=== PATIENT | female | born 1940 | race Hispanic/Latino ===

== ENCOUNTER 2022-01-02 17:34 | Emergency (ER) | payer OTHER ==
--- OUTSIDE RECORDS SUMMARY | 2022-01-02 17:45 | XMS REPORT | Continuity of Care Document ---
:1940 Author Organization [facility] t Address [address] [place] [address] Care Team Providers Name Role Phone Elizabeth WEBER, Jess Primary Care Physician Pob, Adc Lab Main Attending Clinician Unavailable Tez Drake MD Attending Clinician TEZ DRAKE Attending Clinician Unavailable Doctor Unassigned, Stafford Attending Clinician Unavailable RADIOLOGY Attending Clinician Unavailable Radiology Attending Clinician Unavailable Unknown, Attending Attending Clinician Unavailable UNKNOWN, ATTENDING Attending Clinician Unavailable Ajibade_O_AH Attending Clinician Unavailable Jessica Zhong DO Attending Clinician JESSICA ZHONG Attending Clinician Unavailable Matt Kessler RN Attending Clinician Unavailable NICKIE MARTIN Attending Clinician Unavailable Ige-Odunseveriano_J_AH Attending Clinician Unavailable ROSELIA AYALA Admitting Clinician Unavailable Ajibade_O_AH Admitting Clinician Unavailable NICKIE MARTIN Admitting Clinician Unavailable Ige-Odunseveriano_J_AH Admitting Clinician Unavailable Payers Payer Name Policy Type Policy Number Effective Date Expiration Date S [facility] [id number] 2019 [employer] 00:00:00 (MEDICARE REPLACEMENT/ADVANT AGE - HMO) Problems Condition Condition Condition Status Onset Resolution Last Treating Co mments Source Name Details Category Date Date Treatment Clinician Date ROMA (acute ROMA (acute Disease Active U reji kidney kidney 5-30 ity of injury) injury) 00:00: [place] 00 [facility] Heart Heart Disease Active [facility] failure failure 5-30 ity of 00:00: [place] 00 [facility] Pneumonia Pneumonia Disease Active 2018-02 Uni vers 2-27 ity of 00:00: [place] [facility] Dyslipidem Dyslipidem Disease Active 2018-02 U reji ia ia 0-11 ity of 00:00: [place] 00 Medical Branch HFrEF HFrEF Disease Active 2018-02 Univers (heart (heart 0-11 ity of failure failure 00:00: [place] with with 00 Medical reduced reduced Branch ejection ejection fraction) fraction) HFrEF HFrEF Disease Active 2018-02 Univers (heart (heart 0-11 ity of failure failure 00:00: [place] with with 00 Medical reduced reduced Branch ejection ejection fraction) fraction) CHF CHF Disease Active 2018-02 Univers exacerbati exacerbati 0-09 it y of on on 00:00: [place] [address] Medical Branch 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 Active 2018-02 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 00 Medica l and and Branch 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 Essential Essential Disease Active 2018-02 Uni vers hypertensi hypertensi 0-09 it y of on on 00:00: [place] 00 Medical Branch Obesity Obesity Disease Active 2018-02 Univers (BMI (BMI 0-09 ity of 30-39.9) 30-39.9) 00:00: [place] 00 Medical Branch Allergies, Adverse Reactions, Alerts Allergy Allergy Status Severity Reaction(s) Onset Inactive Treating Comm ents Source Name Type Date Date Clinician SPIRONOL DRUG Active Unknown-Cmnt 2018-02 Un neela ACTONE INGREDI 2-28 ity of 00:00: [place] 00 Medical Branch Spironol Propensi Active Unknown - 2018-02 [employer] [facility] actone ty to See comments 2-28 alexa ity of adverse 00:00: [place] reaction 00 Medical s Branch Family History Family Member Diagnosis Comments Start Date Stop Date Source Natural [facility] Social [facility] Social Habit Start Date Stop Date Quantity Comments Source Exposure to 2021-08-15 2021-08-25 Not sure [facility]-CoV-2 00:00:00 11:51:00 [facility] (event) Branch Tobacco use and 2019-02-08 2019-02-08 Smokeless tobacco Un iversity of exposure 00:00:00 00:00:00 non-user [facility] Alcohol intake 2017-02-28 2017-02-28 Current [facility] 00:00:00 00:00:00 non-drinker of alcohol (finding) Sex [birth year] [facility] 00:00:00 00:00:00 Smoking Status Start Date Stop Date Source Never smoked tobacco [facility] [place] Medications Ordered Filled Start Stop Current Ordering Indication Dosage Frequency Signature Comments Components Source Medication Medication Date Date Medication? Clinician (SIG) Name Name CARVEDILOL 2-0 No 3.125MG TAB 9-19 00:00: 00 CARVEDILOL 2-0 No 3.125MG TAB 9-19 00:00: 00 TAKE 1 2-0 No TABLET BY 8-15 MOUTH DAILY 00:00: 00 TAKE 1 2-0 No TABLET BY 8-15 MOUTH DAILY 00:00: 00 TAKE 1 2022-0 No 10 TABLET BY 7-19 MOUTH DAILY 00:00: 00 TAKE 1 2022-0 No 10 TABLET BY 7-19 MOUTH DAILY 00:00: 00 atorvastati 2022-0 No 1mg n 10 mg 7-13 tablet 00:00: 00 atorvastati 2022-0 No 1mg n 10 mg 7-13 tablet 00:00: 00 raloxifene 2022-0 No 1mg 60 mg 7-13 tablet 00:00: 00 montelukast 2022-0 No 1mg 10 mg 7-13 tablet 00:00: 00 levothyroxi 2022-0 No 1mcg ne 75 mcg 7-13 tablet 00:00: 00 TAKE 1 2022-0 No 10 TABLET BY 7-13 MOUTH DAILY 00:00: 00 atorvastati 2022-0 No 1mg n 10 mg 7-13 tablet 00:00: 00 atorvastati 2022-0 No 1mg n 10 mg 7-13 tablet 00:00: 00 raloxifene 2022-0 No 1mg 60 mg 7-13 tablet 00:00: 00 montelukast 2022-0 No 1mg 10 mg 7-13 tablet 00:00: 00 levothyroxi 2022-0 No 1mcg ne 75 mcg 7-13 tablet 00:00: 00 TAKE 1 2022-0 No 10 TABLET BY 7-13 MOUTH DAILY 00:00: 00 &lt 2022-0 No 25 7 00:00: 00 &lt 2022-0 No 100 7 00:00: 00 Dose 2022-0 No Unknown 7 00:00: 00 TAKE 2 2022-0 No 40 TABLETS BY 7-11 MOUTH TWICE 00:00: DAILY 00 &lt 2022-0 No 7 00:00: 00 TAKE 1 2-0 No 10 TABLET BY 7-11 MOUTH DAILY 00:00: 00 TAKE 1 2-0 No 60 TABLET BY 7-11 MOUTH DAILY 00:00: 00 &lt 2022-0 No 25 7 00:00: 00 &lt 2022-0 No 100 7 00:00: 00 Dose 2022-0 No Unknown 08-23 00:00: 00 TAKE 2 2-0 No 40 TABLETS BY 7-11 MOUTH TWICE 00:00: DAILY 00 &lt 2022-0 No 08-23 00:00: 00 TAKE 1 2-0 No 10 TABLET BY 7-11 MOUTH DAILY 00:00: 00 TAKE 1 2-0 No 60 TABLET BY 7-11 MOUTH DAILY 00:00: 00 &lt 2022-0 No 25 7 00:00: 00 &lt 2022-0 No 100 08-23 00:00: 00 Dose 2022-0 No Unknown 08-23 00:00: 00 TAKE 2 2022-0 No 40 TABLETS BY 7-11 MOUTH TWICE 00:00: DAILY 00 &lt 2022-0 No 7- 00:00: 00 TAKE 1 2-0 No 10 TABLET BY 7-11 MOUTH DAILY 00:00: 00 TAKE 1 2022-0 No 60 TABLET BY 7-11 MOUTH DAILY 00:00: 00 atorvastati 2022-0 No 1mg n 10 mg 6-08 tablet 00:00: 00 levothyroxi 2022-0 No 1mcg ne 75 mcg 6-08 tablet 00:00: 00 atorvastati 2022-0 No 1mg n 10 mg 6-08 tablet 00:00: 00 levothyroxi 2022-0 No 1mcg ne 75 mcg 6-08 tablet 00:00: 00 atorvastati 2022-0 No 1mg n 10 mg 6-08 tablet 00:00: 00 levothyroxi 2022-0 No 1mcg ne 75 mcg 6-08 tablet 00:00: 00 allopurinol 2022-0 No 1mg 100 mg 3-17 tablet 00:00: 00 atorvastati 2022-0 No 1mg n 10 mg 3-17 tablet 00:00: 00 allopurinol 2022-0 No 1mg 100 mg 3-17 tablet 00:00: 00 atorvastati 2022-0 No 1mg n 10 mg 3-17 tablet 00:00: 00 allopurinol 2022-0 No 1mg 100 mg 3-17 tablet 00:00: 00 atorvastati 2022-0 No 1mg n 10 mg 3-17 tablet 00:00: 00 Dose 2022-0 No Unknown 3-08 00:00: 00 Dose 2022-0 No Unknown 3-08 00:00: 00 Dose 2022-0 No Unknown 3-08 00:00: 00 Dose 2022-0 No Unknown 3-08 00:00: 00 Dose 2022-0 No Unknown 3-08 00:00: 00 Dose 2022-0 No Unknown 3-08 00:00: 00 Dose 2022-0 No Unknown 3-08 00:00: 00 Dose 2022-0 No Unknown 3-08 00:00: 00 Dose 2022-0 No Unknown 3-08 00:00: 00 Dose 2022-0 No Unknown 3-08 00:00: 00 Dose 2022-0 No Unknown 3-08 00:00: 00 Dose 2022-0 No Unknown 3-08 00:00: 00 Dose 2022-0 No Unknown 3-08 00:00: 00 Dose 2022-0 No Unknown 3-08 00:00: 00 Dose 2022-0 No Unknown 3-08 00:00: 00 Dose 2022-0 No Unknown 3-08 00:00: 00 Dose 2022-0 No Unknown 3-08 00:00: 00 Dose 2022-0 No Unknown 3-08 00:00: 00 Dose 2022-0 No Unknown 3-08 00:00: 00 Dose 2022-0 No Unknown 3-08 00:00: 00 Dose 2022-0 No Unknown 3-08 00:00: 00 Dose 2022-0 No Unknown 3-08 00:00: 00 Dose 2022-0 No Unknown 3-08 00:00: 00 Dose 2022-0 No Unknown 3-08 00:00: 00 Dose 2022-0 No Unknown 3-08 00:00: 00 Dose 2022-0 No Unknown 3-08 00:00: 00 Dose 2022-0 No Unknown 3-08 00:00: 00 Dose 2022-0 No Unknown 3-08 00:00: 00 Dose 2022-0 No Unknown 3-08 00:00: 00 Dose 2022-0 No Unknown 3-08 00:00: 00 Dose 2022-0 No Unknown 3-08 00:00: 00 Dose 2022-0 No Unknown 3-08 00:00: 00 Dose 2022-0 No Unknown 3-08 00:00: 00 Dose 2022-0 No Unknown 3-08 00:00: 00 Dose 2022-0 No Unknown 3-08 00:00: 00 Dose 2022-0 No Unknown 3-08 00:00: 00 Dose 2022-0 No Unknown 3-01 00:00: 00 raloxifene 2022-0 No 1mg 60 mg 3-01 tablet 00:00: 00 Dose 2022-0 No Unknown 3-01 00:00: 00 raloxifene 2022-0 No 1mg 60 mg 3-01 tablet 00:00: 00 Dose 2022-0 No Unknown 3-01 00:00: 00 raloxifene 2022-0 No 1mg 60 mg 3-01 tablet 00:00: 00 furosemide 2022-0 No 1mg 40 mg 2-17 tablet 00:00: 00 furosemide 2022-0 No 1mg 40 mg 2-17 tablet 00:00: 00 furosemide 2022-0 No 1mg 40 mg 2-17 tablet 00:00: 00 montelukast 2022-0 No 1mg 10 mg 1-06 tablet 00:00: 00 montelukast 2022-0 No 1mg 10 mg 1-06 tablet 00:00: 00 montelukast 2022-0 No 1mg 10 mg 1-06 tablet 00:00: 00 metoprolol 2022-0 No 1mg succinate 1-03 ER 25 mg 00:00: tablet,exte 00 nded release 24 hr metoprolol 0 No 1mg succinate 1-03 ER 25 mg 00:00: tablet,exte 00 nded release 24 hr metoprolol 0 No 1mg succinate 1-03 ER 25 mg 00:00: tablet,exte 00 nded release 24 hr furosemide 2020-02 No 2mg 40 mg 2-30 tablet 00:00: 00 furosemide 2020-02 No 1mg 40 mg 2-30 tablet 00:00: 00 furosemide 2020-02 No 2mg 40 mg 2-30 tablet 00:00: 00 furosemide 2020-02 No 1mg 40 mg 2-30 tablet 00:00: 00 furosemide 2020-02 No 2mg 40 mg 2-30 tablet 00:00: 00 furosemide 2020-02 No 1mg 40 mg 2-30 tablet 00:00: 00 levothyroxi 2020-02 No 1mcg ne 75 mcg 2-27 tablet 00:00: 00 levothyroxi 2020-02 No 1mcg ne 75 mcg 2-27 tablet 00:00: 00 levothyroxi 2020-02 No 1mcg ne 75 mcg 2-27 tablet 00:00: 00 magnesium 2020-02 No 1mg oxide 400 1-24 magnesi mg (241.3 00:00: um) mg 00 magnesium) tablet magnesium 2020-02 No 1mg oxide 400 1-24 magnesi mg (241.3 00:00: um) mg 00 magnesium) tablet magnesium 2020-02 No 1mg oxide 400 1-24 magnesi mg (241.3 00:00: um) mg 00 magnesium) tablet montelukast 2020-02 No 1mg 10 mg 1-16 tablet 00:00: 00 Dose 2020-02 No Unknown 1-16 00:00: 00 Dose 2020-02 No Unknown 1-16 00:00: 00 Dose 2020-02 No Unknown 1-16 00:00: 00 furosemide 2020-02 No 2mg 40 mg 1-16 tablet 00:00: 00 Entresto 49 2020-02 No 5mg mg-51 mg 1-16 tablet 00:00: 00 levothyroxi 2020-02 No 1mcg ne 75 mcg 1-16 tablet 00:00: 00 Flonase 2020-02 No 1mcg/ac Allergy 1-16 tuation Relief 50 00:00: mcg/actuati 00 on nasal spray,suspe nsion montelukast 2020-02 No 1mg 10 mg 1-16 tablet 00:00: 00 Dose 2020-02 No Unknown 1-16 00:00: 00 Dose 2020-02 No Unknown 1-16 00:00: 00 Dose 2020-02 No Unknown 1-16 00:00: 00 furosemide 2020-02 No 2mg 40 mg 1-16 tablet 00:00: 00 Entresto 49 2020-02 No 5mg mg-51 mg 1-16 tablet 00:00: 00 levothyroxi 2020-02 No 1mcg ne 75 mcg 1-16 tablet 00:00: 00 Flonase 2020-02 No 1mcg/ac Allergy 1-16 tuation Relief 50 00:00: mcg/actuati 00 on nasal spray,suspe nsion montelukast 2020-02 No 1mg 10 mg 1-16 tablet 00:00: 00 Dose 2020-02 No Unknown 1-16 00:00: 00 Dose 2020-02 No Unknown 1-16 00:00: 00 Dose 2020-02 No Unknown 1-16 00:00: 00 furosemide 2020-02 No 2mg 40 mg 1-16 tablet 00:00: 00 Entresto 49 2020-02 No 5mg mg-51 mg 1-16 tablet 00:00: 00 levothyroxi 2020-02 No 1mcg ne 75 mcg 1-16 tablet 00:00: 00 Flonase 2020-02 No 1mcg/ac Allergy -16 tuation Relief 50 00:00: mcg/actuati 00 on nasal spray,suspe nsion montelukast 2020-02 No 1mg 10 mg 0-13 tablet 00:00: 00 montelukast 2020-02 No 1mg 10 mg 0-13 tablet 00:00: 00 montelukast 2020-02 No 1mg 10 mg 0-13 tablet 00:00: 00 Dose 2020-0 No Unknown 9- 00:00: 00 Dose 2020-0 No Unknown 9- 00:00: 00 Dose 2020-0 No Unknown 9- 00:00: 00 allopurinol 2020-0 No 1mg 100 mg 9-10 tablet 00:00: 00 allopurinol 2021-0 No 1mg 100 mg 9-10 tablet 00:00: 00 allopurinol 2021-0 No 1mg 100 mg 9-10 tablet 00:00: 00 raloxifene 2021-0 No 1mg 60 mg 8-24 tablet 00:00: 00 atorvastati 2021-0 No 1mg n 10 mg 8-24 tablet 00:00: 00 raloxifene 2021-0 No 1mg 60 mg 8-24 tablet 00:00: 00 atorvastati 2021-0 No 1mg n 10 mg 8-24 tablet 00:00: 00 raloxifene 2021-0 No 1mg 60 mg 8-24 tablet 00:00: 00 atorvastati 2021-0 No 1mg n 10 mg 8-24 tablet 00:00: 00 furosemide 2021-0 No 2mg 40 mg 8-03 tablet 00:00: 00 furosemide 2021-0 No 2mg 40 mg 8-03 tablet 00:00: 00 furosemide 2021-0 No 2mg 40 mg 8-03 tablet 00:00: 00 furosemide 2021-0 No 1mg 40 mg 7-26 tablet 00:00: 00 furosemide 2021-0 No 2mg 40 mg 7-26 tablet 00:00: 00 furosemide 2021-0 No 1mg 40 mg 7-26 tablet 00:00: 00 furosemide 2021-0 No 2mg 40 mg 7-26 tablet 00:00: 00 furosemide 2021-0 No 1mg 40 mg 7-26 tablet 00:00: 00 furosemide 2021-0 No 2mg 40 mg 7-26 tablet 00:00: 00 raloxifene 2021-0 No 1mg 60 mg 6-24 tablet 00:00: 00 raloxifene 2021-0 No 1mg 60 mg 6-24 tablet 00:00: 00 raloxifene 2021-0 No 1mg 60 mg 6-24 tablet 00:00: 00 montelukast 2021-0 No 1mg 10 mg 6-14 tablet 00:00: 00 levothyroxi 2021-0 No 1mcg ne 75 mcg 6-14 tablet 00:00: 00 montelukast 2021-0 No 1mg 10 mg 6-14 tablet 00:00: 00 levothyroxi 2021-0 No 1mcg ne 75 mcg 6-14 tablet 00:00: 00 montelukast 2021-0 No 1mg 10 mg 6-14 tablet 00:00: 00 levothyroxi 2021-0 No 1mcg ne 75 mcg 6-14 tablet 00:00: 00 furosemide 2021-0 No 1mg 40 mg 5-24 tablet 00:00: 00 atorvastati 2021-0 No 1mg n 10 mg 5-24 tablet 00:00: 00 Entresto 49 2021-0 No 5mg mg-51 mg 5-24 tablet 00:00: 00 furosemide 2021-0 No 1mg 40 mg 5-24 tablet 00:00: 00 atorvastati 2021-0 No 1mg n 10 mg 5-24 tablet 00:00: 00 Entresto 49 2021-0 No 5mg mg-51 mg 5-24 tablet 00:00: 00 furosemide 2021-0 No 1mg 40 mg 5-24 tablet 00:00: 00 atorvastati 2021-0 No 1mg n 10 mg 5-24 tablet 00:00: 00 Entresto 49 2021-0 No 5mg mg-51 mg 5-24 tablet 00:00: 00 allopurinol 2021-0 No 1mg 100 mg 5-11 tablet 00:00: 00 allopurinol 2021-0 No 1mg 100 mg 5-11 tablet 00:00: 00 allopurinol 2021-0 No 1mg 100 mg 5-11 tablet 00:00: 00 raloxifene 2021-0 No 1mg 60 mg 4-21 tablet 00:00: 00 raloxifene 2021-0 No 1mg 60 mg 4-21 tablet 00:00: 00 raloxifene 2021-0 No 1mg 60 mg 4-21 tablet 00:00: 00 furosemide 2021-0 No 1mg 40 mg 3-26 tablet 00:00: 00 Flonase 2021-0 No 1mcg/ac Allergy 3-26 tuation Relief 50 00:00: mcg/actuati 00 on nasal spray,suspe nsion furosemide 2021-0 No 1mg 40 mg 3-26 tablet 00:00: 00 Flonase 2021-0 No 1mcg/ac Allergy 3-26 tuation Relief 50 00:00: mcg/actuati 00 on nasal spray,suspe nsion furosemide 1-0 No 1mg 40 mg 3-26 tablet 00:00: 00 Flonase 1-0 No 1mcg/ac Allergy 3-26 tuation Relief 50 00:00: mcg/actuati 00 on nasal spray,suspe nsion atorvastati 2020-0 No 1mg n 10 mg 2-19 tablet 00:00: 00 atorvastati 1-0 No 1mg n 10 mg 2-19 tablet 00:00: 00 atorvastati 1-0 No 1mg n 10 mg 2-19 tablet 00:00: 00 ProAir HFA 1-0 No 1mcg/ac 90 2-04 tuation mcg/actuati 00:00: on aerosol 00 inhaler allopurinol 1-0 No 1mg 100 mg 2-04 tablet 00:00: 00 ProAir HFA 1-0 No 1mcg/ac 90 2-04 tuation mcg/actuati 00:00: on aerosol 00 inhaler allopurinol 1-0 No 1mg 100 mg 2-04 tablet 00:00: 00 ProAir HFA 1-0 No 1mcg/ac 90 2-04 tuation mcg/actuati 00:00: on aerosol 00 inhaler allopurinol 1-0 No 1mg 100 mg 2-04 tablet 00:00: 00 Entresto 49 1-0 No 5mg mg-51 mg 1-15 tablet 00:00: 00 Entresto 49 1-0 No 5mg mg-51 mg 1-15 tablet 00:00: 00 Flonase 1-0 No 1mcg/ac Allergy 1-15 tuation Relief 50 00:00: mcg/actuati 00 on nasal spray,suspe nsion Flonase 1-0 No 1mcg/ac Allergy 1-15 tuation Relief 50 00:00: mcg/actuati 00 on nasal spray,suspe nsion Entresto 49 1-0 No 5mg mg-51 mg 1-15 tablet 00:00: 00 Entresto 49 2021-0 No 5mg mg-51 mg 1-15 tablet 00:00: 00 Flonase 1-0 No 1mcg/ac Allergy 1-15 tuation Relief 50 00:00: mcg/actuati 00 on nasal spray,suspe nsion Flonase 1-0 No 1mcg/ac Allergy 1-15 tuation Relief 50 00:00: mcg/actuati 00 on nasal spray,suspe nsion Entresto 49 1-0 No 5mg mg-51 mg 1-15 tablet 00:00: 00 Entresto 49 1-0 No 5mg mg-51 mg 1-15 tablet 00:00: 00 Flonase 2021-0 No 1mcg/ac Allergy 1-15 tuation Relief 50 00:00: mcg/actuati 00 on nasal spray,suspe nsion Flonase 2021-0 No 1mcg/ac Allergy 1-15 tuation Relief 50 00:00: mcg/actuati 00 on nasal spray,suspe nsion montelukast 2020-1 No 1mg 10 mg 2-07 tablet 00:00: 00 montelukast 2020-1 No 1mg 10 mg 2-07 tablet 00:00: 00 montelukast 2020-1 No 1mg 10 mg 2-07 tablet 00:00: 00 raloxifene 2020-1 No 1mg 60 mg 1-10 tablet 00:00: 00 raloxifene 2020-1 No 1mg 60 mg 1-10 tablet 00:00: 00 raloxifene 2020-1 No 1mg 60 mg 1-10 tablet 00:00: 00 allopurinol 2020-1 No 1mg 100 mg 1-06 tablet 00:00: 00 allopurinol 2020-1 No 1mg 100 mg 1-06 tablet 00:00: 00 allopurinol 2020-1 No 1mg 100 mg 1-06 tablet 00:00: 00 levothyroxi 2020-0 No 1mcg ne 75 mcg 9-15 tablet 00:00: 00 levothyroxi 2020-0 No 1mcg ne 75 mcg 9-15 tablet 00:00: 00 levothyroxi 2020-0 No 1mcg ne 75 mcg 9-15 tablet 00:00: 00 omeprazole 2020-0 No 1mg 20 mg 9-08 capsule,del 00:00: ayed 00 release omeprazole 2020-0 No 1mg 20 mg 9-08 capsule,del 00:00: ayed 00 release omeprazole 2020-0 No 1mg 20 mg 9-08 capsule,del 00:00: ayed 00 release omeprazole 2020-0 No 1mg 20 mg 9-08 capsule,del 00:00: ayed 00 release omeprazole 2020-0 No 1mg 20 mg 9-08 capsule,del 00:00: ayed 00 release omeprazole 2020-0 No 1mg 20 mg 9-08 capsule,del 00:00: ayed 00 release omeprazole 2020-0 No 1mg 20 mg 9-08 capsule,del 00:00: ayed 00 release omeprazole 2020-0 No 1mg 20 mg 9-08 capsule,del 00:00: ayed 00 release omeprazole 2020-0 No 1mg 20 mg 9-08 capsule,del 00:00: ayed 00 release Entresto 49 2020-0 No 5mg mg-51 mg 8-27 tablet 00:00: 00 Entresto 49 2020-0 No 5mg mg-51 mg 8-27 tablet 00:00: 00 Entresto 49 2020-0 No 5mg mg-51 mg 8-27 tablet 00:00: 00 atorvastati 2020-0 No 1mg n 10 mg 8-17 tablet 00:00: 00 atorvastati 2020-0 No 1mg n 10 mg 8-17 tablet 00:00: 00 atorvastati 2020-0 No 1mg n 10 mg 8-17 tablet 00:00: 00 furosemide 2020-0 No 1mg 40 mg 8-12 tablet 00:00: 00 furosemide 2020-0 No 1mg 40 mg 8-12 tablet 00:00: 00 magnesium 2020-0 No 1x 1/3" oxide 400 8-12 mg (241.3 00:00: mg 00 magnesium) tablet furosemide 2020-0 No 1mg 40 mg 8-12 tablet 00:00: 00 furosemide 2020-0 No 1mg 40 mg 8-12 tablet 00:00: 00 magnesium 2020-0 No 1x 1/3" oxide 400 8-12 mg (241.3 00:00: mg 00 magnesium) tablet furosemide 2020-0 No 1mg 40 mg 8-12 tablet 00:00: 00 furosemide 2020-0 No 1mg 40 mg 8-12 tablet 00:00: 00 magnesium 2020-0 No 1x 1/3" oxide 400 8-12 mg (241.3 00:00: mg 00 magnesium) tablet triamcinolo 2020-0 No 1% ne 8- acetonide 00:00: 0.1 % 00 topical cream aspirin 81 2020-0 No 1mg mg 8-09 tablet,tania 00:00: yed release 00 triamcinolo 2020-0 No 1% ne 8-09 acetonide 00:00: 0.1 % 00 topical cream aspirin 81 2020-0 No 1mg mg 8-09 tablet,tania 00:00: yed release 00 triamcinolo 2020-0 No 1% ne 8-09 acetonide 00:00: 0.1 % 00 topical cream aspirin 81 2020-0 No 1mg mg 8-09 tablet,tania 00:00: yed release 00 spironolact 2020-0 No 1mg one 25 mg 7-14 tablet 00:00: 00 omeprazole 2020-0 No 1mg 20 mg 7-14 capsule,del 00:00: ayed 00 release spironolact 2020-0 No 1mg one 25 mg 7-14 tablet 00:00: 00 omeprazole 2020-0 No 1mg 20 mg 7-14 capsule,del 00:00: ayed 00 release spironolact 2020-0 No 1mg one 25 mg 7-14 tablet 00:00: 00 omeprazole 2020-0 No 1mg 20 mg 7-14 capsule,del 00:00: ayed 00 release ProAir HFA 2020-0 No 1mcg/ac 90 7-06 tuation mcg/actuati 00:00: on aerosol 00 inhaler ProAir HFA 2020-0 No 1mcg/ac 90 7-06 tuation mcg/actuati 00:00: on aerosol 00 inhaler ProAir HFA 2020-0 No 1mcg/ac 90 7-06 tuation mcg/actuati 00:00: on aerosol 00 inhaler magnesium 2020-0 No 1x 1/3" oxide 400 6-16 mg (241.3 00:00: mg 00 magnesium) tablet magnesium 2020-0 No 1x 1/3" oxide 400 6-16 mg (241.3 00:00: mg 00 magnesium) tablet magnesium 2020-0 No 1x 1/3" oxide 400 6-16 mg (241.3 00:00: mg 00 magnesium) tablet Entresto 49 2020-0 No 5mg mg-51 mg 6-10 tablet 00:00: 00 magnesium 2020-0 No 1x 1/3" oxide 400 6-10 mg (241.3 00:00: mg 00 magnesium) tablet magnesium 2020-0 No 1x 1/3" oxide 400 6-10 mg (241.3 00:00: mg 00 magnesium) tablet magnesium 2020-0 No 1x 1/3" oxide 400 6-10 mg (241.3 00:00: mg 00 magnesium) tablet Entresto 49 2020-0 No 5mg mg-51 mg 6-10 tablet 00:00: 00 magnesium 2020-0 No 1x 1/3" oxide 400 6-10 mg (241.3 00:00: mg 00 magnesium) tablet magnesium 2020-0 No 1x 1/3" oxide 400 6-10 mg (241.3 00:00: mg 00 magnesium) tablet magnesium 2020-0 No 1x 1/3" oxide 400 6-10 mg (241.3 00:00: mg 00 magnesium) tablet Entresto 49 2020-0 No 5mg mg-51 mg 6-10 tablet 00:00: 00 magnesium 2020-0 No 1x 1/3" oxide 400 6-10 mg (241.3 00:00: mg 00 magnesium) tablet magnesium 2020-0 No 1x 1/3" oxide 400 6-10 mg (241.3 00:00: mg 00 magnesium) tablet magnesium 2020-0 No 1x 1/3" oxide 400 6-10 mg (241.3 00:00: mg 00 magnesium) tablet glucosamine 2020-0 Yes 2{tbl} Take 2 Un neela /msm/chondr 6-02 tablets by it y of oitin A 22:45: mouth [place] (GLUCOSAMIN 56 daily. Medica l E-CHONDR-MS Branch M ORAL) LUTEIN ORAL 2020-0 Yes 30mg Take 30 mg Univers 6-02 by mouth ity of 22:45: daily. [address] Branch montelukast 2020-0 Yes 10mg Take 10 mg Univers 10 mg 6-02 by mouth ity of tablet 22:45: daily. [address] Branch MULTIVITAMI 2020-0 Yes 1{tbl} Take 1 Un neela N ORAL 6-02 tablet by ity of 22:45: mouth. [address] Branch sacubitril- 2020-0 Yes 1{tbl} Take 1 Un neela valsartan 6-02 tablet by ity o f 24-26 mg 22:45: mouth 2 [place] tablet 56 (two) Medical times Branch daily. CARVEDILOL 2020-0 Yes 3.125mg Take 3.125 Univers ORAL 6-02 mg by ity of 22:45: mouth 2 [place] 56 (two) Medical times Branch daily. atorvastati 2020-0 Yes 10mg Take 10 mg Univers n calcium 6-02 by mouth ity of (ATORVASTAT 22:[place]: [place]. [place] [facility] levothyroxi 2020-0 Yes 75ug Take 75 Uni vers ne 100 mcg 6-02 mcg by ity of tablet 22:45: mouth [place] [address] every Medical morning. Branch raloxifene 2020-0 Yes 60mg Take 60 mg U nivers (EVISTA) 60 6-02 by mouth ity of mg tablet 22:45: daily. [place] [address] Medical Branch glucosamine 2020-0 Yes 2{tbl} Take 2 Un neela /msm/chondr 6-02 tablets by it y of oitin A 22:45: mouth [place] (GLUCOSAMIN 56 daily. Medica l E-CHONDR-MS Branch M ORAL) LUTEIN ORAL 2020-0 Yes 30mg Take 30 mg Univers 6-02 by mouth ity of 22:45: daily. [address] Branch montelukast 2020-0 Yes 10mg Take 10 mg Univers 10 mg 6-02 by mouth ity of tablet 22:45: daily. [address] Branch MULTIVITAMI 2020-0 Yes 1{tbl} Take 1 Un neela N ORAL 6-02 tablet by ity of 22:45: mouth. [place] [address] Medical Branch sacubitril- 2020-0 Yes 1{tbl} Take 1 Un neela valsartan 6-02 tablet by ity o f 24-26 mg 22:45: mouth 2 [place] [address] (two) Medical times Branch daily. CARVEDILOL 2020-0 Yes 3.125mg Take 3.125 Univers ORAL 6-02 mg by ity of 22:45: mouth 2 [place] [address] (two) Medical times Branch daily. atorvastati 2020-0 Yes 10mg Take 10 mg [facility] n calcium 6-02 by mouth ity of (ATORVASTAT 22:45: [place]. [place] [facility] levothyroxi 2020-0 Yes 75ug Take 75 Uni vers ne 100 mcg 6-02 mcg by ity of tablet 22:45: mouth [place] [address] every Medical morning. Branch raloxifene 2020-0 Yes 60mg Take 60 mg U nivers (EVISTA) 60 6-02 by mouth ity of mg tablet 22:45: daily. [address] glucosamine 2020-0 Yes 2{tbl} Take 2 Un neela /msm/chondr 6-02 tablets by it y of oitin A 22:45: mouth [place] (GLUCOSAMIN 56 daily. Medica l E-CHONDR-MS Branch M ORAL) LUTEIN ORAL 2020-0 Yes 30mg Take 30 mg [facility] 6-02 by mouth ity of 22:45: daily. [address] Branch montelukast 2020-0 Yes 10mg Take 10 mg [facility] 10 mg 6-02 by mouth ity of tablet 22:45: daily. [address] MULTIVITAMI 2020-0 Yes 1{tbl} Take 1 Un neela N ORAL 6-02 tablet by ity of 22:45: mouth. [address] Branch sacubitril- 2019-0 Yes 1{tbl} Take 1 Un neela valsartan 6-02 tablet by ity o f 24-26 mg 22:45: mouth 2 [place] [address] (two) Medical times Branch daily. CARVEDILOL 2020-0 Yes 3.125mg Take 3.125 [facility] ORAL 6-02 mg by ity of 22:45: mouth 2 [place] [address] (two) Medical times Branch daily. atorvastati 2020-0 Yes 10mg Take 10 mg [facility] n calcium 6-02 by mouth ity of (ATORVASTAT [place]:45: [facility]. [place] [facility]othy[facility]xi [facility]-0 Yes 75ug Take 75 Uni vers ne 100 mcg 6-02 mcg by ity of tablet 22:45: mouth [place] [address] every Medical morning. Branch raloxifene 2019-0 Yes 60mg Take 60 mg U nivers (EVISTA) 60 6-02 by mouth ity of mg tablet 22:45: daily. [address] glucosamine 2020-0 Yes 2{tbl} Take 2 Un neela /msm/chondr 6-02 tablets by it y of oitin A 22:45: mouth [place] (GLUCOSAMIN 56 daily. Medica l E-CHONDR-MS Branch M ORAL) LUTEIN ORAL 2020-0 Yes 30mg Take 30 mg [facility] 6-02 by mouth ity of 22:45: daily. [address] montelukast 2020-0 Yes 10mg Take 10 mg [facility] 10 mg 6-02 by mouth ity of tablet 22:45: daily. [place] 56 [facility] MULTIVITAMI 2020-0 Yes 1{tbl} Take 1 Un neela N ORAL 6-02 tablet by ity of 22:45: mouth. [address] Branch sacubitril- 2020-0 Yes 1{tbl} Take 1 Un neela valsartan 6-02 tablet by ity o f 24-26 mg 22:45: mouth 2 [place] tablet 56 (two) Medical times Branch daily. CARVEDILOL 2020-0 Yes 3.125mg Take 3.125 [facility] ORAL 6-02 mg by ity of 22:45: mouth 2 [place] 56 (two) Medical times Branch daily. atorvastati 2020-0 Yes 10mg Take 10 mg [facility] n calcium 6-02 by mouth ity of (ATORVASTAT [place] [facility] levothyroxi 2019-0 Yes 75ug Take 75 Uni vers ne 100 mcg 6-02 mcg by ity of tablet 22:45: mouth [place] [address] every Medical morning. Branch raloxifene 2019-0 Yes 60mg Take 60 mg U nivers (EVISTA) 60 6-02 by mouth ity of mg tablet 22:45: daily. [address] Branch glucosamine 2020-0 Yes 2{tbl} Take 2 Un neela /msm/chondr 6-02 tablets by it y of oitin A 22:45: mouth [place] (GLUCOSAMIN 56 daily. Medica l E-CHONDR-MS Branch M ORAL) LUTEIN ORAL 2019-0 Yes 30mg Take 30 mg [facility] 6-02 by mouth ity of 22:45: daily. [address] Branch montelukast 2020-0 Yes 10mg Take 10 mg [facility] 10 mg 6-02 by mouth ity of tablet 22:45: daily. [address] MULTIVITAMI 2020-0 Yes 1{tbl} Take 1 Un neela N ORAL 6-02 tablet by ity of 22:45: mouth. [address] Branch sacubitril- 2020-0 Yes 1{tbl} Take 1 Un neela valsartan 6-02 tablet by ity o f 24-26 mg 22:45: mouth 2 [place] tablet 56 (two) Medical times Branch daily. CARVEDILOL 2020-0 Yes 3.125mg Take 3.125 [facility] ORAL 6-02 mg by ity of 22:45: mouth 2 [place] 56 (two) Medical times Branch daily. atorvastati 2020-0 Yes 10mg Take 10 mg [facility] n calcium 6-02 by mouth ity of (ATORVASTAT [place]:45: [place]. [place] [facility] levothyroxi 2020-0 Yes 75ug Take 75 Uni vers ne 100 mcg 6-02 mcg by ity of tablet 22:45: mouth [place] [address] every Medical morning. Branch raloxifene 2019-0 Yes 60mg Take 60 mg U nivers (EVISTA) 60 6-02 by mouth ity of mg tablet 22:45: daily. [place] [address] Medical Branch glucosamine 2019-0 Yes 2{tbl} Take 2 Un neela /msm/chondr 6-02 tablets by it y of oitin A 22:45: mouth [place] (GLUCOSAMIN 56 daily. Medica l E-CHONDR-MS Branch M ORAL) LUTEIN ORAL 2019-0 Yes 30mg Take 30 mg [facility] 6-02 by mouth ity of 22:45: daily. [address] Branch montelukast 2020-0 Yes 10mg Take 10 mg [facility] 10 mg 6-02 by mouth ity of tablet 22:45: daily. [place] [address] Medical Branch MULTIVITAMI 2020-0 Yes 1{tbl} Take 1 Un neela N ORAL 6-02 tablet by ity of 22:45: mouth. [place] [address] Medical Branch sacubitril- 2019-0 Yes 1{tbl} Take 1 Un neela valsartan 6-02 tablet by ity o f 24-26 mg 22:45: mouth 2 [place] [address] (two) Medical times Branch daily. CARVEDILOL 2020-0 Yes 3.125mg Take 3.125 [facility] ORAL 6-02 mg by ity of 22:45: mouth 2 [place] [address] (two) Medical times Branch daily. atorvastati 2020-0 Yes 10mg Take 10 mg [facility] n calcium 6-02 by mouth ity of (ATORVASTAT 22:[place]: [place] [facility] levothyroxi 2019-0 Yes 75ug Take 75 Uni vers ne 100 mcg 6-02 mcg by ity of tablet 22:45: mouth [place] [address] every Medical morning. Branch raloxifene 2019-0 Yes 60mg Take 60 mg U nivers (EVISTA) 60 6-02 by mouth ity of mg tablet 22:45: daily. [place] [address] Medical Branch CARVEDILOL 2020-0 Yes 3.125mg Take 3.125 [facility] ORAL 6-02 mg by ity of 17:45: mouth 2 [place] 56 (two) Medical times Branch daily. atorvastati 2020-0 Yes 10mg Take 10 mg [facility] n calcium 6-02 by mouth ity of (ATORVASTAT 17:45: [place]. [place] [facility] levothyroxi 2019-0 Yes 75ug Take 75 Uni vers ne 100 mcg 6-02 mcg by ity of tablet 17:45: mouth [place] [address] every Medical morning. Branch raloxifene 2019-0 Yes 60mg Take 60 mg U nivers (EVISTA) 60 6-02 by mouth ity of mg tablet 17:45: daily. [place] [address] Medical Branch glucosamine 2019-0 Yes 2{tbl} Take 2 Un neela /msm/chondr 6-02 tablets by it y of oitin A 17:45: mouth [place] (GLUCOSAMIN 56 daily. Medica l E-CHONDR-MS Branch M ORAL) LUTEIN ORAL 2019-0 Yes 30mg Take 30 mg [facility] 6-02 by mouth ity of 17:45: daily. [place] [address] Medical Branch montelukast 2019-0 Yes 10mg Take 10 mg [facility] 10 mg 6-02 by mouth ity of tablet 17:45: daily. [address] Branch MULTIVITAMI 2019-0 Yes 1{tbl} Take 1 Un neela N ORAL 6-02 tablet by ity of 17:45: mouth. [address] Branch sacubitril- 2019-0 Yes 1{tbl} Take 1 Un neela valsartan 6-02 tablet by ity o f 24-26 mg 17:45: mouth 2 [place] [address] (two) Medical times Branch daily. CARVEDILOL 2020-0 Yes 3.125mg Take 3.125 [facility] ORAL 6-02 mg by ity of 17:45: mouth 2 [place] [address] (two) Medical times Branch daily. atorvastati 2020-0 Yes 10mg Take 10 mg [facility] n calcium 6-02 by mouth ity of (ATORVASTAT 17:45: [place]. [place] [facility] levothyroxi 2019-0 Yes 75ug Take 75 Uni vers ne 100 mcg 6-02 mcg by ity of tablet 17:45: mouth [place] [address] every Medical morning. Branch raloxifene 2020-0 Yes 60mg Take 60 mg U nivers (EVISTA) 60 6-02 by mouth ity of mg tablet 17:45: daily. [place] [address] Medical Branch glucosamine 2020-0 Yes 2{tbl} Take 2 Un neela /msm/chondr 6-02 tablets by it y of oitin A 17:45: mouth [place] (GLUCOSAMIN 56 daily. Medica l E-CHONDR-MS Branch M ORAL) LUTEIN ORAL 2020-0 Yes 30mg Take 30 mg [facility] 6-02 by mouth ity of 17:45: daily. [address] Branch montelukast 2020-0 Yes 10mg Take 10 mg [facility] 10 mg 6-02 by mouth ity of tablet 17:45: daily. [place] [address] Medical Branch MULTIVITAMI 2020-0 Yes 1{tbl} Take 1 Un neela N ORAL 6-02 tablet by ity of 17:45: mouth. [place] [address] Medical Branch sacubitril- 2020-0 Yes 1{tbl} Take 1 Un neela valsartan 6-02 tablet by ity o f 24-26 mg 17:45: mouth 2 [place] tablet (two) Medical times Branch daily. CARVEDILOL 2020-0 Yes 3.125mg Take 3.125 [facility] ORAL 6-02 mg by ity of 17:45: mouth 2 [place] 56 (two) Medical times Branch daily. atorvastati 2020-0 Yes 10mg Take 10 mg [facility] n calcium 6-02 by mouth ity [facility]ATORVASTAT [place]:45[facility] [place] [facility]-0 Yes 75ug Take 75 [facility] vers ne 100 mcg 6-02 mcg by ity of tablet 17:45: mouth [place] [address] every Medical morning. Branch raloxifene 2020-0 Yes 60mg Take 60 mg U nivers (EVISTA) 60 6-02 by mouth ity of mg tablet 17:45: daily. [place] [address] Medical Branch glucosamine 2020-0 Yes 2{tbl} Take 2 Un neela /msm/chondr 6-02 tablets by it y of oitin A 17:45: mouth [place] (GLUCOSAMIN 56 daily. Medica l E-CHONDR-MS Branch M ORAL) LUTEIN ORAL 2020-0 Yes 30mg Take 30 mg [facility] 6-02 by mouth ity of 17:45: daily. [place] [address] Medical Branch montelukast 2020-0 Yes 10mg Take 10 mg [facility] 10 mg 6-02 by mouth ity of tablet 17:45: daily. [address] Branch MULTIVITAMI 2019-0 Yes 1{tbl} Take 1 Un neela N ORAL 6-02 tablet by ity of 17:45: mouth. [address] Branch sacubitril- 2019-0 Yes 1{tbl} Take 1 Un neela valsartan 6-02 tablet by ity o f 24-26 mg 17:45: mouth 2 [place] tablet 56 (two) Medical times Branch daily. CARVEDILOL 2019-0 Yes 3.125mg Take 3.125 [facility] ORAL 6-02 mg by ity of 17:45: mouth 2 [place] [address] (two) Medical times Branch daily. atorvastati 2019-0 Yes 10mg Take 10 mg [facility] n calcium 6-02 by mouth ity of (ATORVASTAT 17:45: [place]. [place] [facility] levothyroxi 2019-0 Yes 75ug Take 75 Uni vers ne 100 mcg 6-02 mcg by ity of tablet 17:45: mouth [place] [address] every Medical morning. Branch raloxifene 2019-0 Yes 60mg Take 60 mg U nivers (EVISTA) 60 6-02 by mouth ity of mg tablet 17:45: daily. [address] glucosamine 2019-0 Yes 2{tbl} Take 2 Un neela /msm/chondr 6-02 tablets by it y of oitin A 17:45: mouth [place] (GLUCOSAMIN 56 daily. Medica l E-CHONDR-MS Branch M ORAL) LUTEIN ORAL 2019-0 Yes 30mg Take 30 mg [facility] 6-02 by mouth ity of 17:45: daily. [address] montelukast 2019-0 Yes 10mg Take 10 mg [facility] 10 mg 6-02 by mouth ity of tablet 17:45: daily. [address] MULTIVITAMI 2019-0 Yes 1{tbl} Take 1 Un neela N ORAL 6-02 tablet by ity of 17:45: mouth. [address] Branch sacubitril- 2019-0 Yes 1{tbl} Take 1 Un neela valsartan 6-02 tablet by ity o f 24-26 mg 17:45: mouth 2 [place] tablet 56 (two) Medical times Branch daily. levothyroxi 2020-0 No 1mcg ne 75 mcg 6-02 tablet 00:00: 00 levothyroxi 2020-0 No 1mcg ne 75 mcg 6-02 tablet 00:00: 00 levothyroxi 2020-0 No 1mcg ne 75 mcg 6-02 tablet 00:00: 00 furosemide 2020-0 Yes [id number] 80mg Take 2 [facility] 40 mg 6-02 tablets by ity of tablet 00:00: mouth [place] 00 daily. Medical Branch KCL 20 mEq 2020-0 Yes [id number] 20meq Take 1 [facility] tablet 6-02 tablet by ity of 00:00: mouth [place] 00 daily. Medical Branch furosemide 2020-0 Yes [id number] 80mg Take 2 [facility] 40 mg 6-02 tablets by ity of tablet 00:00: mouth [place] 00 daily. Medical Branch KCL 20 mEq 2020-0 Yes [id number] 20meq Take 1 [facility] tablet 6-02 tablet by ity of 00:00: mouth [place] 00 daily. Medical Branch furosemide 2020-0 Yes [id number] 80mg Take 2 [facility] 40 mg 6-02 tablets by ity of tablet 00:00: mouth [place] 00 daily. Medical Branch KCL 20 mEq 2020-0 Yes [id number] 20meq Take 1 [facility] tablet 6-02 tablet by ity of 00:00: mouth [place] 00 daily. Medical Branch furosemide 2020-0 Yes [id number] 80mg Take 2 [facility] 40 mg 6-02 tablets by ity of tablet 00:00: mouth [place] 00 daily. Medical Branch KCL 20 mEq 2020-0 Yes [id number] 20meq Take 1 [facility] tablet 6-02 tablet by ity of 00:00: mouth [place] 00 daily. Medical Branch furosemide 2020-0 Yes [id number] 80mg Take 2 [facility] 40 mg 6-02 tablets by ity of tablet 00:00: mouth [place] 00 daily. Medical Branch KCL 20 mEq 2020-0 Yes [id number] 20meq Take 1 [facility] tablet 6-02 tablet by ity of 00:00: mouth [place] 00 daily. Medical Branch furosemide 2020-0 Yes [id number] 80mg Take 2 [facility] 40 mg 6-02 tablets by ity of tablet 00:00: mouth [place] 00 daily. Medical Branch KCL 20 mEq 2020-0 Yes [id number] 20meq Take 1 [facility] tablet 6-02 tablet by ity of 00:00: mouth [place] 00 daily. Medical Branch furosemide 2020-0 Yes [id number] 80mg Take 2 [facility] 40 mg 6-02 tablets by ity of tablet 00:00: mouth [place] 00 daily. Medical Branch KCL 20 mEq 2020-0 Yes [id number] 20meq Take 1 [facility] tablet 6-02 tablet by ity of 00:00: mouth [place] 00 daily. Medical Branch furosemide 2020-0 Yes [id number] 80mg Take 2 [facility] 40 mg 6-02 tablets by ity of tablet 00:00: mouth [place] 00 daily. Medical Branch KCL 20 mEq 2020-0 Yes [id number] 20meq Take 1 [facility] tablet 6-02 tablet by ity of 00:00: mouth [place] 00 daily. Medical Branch furosemide 2020-0 Yes [id number] 80mg Take 2 [facility] 40 mg 6-02 tablets by ity of tablet 00:00: mouth [place] 00 daily. Medical Branch KCL 20 mEq 2020-0 Yes [id number] 20meq Take 1 [facility] tablet 6-02 tablet by ity of 00:00: mouth [place] 00 daily. Medical Branch furosemide 2020-0 Yes [id number] 80mg Take 2 [facility] 40 mg 6-02 tablets by ity of tablet 00:00: mouth [place] 00 daily. Medical Branch KCL 20 mEq 2020-0 Yes [id number] 20meq Take 1 [facility] tablet 6-02 tablet by ity of 00:00: mouth [place] 00 daily. Medical Branch montelukast 2020-0 No 1mg 10 mg 5-11 tablet 00:00: 00 magnesium 2020-0 No 1x 1/3" oxide 400 5-11 mg (241.3 00:00: mg 00 magnesium) tablet montelukast 2020-0 No 1mg 10 mg 5-11 tablet 00:00: 00 magnesium 2020-0 No 1x 1/3" oxide 400 5-11 mg (241.3 00:00: mg 00 magnesium) tablet montelukast 2020-0 No 1mg 10 mg 5-11 tablet 00:00: 00 magnesium 2020-0 No 1x 1/3" oxide 400 5-11 mg (241.3 00:00: mg 00 magnesium) tablet ProAir HFA 2020-0 No 1mcg/ac 90 5-07 tuation mcg/actuati 00:00: on aerosol 00 inhaler potassium 2020-0 No 1mEq chloride ER 5-07 10 mEq 00:00: tablet,exte 00 nded release ProAir HFA 2020-0 No 1mcg/ac 90 5-07 tuation mcg/actuati 00:00: on aerosol 00 inhaler potassium 2020-0 No 1mEq chloride ER 5-07 10 mEq 00:00: tablet,exte 00 nded release ProAir HFA 2020-0 No 1mcg/ac 90 5-07 tuation mcg/actuati 00:00: on aerosol 00 inhaler potassium 2020-0 No 1mEq chloride ER 5-07 10 mEq 00:00: tablet,exte 00 nded release raloxifene 2020-0 No 1mg 60 mg 5-05 tablet 00:00: 00 raloxifene 2020-0 No 1mg 60 mg 5-05 tablet 00:00: 00 raloxifene 2020-0 No 1mg 60 mg 5-05 tablet 00:00: 00 raloxifene 2020-0 No 1mg 60 mg 4-14 tablet 00:00: 00 raloxifene 2020-0 No 1mg 60 mg 4-14 tablet 00:00: 00 raloxifene 2020-0 No 1mg 60 mg 4-14 tablet 00:00: 00 Entresto 49 2020-0 No 5mg mg-51 mg 3-24 tablet 00:00: 00 Entresto 49 2020-0 No 5mg mg-51 mg 3-24 tablet 00:00: 00 Entresto 49 2020-0 No 5mg mg-51 mg 3-24 tablet 00:00: 00 potassium 2020-0 No 1mEq chloride ER 3-10 10 mEq 00:00: tablet,exte 00 nded release magnesium 2020-0 No 1x 1/3" oxide 400 3-10 mg (241.3 00:00: mg 00 magnesium) tablet potassium 2020-0 No 1mEq chloride ER 3-10 10 mEq 00:00: tablet,exte 00 nded release magnesium 2020-0 No 1x 1/3" oxide 400 3-10 mg (241.3 00:00: mg 00 magnesium) tablet potassium 2020-0 No 1mEq chloride ER 3-10 10 mEq 00:00: tablet,exte 00 nded release magnesium 2020-0 No 1x 1/3" oxide 400 3-10 mg (241.3 00:00: mg 00 magnesium) tablet raloxifene 2020-0 No 1mg 60 mg 2-18 tablet 00:00: 00 montelukast 2020-0 No 1mg 10 mg 2-18 tablet 00:00: 00 atorvastati 2020-0 No 1mg n 10 mg 2-18 tablet 00:00: 00 furosemide 2020-0 No 1mg 40 mg 2-18 tablet 00:00: 00 raloxifene 2020-0 No 1mg 60 mg 2-18 tablet 00:00: 00 montelukast 2020-0 No 1mg 10 mg 2-18 tablet 00:00: 00 atorvastati 2020-0 No 1mg n 10 mg 2-18 tablet 00:00: 00 furosemide 2020-0 No 1mg 40 mg 2-18 tablet 00:00: 00 raloxifene 2020-0 No 1mg 60 mg 2-18 tablet 00:00: 00 montelukast 2020-0 No 1mg 10 mg 2-18 tablet 00:00: 00 atorvastati 2020-0 No 1mg n 10 mg 2-18 tablet 00:00: 00 furosemide 2020-0 No 1mg 40 mg 2-18 tablet 00:00: 00 magnesium 2020-0 No 1x 1/3" oxide 400 1-30 mg (241.3 00:00: mg 00 magnesium) tablet magnesium 2020-0 No 1x 1/3" oxide 400 1-30 mg (241.3 00:00: mg 00 magnesium) tablet magnesium 2020-0 No 1x 1/3" oxide 400 1-30 mg (241.3 00:00: mg 00 magnesium) tablet montelukast 2020-0 No 1mg 10 mg 1-06 tablet 00:00: 00 raloxifene 2020-0 No 1mg 60 mg 1-06 tablet 00:00: 00 furosemide 2020-0 No 1mg 40 mg 1-06 tablet 00:00: 00 carvedilol 2020-0 No 1mg 3.125 mg 1-06 tablet 00:00: 00 potassium 2020-0 No 1mEq chloride ER 1-06 10 mEq 00:00: tablet,exte 00 nded release magnesium 2020-0 No 1x 1/3" oxide 400 1-06 mg (241.3 00:00: mg 00 magnesium) tablet levothyroxi 2020-0 No 1mcg ne 75 mcg 1-06 tablet 00:00: 00 montelukast 2020-0 No 1mg 10 mg 1-06 tablet 00:00: 00 raloxifene 2020-0 No 1mg 60 mg 1-06 tablet 00:00: 00 furosemide 2020-0 No 1mg 40 mg 1-06 tablet 00:00: 00 montelukast 2020-0 No 1mg 10 mg 1-06 tablet 00:00: 00 raloxifene 2020-0 No 1mg 60 mg 1-06 tablet 00:00: 00 furosemide 2020-0 No 1mg 40 mg 1-06 tablet 00:00: 00 carvedilol 2020-0 No 1mg 3.125 mg 1-06 tablet 00:00: 00 potassium 2020-0 No 1mEq chloride ER 1-06 10 mEq 00:00: tablet,exte 00 nded release magnesium 2020-0 No 1x 1/3" oxide 400 1-06 mg (241.3 00:00: mg 00 magnesium) tablet levothyroxi 2019-0 No 1mcg ne 75 mcg 1-06 tablet 00:00: 00 carvedilol 2020-0 No 1mg 3.125 mg 1-06 tablet 00:00: 00 potassium 2020-0 No 1mEq chloride ER 1-06 10 mEq 00:00: tablet,exte 00 nded release magnesium 2020-0 No 1x 1/3" oxide 400 1-06 mg (241.3 00:00: mg 00 magnesium) tablet levothyroxi 2019-0 No 1mcg ne 75 mcg 1-06 tablet 00:00: 00 CARVEDILOL 2018-02 Yes 3.125mg Take 3.125 [facility] ORAL 2-29 mg by ity of 22:46: mouth 2 [place] [address] (two) Medical times Branch daily. atorvastati 2018-02 Yes 10mg Take 10 mg [facility] n calcium 2-29 by mouth ity of (ATORVASTAT 22:46: [place] [facility] levothyroxi 2018-02 Yes 100ug Take 100 U nivers ne 100 mcg 2-29 mcg by ity of tablet 22:46: mouth [place] [address] every Medical morning. Branch raloxifene 2018-02 Yes 60mg Take 60 mg U nivers (EVISTA) 60 2-29 by mouth ity of mg tablet 22:46: daily. [place] [address] Medical Branch docosahexan 2018- Yes 1{capsu Take 1 U nivers oic 2-29 le} capsule by ity of acid/epa 22:46: mouth [place] (FISH OIL 16 daily. Medical ORAL) Branch glucosamine 2018- Yes 2{tbl} Take 2 Un neela /msm/chondr 2-29 tablets by it y of oitin A 22:46: mouth [place] (GLUCOSAMIN 16 daily. Medica l E-CHONDR-MS Branch M ORAL) LUTEIN ORAL 2018-02 Yes 30mg Take 30 mg [facility] 2-29 by mouth ity of 22:46: daily. [address] Branch montelukast 2018-02 Yes 10mg Take 10 mg [facility] 10 mg 2-29 by mouth ity of tablet 22:46: daily. [address] MULTIVITAMI 2018-02 Yes 1{tbl} Take 1 Un neela N ORAL 2-29 tablet by ity of 22:46: mouth. [address] Cholecalcif 2018-02 Yes 1{capsu Take 1 U nivers cary, 2-29 le} capsule by ity of Vitamin D3, 22:46: mouth. [facility] s (VITAMIN 16 Medical D3) 2,000 Branch unit capsule sacubitril- 2018-02 Yes 1{tbl} Take 1 Un neela valsartan 2-29 tablet by ity o f 24-26 mg 22:46: mouth 2 [place] tablet 16 (two) Medical times Branch daily. furosemide 2018-02 Yes [id number] 40mg Take 1 [facility] 40 mg 2-29 tablet by ity of tablet 00:00: mouth [place] 00 every Medical morning Branch and evening. KCL 20 mEq 2018-02 Yes [id number] 20meq Take 1 [facility] tablet 2-29 tablet by ity of 00:00: mouth [place] 00 daily. Medical Branch magnesium 2018-02 Yes [id number] 400mg Take 400 [facility] oxide 420 0-13 mg by ity of mg Tab 00:00: mouth 2 [place] 00 (two) Medical times Branch daily. magnesium 2018-02 Yes [id number] 400mg Take 400 [facility] oxide 420 0-13 mg by ity of mg Tab 00:00: mouth 2 [place] 00 (two) Medical times Branch daily. magnesium 2018-02 Yes [id number] 400mg Take 400 [facility] oxide 420 0-13 mg by ity of mg Tab 00:00: mouth 2 [place] 00 (two) Medical times Branch daily. magnesium 2018-02 Yes [id number] 400mg Take 400 [facility] oxide 420 0-13 mg by ity of mg Tab 00:00: mouth 2 (two) Medical times Branch daily. magnesium 2018-02 Yes [id number] 400mg Take 400 [facility] oxide 420 0-13 mg by ity of mg Tab 00:00: mouth 2 (two) Medical times Branch daily. magnesium 2018-02 Yes [id number] 400mg Take 400 [facility] oxide 420 0-13 mg by ity of mg Tab 00:00: mouth 2 (two) Medical times Branch daily. magnesium 2018-02 Yes [id number] 400mg Take 400 [facility] oxide 420 0-13 mg by ity of mg Tab 00:00: mouth (two) Medical times Branch daily. magnesium 2018-02 Yes [id number] 400mg Take 400 [facility] oxide 420 0-13 mg by ity of mg Tab 00:00: mouth [place] (two) Medical times Branch daily. magnesium 2018-02 Yes [id number] 400mg Take 400 [facility] oxide 420 0-13 mg by ity of mg Tab 00:00: mouth (two) Medical times Branch daily. magnesium 2018-02 Yes [id number] 400mg Take 400 [facility] oxide 420 0-13 mg by ity of mg Tab 00:00: mouth [place] (two) Medical times Branch daily. magnesium 2018-02 Yes [id number] 400mg Take 400 [facility] oxide 420 0-13 mg by ity of mg Tab 00:00: mouth 2 [place] (two) Medical times Branch daily. aspirin Yes 81mg QD Take 81 mg Meth ramesh (ECOTRIN) 1-[address] 81 MG 21:18: daily. [facility] l coated tablet levothyroxi Yes 75ug QD Take 75 [facility] ne sodium 1-[address] (TIROSINT) 21:18: mouth [facility] 75 mcg 38 daily. l capsule raloxifene Yes 60mg QD Take 60 mg M ethodi (EVISTA) 60 1-[address] mg tablet 21:18: daily. Hospit a 38 l UBIDECARENO 2017- Yes 1{capsu QD Take 1 M ethodi NE 1-15 le} capsule by st (COENZYME 21:18: mouth [facility] Q10) 100 mg 38 daily. l tablet metFORMIN Yes 500mg QD Take 500 [facility] (GLUCOPHAGE 1-[address] ) 500 mg 21:18: mouth [facility] tablet 38 every l evening. valsartan 2018-0 Yes 320mg QD Take 320 [facility]odi (DIOVAN) 1-[address] 320 MG 21:18: mouth [facility] tablet 38 nightly. l atorvastati 2018-0 Yes 10mg QD Take 10 mg Methodi n (LIPITOR) 1-[address] 10 MG 21:18: nightly. [facility]ospita tablet 38 l aspirin 2018-0 Yes 81mg QD Take 81 mg Meth ramesh (ECOTRIN) 1-[address] 81 MG 21:18: daily. [facility] 38 l coated tablet levothyroxi 2018-0 Yes 75ug QD Take 75 [facility] hodi ne sodium 1-[address] (TIROSINT) 21:18: mouth Hospit [facility] 75 mcg 38 daily. l capsule raloxifene 0 Yes 60mg QD Take 60 mg M ethodi (EVISTA) 60 1-[address] mg tablet 21:18: daily. Hospit a 38 l UBIDECARENO 2018-0 Yes 1{capsu QD Take 1 M ethodi NE 1-15 le} capsule by st (COENZYME 21:18: mouth [facility] Q10) 100 mg 38 daily. l tablet metFORMIN 2018-0 Yes 500mg QD Take 500 [facility] (GLUCOPHAGE 1-[address] ) 500 mg 21:18: mouth [facility] tablet 38 every l evening. valsartan 2018-0 Yes 320mg QD Take 320 Met hodi (DIOVAN) 1-[address] 320 MG 21:18: mouth [facility] tablet 38 nightly. l atorvastati 2018-0 Yes 10mg QD Take 10 mg Methodi n (LIPITOR) 1-[address] 10 MG 21:18: nightly. Hospita tablet 38 l aspirin 2018-0 Yes 81mg QD Take 81 mg Meth ramesh (ECOTRIN) 1-[address] 81 MG 21:18: daily. [facility] 38 l coated tablet levothyroxi 2018-0 Yes 75ug QD Take 75 Met hodi ne sodium 1-[address] (TIROSINT) 21:18: mouth Hospit [facility] 75 mcg 38 daily. l capsule raloxifene 2018-0 Yes 60mg QD Take 60 mg M ethodi (EVISTA) 60 1-[address] mg tablet 21:18: daily. Hospit a 38 l UBIDECARENO Yes 1{capsu QD Take 1 M ethodi NE 1-15 le} capsule by st (COENZYME 21:18: mouth [facility] Q10) 100 mg 38 daily. l tablet metFORMIN Yes 500mg QD Take 500 [facility]odi (GLUCOPHAGE 1-[address] ) 500 mg 21:18: mouth [facility] tablet 38 every l evening. valsartan Yes 320mg QD Take 320 [facility]odi (DIOVAN) 1-[address] 320 MG 21:18: mouth [facility] tablet 38 nightly. l atorvastati Yes 10mg QD Take 10 mg Methodi n (LIPITOR) 1-[address] 10 MG 21:18: nightly. [facility]ospita tablet 38 l raloxifene 2016-02 Yes TK 1 T PO [facility] (EVISTA) [facility] 1-[address] mg tablet 00:00: Hospita 00 l raloxifene 2016-02 Yes TK 1 T PO [facility] (EVISTA) 60 1-[address] mg tablet 00:00: Hospita 00 l raloxifene 2016-02 Yes TK 1 T PO [facility] (EVISTA) 60 1-[address] mg tablet 00:00: Hospita 00 l Immunizations Ordered Immunization Filled Immunization Date Status Commen ts Source Name Name Timothy MCBRIDE-19 2021-07-21 Completed Vaccine 00:00:00 Timothy COVID-19 2021-07-21 Completed Vaccine 00:00:00 [place] COVID-19 2021-07-21 Completed Vaccine 00:00:00 influenza, high-dose, 2020-12-16 Completed quadrivalent 00:00:00 influenza, high-dose, 2020-12-16 Completed quadrivalent 00:00:00 influenza, high-dose, 2020-12-16 Completed quadrivalent 00:00:00 Timothy COVID-19 2020-10-13 Completed Vaccine 00:00:00 Timothy COVID-19 2020-10-13 Completed Vaccine 00:00:00 Timothy COVID-19 2020-10-13 Completed Vaccine 00:00:00 Timothy COVID-19 2020-04-11 Completed Vaccine 00:00:00 [place] COVID-19 2020-04-11 Completed Vaccine 00:00:00 Moderna COVID-19 2020-04-11 Completed Vaccine 00:00:00 Moderna COVID-19 2020-03-14 Completed Vaccine 00:00:00 Moderna COVID-19 2020-03-14 Completed Vaccine 00:00:00 Moderna COVID-19 2020-03-14 Completed Vaccine 00:00:00 influenza, high-dose, 2019-10-09 Completed quadrivalent 00:00:00 influenza, high-dose, 2019-10-09 Completed quadrivalent 00:00:00 influenza, high-dose, 2019-10-09 Completed quadrivalent 00:00:00 Influenza, seasonal, 2019-01-22 Completed inj 00:00:00 Influenza, seasonal, 2019-01-22 Completed inj 00:00:00 Influenza, seasonal, 2019-01-22 Completed inj 00:00:00 Pneumococcal conjugate 2017-12-02 Completed P 00:00:00 Influenza, seasonal, 2017-12-02 Completed inj 00:00:00 Pneumococcal conjugate 2017-12-02 Completed P 00:00:00 Influenza, seasonal, 2017-12-02 Completed inj 00:00:00 Pneumococcal conjugate 2017-12-02 Completed P 00:00:00 Influenza, seasonal, 2017-12-02 Completed inj 00:00:00 Influenza, seasonal, 2016-12-05 Completed inj 00:00:00 Influenza, seasonal, 2016-12-05 Completed inj 00:00:00 Influenza, seasonal, 2016-12-05 Completed inj 00:00:00 Influenza, seasonal, 2015-11-03 Completed inj 00:00:00 Influenza, seasonal, 2015-11-03 Completed inj 00:00:00 Influenza, seasonal, 2015-11-03 Completed inj 00:00:00 Vital Signs Vital Name Observation Time Observation Value Comments Source BP Systolic 2021-11-23 17:15:00 127 mm[Hg] BP Diastolic 2021-11-23 17:15:00 76 mm[Hg] Weight Measured 2021-11-23 17:15:00 172.40 pounds Height Measured 2021-11-23 17:15:00 59.60 inches Body Temperature 2021-11-23 17:15:00 98.40 degrees Heart Rate 2021-11-23 17:15:00 78.00 /min Respiratory Rate 2021-11-23 17:15:00 BP Systolic 2021-11-10 13:59:00 106 mm[Hg] BP Diastolic 2021-11-10 13:59:00 69 mm[Hg] Weight Measured 2021-11-10 13:59:00 173.00 pounds Height Measured 2021-11-10 13:59:00 59.60 inches Body Temperature 2021-11-10 13:59:00 98.40 degrees Heart Rate 2021-11-10 13:59:00 80.00 /min Respiratory Rate 2021-11-10 13:59:00 BP Systolic 2021-08-23 13:34:00 118 mm[Hg] BP Diastolic 2021-08-23 13:34:00 76 mm[Hg] Weight Measured 2021-08-23 13:34:00 173.00 pounds Height Measured 2021-08-23 13:34:00 59.60 inches Body Temperature 2021-08-23 13:34:00 98.20 degrees Heart Rate 2021-08-23 13:34:00 80.00 /min Respiratory Rate 2021-08-23 13:34:00 BP Systolic 2021-05-17 14:38:00 123 mm[Hg] BP Diastolic 2021-05-17 14:38:00 70 mm[Hg] Weight Measured 2021-05-17 14:38:00 169.40 pounds Height Measured 2021-05-17 14:38:00 59.60 inches Body Temperature 2021-05-17 14:38:00 98.10 degrees Heart Rate 2021-05-17 14:38:00 70.00 /min Respiratory Rate 2021-05-17 14:38:00 BP Systolic 2021-02-15 13:23:00 119 mm[Hg] BP Diastolic 2021-02-15 13:23:00 74 mm[Hg] Weight Measured 2021-02-15 13:23:00 160.00 pounds Height Measured 2021-02-15 13:23:00 59.60 inches Body Temperature 2021-02-15 13:23:00 97.40 degrees Heart Rate 2021-02-15 13:23:00 73.00 /min Respiratory Rate 2021-02-15 13:23:00 BP Systolic 2021-01-13 14:56:00 108 mm[Hg] BP Diastolic 2021-01-13 14:56:00 62 mm[Hg] Weight Measured 2021-01-13 14:56:00 157.20 pounds Height Measured 2021-01-13 14:56:00 59.60 inches Body Temperature 2021-01-13 14:56:00 97.20 degrees Heart Rate 2021-01-13 14:56:00 71.00 /min Respiratory Rate 2021-01-13 14:56:00 BP Systolic 2020-12-16 14:16:00 86 mm[Hg] BP Diastolic 2020-12-16 14:16:00 56 mm[Hg] Weight Measured 2020-12-16 14:16:00 155.40 pounds Height Measured 2020-12-16 14:16:00 59.60 inches Body Temperature 2020-12-16 14:16:00 97.40 degrees Heart Rate 2020-12-16 14:16:00 75.00 /min Respiratory Rate 2020-12-16 14:16:00 BP Systolic 2020-10-23 15:06:00 122 mm[Hg] BP Diastolic 2020-10-23 15:06:00 74 mm[Hg] Weight Measured 2020-10-23 15:06:00 149.20 pounds Height Measured 2020-10-23 15:06:00 59.60 inches Body Temperature 2020-10-23 15:06:00 97.90 degrees Heart Rate 2020-10-23 15:06:00 89.00 /min Respiratory Rate 2020-10-23 15:06:00 BP Systolic 2020-08-25 17:47:00 127 mm[Hg] BP Diastolic 2020-08-25 17:47:00 74 mm[Hg] Weight Measured 2020-08-25 17:47:00 151.60 pounds Height Measured 2020-08-25 17:47:00 59.60 inches Body Temperature 2020-08-25 17:47:00 97.40 degrees Heart Rate 2020-08-25 17:47:00 83.00 /min Respiratory Rate 2020-08-25 17:47:00 BP Systolic 2020-07-06 14:07:00 117 mm[Hg] BP Diastolic 2020-07-06 14:07:00 68 mm[Hg] Weight Measured 2020-07-06 14:07:00 150.60 pounds Height Measured 2020-07-06 14:07:00 59.65 inches Body Temperature 2020-07-06 14:07:00 97.60 degrees Heart Rate 2020-07-06 14:07:00 79.00 /min Respiratory Rate 2020-07-06 14:07:00 BP Systolic 2020-07-06 13:55:00 BP Diastolic 2020-07-06 13:55:00 Weight Measured 2020-07-06 13:55:00 Height Measured 2020-07-06 13:55:00 61.80 inches Body Temperature 2020-07-06 13:55:00 Heart Rate 2020-07-06 13:55:00 Respiratory Rate 2020-07-06 13:55:00 BP Systolic 2020-04-07 11:27:00 123 mm[Hg] BP Diastolic 2020-04-07 11:27:00 75 mm[Hg] Weight Measured 2020-04-07 11:27:00 138.20 pounds Height Measured 2020-04-07 11:27:00 61.81 inches Body Temperature 2020-04-07 11:27:00 98.30 degrees Heart Rate 2020-04-07 11:27:00 78.00 /min Respiratory Rate 2020-04-07 11:27:00 Procedures Procedure Date / Time Performing Clinician Source Performed URINALYSIS 2021-08-25 17:34:00 Jessica Zhong [facility] CREATININE, URINE RANDOM 2021-08-25 17:34:00 [facility] 2021-08-25 17:31:00 Jessica Zhong [facility] URIC ACID 2021-08-25 17:31:00 Jessica Zhong [facility] MAGNESIUM 2021-08-25 17:31:00 Jessica Zhong [facility] COMP. METABOLIC PANEL 2021-08-25 17:31:00 Jessica Zhong [facility] ([id number]) [facility] ASSIGNMENT OF BENEFITS 2021-08-25 16:54:40 [facility]EF[facility] 2021-01-20 19:47:53 [facility] DEXA AXIAL (HIP AND SPINE) 2020-10-12 13:58:43 Requisition, Rj sierra [facility] [place] NOTICE OF BILLING 2020-10-12 13:37:49 Doctor Vonda, [facility] PRACTICES FOR MEDICARE [facility] PATIENTS [facility] PATIENT FINANCIAL 2020-10-12 13:37:02 Doctor Unassdg, [place] [employer] POLICY [facility] NO SHOW OR MISSED 2020-10-12 13:36:13 Doctor Vonda, [facility] APPOINTMENT POLICY [facility] ACKNOWLEDGEMENT CONSENT/REFUSAL FOR 2020-10-12 13:35:36 Doctor Vonda, [facility] DIAGNOSIS AND TREATMENT [facility] ASSIGNMENT OF BENEFITS 2020-10-12 13:34:54 Doctor [facility] ASSIGN[facility] OF BENEFITS 2019-09-23 20:24:08 Doctor Unassigned, [facility] CONSENT/REFUSAL FOR 2019-07-12 19:25:10 Doctor Liliassdg, [facility] DIAGNOSIS AND TREATMENT [facility] Plan of Care Planned Activity Planned Date Details Comments Source Goal Plan of Care Note [code = 17740-4] Goal Plan of Care Note [code = 87783-9] Goal Plan of Care Note [code = 70217-8] Goal Plan of Care Note [code = 08711-9] Goal Plan of Care Note [code = 07948-2] Goal Plan of Care Note [code = 03578-3] Goal Plan of Care Note [code = 09966-3] Goal Plan of Care Note [code = 72944-0] Goal Plan of Care Note [code = 85861-7] Goal Plan of Care Note [code = 70493-7] Goal Plan of Care Note [code = 97771-0] Goal Plan of Care Note [code = 52895-6] Goal Plan of Care Note [code = 77555-0] Goal Plan of Care Note [code = 83485-1] Goal Plan of Care Note [code = 59162-3] Goal Plan of Care Note [code = 40389-7] Goal Plan of Care Note [code = 67078-1] Goal Plan of Care Note [code = 49227-8] Goal Plan of Care Note [code = 36245-5] Goal Plan of Care Note [code = 28951-1] Goal Plan of Care Note [code = 11220-2] Goal Plan of Care Note [code = 19625-5] Goal Plan of Care Note [code = 31971-1] Goal Plan of Care Note [code = 92038-3] Goal Plan of Care Note [code = 06172-2] Goal Plan of Care Note [code = 64269-2] Goal Plan of Care Note [code = 77384-8] Goal Plan of Care Note [code = 50204-6] Goal Plan of Care Note [code = 01401-8] Goal Plan of Care Note [code = 76505-6] Goal Plan of Care Note [code = 98530-7] Goal Plan of Care Note [code = 83021-5] Goal Plan of Care Note [code = 84303-0] Goal Plan of Care Note [code = 53939-8] Goal Plan of Care Note [code = 78905-2] Goal Plan of Care Note [code = 63830-9] Goal Plan of Care Note [code = 40183-7] Goal Plan of Care Note [code = 91569-6] Goal Plan of Care Note [code = 84409-1] Goal Plan of Care Note [code = 06076-8] Goal Plan of Care Note [code = 79499-1] Goal Plan of Care Note [code = 40829-0] Goal Plan of Care Note [code = 99017-7] Goal Plan of Care Note [code = 52096-3] Goal Plan of Care Note [code = 90388-8] Goal Plan of Care Note [code = 75922-7] Goal Plan of Care Note [code = 02179-6] Goal Plan of Care Note [code = 67867-5] Goal Plan of Care Note [code = 25009-8] Goal Plan of Care Note [code = 42209-2] Goal Plan of Care Note [code = 82659-3] Goal Plan of Care Note [code = 16779-8] Goal Plan of Care Note [code = 90242-6] Goal Plan of Care Note [code = 31225-6] Goal Plan of Care Note [code = 82686-4] Goal Plan of Care Note [code = 46270-0] Goal Plan of Care Note [code = 08045-4] Goal Plan of Care Note [code = 64509-1] Goal Plan of Care Note [code = 75216-9] Goal Plan of Care Note [code = 66166-6] Goal Plan of Care Note [code = 44023-0] Goal Plan of Care Note [code = 52654-6] Goal Plan of Care Note [code = 99493-1] Goal Plan of Care Note [code = 61126-2] Goal Plan of Care Note [code = 20910-6] Goal Plan of Care Note [code = 83102-6] Goal Plan of Care Note [code = 55402-3] Goal Plan of Care Note [code = 20180-7] Goal Plan of Care Note [code = 19154-4] Goal Plan of Care Note [code = 64172-1] Goal Plan of Care Note [code = 52599-2] Goal Plan of Care Note [code = 98898-4] Goal Plan of Care Note [code = 62015-3] Goal Plan of Care Note [code = 45399-3] Goal Plan of Care Note [code = 88305-5] Goal Plan of Care Note [code = 86035-5] Goal Plan of Care Note [code = 76695-7] Goal Plan of Care Note [code = 63249-9] Encounters Start End Encounter Admission Attending Care Care Encounter Source Date/Time Date/Time Type Type Clinicians Facility Department ID 2021-11-23 2021-11-23 Outpatient [id number] 00:00:00 00:00:00 Visit p5eh-9749 0fb-4227-b -e5m0-u1a 5c9-j5uh6r m8d3hx61k 0ec68a 2021-11-11 2021-11-11 Outpatient [facility] [id number] Luis Duncan 14:37:51 14:37:51 0929 Kell Cuevas 2021-11-10 2021-11-10 Outpatient [id number] 00:00:00 00:00:00 Visit en1r-658u t2w-027s-r -qi0n-qq9 h5k-if3508 [id number] 2021-08-25 2021-08-25 Accounting Coordinator Jacinto, Adc Lab Main [facility] 1.2.8 40.114 [id number] Univers 12:45:00 13:00:00 Visit Tez Drake 350.1.13.10 ity of [place] 4[facility]2.7.[address] [facility] [phone] [address] 2021-08-25 2021-08-25 [facility] [id number] Univers 12:45:00 12:45:00 TEZ heredia [facility] 2021-08-25 2021-08-25 Orders Doctor SANTINO 1.2.840.114 [id number] Univers 00:00:00 00:00:00 Only Unassigned, SAKSHI 350.1.13.10 ity of [place] [facility] 4.2.7.2.686 Can as [phone] [facility] [address] [place] 2021-08-23 2021-08-23 Outpatient [id number] 00:00:00 00:00:00 Visit 46ed-49c5 6ed-49c5-a -r473-c06 490-a622fd [id number] 4013-12-08 2021-01-20 Outpatient R RADIOLOGY [facility] [id number] Univers 13:49:38 23:59:00 ity [facility] 2021-01-20 2021-01-20 Hospital Radiology [facility] 1.2.840.114 [id number] Univers 13:49:38 23:59:00 Encounter [place] 350.1.13.10 [place] [phone] [facility] [address] [place] 2021-01-20 2021-01-20 Orders Doctor SANTINO 1.2.840.114 [id number] Univers 00:00:00 00:00:00 Only Unassigned, SAKSHI 350.1.13.10 ity of [place] [facility] 4.2.7.2.686 Can as [id number] [facility] 009 Branch 2020-10-12 2020-10-12 Hospital Unknown, [facility] 1.2.855.751 [id number] Univers 08:34:53 23:59:00 Encounter Attending [place] 350.1.13.10 [place] [phone] [facility] [address] [place] 2020-10-12 2020-10-12 Outpatient R [facility] [id number] Univers 00:00:00 00:00:00 ity of [facility] 2020-09-07 2020-09-07 Outpatient R RADIOLOGY [facility] [id number] Univers 00:00:00 00:00:00 ity of [facility] 2020-07-27 2020-07-27 Outpatient R UNKNOWN, [facility] [id number] Univers 00:00:00 00:00:00 ATTENDING ity of [facility] 2020-01-16 2020-01-16 Hospital Radiology [facility] 1.2.840.114 [id number] Univers 13:11:51 23:59:00 Encounter [place] 350.1.13.10 it[place] [phone] [address] 2020-01-16 2020-01-16 Outpatient R [facility] [id number] Univers 00:00:00 00:00:00 ity [facility] 2019-10-10 2019-10-10 Outpatient Ajibade_O_A VFP VFP [id number] Village 05:07:00 05:07:00 H 66291 Family Practic e 2019-10-10 2019-10-10 Outpatient Ajibade_O_A VFP VFP [id number] [place] 05:07:00 05:07:00 H 22464 Family Practic e 2019-09-23 2019-09-23 Accounting Coordinator Gordon Casey Lab Main [facility] 1.2.8 40.114 [id number] Univers 15:25:58 15:40:58 Visit Jessica Zhong 350.1.13.10 [place] [phone] Fl dical [facility] [address] [facility] 2019-09-23 2019-09-23 Outpatient R GILDAPilar [facility] [id number] Univers 15:30:00 15:30:00 JESSICA heredia [facility] 2019-09-23 2019-09-23 Orders Doctor SANTINO 1.2.840.114 [id number] Univers 00:00:00 00:00:00 Only Unassigned, SAKSHI 350.1.13.10 ity of [facility] 4.2.7.2.686 Can as [phone] [address] 2019-07-17 2019-07-17 Transition [facility] 1.2.840.114 [id number] Univers 00:00:00 00:00:00 of Care Matt Morrison 350.1.13.10 [place] [phone] [address] 2019-07-12 2019-07-16 Inpatient X [facility] JANES [id number] Univers 14:50:15 17:45:00 NICKIE [facility] 2019-07-12 2019-07-12 Orders Doctor SANTINO 1.2.840.114 [id number] Univers 00:00:00 00:00:00 Only Unassigned, SAKSHI 350.1.13.10 ity of [facility] 4.2.7.2.686 [place] as [phone] [address] 2019-04-03 2019-04-03 Outpatient [facility] [id number] [facility] 07:22:00 07:22:00 _J_AH 53908 Family Practic e 2019-02-08 2019-02-10 [facility] [id number] Univers 15:54:40 16:45:00 [facility] Results Test Description Test Time Test Comments Results Result Comments Source CULTURE, URINE 2021-11-13 SPECIMEN NUMBER: 09:24:09 [id number] CULTURE, URINE SPECIMEN NUMBER: [id number] SOURCE: URINE REPORT STATUS: FINAL FINAL REPORT: 11/13/2021 NO GROWTH AFTER 36 HOURS INCUBATION CULTURE, URINE [ADDED] 2021-11-13 00:00:00 Test Item Value Reference Range Interpretation Comme nts CULTURE, URINE (test code = 42413) SPECIMEN NUMBER: [id number] CULTURE, URINE [ADDED]2021-11-13 00:00:00 Test Item Value Reference Range Interpretation Comments CULTURE, URINE (test SPECIMEN NUMBER: code = 09833) [id number] CULTURE, URINE [ADDED]2021-11-13 00:00:00 Test Item Value Reference Range Interpretation Comments CULTURE, URINE (test SPECIMEN NUMBER: code = 49202) [id number] CULTURE, URINE [ADDED]2021-11-13 00:00:00 Test Item Value Reference Range Interpretation Comments CULTURE, URINE (test SPECIMEN NUMBER: code = 71233) [id number] COMPREHENSIVE METABOLIC [id number] 03:55:42 Test Item Value Reference Range Interpretation Comments GLUCOSE (test code = 90 MG/DL 70-99 2216) BUN (test code = 35 MG/DL 8-23 H 2207) CREATININE (test 1.12 MG/DL 0.60-1.30 code = 2214) eGFR (2020 CKD-EPI) 49 >60 L The NKF -ASN (test code = 03878) ML/MIN/1.73 Taskforc e recommends use of Cystatin C to confirm eGFR in adults at risk for CKD . [facility] offers eGFR wit h Cystatin C-Creatinineusi ng the 2020 CKD-EPI eGFR_creat-cyst at equation (order code 3057) toincreas e the accuracy of est imated GFR. For more information, contactyour [facility] ount executive or se e announcement [email or web address] CALC BUN/CREAT (test 31 RATIO 6-28 H code = 2235) SODIUM (test code = 143 MEQ/L 518-748 5035) POTASSIUM (test code 4.3 MEQ/L 3.5-5.4 = 2227) CHLORIDE (test code 104 MEQ/L 95-107 = 2214) CARBON DIOXIDE (test 25 MEQ/L 19-31 code = 2206) CALCIUM (test code = 10.1 MG/DL 8.5-10.5 2208) PROTEIN, TOTAL (test 7.2 G/DL 6.1-8.3 code = 2229) ALBUMIN (test code = 4.2 G/DL 3.5-5.2 2200) CALC GLOBULIN (test 3.0 G/DL 1.9-3.7 code = 2240) CALC A/G RATIO (test 1.4 RATIO 1.0-2.6 code = 2234) BILIRUBIN, TOTAL 0.2 MG/DL See_Comment [Automated message] (test code = 2207) The syste m which generated this result transmitted ref erence range: <=1.2. T he reference range was not used to int erpret this result as normal/abnormal . ALKALINE PHOSPHATASE 32 U/L 40-142 L (test code = 220) AST (test code = 20 U/L 9-40 8) ALT (test code = 16 U/L 5-40 UNLESS OTH ERWISE 2218) INDICATED, ALL TESTING PERFORM ED ATCLINICAL PATH OLOGY LABORATORIES, [facility]. [address] [place] [id number] [place] [address] DIRECTOR: GER LIMA M.D. [place] NUMBER [id number] CAP ACCREDITATION N O. [id number] CBC W/AUTO DIFF WITH [id number] 03:20:59 Test Item Value Reference Range Interpretation Comments WBC (test code = 7.3 K/UL 3.5-11.0 1001) RBC (test code = 4.27 M/UL 3.80-5.40 1002) HEMOGLOBIN (test code 12.4 G/DL 11.5-15.5 = 1003) HEMATOCRIT (test code 38.2 % 34.0-45.0 = 1004) MCV (test code = 89.5 fL 80.0-99.0 1005) MCH (test code = 29.0 PG 25.0-33.0 1006) MCHC (test code = 32.5 G/DL 31.0-36.0 1007) RDW (test code = 14.9 % 11.5-15.0 1038) NEUTROPHILS (test 53.3 % code = 1008) LYMPHOCYTES (test 32.7 % code = 1010) MONOCYTES (test code 10.5 % = 1011) EOSINOPHILS (test 2.6 % code = 1012) BASOPHILS (test code 0.8 % = 1013) IMMATURE GRANULOCYTES 0.1 % (test code = 1036) NUCLEATED RBCS (test 0.0 /100 WBC'S See_Comment [Aut omated code = 1065) message] The sy stem which generated this result transmitted reference range : 0.0. The refere nce range was not u sed to interpret th is result as normal/abnormal . PLATELET COUNT (test 202 K/UL 130-400 code = 1015) ABSOLUTE NEUTROPHILS 3.89 K/UL 1.50-7.50 (test code = 1066) ABSOLUTE LYMPHOCYTES 2.39 K/UL 1.00-4.00 (test code = 1067) ABSOLUTE MONOCYTES 0.77 K/UL 0.20-1.00 (test code = 1068) ABSOLUTE EOSINOPHILS 0.19 K/UL 0.00-0.50 (test code = 1040) ABSOLUTE BASOPHILS 0.06 K/UL 0.00-0.20 (test code = 1069) ABS IMMATURE 0.01 K/UL 0.00-0.10 GRANULOCYTES (test code = 1020) ABS NUCLEATED RBCS 0.00 K/UL 0.00-0.11 (test code = 05038) CBC W/AUTO DIFF WITH PLATELETS [ADDED]2021-11-12 00:00:00 Test Item Value Reference Range Interpretation Comments WBC (test code = 1001) 7.3 K/UL RBC (test code = 1002) 4.27 M/UL HEMOGLOBIN (test code = 1003) 12.4 G/DL HEMATOCRIT (test code = 1004) 38.2 % MCV (test code = 1005) 89.5 fL MCH (test code = 1006) 29.0 PG MCHC (test code = 1007) 32.5 G/DL RDW (test code = 1038) 14.9 % NEUTROPHILS (test code = 1008) 53.3 % LYMPHOCYTES (test code = 1010) 32.7 % MONOCYTES (test code = 1011) 10.5 % EOSINOPHILS (test code = 1012) 2.6 % BASOPHILS (test code = 1013) 0.8 % IMMATURE GRANULOCYTES (test 0.1 % code = 1036) NUCLEATED RBCS (test code = 0.0 /100WBC'S 1065) PLATELET COUNT (test code = 202 K/UL 1015) ABSOLUTE NEUTROPHILS (test code 3.89 K/UL = 1066) ABSOLUTE LYMPHOCYTES (test code 2.39 K/UL = 1067) ABSOLUTE MONOCYTES (test code = 0.77 K/UL 1068) ABSOLUTE EOSINOPHILS (test code 0.19 K/UL = 1040) ABSOLUTE BASOPHILS (test code = 0.06 K/UL 1069) ABS IMMATURE GRANULOCYTES (test 0.01 K/UL code = 1020) ABS NUCLEATED RBCS (test code = 0.00 K/UL 73382) CBC W/AUTO DIFF WITH PLATELETS [ADDED]2021-11-12 00:00:00 Test Item Value Reference Range Interpretation Comments WBC (test code = 1001) 7.3 K/UL RBC (test code = 1002) 4.27 M/UL HEMOGLOBIN (test code = 1003) 12.4 G/DL HEMATOCRIT (test code = 1004) 38.2 % MCV (test code = 1005) 89.5 fL MCH (test code = 1006) 29.0 PG MCHC (test code = 1007) 32.5 G/DL RDW (test code = 1038) 14.9 % NEUTROPHILS (test code = 1008) 53.3 % LYMPHOCYTES (test code = 1010) 32.7 % MONOCYTES (test code = 1011) 10.5 % EOSINOPHILS (test code = 1012) 2.6 % BASOPHILS (test code = 1013) 0.8 % IMMATURE GRANULOCYTES (test 0.1 % code = 1036) NUCLEATED RBCS (test code = 0.0 /100WBC'S 1065) PLATELET COUNT (test code = 202 K/UL 1015) ABSOLUTE NEUTROPHILS (test code 3.89 K/UL = 1066) ABSOLUTE LYMPHOCYTES (test code 2.39 K/UL = 1067) ABSOLUTE MONOCYTES (test code = 0.77 K/UL 1068) ABSOLUTE EOSINOPHILS (test code 0.19 K/UL = 1040) ABSOLUTE BASOPHILS (test code = 0.06 K/UL 1069) ABS IMMATURE GRANULOCYTES (test 0.01 K/UL code = 1020) ABS NUCLEATED RBCS (test code = 0.00 K/UL 09083) CBC W/AUTO DIFF WITH PLATELETS [ADDED]2021-11-12 00:00:00 Test Item Value Reference Range Interpretation Comments WBC (test code = 1001) 7.3 K/UL RBC (test code = 1002) 4.27 M/UL HEMOGLOBIN (test code = 1003) 12.4 G/DL HEMATOCRIT (test code = 1004) 38.2 % MCV (test code = 1005) 89.5 fL MCH (test code = 1006) 29.0 PG MCHC (test code = 1007) 32.5 G/DL RDW (test code = 1038) 14.9 % NEUTROPHILS (test code = 1008) 53.3 % LYMPHOCYTES (test code = 1010) 32.7 % MONOCYTES (test code = 1011) 10.5 % EOSINOPHILS (test code = 1012) 2.6 % BASOPHILS (test code = 1013) 0.8 % IMMATURE GRANULOCYTES (test 0.1 % code = 1036) NUCLEATED RBCS (test code = 0.0 /100WBC'S 1065) PLATELET COUNT (test code = 202 K/UL 1015) ABSOLUTE NEUTROPHILS (test code 3.89 K/UL = 1066) ABSOLUTE LYMPHOCYTES (test code 2.39 K/UL = 1067) ABSOLUTE MONOCYTES (test code = 0.77 K/UL 1068) ABSOLUTE EOSINOPHILS (test code 0.19 K/UL = 1040) ABSOLUTE BASOPHILS (test code = 0.06 K/UL 1069) ABS IMMATURE GRANULOCYTES (test 0.01 K/UL code = 1020) ABS NUCLEATED RBCS (test code = 0.00 K/UL 06529) COMPREHENSIVE METABOLIC PANEL [ADDED]2021-11-12 00:00:00 Test Item Value Reference Range Interpretation Comments GLUCOSE (test code = 2217) 90 MG/DL BUN (test code = 2208) 35 MG/DL CREATININE (test code = 2214) 1.12 MG/DL eGFR (2020 CKD-EPI) (test code 49 ML/MIN/1.73 = 56072) CALC BUN/CREAT (test code = 31 RATIO 2235) SODIUM (test code = 2231) 143 MEQ/L POTASSIUM (test code = 2228) 4.3 MEQ/L CHLORIDE (test code = 2215) 104 MEQ/L CARBON DIOXIDE (test code = 25 MEQ/L 2205) CALCIUM (test code = 2209) 10.1 MG/DL PROTEIN, TOTAL (test code = 7.2 G/DL 2228) ALBUMIN (test code = 2201) 4.2 G/DL CALC GLOBULIN (test code = 3.0 G/DL 2239) CALC A/G RATIO (test code = 1.4 RATIO 2234) BILIRUBIN, TOTAL (test code = 0.2 MG/DL 2206) ALKALINE PHOSPHATASE (test 32 U/L code = 2204) AST (test code = 2218) 20 U/L ALT (test code = 2219) 16 U/L COMPREHENSIVE METABOLIC PANEL [ADDED]2021-11-12 00:00:00 Test Item Value Reference Range Interpretation Comments GLUCOSE (test code = 2217) 90 MG/DL BUN (test code = 2208) 35 MG/DL CREATININE (test code = 2214) 1.12 MG/DL eGFR (2020 CKD-EPI) (test code 49 ML/MIN/1.73 = 45900) CALC BUN/CREAT (test code = 31 RATIO 2235) SODIUM (test code = 2231) 143 MEQ/L POTASSIUM (test code = 2228) 4.3 MEQ/L CHLORIDE (test code = 2215) 104 MEQ/L CARBON DIOXIDE (test code = 25 MEQ/L 2205) CALCIUM (test code = 2209) 10.1 MG/DL PROTEIN, TOTAL (test code = 7.2 G/DL 2228) ALBUMIN (test code = 2201) 4.2 G/DL CALC GLOBULIN (test code = 3.0 G/DL 2239) CALC A/G RATIO (test code = 1.4 RATIO 2233) BILIRUBIN, TOTAL (test code = 0.2 MG/DL 2206) ALKALINE PHOSPHATASE (test 32 U/L code = 2204) AST (test code = 2218) 20 U/L ALT (test code = 2219) 16 U/L CBC W/AUTO DIFF WITH PLATELETS [ADDED]2021-11-12 00:00:00 Test Item Value Reference Range Interpretation Comments WBC (test code = 1001) 7.3 K/UL RBC (test code = 1002) 4.27 M/UL HEMOGLOBIN (test code = 1003) 12.4 G/DL HEMATOCRIT (test code = 1004) 38.2 % MCV (test code = 1005) 89.5 fL MCH (test code = 1006) 29.0 PG MCHC (test code = 1007) 32.5 G/DL RDW (test code = 1038) 14.9 % NEUTROPHILS (test code = 1008) 53.3 % LYMPHOCYTES (test code = 1010) 32.7 % MONOCYTES (test code = 1011) 10.5 % EOSINOPHILS (test code = 1012) 2.6 % BASOPHILS (test code = 1013) 0.8 % IMMATURE GRANULOCYTES (test 0.1 % code = 1036) NUCLEATED RBCS (test code = 0.0 /100WBC'S 1065) PLATELET COUNT (test code = 202 K/UL 1015) ABSOLUTE NEUTROPHILS (test code 3.89 K/UL = 1066) ABSOLUTE LYMPHOCYTES (test code 2.39 K/UL = 1067) ABSOLUTE MONOCYTES (test code = 0.77 K/UL 1068) ABSOLUTE EOSINOPHILS (test code 0.19 K/UL = 1040) ABSOLUTE BASOPHILS (test code = 0.06 K/UL 1069) ABS IMMATURE GRANULOCYTES (test 0.01 K/UL code = 1020) ABS NUCLEATED RBCS (test code = 0.00 K/UL 06262) CBC W/AUTO DIFF WITH PLATELETS [ADDED]2021-11-12 00:00:00 Test Item Value Reference Range Interpretation Comments WBC (test code = 1001) 7.3 K/UL RBC (test code = 1002) 4.27 M/UL HEMOGLOBIN (test code = 1003) 12.4 G/DL HEMATOCRIT (test code = 1004) 38.2 % MCV (test code = 1005) 89.5 fL MCH (test code = 1006) 29.0 PG MCHC (test code = 1007) 32.5 G/DL RDW (test code = 1038) 14.9 % NEUTROPHILS (test code = 1008) 53.3 % LYMPHOCYTES (test code = 1010) 32.7 % MONOCYTES (test code = 1011) 10.5 % EOSINOPHILS (test code = 1012) 2.6 % BASOPHILS (test code = 1013) 0.8 % IMMATURE GRANULOCYTES (test 0.1 % code = 1036) NUCLEATED RBCS (test code = 0.0 /100WBC'S 1065) PLATELET COUNT (test code = 202 K/UL 1015) ABSOLUTE NEUTROPHILS (test code 3.89 K/UL = 1066) ABSOLUTE LYMPHOCYTES (test code 2.39 K/UL = 1067) ABSOLUTE MONOCYTES (test code = 0.77 K/UL 1068) ABSOLUTE EOSINOPHILS (test code 0.19 K/UL = 1040) ABSOLUTE BASOPHILS (test code = 0.06 K/UL 1069) ABS IMMATURE GRANULOCYTES (test 0.01 K/UL code = 1020) ABS NUCLEATED RBCS (test code = 0.00 K/UL 52580) CBC W/AUTO DIFF WITH PLATELETS [ADDED]2021-11-12 00:00:00 Test Item Value Reference Range Interpretation Comments WBC (test code = 1001) 7.3 K/UL RBC (test code = 1002) 4.27 M/UL HEMOGLOBIN (test code = 1003) 12.4 G/DL HEMATOCRIT (test code = 1004) 38.2 % MCV (test code = 1005) 89.5 fL MCH (test code = 1006) 29.0 PG MCHC (test code = 1007) 32.5 G/DL RDW (test code = 1038) 14.9 % NEUTROPHILS (test code = 1008) 53.3 % LYMPHOCYTES (test code = 1010) 32.7 % MONOCYTES (test code = 1011) 10.5 % EOSINOPHILS (test code = 1012) 2.6 % BASOPHILS (test code = 1013) 0.8 % IMMATURE GRANULOCYTES (test 0.1 % code = 1036) NUCLEATED RBCS (test code = 0.0 /100WBC'S 1065) PLATELET COUNT (test code = 202 K/UL 1015) ABSOLUTE NEUTROPHILS (test code 3.89 K/UL = 1066) ABSOLUTE LYMPHOCYTES (test code 2.39 K/UL = 1067) ABSOLUTE MONOCYTES (test code = 0.77 K/UL 1068) ABSOLUTE EOSINOPHILS (test code 0.19 K/UL = 1040) ABSOLUTE BASOPHILS (test code = 0.06 K/UL 1069) ABS IMMATURE GRANULOCYTES (test 0.01 K/UL code = 1020) ABS NUCLEATED RBCS (test code = 0.00 K/UL 81880) COMPREHENSIVE METABOLIC PANEL [ADDED]2021-11-12 00:00:00 Test Item Value Reference Range Interpretation Comments GLUCOSE (test code = 2217) 90 MG/DL BUN (test code = 2208) 35 MG/DL CREATININE (test code = 2214) 1.12 MG/DL eGFR (2020 CKD-EPI) (test code 49 ML/MIN/1.73 = 56926) CALC BUN/CREAT (test code = 31 RATIO 2235) SODIUM (test code = 2231) 143 MEQ/L POTASSIUM (test code = 2228) 4.3 MEQ/L CHLORIDE (test code = 2215) 104 MEQ/L CARBON DIOXIDE (test code = 25 MEQ/L 2205) CALCIUM (test code = 2209) 10.1 MG/DL PROTEIN, TOTAL (test code = 7.2 G/DL 2229) ALBUMIN (test code = 2201) 4.2 G/DL CALC GLOBULIN (test code = 3.0 G/DL 2240) CALC A/G RATIO (test code = 1.4 RATIO 2234) BILIRUBIN, TOTAL (test code = 0.2 MG/DL 2207) ALKALINE PHOSPHATASE (test 32 U/L code = 2204) AST (test code = 2218) 20 U/L ALT (test code = 2219) 16 U/L COMPREHENSIVE METABOLIC PANEL [ADDED]2021-11-12 00:00:00 Test Item Value Reference Range Interpretation Comments GLUCOSE (test code = 2217) 90 MG/DL BUN (test code = 2208) 35 MG/DL CREATININE (test code = 2214) 1.12 MG/DL eGFR (2020 CKD-EPI) (test code 49 ML/MIN/1.73 = 39611) CALC BUN/CREAT (test code = 31 RATIO 2235) SODIUM (test code = 2231) 143 MEQ/L POTASSIUM (test code = 2228) 4.3 MEQ/L CHLORIDE (test code = 2215) 104 MEQ/L CARBON DIOXIDE (test code = 25 MEQ/L 2206) CALCIUM (test code = 2209) 10.1 MG/DL PROTEIN, TOTAL (test code = 7.2 G/DL 2229) ALBUMIN (test code = 2201) 4.2 G/DL CALC GLOBULIN (test code = 3.0 G/DL 2240) CALC A/G RATIO (test code = 1.4 RATIO 2234) BILIRUBIN, TOTAL (test code = 0.2 MG/DL 7) ALKALINE PHOSPHATASE (test 32 U/L code = 2204) AST (test code = 2218) 20 U/L ALT (test code = 2219) 16 U/L CULTURE, [id number] 10:27:35SPECIMEN NUMBER: [id number] CULTURE, URINE SPECIMEN NUMBER: [id number] SPECIMEN COMMENT: URINE SOURCE: URINE REPORT STATUS: FINAL FINAL REPORT: 04/21/2021 NO GROWTH AFTER 36 HOURS INCUBATIONCULTURE, URINE 2021-04-21 00:00:00 Test Item Value Reference Range Interpretation Comments CULTURE, URINE (test SPECIMEN NUMBER: code = 78225) [id number] CULTURE, [id number] 00:00:00 Test Item Value Reference Range Interpretation Comments CULTURE, URINE (test SPECIMEN NUMBER: code = 62237) [id number] CULTURE, [id number] 00:00:00 Test Item Value Reference Range Interpretation Comments CULTURE, URINE (test SPECIMEN NUMBER: code = 98400) [id number] CULTURE, [id number] 00:00:00 Test Item Value Reference Range Interpretation Comments CULTURE, URINE (test SPECIMEN NUMBER: code = 68934) [id number] CULTURE, [id number] 00:00:00 Test Item Value Reference Range Interpretation Comments CULTURE, URINE (test SPECIMEN NUMBER: code = 81765) [id number] INTACT [id number] 09:29:32 Test Item Value Reference Range Interpretation Comments INTACT PTH (test code = 5005) 27 PG/ML 15-65 [id number] 05:51:06 Test Item Value Reference Range Interpretation Comments MAGNESIUM (test code = 2226) 2.5 MG/DL 1.6-2.6 [id number] 05:51:06 Test Item Value Reference Range Interpretation Comments PHOSPHORUS (test code = 2227) 4.3 MG/DL 2.5-4.5 CBC W/AUTO DIFF WITH [id number] 04:55:06 Test Item Value Reference Range Interpretation Comments WBC (test code = 5.9 K/UL 3.5-11.0 1001) RBC (test code = 4.06 M/UL 3.80-5.40 1002) HEMOGLOBIN (test code 12.6 G/DL 11.5-15.5 = 1003) HEMATOCRIT (test code 37.2 % 34.0-45.0 = 1004) MCV (test code = 91.6 fL 80.0-99.0 1005) MCH (test code = 31.0 PG 25.0-33.0 1006) MCHC (test code = 33.9 G/DL 31.0-36.0 1007) RDW (test code = 14.0 % 11.5-15.0 1038) NEUTROPHILS (test 51.5 % code = 1008) LYMPHOCYTES (test 33.7 % code = 1010) MONOCYTES (test code 11.6 % = 1011) EOSINOPHILS (test 2.0 % code = 1012) BASOPHILS (test code 1.0 % = 1013) IMMATURE GRANULOCYTES 0.2 % (test code = 1036) NUCLEATED RBCS (test 0.0 /100 WBC'S See_Comment [Aut omated code = 1065) message] The sy stem which generated this result transmitted reference range : 0.0. The refere nce range was not u sed to interpret th is result as normal/abnormal . PLATELET COUNT (test 230 K/UL 130-400 code = 1015) ABSOLUTE NEUTROPHILS 3.02 K/UL 1.50-7.50 (test code = 1066) ABSOLUTE LYMPHOCYTES 1.98 K/UL 1.00-4.00 (test code = 1067) ABSOLUTE MONOCYTES 0.68 K/UL 0.20-1.00 (test code = 1068) ABSOLUTE EOSINOPHILS 0.12 K/UL 0.00-0.50 (test code = 1040) ABSOLUTE BASOPHILS 0.06 K/UL 0.00-0.20 (test code = 1069) ABS IMMATURE 0.01 K/UL 0.00-0.10 GRANULOCYTES (test code = 1020) ABS NUCLEATED RBCS 0.00 K/UL 0.00-0.11 (test code = 61992) COMPREHENSIVE METABOLIC [id number] 04:53:48 Test Item Value Reference Range Interpretation Comments GLUCOSE (test code = 86 MG/DL 70-99 2216) BUN (test code = 43 MG/DL 8-23 H 2207) CREATININE (test 1.15 MG/DL 0.60-1.30 code = 2214) eGFR (2020 CKD-EPI) 48 ML/MIN/1.73 >60 L (test code = 69299) CALC BUN/CREAT (test 37 RATIO 6-28 H code = 2235) SODIUM (test code = 141 MEQ/L 447-649 0486) POTASSIUM (test code 4.6 MEQ/L 3.5-5.4 = 2227) CHLORIDE (test code 103 MEQ/L 95-107 = 2214) CARBON DIOXIDE (test 22 MEQ/L 19-31 code = 220) CALCIUM (test code = 9.6 MG/DL 8.5-10.5 2208) PROTEIN, TOTAL (test 7.0 G/DL 6.1-8.3 code = 222) ALBUMIN (test code = 4.2 G/DL 3.5-5.2 2200) CALC GLOBULIN (test 2.8 G/DL 1.9-3.7 code = 224) CALC A/G RATIO (test 1.5 RATIO 1.0-2.6 code = 2233) BILIRUBIN, TOTAL 0.3 MG/DL See_Comment [Automated message] (test code = 220) The syste m which generated this result transmit fabian reference range : <=1.2. The refe rence range was not u sed to interpret th is result as normal/abnormal . ALKALINE PHOSPHATASE 32 U/L 40-142 L (test code = 2203) AST (test code = 17 U/L 9-40 2217) ALT (test code = 12 U/L 5-40 2218) URIC [id number] 04:53:48 Test Item Value Reference Range Interpretation Comments URIC ACID (test code = 223) 6.4 MG/DL 2.7-6.1 H ALBUMIN/CREATININE RATIO, URINE, [id number] 04:43:14 Test Item Value Reference Range Interpretation Comments CREATININE, URINE, 27.8 MG/DL NOT ESTAB RANDOM (test code = 2072) ALBUMIN, URINE, 0.2 MG/DL NOT ESTAB RANDOM (test code = 73785) CALC 7 MG/G <30 Note: Albumin/ Creatinine ALBUMIN/CREAT, RND ratio ref erence interval (test code = reflects [place] [address]1235) guidelines. UNL ESS OTHERWISE INDIC ATED, ALL TESTING PERFORM ED [facility], [facility]. [address] [place] [id number] LABORATORY DIRE CTOR: Joseph MURRAY. CLIA NUMBER [id number] CAP ACCREDITATION N O. [id number] CBC W/AUTO [id number] 00:00:00 Test Item Value Reference Range Interpretation Comments WBC (test code = 1001) 5.9 K/UL RBC (test code = 1002) 4.06 M/UL HEMOGLOBIN (test code = 1003) 12.6 G/DL HEMATOCRIT (test code = 1004) 37.2 % MCV (test code = 1005) 91.6 fL MCH (test code = 1006) 31.0 PG MCHC (test code = 1007) 33.9 G/DL RDW (test code = 1038) 14.0 % NEUTROPHILS (test code = 1008) 51.5 % LYMPHOCYTES (test code = 1010) 33.7 % MONOCYTES (test code = 1011) 11.6 % EOSINOPHILS (test code = 1012) 2.0 % BASOPHILS (test code = 1013) 1.0 % IMMATURE GRANULOCYTES (test 0.2 % code = 1036) NUCLEATED RBCS (test code = 0.0 /100WBC'S 1065) PLATELET COUNT (test code = 230 K/UL 1015) ABSOLUTE NEUTROPHILS (test code 3.02 K/UL = 1066) ABSOLUTE LYMPHOCYTES (test code 1.98 K/UL = 1067) ABSOLUTE MONOCYTES (test code = 0.68 K/UL 1068) ABSOLUTE EOSINOPHILS (test code 0.12 K/UL = 1040) ABSOLUTE BASOPHILS (test code = 0.06 K/UL 1069) ABS IMMATURE GRANULOCYTES (test 0.01 K/UL code = 1020) ABS NUCLEATED RBCS (test code = 0.00 K/UL 49654) CBC W/AUTO [id number] 00:00:00 Test Item Value Reference Range Interpretation Comments WBC (test code = 1001) 5.9 K/UL RBC (test code = 1002) 4.06 M/UL HEMOGLOBIN (test code = 1003) 12.6 G/DL HEMATOCRIT (test code = 1004) 37.2 % MCV (test code = 1005) 91.6 fL MCH (test code = 1006) 31.0 PG MCHC (test code = 1007) 33.9 G/DL RDW (test code = 1038) 14.0 % NEUTROPHILS (test code = 1008) 51.5 % LYMPHOCYTES (test code = 1010) 33.7 % MONOCYTES (test code = 1011) 11.6 % EOSINOPHILS (test code = 1012) 2.0 % BASOPHILS (test code = 1013) 1.0 % IMMATURE GRANULOCYTES (test 0.2 % code = 1036) NUCLEATED RBCS (test code = 0.0 /100WBC'S 1065) PLATELET COUNT (test code = 230 K/UL 1015) ABSOLUTE NEUTROPHILS (test code 3.02 K/UL = 1066) ABSOLUTE LYMPHOCYTES (test code 1.98 K/UL = 1067) ABSOLUTE MONOCYTES (test code = 0.68 K/UL 1068) ABSOLUTE EOSINOPHILS (test code 0.12 K/UL = 1040) ABSOLUTE BASOPHILS (test code = 0.06 K/UL 1069) ABS IMMATURE GRANULOCYTES (test 0.01 K/UL code = 1020) ABS NUCLEATED RBCS (test code = 0.00 K/UL 26826) COMPREHENSIVE METABOLIC [id number] 00:00:00 Test Item Value Reference Range Interpretation Comments GLUCOSE (test code = 2217) 86 MG/DL BUN (test code = 2208) 43 MG/DL CREATININE (test code = 2214) 1.15 MG/DL eGFR (2020 CKD-EPI) (test code 48 ML/MIN/1.73 = 44550) CALC BUN/CREAT (test code = 37 RATIO 2235) SODIUM (test code = 2231) 141 MEQ/L POTASSIUM (test code = 2228) 4.6 MEQ/L CHLORIDE (test code = 2215) 103 MEQ/L CARBON DIOXIDE (test code = 22 MEQ/L 2205) CALCIUM (test code = 2209) 9.6 MG/DL PROTEIN, TOTAL (test code = 7.0 G/DL 2228) ALBUMIN (test code = 2201) 4.2 G/DL CALC GLOBULIN (test code = 2.8 G/DL 224) CALC A/G RATIO (test code = 1.5 RATIO 4) BILIRUBIN, TOTAL (test code = 0.3 MG/DL 2206) ALKALINE PHOSPHATASE (test 32 U/L code = 2204) AST (test code = 2218) 17 U/L ALT (test code = 2219) 12 U/L [id number] 00:00:00 Test Item Value Reference Range Interpretation Comments MAGNESIUM (test code = 2226) 2.5 MG/DL [id number] 00:00:00 Test Item Value Reference Range Interpretation Comments MAGNESIUM (test code = 2226) 2.5 MG/DL INTACT [id number] 00:00:00 Test Item Value Reference Range Interpretation Comments INTACT PTH (test code = 5005) 27 PG/ML INTACT [id number] 00:00:00 Test Item Value Reference Range Interpretation Comments INTACT PTH (test code = 5005) 27 PG/ML [id number] 00:00:00 Test Item Value Reference Range Interpretation Comments PHOSPHORUS (test code = 2227) 4.3 MG/DL URIC [id number] 00:00:00 Test Item Value Reference Range Interpretation Comments URIC ACID (test code = 2233) 6.4 MG/DL MICROALBUMIN/CREATININE, RANDOM AND [id number] 00:00:00 Test Item Value Reference Range Interpretation Comments CREATININE, URINE, RANDOM (test 27.8 MG/DL code = 2072) ALBUMIN, URINE, RANDOM (test code 0.2 MG/DL = 72256) CALC ALBUMIN/CREAT, RND (test code 7 MG/G = 88244) CBC W/AUTO [id number] 00:00:00 Test Item Value Reference Range Interpretation Comments WBC (test code = 1001) 5.9 K/UL RBC (test code = 1002) 4.06 M/UL HEMOGLOBIN (test code = 1003) 12.6 G/DL HEMATOCRIT (test code = 1004) 37.2 % MCV (test code = 1005) 91.6 fL MCH (test code = 1006) 31.0 PG MCHC (test code = 1007) 33.9 G/DL RDW (test code = 1038) 14.0 % NEUTROPHILS (test code = 1008) 51.5 % LYMPHOCYTES (test code = 1010) 33.7 % MONOCYTES (test code = 1011) 11.6 % EOSINOPHILS (test code = 1012) 2.0 % BASOPHILS (test code = 1013) 1.0 % IMMATURE GRANULOCYTES (test 0.2 % code = 1036) NUCLEATED RBCS (test code = 0.0 /100WBC'S 1065) PLATELET COUNT (test code = 230 K/UL 1015) ABSOLUTE NEUTROPHILS (test code 3.02 K/UL = 1066) ABSOLUTE LYMPHOCYTES (test code 1.98 K/UL = 1067) ABSOLUTE MONOCYTES (test code = 0.68 K/UL 1068) ABSOLUTE EOSINOPHILS (test code 0.12 K/UL = 1040) ABSOLUTE BASOPHILS (test code = 0.06 K/UL 1069) ABS IMMATURE GRANULOCYTES (test 0.01 K/UL code = 1020) ABS NUCLEATED RBCS (test code = 0.00 K/UL 34166) CBC W/AUTO [id number] 00:00:00 Test Item Value Reference Range Interpretation Comments WBC (test code = 1001) 5.9 K/UL RBC (test code = 1002) 4.06 M/UL HEMOGLOBIN (test code = 1003) 12.6 G/DL HEMATOCRIT (test code = 1004) 37.2 % MCV (test code = 1005) 91.6 fL MCH (test code = 1006) 31.0 PG MCHC (test code = 1007) 33.9 G/DL RDW (test code = 1038) 14.0 % NEUTROPHILS (test code = 1008) 51.5 % LYMPHOCYTES (test code = 1010) 33.7 % MONOCYTES (test code = 1011) 11.6 % EOSINOPHILS (test code = 1012) 2.0 % BASOPHILS (test code = 1013) 1.0 % IMMATURE GRANULOCYTES (test 0.2 % code = 1036) NUCLEATED RBCS (test code = 0.0 /100WBC'S 1065) PLATELET COUNT (test code = 230 K/UL 1015) ABSOLUTE NEUTROPHILS (test code 3.02 K/UL = 1066) ABSOLUTE LYMPHOCYTES (test code 1.98 K/UL = 1067) ABSOLUTE MONOCYTES (test code = 0.68 K/UL 1068) ABSOLUTE EOSINOPHILS (test code 0.12 K/UL = 1040) ABSOLUTE BASOPHILS (test code = 0.06 K/UL 1069) ABS IMMATURE GRANULOCYTES (test 0.01 K/UL code = 1020) ABS NUCLEATED RBCS (test code = 0.00 K/UL 41306) CBC W/AUTO [id number] 00:00:00 Test Item Value Reference Range Interpretation Comments WBC (test code = 1001) 5.9 K/UL RBC (test code = 1002) 4.06 M/UL HEMOGLOBIN (test code = 1003) 12.6 G/DL HEMATOCRIT (test code = 1004) 37.2 % MCV (test code = 1005) 91.6 fL MCH (test code = 1006) 31.0 PG MCHC (test code = 1007) 33.9 G/DL RDW (test code = 1038) 14.0 % NEUTROPHILS (test code = 1008) 51.5 % LYMPHOCYTES (test code = 1010) 33.7 % MONOCYTES (test code = 1011) 11.6 % EOSINOPHILS (test code = 1012) 2.0 % BASOPHILS (test code = 1013) 1.0 % IMMATURE GRANULOCYTES (test 0.2 % code = 1036) NUCLEATED RBCS (test code = 0.0 /100WBC'S 1065) PLATELET COUNT (test code = 230 K/UL 1015) ABSOLUTE NEUTROPHILS (test code 3.02 K/UL = 1066) ABSOLUTE LYMPHOCYTES (test code 1.98 K/UL = 1067) ABSOLUTE MONOCYTES (test code = 0.68 K/UL 1068) ABSOLUTE EOSINOPHILS (test code 0.12 K/UL = 1040) ABSOLUTE BASOPHILS (test code = 0.06 K/UL 1069) ABS IMMATURE GRANULOCYTES (test 0.01 K/UL code = 1020) ABS NUCLEATED RBCS (test code = 0.00 K/UL 42927) COMPREHENSIVE METABOLIC [id number] 00:00:00 Test Item Value Reference Range Interpretation Comments GLUCOSE (test code = 2217) 86 MG/DL BUN (test code = 2208) 43 MG/DL CREATININE (test code = 2214) 1.15 MG/DL eGFR (2020 CKD-EPI) (test code 48 ML/MIN/1.73 = 03328) CALC BUN/CREAT (test code = 37 RATIO 2235) SODIUM (test code = 2231) 141 MEQ/L POTASSIUM (test code = 2228) 4.6 MEQ/L CHLORIDE (test code = 2215) 103 MEQ/L CARBON DIOXIDE (test code = 22 MEQ/L 2205) CALCIUM (test code = 2209) 9.6 MG/DL PROTEIN, TOTAL (test code = 7.0 G/DL 2228) ALBUMIN (test code = 2201) 4.2 G/DL CALC GLOBULIN (test code = 2.8 G/DL 2240) CALC A/G RATIO (test code = 1.5 RATIO 2234) BILIRUBIN, TOTAL (test code = 0.3 MG/DL 2206) ALKALINE PHOSPHATASE (test 32 U/L code = 2204) AST (test code = 2218) 17 U/L ALT (test code = 2219) 12 U/L COMPREHENSIVE METABOLIC [id number] 00:00:00 Test Item Value Reference Range Interpretation Comments GLUCOSE (test code = 2217) 86 MG/DL BUN (test code = 2208) 43 MG/DL CREATININE (test code = 2214) 1.15 MG/DL eGFR (2020 CKD-EPI) (test code 48 ML/MIN/1.73 = 68581) CALC BUN/CREAT (test code = 37 RATIO 2235) SODIUM (test code = 2231) 141 MEQ/L POTASSIUM (test code = 2228) 4.6 MEQ/L CHLORIDE (test code = 2215) 103 MEQ/L CARBON DIOXIDE (test code = 22 MEQ/L 2205) CALCIUM (test code = 2209) 9.6 MG/DL PROTEIN, TOTAL (test code = 7.0 G/DL 2228) ALBUMIN (test code = 2201) 4.2 G/DL CALC GLOBULIN (test code = 2.8 G/DL 224) CALC A/G RATIO (test code = 1.5 RATIO 2233) BILIRUBIN, TOTAL (test code = 0.3 MG/DL 2206) ALKALINE PHOSPHATASE (test 32 U/L code = 2204) AST (test code = 2218) 17 U/L ALT (test code = 2219) 12 U/L [id number] 00:00:00 Test Item Value Reference Range Interpretation Comments MAGNESIUM (test code = 2226) 2.5 MG/DL [id number] 00:00:00 Test Item Value Reference Range Interpretation Comments MAGNESIUM (test code = 2226) 2.5 MG/DL [id number] 00:00:00 Test Item Value Reference Range Interpretation Comments MAGNESIUM (test code = 2226) 2.5 MG/DL INTACT [id number] 00:00:00 Test Item Value Reference Range Interpretation Comments INTACT PTH (test code = 5005) 27 PG/ML INTACT [id number] 00:00:00 Test Item Value Reference Range Interpretation Comments INTACT PTH (test code = 5005) 27 PG/ML INTACT [id number] 00:00:00 Test Item Value Reference Range Interpretation Comments INTACT PTH (test code = 5005) 27 PG/ML [id number] 00:00:00 Test Item Value Reference Range Interpretation Comments PHOSPHORUS (test code = 2227) 4.3 MG/DL [id number] 00:00:00 Test Item Value Reference Range Interpretation Comments PHOSPHORUS (test code = 2227) 4.3 MG/DL URIC [id number] 00:00:00 Test Item Value Reference Range Interpretation Comments URIC ACID (test code = 2233) 6.4 MG/DL URIC [id number] 00:00:00 Test Item Value Reference Range Interpretation Comments URIC ACID (test code = 2233) 6.4 MG/DL MICROALBUMIN/CREATININE, RANDOM AND [id number] 00:00:00 Test Item Value Reference Range Interpretation Comments CREATININE, URINE, RANDOM (test 27.8 MG/DL code = 2072) ALBUMIN, URINE, RANDOM (test code 0.2 MG/DL = 29313) CALC ALBUMIN/CREAT, RND (test code 7 MG/G = 56565) MICROALBUMIN/CREATININE, RANDOM AND [id number] 00:00:00 Test Item Value Reference Range Interpretation Comments CREATININE, URINE, RANDOM (test 27.8 MG/DL code = 2072) ALBUMIN, URINE, RANDOM (test code 0.2 MG/DL = 14108) CALC ALBUMIN/CREAT, RND (test code 7 MG/G = 41815) CBC W/AUTO [id number] 00:00:00 Test Item Value Reference Range Interpretation Comments WBC (test code = 1001) 5.9 K/UL RBC (test code = 1002) 4.06 M/UL HEMOGLOBIN (test code = 1003) 12.6 G/DL HEMATOCRIT (test code = 1004) 37.2 % MCV (test code = 1005) 91.6 fL MCH (test code = 1006) 31.0 PG MCHC (test code = 1007) 33.9 G/DL RDW (test code = 1038) 14.0 % NEUTROPHILS (test code = 1008) 51.5 % LYMPHOCYTES (test code = 1010) 33.7 % MONOCYTES (test code = 1011) 11.6 % EOSINOPHILS (test code = 1012) 2.0 % BASOPHILS (test code = 1013) 1.0 % IMMATURE GRANULOCYTES (test 0.2 % code = 1036) NUCLEATED RBCS (test code = 0.0 /100WBC'S 1065) PLATELET COUNT (test code = 230 K/UL 1015) ABSOLUTE NEUTROPHILS (test code 3.02 K/UL = 1066) ABSOLUTE LYMPHOCYTES (test code 1.98 K/UL = 1067) ABSOLUTE MONOCYTES (test code = 0.68 K/UL 1068) ABSOLUTE EOSINOPHILS (test code 0.12 K/UL = 1040) ABSOLUTE BASOPHILS (test code = 0.06 K/UL 1069) ABS IMMATURE GRANULOCYTES (test 0.01 K/UL code = 1020) ABS NUCLEATED RBCS (test code = 0.00 K/UL 68886) CBC W/AUTO [id number] 00:00:00 Test Item Value Reference Range Interpretation Comments WBC (test code = 1001) 5.9 K/UL RBC (test code = 1002) 4.06 M/UL HEMOGLOBIN (test code = 1003) 12.6 G/DL HEMATOCRIT (test code = 1004) 37.2 % MCV (test code = 1005) 91.6 fL MCH (test code = 1006) 31.0 PG MCHC (test code = 1007) 33.9 G/DL RDW (test code = 1038) 14.0 % NEUTROPHILS (test code = 1008) 51.5 % LYMPHOCYTES (test code = 1010) 33.7 % MONOCYTES (test code = 1011) 11.6 % EOSINOPHILS (test code = 1012) 2.0 % BASOPHILS (test code = 1013) 1.0 % IMMATURE GRANULOCYTES (test 0.2 % code = 1036) NUCLEATED RBCS (test code = 0.0 /100WBC'S 1065) PLATELET COUNT (test code = 230 K/UL 1015) ABSOLUTE NEUTROPHILS (test code 3.02 K/UL = 1066) ABSOLUTE LYMPHOCYTES (test code 1.98 K/UL = 1067) ABSOLUTE MONOCYTES (test code = 0.68 K/UL 1068) ABSOLUTE EOSINOPHILS (test code 0.12 K/UL = 1040) ABSOLUTE BASOPHILS (test code = 0.06 K/UL 1069) ABS IMMATURE GRANULOCYTES (test 0.01 K/UL code = 1020) ABS NUCLEATED RBCS (test code = 0.00 K/UL 34687) CBC W/AUTO [id number] 00:00:00 Test Item Value Reference Range Interpretation Comments WBC (test code = 1001) 5.9 K/UL RBC (test code = 1002) 4.06 M/UL HEMOGLOBIN (test code = 1003) 12.6 G/DL HEMATOCRIT (test code = 1004) 37.2 % MCV (test code = 1005) 91.6 fL MCH (test code = 1006) 31.0 PG MCHC (test code = 1007) 33.9 G/DL RDW (test code = 1038) 14.0 % NEUTROPHILS (test code = 1008) 51.5 % LYMPHOCYTES (test code = 1010) 33.7 % MONOCYTES (test code = 1011) 11.6 % EOSINOPHILS (test code = 1012) 2.0 % BASOPHILS (test code = 1013) 1.0 % IMMATURE GRANULOCYTES (test 0.2 % code = 1036) NUCLEATED RBCS (test code = 0.0 /100WBC'S 1065) PLATELET COUNT (test code = 230 K/UL 1015) ABSOLUTE NEUTROPHILS (test code 3.02 K/UL = 1066) ABSOLUTE LYMPHOCYTES (test code 1.98 K/UL = 1067) ABSOLUTE MONOCYTES (test code = 0.68 K/UL 1068) ABSOLUTE EOSINOPHILS (test code 0.12 K/UL = 1040) ABSOLUTE BASOPHILS (test code = 0.06 K/UL 1069) ABS IMMATURE GRANULOCYTES (test 0.01 K/UL code = 1020) ABS NUCLEATED RBCS (test code = 0.00 K/UL 84862) COMPREHENSIVE METABOLIC [id number] 00:00:00 Test Item Value Reference Range Interpretation Comments GLUCOSE (test code = 2217) 86 MG/DL BUN (test code = 2208) 43 MG/DL CREATININE (test code = 2214) 1.15 MG/DL eGFR (2020 CKD-EPI) (test code 48 ML/MIN/1.73 = 82437) CALC BUN/CREAT (test code = 37 RATIO 2235) SODIUM (test code = 2231) 141 MEQ/L POTASSIUM (test code = 2228) 4.6 MEQ/L CHLORIDE (test code = 2215) 103 MEQ/L CARBON DIOXIDE (test code = 22 MEQ/L 2205) CALCIUM (test code = 2209) 9.6 MG/DL PROTEIN, TOTAL (test code = 7.0 G/DL 2228) ALBUMIN (test code = 2201) 4.2 G/DL CALC GLOBULIN (test code = 2.8 G/DL 2240) CALC A/G RATIO (test code = 1.5 RATIO 2234) BILIRUBIN, TOTAL (test code = 0.3 MG/DL 2206) ALKALINE PHOSPHATASE (test 32 U/L code = 2204) AST (test code = 2218) 17 U/L ALT (test code = 2219) 12 U/L COMPREHENSIVE METABOLIC [id number] 00:00:00 Test Item Value Reference Range Interpretation Comments GLUCOSE (test code = 2217) 86 MG/DL BUN (test code = 2208) 43 MG/DL CREATININE (test code = 2214) 1.15 MG/DL eGFR (2020 CKD-EPI) (test code 48 ML/MIN/1.73 = 33650) CALC BUN/CREAT (test code = 37 RATIO 2234) SODIUM (test code = 2231) 141 MEQ/L POTASSIUM (test code = 2228) 4.6 MEQ/L CHLORIDE (test code = 2215) 103 MEQ/L CARBON DIOXIDE (test code = 22 MEQ/L 2205) CALCIUM (test code = 2209) 9.6 MG/DL PROTEIN, TOTAL (test code = 7.0 G/DL 2228) ALBUMIN (test code = 220) 4.2 G/DL CALC GLOBULIN (test code = 2.8 G/DL 2239) CALC A/G RATIO (test code = 1.5 RATIO 2233) BILIRUBIN, TOTAL (test code = 0.3 MG/DL 2206) ALKALINE PHOSPHATASE (test 32 U/L code = 2204) AST (test code = 2218) 17 U/L ALT (test code = 2219) 12 U/L [id number] 00:00:00 Test Item Value Reference Range Interpretation Comments MAGNESIUM (test code = 2226) 2.5 MG/DL [id number] 00:00:00 Test Item Value Reference Range Interpretation Comments MAGNESIUM (test code = 2226) 2.5 MG/DL [id number] 00:00:00 Test Item Value Reference Range Interpretation Comments MAGNESIUM (test code = 2226) 2.5 MG/DL INTACT [id number] 00:00:00 Test Item Value Reference Range Interpretation Comments INTACT PTH (test code = 5005) 27 PG/ML INTACT [id number] 00:00:00 Test Item Value Reference Range Interpretation Comments INTACT PTH (test code = 5005) 27 PG/ML INTACT [id number] 00:00:00 Test Item Value Reference Range Interpretation Comments INTACT PTH (test code = 5005) 27 PG/ML [id number] 00:00:00 Test Item Value Reference Range Interpretation Comments PHOSPHORUS (test code = 2227) 4.3 MG/DL [id number] 00:00:00 Test Item Value Reference Range Interpretation Comments PHOSPHORUS (test code = 2227) 4.3 MG/DL URIC [id number] 00:00:00 Test Item Value Reference Range Interpretation Comments URIC ACID (test code = 2233) 6.4 MG/DL URIC [id number] 00:00:00 Test Item Value Reference Range Interpretation Comments URIC ACID (test code = 2233) 6.4 MG/DL MICROALBUMIN/CREATININE, RANDOM AND [id number] 00:00:00 Test Item Value Reference Range Interpretation Comments CREATININE, URINE, RANDOM (test 27.8 MG/DL code = 2072) ALBUMIN, URINE, RANDOM (test code 0.2 MG/DL = 59846) CALC ALBUMIN/CREAT, RND (test code 7 MG/G = 09373) MICROALBUMIN/CREATININE, RANDOM AND [id number] 00:00:00 Test Item Value Reference Range Interpretation Comments CREATININE, URINE, RANDOM (test 27.8 MG/DL code = 2072) ALBUMIN, URINE, RANDOM (test code 0.2 MG/DL = 78263) CALC ALBUMIN/CREAT, RND (test code 7 MG/G = 20905) [id number] 00:00:00 Test Item Value Reference Range Interpretation Comments PHOSPHORUS (test code = 2227) 4.8 MG/DL [id number] 00:00:00 Test Item Value Reference Range Interpretation Comments TSH, THIRD GENERATION (test code 2.190 UIU/ML = 2821) [id number] 00:00:00 Test Item Value Reference Range Interpretation Comments TSH, THIRD GENERATION (test code 2.190 UIU/ML = 2821) COMPREHENSIVE METABOLIC [id number] 00:00:00 Test Item Value Reference Range Interpretation Comments GLUCOSE (test code = 2217) 86 MG/DL BUN (test code = 2208) 44 MG/DL CREATININE (test code = 2214) 1.42 MG/DL eGFR AMER. (test code 40 ML/MIN/1.73 = 26684) eGFR NON- AMER. (test 34 ML/MIN/1.73 code = 02255) CALC BUN/CREAT (test code = 31 RATIO 2235) SODIUM (test code = 2231) 143 MEQ/L POTASSIUM (test code = 2228) 4.6 MEQ/L CHLORIDE (test code = 2215) 102 MEQ/L CARBON DIOXIDE (test code = 26 MEQ/L 2206) CALCIUM (test code = 2209) 9.4 MG/DL PROTEIN, TOTAL (test code = 7.3 G/DL 2228) ALBUMIN (test code = 2201) 4.2 G/DL CALC GLOBULIN (test code = 3.1 G/DL 0) CALC A/G RATIO (test code = 1.4 RATIO 2234) BILIRUBIN, TOTAL (test code = 0.2 MG/DL 2206) ALKALINE PHOSPHATASE (test 33 U/L code = 2204) AST (test code = 2218) 16 U/L ALT (test code = 2219) 11 U/L URIC [id number] 00:00:00 Test Item Value Reference Range Interpretation Comments URIC ACID (test code = 2233) 7.9 MG/DL HEMOGLOBIN [id number] 00:00:00 Test Item Value Reference Range Interpretation Comments HEMOGLOBIN A1c (test code = 57508) 6.4 % HEMOGLOBIN [id number] 00:00:00 Test Item Value Reference Range Interpretation Comments HEMOGLOBIN A1c (test code = 01031) 6.4 % [id number] 00:00:00 Test Item Value Reference Range Interpretation Comments PHOSPHORUS (test code = 2227) 4.8 MG/DL [id number] 00:00:00 Test Item Value Reference Range Interpretation Comments PHOSPHORUS (test code = 2227) 4.8 MG/DL [id number] 00:00:00 Test Item Value Reference Range Interpretation Comments TSH, THIRD GENERATION (test code 2.190 UIU/ML = 2821) [id number] 00:00:00 Test Item Value Reference Range Interpretation Comments TSH, THIRD GENERATION (test code 2.190 UIU/ML = 2821) [id number] 00:00:00 Test Item Value Reference Range Interpretation Comments TSH, THIRD GENERATION (test code 2.190 UIU/ML = 2821) COMPREHENSIVE METABOLIC [id number] 00:00:00 Test Item Value Reference Range Interpretation Comments GLUCOSE (test code = 2217) 86 MG/DL BUN (test code = 2208) 44 MG/DL CREATININE (test code = 2214) 1.42 MG/DL eGFR AMER. (test code 40 ML/MIN/1.73 = 81432) eGFR NON- AMER. (test 34 ML/MIN/1.73 code = 38938) CALC BUN/CREAT (test code = 31 RATIO 2235) SODIUM (test code = 2231) 143 MEQ/L POTASSIUM (test code = 2228) 4.6 MEQ/L CHLORIDE (test code = 2215) 102 MEQ/L CARBON DIOXIDE (test code = 26 MEQ/L 2206) CALCIUM (test code = 2209) 9.4 MG/DL PROTEIN, TOTAL (test code = 7.3 G/DL 2228) ALBUMIN (test code = 2201) 4.2 G/DL CALC GLOBULIN (test code = 3.1 G/DL 2240) CALC A/G RATIO (test code = 1.4 RATIO 2234) BILIRUBIN, TOTAL (test code = 0.2 MG/DL 2206) ALKALINE PHOSPHATASE (test 33 U/L code = 2204) AST (test code = 2218) 16 U/L ALT (test code = 2219) 11 U/L COMPREHENSIVE METABOLIC [id number] 00:00:00 Test Item Value Reference Range Interpretation Comments GLUCOSE (test code = 2217) 86 MG/DL BUN (test code = 2208) 44 MG/DL CREATININE (test code = 2214) 1.42 MG/DL eGFR AMER. (test code 40 ML/MIN/1.73 = 90377) eGFR NON- AMER. (test 34 ML/MIN/1.73 code = 39856) CALC BUN/CREAT (test code = 31 RATIO 2235) SODIUM (test code = 2231) 143 MEQ/L POTASSIUM (test code = 2228) 4.6 MEQ/L CHLORIDE (test code = 2215) 102 MEQ/L CARBON DIOXIDE (test code = 26 MEQ/L 2205) CALCIUM (test code = 2209) 9.4 MG/DL PROTEIN, TOTAL (test code = 7.3 G/DL 2228) ALBUMIN (test code = 2201) 4.2 G/DL CALC GLOBULIN (test code = 3.1 G/DL 2240) CALC A/G RATIO (test code = 1.4 RATIO 2234) BILIRUBIN, TOTAL (test code = 0.2 MG/DL 2206) ALKALINE PHOSPHATASE (test 33 U/L code = 2204) AST (test code = 2218) 16 U/L ALT (test code = 2219) 11 U/L URIC [id number] 00:00:00 Test Item Value Reference Range Interpretation Comments URIC ACID (test code = 2233) 7.9 MG/DL URIC [id number] 00:00:00 Test Item Value Reference Range Interpretation Comments URIC ACID (test code = 2233) 7.9 MG/DL HEMOGLOBIN [id number] 00:00:00 Test Item Value Reference Range Interpretation Comments HEMOGLOBIN A1c (test code = 90588) 6.4 % HEMOGLOBIN [id number] 00:00:00 Test Item Value Reference Range Interpretation Comments HEMOGLOBIN A1c (test code = 93823) 6.4 % HEMOGLOBIN [id number] 00:00:00 Test Item Value Reference Range Interpretation Comments HEMOGLOBIN A1c (test code = 22912) 6.4 % [id number] 00:00:00 Test Item Value Reference Range Interpretation Comments PHOSPHORUS (test code = 2227) 4.8 MG/DL [id number] 00:00:00 Test Item Value Reference Range Interpretation Comments PHOSPHORUS (test code = 2227) 4.8 MG/DL [id number] 00:00:00 Test Item Value Reference Range Interpretation Comments TSH, THIRD GENERATION (test code 2.190 UIU/ML = 2821) [id number] 00:00:00 Test Item Value Reference Range Interpretation Comments TSH, THIRD GENERATION (test code 2.190 UIU/ML = 2821) [id number] 00:00:00 Test Item Value Reference Range Interpretation Comments TSH, THIRD GENERATION (test code 2.190 UIU/ML = 2821) COMPREHENSIVE METABOLIC [id number] 00:00:00 Test Item Value Reference Range Interpretation Comments GLUCOSE (test code = 2217) 86 MG/DL BUN (test code = 2208) 44 MG/DL CREATININE (test code = 2214) 1.42 MG/DL eGFR AMER. (test code 40 ML/MIN/1.73 = 95708) eGFR NON- AMER. (test 34 ML/MIN/1.73 code = 83321) CALC BUN/CREAT (test code = 31 RATIO 2235) SODIUM (test code = 2231) 143 MEQ/L POTASSIUM (test code = 2228) 4.6 MEQ/L CHLORIDE (test code = 2215) 102 MEQ/L CARBON DIOXIDE (test code = 26 MEQ/L 2205) CALCIUM (test code = 2209) 9.4 MG/DL PROTEIN, TOTAL (test code = 7.3 G/DL 2228) ALBUMIN (test code = 2201) 4.2 G/DL CALC GLOBULIN (test code = 3.1 G/DL 2240) CALC A/G RATIO (test code = 1.4 RATIO 2234) BILIRUBIN, TOTAL (test code = 0.2 MG/DL 2206) ALKALINE PHOSPHATASE (test 33 U/L code = 2204) AST (test code = 2218) 16 U/L ALT (test code = 2219) 11 U/L COMPREHENSIVE METABOLIC [id number] 00:00:00 Test Item Value Reference Range Interpretation Comments GLUCOSE (test code = 2217) 86 MG/DL BUN (test code = 2208) 44 MG/DL CREATININE (test code = 2214) 1.42 MG/DL eGFR AMER. (test code 40 ML/MIN/1.73 = 75797) eGFR NON- AMER. (test 34 ML/MIN/1.73 code = 94814) CALC BUN/CREAT (test code = 31 RATIO 2235) SODIUM (test code = 2231) 143 MEQ/L POTASSIUM (test code = 2228) 4.6 MEQ/L CHLORIDE (test code = 2215) 102 MEQ/L CARBON DIOXIDE (test code = 26 MEQ/L 2205) CALCIUM (test code = 2209) 9.4 MG/DL PROTEIN, TOTAL (test code = 7.3 G/DL 2228) ALBUMIN (test code = 2201) 4.2 G/DL CALC GLOBULIN (test code = 3.1 G/DL 2240) CALC A/G RATIO (test code = 1.4 RATIO 2234) BILIRUBIN, TOTAL (test code = 0.2 MG/DL 2206) ALKALINE PHOSPHATASE (test 33 U/L code = 2204) AST (test code = 2218) 16 U/L ALT (test code = 2219) 11 U/L URIC [id number] 00:00:00 Test Item Value Reference Range Interpretation Comments URIC ACID (test code = 2233) 7.9 MG/DL URIC [id number] 00:00:00 Test Item Value Reference Range Interpretation Comments URIC ACID (test code = 2233) 7.9 MG/DL HEMOGLOBIN [id number] 00:00:00 Test Item Value Reference Range Interpretation Comments HEMOGLOBIN A1c (test code = 61156) 6.4 % HEMOGLOBIN [id number] 00:00:00 Test Item Value Reference Range Interpretation Comments HEMOGLOBIN A1c (test code = 09159) 6.4 % HEMOGLOBIN [id number] 00:00:00 Test Item Value Reference Range Interpretation Comments HEMOGLOBIN A1c (test code = 27053) 6.4 % DEXA AXIAL (HIP AND SPINE)2020-10-12 18:42:22 Osteopenia. The lumbar bone density is stable, however the hip bone density hassignificant diminished since 2019. Preliminary Report Dictated by Resident: Fredrick Andrade ?MD Luzma., have reviewed this study and agree withthe above report.EXAM: DEXA ? ? DEXA AXIAL (HIP AND SPINE) HISTORY: Female 80 years Other specified disorders of bone density andstructure, multiple sites External orders COMPARISON: ?03/04/2018 TECHNIQUE: Bone densitometry of the lumbar spine, right hip and femoral neck wasperformed on a [employer] system. ? WHO Criteria:Normal: T Score ? -1.0 Osteopenia: T Score -1.1 to < 2.5 Osteoporosis: T Score ? -2.5 Fracture risk doubles for each 1.5 SD below the mean. FINDINGS: Lumbar spine L1-L4: T value 1.7. ?Bone mineral density of1.411 g/cm^2. Compared to 2019 the lumbar density changed by +1.4%. Right Hip: T value 0.4. ?Bone mineral density of 1.062 g/cm^2. Compared to 2019 the hip total bone density diminished by -8.5%. Right Neck: T value - 1.3. ?Bone mineral density of 0.854 g/cm^2. Rust, Radiant Results Inft User - 10/12/2020 1:43 PM CDT EXAM: DEXA DEXA AXIAL (HIP AND SPINE)HISTORY: Female 80 years Other specified disorders of bone density andstructure, multiple sites External orders COMPARISON: 03/04/2018TECHNIQUE: Bone densitometry of the lumbar spine, right hip and femoral neck wasperformed on a [employer] system. WHO Criteria:Normal: T Score ? -1.0 Osteopenia: T Score -1.1 to < 2.5 Osteoporosis: T Score ? -2.5 Fracture risk doubles for each 1.5 SD below the mean. FINDINGS:Lumbar spine L1-L4: T value 1.7. Bone mineral density of 1.411 g/cm^2. Compared to 2019 the lumbar density changed by +1.4%.Right Hip: T value 0.4. Bone mineral density of 1.062 g/cm^2. Compared to 2019 the hip total bone density diminished by -8.5%.Right Neck: T value - 1.3. Bone mineral density of0.854 g/cm^2. IMPRESSIONOsteopenia.The lumbar bone density is stable, however the hip bone density hassignificant diminished since 2019.Preliminary Report Dictated by Resident: Fredrick Mejía MD., have reviewed this study and agree withthe above report.[facility]2020-10-12 18:42:22 Osteopenia. The lumbar bone density is stable, however the hip bone density hassignificant diminished since 2019. Preliminary Report Dictated by Resident: Fredrick Andrade ?MD Luzma., have reviewed this study and agree withthe above report.EXAM: DEXA ? ? DEXA AXIAL (HIP AND SPINE) HISTORY: Female 80 years Other specified disorders of bone density andstructure, multiple sites External orders COMPARISON: ?03/04/2018 TECHNIQUE: Bone densitometry of the lumbar spine, right hip and femoral neck wasperformed on a [employer] system. ? WHO Criteria:Normal: T Score ? -1.0 Osteopenia: T Score -1.1 to < 2.5 Osteoporosis: T Score ? -2.5 Fracture risk doubles for each 1.5 SD below the mean. FINDINGS: Lumbar spine L1-L4: T value 1.7. ?Bone mineral density of1.411 g/cm^2. Compared to 2019 the lumbar density changed by +1.4%. Right Hip: T value 0.4. ?Bone mineral density of 1.062 g/cm^2. Compared to 2019 the hip total bone density diminished by -8.5%. Right Neck: T value - 1.3. ?Bone mineral density of 0.854 g/cm^2. Rust, Radiant Results [employer] User - 10/12/2020 1:43 PM CDT EXAM: DEXA DEXA AXIAL (HIP AND SPINE)HISTORY: Female 80 years Other specified disorders of bone density andstructure, multiple sites External orders COMPARISON: 03/04/2018TECHNIQUE: Bone densitometry of the lumbar spine, right hip and femoral neck wasperformed on a [employer] system. WHO Criteria:Normal: T Score ? -1.0 Osteopenia: T Score -1.1 to < 2.5 Osteoporosis: T Score ? -2.5 Fracture risk doubles for each 1.5 SD below the mean. FINDINGS:Lumbar spine L1-L4: T value 1.7. Bone mineral density of 1.411 g/cm^2. Compared to 2019 the lumbar density changed by +1.4%.Right Hip: T value 0.4. Bone mineral density of 1.062 g/cm^2. Compared to 2019 the hip total bone density diminished by -8.5%.Right Neck: T value - 1.3. Bone mineral density of0.854 g/cm^2. IMPRESSIONOsteopenia.The lumbar bone density is stable, however the hip bone density hassignificant diminished since 2019.Preliminary Report Dictated by Resident: Fredrick Mejía MD., have reviewed this study and agree withthe above report.[facility]PRE[facility] [id number] 00:00:00 Test Item Value Reference Range Interpretation Comments GLUCOSE (test code = 2217) 88 MG/DL BUN (test code = 2208) 58 MG/DL CREATININE (test code = 2214) 1.41 MG/DL eGFR AMER. (test code 40 ML/MIN/1.73 = 95371) eGFR NON- AMER. (test 35 ML/MIN/1.73 code = 33579) CALC BUN/CREAT (test code = 41 RATIO 2235) SODIUM (test code = 2231) 140 MEQ/L POTASSIUM (test code = 2228) 4.3 MEQ/L CHLORIDE (test code = 2215) 101 MEQ/L CARBON DIOXIDE (test code = 27 MEQ/L 2205) CALCIUM (test code = 2209) 9.8 MG/DL PROTEIN, TOTAL (test code = 6.9 G/DL 2228) ALBUMIN (test code = 2201) 4.4 G/DL CALC GLOBULIN (test code = 2.5 G/DL 2239) CALC A/G RATIO (test code = 1.8 RATIO 2234) BILIRUBIN, TOTAL (test code = 0.3 MG/DL 2206) ALKALINE PHOSPHATASE (test 30 U/L code = 2204) AST (test code = 2218) 23 U/L ALT (test code = 2219) 15 U/L [id number] 00:00:00 Test Item Value Reference Range Interpretation Comments MAGNESIUM (test code = 2226) 2.5 MG/DL [id number] 00:00:00 Test Item Value Reference Range Interpretation Comments MAGNESIUM (test code = 2226) 2.5 MG/DL URIC [id number] 00:00:00 Test Item Value Reference Range Interpretation Comments URIC ACID (test code = 2233) 6.5 MG/DL [id number] 00:00:00 Test Item Value Reference Range Interpretation Comments PHOSPHORUS (test code = 2227) 5.8 MG/DL HEMOGLOBIN [id number] 00:00:00 Test Item Value Reference Range Interpretation Comments HEMOGLOBIN A1c (test code = 06914) 6.1 % HEMOGLOBIN [id number] 00:00:00 Test Item Value Reference Range Interpretation Comments HEMOGLOBIN A1c (test code = 12947) 6.1 % LIPID [id number] 00:00:00 Test Item Value Reference Range Interpretation Comments CHOLESTEROL (test code = 2210) 169 MG/DL TRIGLYCERIDES (test code = 2232) 78 MG/DL HDL CHOLESTEROL (test code = 2220) 65 MG/DL CALC LDL CHOL (test code = 2237) 87 MG/DL RISK RATIO LDL/HDL (test code = 1.34 RATIO 2238) URINALYSIS WITH [id number] 00:00:00 Test Item Value Reference Range Interpretation Comments COLOR (test code = 1501) YELLOW APPEARANCE (test code = 1502) CLEAR SPECIFIC GRAVITY (test code = 1503) 1.013 LEUKOCYTE ESTERASE (test code = 1+ 1504) NITRITE (test code = 1505) NEGATIVE pH (test code = 1506) 5.0 PROTEIN (test code = 1507) NEGATIVE GLUCOSE (test code = 1508) NEGATIVE KETONES (test code = 1509) NEGATIVE UROBILINOGEN (test code = 1510) 0.2 MG/DL BILIRUBIN (test code = 1511) NEGATIVE OCCULT BLOOD (test code = 1512) NEGATIVE WHITE BLOOD CELLS (test code = 0-5 /HPF 1513) RED BLOOD CELLS (test code = 1514) 0-2 /HPF EPITHELIAL CELLS (test code = 0-5 /HPF 67199) BACTERIA (test code = 1515) NONE SEEN CASTS, HYALINE (test code = 1517) TRACE CREATININE, RANDOM [id number] 00:00:00 Test Item Value Reference Range Interpretation Comments CREATININE, URINE, CONC. (test 84.1 MG/DL code = 2072) MICROALBUMIN, [id number] 00:00:00 Test Item Value Reference Range Interpretation Comments ALBUMIN, URINE, RANDOM (test code = 0.3 MG/DL 70911) NT-proBNP [ADDED]2020-08-07 00:00:00 Test Item Value Reference Range Interpretation Comments NT-proBNP (test code = 49806) 1372 PG/ML NT-proBNP [ADDED]2020-08-07 00:00:00 Test Item Value Reference Range Interpretation Comments NT-proBNP (test code = 44161) 1372 PG/ML COMPREHENSIVE METABOLIC [id number] 00:00:00 Test Item Value Reference Range Interpretation Comments GLUCOSE (test code = 2217) 88 MG/DL BUN (test code = 2208) 58 MG/DL CREATININE (test code = 2214) 1.41 MG/DL eGFR AMER. (test code 40 ML/MIN/1.73 = 39870) eGFR NON- AMER. (test 35 ML/MIN/1.73 code = 86378) CALC BUN/CREAT (test code = 41 RATIO 2235) SODIUM (test code = 2231) 140 MEQ/L POTASSIUM (test code = 2228) 4.3 MEQ/L CHLORIDE (test code = 2215) 101 MEQ/L CARBON DIOXIDE (test code = 27 MEQ/L 2205) CALCIUM (test code = 2209) 9.8 MG/DL PROTEIN, TOTAL (test code = 6.9 G/DL 2228) ALBUMIN (test code = 2201) 4.4 G/DL CALC GLOBULIN (test code = 2.5 G/DL 2240) CALC A/G RATIO (test code = 1.8 RATIO 2234) BILIRUBIN, TOTAL (test code = 0.3 MG/DL 2206) ALKALINE PHOSPHATASE (test 30 U/L code = 2204) AST (test code = 2218) 23 U/L ALT (test code = 2219) 15 U/L COMPREHENSIVE METABOLIC [id number] 00:00:00 Test Item Value Reference Range Interpretation Comments GLUCOSE (test code = 2217) 88 MG/DL BUN (test code = 2208) 58 MG/DL CREATININE (test code = 2214) 1.41 MG/DL eGFR AMER. (test code 40 ML/MIN/1.73 = 21217) eGFR NON- AMER. (test 35 ML/MIN/1.73 code = 88658) CALC BUN/CREAT (test code = 41 RATIO 2235) SODIUM (test code = 2231) 140 MEQ/L POTASSIUM (test code = 2228) 4.3 MEQ/L CHLORIDE (test code = 2215) 101 MEQ/L CARBON DIOXIDE (test code = 27 MEQ/L 2205) CALCIUM (test code = 2209) 9.8 MG/DL PROTEIN, TOTAL (test code = 6.9 G/DL 2228) ALBUMIN (test code = 2201) 4.4 G/DL CALC GLOBULIN (test code = 2.5 G/DL 2240) CALC A/G RATIO (test code = 1.8 RATIO 2234) BILIRUBIN, TOTAL (test code = 0.3 MG/DL 2206) ALKALINE PHOSPHATASE (test 30 U/L code = 2204) AST (test code = 2218) 23 U/L ALT (test code = 2219) 15 U/L [id number] 00:00:00 Test Item Value Reference Range Interpretation Comments MAGNESIUM (test code = 2226) 2.5 MG/DL [id number] 00:00:00 Test Item Value Reference Range Interpretation Comments MAGNESIUM (test code = 2226) 2.5 MG/DL [id number] 00:00:00 Test Item Value Reference Range Interpretation Comments MAGNESIUM (test code = 2226) 2.5 MG/DL URIC [id number] 00:00:00 Test Item Value Reference Range Interpretation Comments URIC ACID (test code = 2233) 6.5 MG/DL URIC [id number] 00:00:00 Test Item Value Reference Range Interpretation Comments URIC ACID (test code = 2233) 6.5 MG/DL [id number] 00:00:00 Test Item Value Reference Range Interpretation Comments PHOSPHORUS (test code = 2227) 5.8 MG/DL [id number] 00:00:00 Test Item Value Reference Range Interpretation Comments PHOSPHORUS (test code = 2227) 5.8 MG/DL HEMOGLOBIN [id number] 00:00:00 Test Item Value Reference Range Interpretation Comments HEMOGLOBIN A1c (test code = 96568) 6.1 % HEMOGLOBIN [id number] 00:00:00 Test Item Value Reference Range Interpretation Comments HEMOGLOBIN A1c (test code = 43967) 6.1 % HEMOGLOBIN [id number] 00:00:00 Test Item Value Reference Range Interpretation Comments HEMOGLOBIN A1c (test code = 96507) 6.1 % LIPID [id number] 00:00:00 Test Item Value Reference Range Interpretation Comments CHOLESTEROL (test code = 2210) 169 MG/DL TRIGLYCERIDES (test code = 2232) 78 MG/DL HDL CHOLESTEROL (test code = 2220) 65 MG/DL CALC LDL CHOL (test code = 2237) 87 MG/DL RISK RATIO LDL/HDL (test code = 1.34 RATIO 2238) LIPID [id number] 00:00:00 Test Item Value Reference Range Interpretation Comments CHOLESTEROL (test code = 2210) 169 MG/DL TRIGLYCERIDES (test code = 2232) 78 MG/DL HDL CHOLESTEROL (test code = 2220) 65 MG/DL CALC LDL CHOL (test code = 2237) 87 MG/DL RISK RATIO LDL/HDL (test code = 1.34 RATIO 2238) URINALYSIS WITH [id number] 00:00:00 Test Item Value Reference Range Interpretation Comments COLOR (test code = 1501) YELLOW APPEARANCE (test code = 1502) CLEAR SPECIFIC GRAVITY (test code = 1503) 1.013 LEUKOCYTE ESTERASE (test code = 1+ 1504) NITRITE (test code = 1505) NEGATIVE pH (test code = 1506) 5.0 PROTEIN (test code = 1507) NEGATIVE GLUCOSE (test code = 1508) NEGATIVE KETONES (test code = 1509) NEGATIVE UROBILINOGEN (test code = 1510) 0.2 MG/DL BILIRUBIN (test code = 1511) NEGATIVE OCCULT BLOOD (test code = 1512) NEGATIVE WHITE BLOOD CELLS (test code = 0-5 /HPF 1513) RED BLOOD CELLS (test code = 1514) 0-2 /HPF EPITHELIAL CELLS (test code = 0-5 /HPF 21925) BACTERIA (test code = 1515) NONE SEEN CASTS, HYALINE (test code = 1517) TRACE URINALYSIS WITH [id number] 00:00:00 Test Item Value Reference Range Interpretation Comments COLOR (test code = 1501) YELLOW APPEARANCE (test code = 1502) CLEAR SPECIFIC GRAVITY (test code = 1503) 1.013 LEUKOCYTE ESTERASE (test code = 1+ 1504) NITRITE (test code = 1505) NEGATIVE pH (test code = 1506) 5.0 PROTEIN (test code = 1507) NEGATIVE GLUCOSE (test code = 1508) NEGATIVE KETONES (test code = 1509) NEGATIVE UROBILINOGEN (test code = 1510) 0.2 MG/DL BILIRUBIN (test code = 1511) NEGATIVE OCCULT BLOOD (test code = 1512) NEGATIVE WHITE BLOOD CELLS (test code = 0-5 /HPF 1513) RED BLOOD CELLS (test code = 1514) 0-2 /HPF EPITHELIAL CELLS (test code = 0-5 /HPF 49833) BACTERIA (test code = 1515) NONE SEEN CASTS, HYALINE (test code = 1517) TRACE CREATININE, RANDOM [id number] 00:00:00 Test Item Value Reference Range Interpretation Comments CREATININE, URINE, CONC. (test 84.1 MG/DL code = 2072) CREATININE, RANDOM [id number] 00:00:00 Test Item Value Reference Range Interpretation Comments CREATININE, URINE, CONC. (test 84.1 MG/DL code = 2072) MICROALBUMIN, [id number] 00:00:00 Test Item Value Reference Range Interpretation Comments ALBUMIN, URINE, RANDOM (test code = 0.3 MG/DL 07181) MICROALBUMIN, [id number] 00:00:00 Test Item Value Reference Range Interpretation Comments ALBUMIN, URINE, RANDOM (test code = 0.3 MG/DL 44574) NT-proBNP [ADDED]2020-08-07 00:00:00 Test Item Value Reference Range Interpretation Comments NT-proBNP (test code = 18691) 1372 PG/ML NT-proBNP [ADDED]2020-08-07 00:00:00 Test Item Value Reference Range Interpretation Comments NT-proBNP (test code = 92244) 1372 PG/ML NT-proBNP [ADDED]2020-08-07 00:00:00 Test Item Value Reference Range Interpretation Comments NT-proBNP (test code = 16018) 1372 PG/ML COMPREHENSIVE METABOLIC [id number] 00:00:00 Test Item Value Reference Range Interpretation Comments GLUCOSE (test code = 2217) 88 MG/DL BUN (test code = 2208) 58 MG/DL CREATININE (test code = 2214) 1.41 MG/DL eGFR AMER. (test code 40 ML/MIN/1.73 = 30830) eGFR NON- AMER. (test 35 ML/MIN/1.73 code = 91738) CALC BUN/CREAT (test code = 41 RATIO 2235) SODIUM (test code = 2231) 140 MEQ/L POTASSIUM (test code = 2228) 4.3 MEQ/L CHLORIDE (test code = 2215) 101 MEQ/L CARBON DIOXIDE (test code = 27 MEQ/L 2205) CALCIUM (test code = 2209) 9.8 MG/DL PROTEIN, TOTAL (test code = 6.9 G/DL 2228) ALBUMIN (test code = 2201) 4.4 G/DL CALC GLOBULIN (test code = 2.5 G/DL 0) CALC A/G RATIO (test code = 1.8 RATIO 2233) BILIRUBIN, TOTAL (test code = 0.3 MG/DL 2206) ALKALINE PHOSPHATASE (test 30 U/L code = 2204) AST (test code = 2218) 23 U/L ALT (test code = 2219) 15 U/L COMPREHENSIVE METABOLIC [id number] 00:00:00 Test Item Value Reference Range Interpretation Comments GLUCOSE (test code = 2217) 88 MG/DL BUN (test code = 2208) 58 MG/DL CREATININE (test code = 2214) 1.41 MG/DL eGFR AMER. (test code 40 ML/MIN/1.73 = 04514) eGFR NON- AMER. (test 35 ML/MIN/1.73 code = 66066) CALC BUN/CREAT (test code = 41 RATIO 2234) SODIUM (test code = 2231) 140 MEQ/L POTASSIUM (test code = 2228) 4.3 MEQ/L CHLORIDE (test code = 2215) 101 MEQ/L CARBON DIOXIDE (test code = 27 MEQ/L 2205) CALCIUM (test code = 2209) 9.8 MG/DL PROTEIN, TOTAL (test code = 6.9 G/DL 2228) ALBUMIN (test code = 2201) 4.4 G/DL CALC GLOBULIN (test code = 2.5 G/DL 2239) CALC A/G RATIO (test code = 1.8 RATIO 2233) BILIRUBIN, TOTAL (test code = 0.3 MG/DL 2206) ALKALINE PHOSPHATASE (test 30 U/L code = 220) AST (test code = 2218) 23 U/L ALT (test code = 2219) 15 U/L [id number] 00:00:00 Test Item Value Reference Range Interpretation Comments MAGNESIUM (test code = 2226) 2.5 MG/DL [id number] 00:00:00 Test Item Value Reference Range Interpretation Comments MAGNESIUM (test code = 2226) 2.5 MG/DL [id number] 00:00:00 Test Item Value Reference Range Interpretation Comments MAGNESIUM (test code = 2226) 2.5 MG/DL URIC [id number] 00:00:00 Test Item Value Reference Range Interpretation Comments URIC ACID (test code = 2233) 6.5 MG/DL URIC [id number] 00:00:00 Test Item Value Reference Range Interpretation Comments URIC ACID (test code = 2233) 6.5 MG/DL [id number] 00:00:00 Test Item Value Reference Range Interpretation Comments PHOSPHORUS (test code = 2227) 5.8 MG/DL [id number] 00:00:00 Test Item Value Reference Range Interpretation Comments PHOSPHORUS (test code = 2227) 5.8 MG/DL HEMOGLOBIN [id number] 00:00:00 Test Item Value Reference Range Interpretation Comments HEMOGLOBIN A1c (test code = 56474) 6.1 % HEMOGLOBIN [id number] 00:00:00 Test Item Value Reference Range Interpretation Comments HEMOGLOBIN A1c (test code = 26684) 6.1 % HEMOGLOBIN [id number] 00:00:00 Test Item Value Reference Range Interpretation Comments HEMOGLOBIN A1c (test code = 73653) 6.1 % LIPID [id number] 00:00:00 Test Item Value Reference Range Interpretation Comments CHOLESTEROL (test code = 2210) 169 MG/DL TRIGLYCERIDES (test code = 2232) 78 MG/DL HDL CHOLESTEROL (test code = 2220) 65 MG/DL CALC LDL CHOL (test code = 2237) 87 MG/DL RISK RATIO LDL/HDL (test code = 1.34 RATIO 2238) LIPID [id number] 00:00:00 Test Item Value Reference Range Interpretation Comments CHOLESTEROL (test code = 2210) 169 MG/DL TRIGLYCERIDES (test code = 2232) 78 MG/DL HDL CHOLESTEROL (test code = 2220) 65 MG/DL CALC LDL CHOL (test code = 2237) 87 MG/DL RISK RATIO LDL/HDL (test code = 1.34 RATIO 2238) URINALYSIS WITH [id number] 00:00:00 Test Item Value Reference Range Interpretation Comments COLOR (test code = 1501) YELLOW APPEARANCE (test code = 1502) CLEAR SPECIFIC GRAVITY (test code = 1503) 1.013 LEUKOCYTE ESTERASE (test code = 1+ 1504) NITRITE (test code = 1505) NEGATIVE pH (test code = 1506) 5.0 PROTEIN (test code = 1507) NEGATIVE GLUCOSE (test code = 1508) NEGATIVE KETONES (test code = 1509) NEGATIVE UROBILINOGEN (test code = 1510) 0.2 MG/DL BILIRUBIN (test code = 1511) NEGATIVE OCCULT BLOOD (test code = 1512) NEGATIVE WHITE BLOOD CELLS (test code = 0-5 /HPF 1513) RED BLOOD CELLS (test code = 1514) 0-2 /HPF EPITHELIAL CELLS (test code = 0-5 /HPF 88242) BACTERIA (test code = 1515) NONE SEEN CASTS, HYALINE (test code = 1517) TRACE URINALYSIS WITH [id number] 00:00:00 Test Item Value Reference Range Interpretation Comments COLOR (test code = 1501) YELLOW APPEARANCE (test code = 1502) CLEAR SPECIFIC GRAVITY (test code = 1503) 1.013 LEUKOCYTE ESTERASE (test code = 1+ 1504) NITRITE (test code = 1505) NEGATIVE pH (test code = 1506) 5.0 PROTEIN (test code = 1507) NEGATIVE GLUCOSE (test code = 1508) NEGATIVE KETONES (test code = 1509) NEGATIVE UROBILINOGEN (test code = 1510) 0.2 MG/DL BILIRUBIN (test code = 1511) NEGATIVE OCCULT BLOOD (test code = 1512) NEGATIVE WHITE BLOOD CELLS (test code = 0-5 /HPF 1513) RED BLOOD CELLS (test code = 1514) 0-2 /HPF EPITHELIAL CELLS (test code = 0-5 /HPF 41134) BACTERIA (test code = 1515) NONE SEEN CASTS, HYALINE (test code = 1517) TRACE CREATININE, RANDOM [id number] 00:00:00 Test Item Value Reference Range Interpretation Comments CREATININE, URINE, CONC. (test 84.1 MG/DL code = 2071) CREATININE, RANDOM [id number] 00:00:00 Test Item Value Reference Range Interpretation Comments CREATININE, URINE, CONC. (test 84.1 MG/DL code = 2071) MICROALBUMIN, [id number] 00:00:00 Test Item Value Reference Range Interpretation Comments ALBUMIN, URINE, RANDOM (test code = 0.3 MG/DL 19406) MICROALBUMIN, [id number] 00:00:00 Test Item Value Reference Range Interpretation Comments ALBUMIN, URINE, RANDOM (test code = 0.3 MG/DL 21818) NT-proBNP [ADDED]2020-08-07 00:00:00 Test Item Value Reference Range Interpretation Comments NT-proBNP (test code = 71532) 1372 PG/ML NT-proBNP [ADDED]2020-08-07 00:00:00 Test Item Value Reference Range Interpretation Comments NT-proBNP (test code = 32765) 1372 PG/ML NT-proBNP [ADDED]2020-08-07 00:00:00 Test Item Value Reference Range Interpretation Comments NT-proBNP (test code = 37098) 1372 PG/ML MICROALBUMIN, [id number] 00:00:00 Test Item Value Reference Range Interpretation Comments ALBUMIN, URINE, RANDOM (test code = 0.3 MG/DL 88573) MICROALBUMIN, [id number] 00:00:00 Test Item Value Reference Range Interpretation Comments ALBUMIN, URINE, RANDOM (test code = 0.3 MG/DL 17438) MICROALBUMIN, [id number] 00:00:00 Test Item Value Reference Range Interpretation Comments ALBUMIN, URINE, RANDOM (test code = 0.3 MG/DL 85883) MICROALBUMIN, [id number] 00:00:00 Test Item Value Reference Range Interpretation Comments ALBUMIN, URINE, RANDOM (test code = 0.3 MG/DL 88106) MICROALBUMIN, [id number] 00:00:00 Test Item Value Reference Range Interpretation Comments ALBUMIN, URINE, RANDOM (test code = 0.3 MG/DL 14553) CBC W/AUTO [id number] 00:00:00 Test Item Value Reference Range Interpretation Comments WBC (test code = 1001) 5.2 K/UL RBC (test code = 1002) 4.11 M/UL HEMOGLOBIN (test code = 1003) 12.8 G/DL HEMATOCRIT (test code = 1004) 38.7 % MCV (test code = 1005) 94.2 fL MCH (test code = 1006) 31.1 PG MCHC (test code = 1007) 33.1 G/DL RDW (test code = 1038) 13.4 % NEUTROPHILS (test code = 1008) 64.2 % LYMPHOCYTES (test code = 1010) 23.7 % MONOCYTES (test code = 1011) 9.6 % EOSINOPHILS (test code = 1012) 1.7 % BASOPHILS (test code = 1013) 0.8 % PLATELET COUNT (test code = 1015) 178 K/UL CBC W/AUTO [id number] 00:00:00 Test Item Value Reference Range Interpretation Comments WBC (test code = 1001) 5.2 K/UL RBC (test code = 1002) 4.11 M/UL HEMOGLOBIN (test code = 1003) 12.8 G/DL HEMATOCRIT (test code = 1004) 38.7 % MCV (test code = 1005) 94.2 fL MCH (test code = 1006) 31.1 PG MCHC (test code = 1007) 33.1 G/DL RDW (test code = 1038) 13.4 % NEUTROPHILS (test code = 1008) 64.2 % LYMPHOCYTES (test code = 1010) 23.7 % MONOCYTES (test code = 1011) 9.6 % EOSINOPHILS (test code = 1012) 1.7 % BASOPHILS (test code = 1013) 0.8 % PLATELET COUNT (test code = 1015) 178 K/UL COMPREHENSIVE METABOLIC [id number] 00:00:00 Test Item Value Reference Range Interpretation Comments GLUCOSE (test code = 2217) 85 MG/DL BUN (test code = 2208) 48 MG/DL CREATININE (test code = 2214) 1.12 MG/DL eGFR AMER. (test code 53 ML/MIN/1.73 = 62725) eGFR NON- AMER. (test 46 ML/MIN/1.73 code = 53049) CALC BUN/CREAT (test code = 43 RATIO 5) SODIUM (test code = 2231) 140 MEQ/L POTASSIUM (test code = 2228) 4.8 MEQ/L CHLORIDE (test code = 2215) 102 MEQ/L CARBON DIOXIDE (test code = 27 MEQ/L 2205) CALCIUM (test code = 2209) 10.1 MG/DL PROTEIN, TOTAL (test code = 7.1 G/DL 2228) ALBUMIN (test code = 2201) 4.4 G/DL CALC GLOBULIN (test code = 2.7 G/DL 2239) CALC A/G RATIO (test code = 1.6 RATIO 2233) BILIRUBIN, TOTAL (test code = 0.3 MG/DL 2206) ALKALINE PHOSPHATASE (test 32 U/L code = 2204) AST (test code = 2218) 26 U/L ALT (test code = 2219) 19 U/L [id number] 00:00:00 Test Item Value Reference Range Interpretation Comments MAGNESIUM (test code = 2226) 2.4 MG/DL [id number] 00:00:00 Test Item Value Reference Range Interpretation Comments MAGNESIUM (test code = 2226) 2.4 MG/DL [id number] 00:00:00 Test Item Value Reference Range Interpretation Comments PHOSPHORUS (test code = 2227) 4.9 MG/DL URIC [id number] 00:00:00 Test Item Value Reference Range Interpretation Comments URIC ACID (test code = 2233) 6.4 MG/DL HEMOGLOBIN [id number] 00:00:00 Test Item Value Reference Range Interpretation Comments HEMOGLOBIN A1c (test code = 56804) 5.8 % HEMOGLOBIN [id number] 00:00:00 Test Item Value Reference Range Interpretation Comments HEMOGLOBIN A1c (test code = 68723) 5.8 % CBC W/AUTO [id number] 00:00:00 Test Item Value Reference Range Interpretation Comments WBC (test code = 1001) 5.2 K/UL RBC (test code = 1002) 4.11 M/UL HEMOGLOBIN (test code = 1003) 12.8 G/DL HEMATOCRIT (test code = 1004) 38.7 % MCV (test code = 1005) 94.2 fL MCH (test code = 1006) 31.1 PG MCHC (test code = 1007) 33.1 G/DL RDW (test code = 1038) 13.4 % NEUTROPHILS (test code = 1008) 64.2 % LYMPHOCYTES (test code = 1010) 23.7 % MONOCYTES (test code = 1011) 9.6 % EOSINOPHILS (test code = 1012) 1.7 % BASOPHILS (test code = 1013) 0.8 % PLATELET COUNT (test code = 1015) 178 K/UL CBC W/AUTO [id number] 00:00:00 Test Item Value Reference Range Interpretation Comments WBC (test code = 1001) 5.2 K/UL RBC (test code = 1002) 4.11 M/UL HEMOGLOBIN (test code = 1003) 12.8 G/DL HEMATOCRIT (test code = 1004) 38.7 % MCV (test code = 1005) 94.2 fL MCH (test code = 1006) 31.1 PG MCHC (test code = 1007) 33.1 G/DL RDW (test code = 1038) 13.4 % NEUTROPHILS (test code = 1008) 64.2 % LYMPHOCYTES (test code = 1010) 23.7 % MONOCYTES (test code = 1011) 9.6 % EOSINOPHILS (test code = 1012) 1.7 % BASOPHILS (test code = 1013) 0.8 % PLATELET COUNT (test code = 1015) 178 K/UL CBC W/AUTO [id number] 00:00:00 Test Item Value Reference Range Interpretation Comments WBC (test code = 1001) 5.2 K/UL RBC (test code = 1002) 4.11 M/UL HEMOGLOBIN (test code = 1003) 12.8 G/DL HEMATOCRIT (test code = 1004) 38.7 % MCV (test code = 1005) 94.2 fL MCH (test code = 1006) 31.1 PG MCHC (test code = 1007) 33.1 G/DL RDW (test code = 1038) 13.4 % NEUTROPHILS (test code = 1008) 64.2 % LYMPHOCYTES (test code = 1010) 23.7 % MONOCYTES (test code = 1011) 9.6 % EOSINOPHILS (test code = 1012) 1.7 % BASOPHILS (test code = 1013) 0.8 % PLATELET COUNT (test code = 1015) 178 K/UL COMPREHENSIVE METABOLIC [id number] 00:00:00 Test Item Value Reference Range Interpretation Comments GLUCOSE (test code = 2217) 85 MG/DL BUN (test code = 2208) 48 MG/DL CREATININE (test code = 2214) 1.12 MG/DL eGFR AMER. (test code 53 ML/MIN/1.73 = 23171) eGFR NON- AMER. (test 46 ML/MIN/1.73 code = 51480) CALC BUN/CREAT (test code = 43 RATIO 2235) SODIUM (test code = 2231) 140 MEQ/L POTASSIUM (test code = 2228) 4.8 MEQ/L CHLORIDE (test code = 2215) 102 MEQ/L CARBON DIOXIDE (test code = 27 MEQ/L 2205) CALCIUM (test code = 2209) 10.1 MG/DL PROTEIN, TOTAL (test code = 7.1 G/DL 2228) ALBUMIN (test code = 2201) 4.4 G/DL CALC GLOBULIN (test code = 2.7 G/DL 2240) CALC A/G RATIO (test code = 1.6 RATIO 2234) BILIRUBIN, TOTAL (test code = 0.3 MG/DL 2206) ALKALINE PHOSPHATASE (test 32 U/L code = 2204) AST (test code = 2218) 26 U/L ALT (test code = 2219) 19 U/L COMPREHENSIVE METABOLIC [id number] 00:00:00 Test Item Value Reference Range Interpretation Comments GLUCOSE (test code = 2217) 85 MG/DL BUN (test code = 2208) 48 MG/DL CREATININE (test code = 2214) 1.12 MG/DL eGFR AMER. (test code 53 ML/MIN/1.73 = 62966) eGFR NON- AMER. (test 46 ML/MIN/1.73 code = 14901) CALC BUN/CREAT (test code = 43 RATIO 2235) SODIUM (test code = 2231) 140 MEQ/L POTASSIUM (test code = 2228) 4.8 MEQ/L CHLORIDE (test code = 2215) 102 MEQ/L CARBON DIOXIDE (test code = 27 MEQ/L 2205) CALCIUM (test code = 2209) 10.1 MG/DL PROTEIN, TOTAL (test code = 7.1 G/DL 2228) ALBUMIN (test code = 2201) 4.4 G/DL CALC GLOBULIN (test code = 2.7 G/DL 2239) CALC A/G RATIO (test code = 1.6 RATIO 2233) BILIRUBIN, TOTAL (test code = 0.3 MG/DL 2206) ALKALINE PHOSPHATASE (test 32 U/L code = 220) AST (test code = 2218) 26 U/L ALT (test code = 2219) 19 U/L [id number] 00:00:00 Test Item Value Reference Range Interpretation Comments MAGNESIUM (test code = 2226) 2.4 MG/DL [id number] 00:00:00 Test Item Value Reference Range Interpretation Comments MAGNESIUM (test code = 2226) 2.4 MG/DL [id number] 00:00:00 Test Item Value Reference Range Interpretation Comments MAGNESIUM (test code = 2226) 2.4 MG/DL [id number] 00:00:00 Test Item Value Reference Range Interpretation Comments PHOSPHORUS (test code = 2227) 4.9 MG/DL [id number] 00:00:00 Test Item Value Reference Range Interpretation Comments PHOSPHORUS (test code = 2227) 4.9 MG/DL URIC [id number] 00:00:00 Test Item Value Reference Range Interpretation Comments URIC ACID (test code = 2233) 6.4 MG/DL URIC [id number] 00:00:00 Test Item Value Reference Range Interpretation Comments URIC ACID (test code = 2233) 6.4 MG/DL HEMOGLOBIN [id number] 00:00:00 Test Item Value Reference Range Interpretation Comments HEMOGLOBIN A1c (test code = 78050) 5.8 % HEMOGLOBIN [id number] 00:00:00 Test Item Value Reference Range Interpretation Comments HEMOGLOBIN A1c (test code = 23217) 5.8 % HEMOGLOBIN [id number] 00:00:00 Test Item Value Reference Range Interpretation Comments HEMOGLOBIN A1c (test code = 43685) 5.8 % CBC W/AUTO [id number] 00:00:00 Test Item Value Reference Range Interpretation Comments WBC (test code = 1001) 5.2 K/UL RBC (test code = 1002) 4.11 M/UL HEMOGLOBIN (test code = 1003) 12.8 G/DL HEMATOCRIT (test code = 1004) 38.7 % MCV (test code = 1005) 94.2 fL MCH (test code = 1006) 31.1 PG MCHC (test code = 1007) 33.1 G/DL RDW (test code = 1038) 13.4 % NEUTROPHILS (test code = 1008) 64.2 % LYMPHOCYTES (test code = 1010) 23.7 % MONOCYTES (test code = 1011) 9.6 % EOSINOPHILS (test code = 1012) 1.7 % BASOPHILS (test code = 1013) 0.8 % PLATELET COUNT (test code = 1015) 178 K/UL CBC W/AUTO [id number] 00:00:00 Test Item Value Reference Range Interpretation Comments WBC (test code = 1001) 5.2 K/UL RBC (test code = 1002) 4.11 M/UL HEMOGLOBIN (test code = 1003) 12.8 G/DL HEMATOCRIT (test code = 1004) 38.7 % MCV (test code = 1005) 94.2 fL MCH (test code = 1006) 31.1 PG MCHC (test code = 1007) 33.1 G/DL RDW (test code = 1038) 13.4 % NEUTROPHILS (test code = 1008) 64.2 % LYMPHOCYTES (test code = 1010) 23.7 % MONOCYTES (test code = 1011) 9.6 % EOSINOPHILS (test code = 1012) 1.7 % BASOPHILS (test code = 1013) 0.8 % PLATELET COUNT (test code = 1015) 178 K/UL CBC W/AUTO [id number] 00:00:00 Test Item Value Reference Range Interpretation Comments WBC (test code = 1001) 5.2 K/UL RBC (test code = 1002) 4.11 M/UL HEMOGLOBIN (test code = 1003) 12.8 G/DL HEMATOCRIT (test code = 1004) 38.7 % MCV (test code = 1005) 94.2 fL MCH (test code = 1006) 31.1 PG MCHC (test code = 1007) 33.1 G/DL RDW (test code = 1038) 13.4 % NEUTROPHILS (test code = 1008) 64.2 % LYMPHOCYTES (test code = 1010) 23.7 % MONOCYTES (test code = 1011) 9.6 % EOSINOPHILS (test code = 1012) 1.7 % BASOPHILS (test code = 1013) 0.8 % PLATELET COUNT (test code = 1015) 178 K/UL COMPREHENSIVE METABOLIC [id number] 00:00:00 Test Item Value Reference Range Interpretation Comments GLUCOSE (test code = 2217) 85 MG/DL BUN (test code = 2208) 48 MG/DL CREATININE (test code = 2214) 1.12 MG/DL eGFR AMER. (test code 53 ML/MIN/1.73 = 30264) eGFR NON- AMER. (test 46 ML/MIN/1.73 code = 65813) CALC BUN/CREAT (test code = 43 RATIO 2235) SODIUM (test code = 2231) 140 MEQ/L POTASSIUM (test code = 2228) 4.8 MEQ/L CHLORIDE (test code = 2215) 102 MEQ/L CARBON DIOXIDE (test code = 27 MEQ/L 2205) CALCIUM (test code = 2209) 10.1 MG/DL PROTEIN, TOTAL (test code = 7.1 G/DL 2228) ALBUMIN (test code = 2201) 4.4 G/DL CALC GLOBULIN (test code = 2.7 G/DL 2240) CALC A/G RATIO (test code = 1.6 RATIO 2234) BILIRUBIN, TOTAL (test code = 0.3 MG/DL 2206) ALKALINE PHOSPHATASE (test 32 U/L code = 2204) AST (test code = 2218) 26 U/L ALT (test code = 2219) 19 U/L COMPREHENSIVE METABOLIC [id number] 00:00:00 Test Item Value Reference Range Interpretation Comments GLUCOSE (test code = 2217) 85 MG/DL BUN (test code = 2208) 48 MG/DL CREATININE (test code = 2214) 1.12 MG/DL eGFR AMER. (test code 53 ML/MIN/1.73 = 24542) eGFR NON- AMER. (test 46 ML/MIN/1.73 code = 59892) CALC BUN/CREAT (test code = 43 RATIO 2234) SODIUM (test code = 2231) 140 MEQ/L POTASSIUM (test code = 2228) 4.8 MEQ/L CHLORIDE (test code = 2215) 102 MEQ/L CARBON DIOXIDE (test code = 27 MEQ/L 2205) CALCIUM (test code = 2209) 10.1 MG/DL PROTEIN, TOTAL (test code = 7.1 G/DL 2228) ALBUMIN (test code = 220) 4.4 G/DL CALC GLOBULIN (test code = 2.7 G/DL 2239) CALC A/G RATIO (test code = 1.6 RATIO 2233) BILIRUBIN, TOTAL (test code = 0.3 MG/DL 2206) ALKALINE PHOSPHATASE (test 32 U/L code = 2204) AST (test code = 2218) 26 U/L ALT (test code = 2219) 19 U/L [id number] 00:00:00 Test Item Value Reference Range Interpretation Comments MAGNESIUM (test code = 2226) 2.4 MG/DL [id number] 00:00:00 Test Item Value Reference Range Interpretation Comments MAGNESIUM (test code = 2226) 2.4 MG/DL [id number] 00:00:00 Test Item Value Reference Range Interpretation Comments MAGNESIUM (test code = 2226) 2.4 MG/DL [id number] 00:00:00 Test Item Value Reference Range Interpretation Comments PHOSPHORUS (test code = 2227) 4.9 MG/DL [id number] 00:00:00 Test Item Value Reference Range Interpretation Comments PHOSPHORUS (test code = 2227) 4.9 MG/DL URIC [id number] 00:00:00 Test Item Value Reference Range Interpretation Comments URIC ACID (test code = 2233) 6.4 MG/DL URIC [id number] 00:00:00 Test Item Value Reference Range Interpretation Comments URIC ACID (test code = 2233) 6.4 MG/DL HEMOGLOBIN [id number] 00:00:00 Test Item Value Reference Range Interpretation Comments HEMOGLOBIN A1c (test code = 10976) 5.8 % HEMOGLOBIN [id number] 00:00:00 Test Item Value Reference Range Interpretation Comments HEMOGLOBIN A1c (test code = 88640) 5.8 % HEMOGLOBIN [id number] 00:00:00 Test Item Value Reference Range Interpretation Comments HEMOGLOBIN A1c (test code = 25212) 5.8 % URINE CULTURE, NO [id number] 00:00:00 Test Item Value Reference Range Interpretation Comments URINE CULTURE, NO SPECIMEN NUMBER: SENS (test code = [id number]) URINE CULTURE, NO [id number] 00:00:00 Test Item Value Reference Range Interpretation Comments URINE CULTURE, NO SPECIMEN NUMBER: SENS (test code = [id number]) URINE CULTURE, NO [id number] 00:00:00 Test Item Value Reference Range Interpretation Comments URINE CULTURE, NO SPECIMEN NUMBER: SENS (test code = [id number]) URINE CULTURE, NO [id number] 00:00:00 Test Item Value Reference Range Interpretation Comments URINE CULTURE, NO SPECIMEN NUMBER: SENS (test code = [id number]) URINE CULTURE, NO [id number] 00:00:00 Test Item Value Reference Range Interpretation Comments URINE CULTURE, NO SPECIMEN NUMBER: SENS (test code = [id number]) MICROALBUMIN/CREATININE, RANDOM AND [id number] 00:00:00 Test Item Value Reference Range Interpretation Comments CREATININE, URINE, CONC. (test 52.6 MG/DL code = 2072) ALBUMIN, URINE, RANDOM (test code 0.5 MG/DL = 42495) CALC ALBUMIN/CREAT, RND (test code 10 MG/G = 60050) MICROALBUMIN/CREATININE, RANDOM AND [id number] 00:00:00 Test Item Value Reference Range Interpretation Comments CREATININE, URINE, CONC. (test 52.6 MG/DL code = 2072) ALBUMIN, URINE, RANDOM (test code 0.5 MG/DL = 33571) CALC ALBUMIN/CREAT, RND (test code 10 MG/G = 34261) MICROALBUMIN/CREATININE, RANDOM AND [id number] 00:00:00 Test Item Value Reference Range Interpretation Comments CREATININE, URINE, CONC. (test 52.6 MG/DL code = 2072) ALBUMIN, URINE, RANDOM (test code 0.5 MG/DL = 83276) CALC ALBUMIN/CREAT, RND (test code 10 MG/G = 49607) MICROALBUMIN/CREATININE, RANDOM AND [id number] 00:00:00 Test Item Value Reference Range Interpretation Comments CREATININE, URINE, CONC. (test 52.6 MG/DL code = 2072) ALBUMIN, URINE, RANDOM (test code 0.5 MG/DL = 18733) CALC ALBUMIN/CREAT, RND (test code 10 MG/G = 62689) MICROALBUMIN/CREATININE, RANDOM AND [id number] 00:00:00 Test Item Value Reference Range Interpretation Comments CREATININE, URINE, CONC. (test 52.6 MG/DL code = 2072) ALBUMIN, URINE, RANDOM (test code 0.5 MG/DL = 25515) CALC ALBUMIN/CREAT, RND (test code 10 MG/G = 58383) CBC W/AUTO [id number] 00:00:00 Test Item Value Reference Range Interpretation Comments WBC (test code = 1001) 5.1 K/UL RBC (test code = 1002) 4.27 M/UL HEMOGLOBIN (test code = 1003) 12.6 G/DL HEMATOCRIT (test code = 1004) 38.7 % MCV (test code = 1005) 90.6 fL MCH (test code = 1006) 29.5 PG MCHC (test code = 1007) 32.6 G/DL RDW (test code = 1038) 16.4 % NEUTROPHILS (test code = 1008) 56.4 % LYMPHOCYTES (test code = 1010) 30.9 % MONOCYTES (test code = 1011) 11.5 % EOSINOPHILS (test code = 1012) 0.6 % BASOPHILS (test code = 1013) 0.6 % PLATELET COUNT (test code = 1015) 208 K/UL CBC W/AUTO [id number] 00:00:00 Test Item Value Reference Range Interpretation Comments WBC (test code = 1001) 5.1 K/UL RBC (test code = 1002) 4.27 M/UL HEMOGLOBIN (test code = 1003) 12.6 G/DL HEMATOCRIT (test code = 1004) 38.7 % MCV (test code = 1005) 90.6 fL MCH (test code = 1006) 29.5 PG MCHC (test code = 1007) 32.6 G/DL RDW (test code = 1038) 16.4 % NEUTROPHILS (test code = 1008) 56.4 % LYMPHOCYTES (test code = 1010) 30.9 % MONOCYTES (test code = 1011) 11.5 % EOSINOPHILS (test code = 1012) 0.6 % BASOPHILS (test code = 1013) 0.6 % PLATELET COUNT (test code = 1015) 208 K/UL HEMOGLOBIN [id number] 00:00:00 Test Item Value Reference Range Interpretation Comments HEMOGLOBIN A1c (test code = 44919) 6.3 % HEMOGLOBIN [id number] 00:00:00 Test Item Value Reference Range Interpretation Comments HEMOGLOBIN A1c (test code = 62396) 6.3 % COMPREHENSIVE METABOLIC [id number] 00:00:00 Test Item Value Reference Range Interpretation Comments GLUCOSE (test code = 2217) 77 MG/DL BUN (test code = 2208) 58 MG/DL CREATININE (test code = 2214) 1.93 MG/DL eGFR AMER. (test code 28 ML/MIN/1.73 = 99022) eGFR NON- AMER. (test 24 ML/MIN/1.73 code = 10722) CALC BUN/CREAT (test code = 30 RATIO 2235) SODIUM (test code = 2231) 133 MEQ/L POTASSIUM (test code = 2228) 4.8 MEQ/L CHLORIDE (test code = 2215) 92 MEQ/L CARBON DIOXIDE (test code = 23 MEQ/L 2205) CALCIUM (test code = 2209) 9.4 MG/DL PROTEIN, TOTAL (test code = 7.3 G/DL 2228) ALBUMIN (test code = 2201) 4.5 G/DL CALC GLOBULIN (test code = 2.8 G/DL 2240) CALC A/G RATIO (test code = 1.6 RATIO 2234) BILIRUBIN, TOTAL (test code = 0.5 MG/DL 2206) ALKALINE PHOSPHATASE (test 35 U/L code = 2204) AST (test code = 2218) 24 U/L ALT (test code = 2219) 13 U/L URIC [id number] 00:00:00 Test Item Value Reference Range Interpretation Comments URIC ACID (test code = 2233) 8.9 MG/DL [id number] 00:00:00 Test Item Value Reference Range Interpretation Comments MAGNESIUM (test code = 2226) 2.7 MG/DL [id number] 00:00:00 Test Item Value Reference Range Interpretation Comments MAGNESIUM (test code = 2226) 2.7 MG/DL [id number] 00:00:00 Test Item Value Reference Range Interpretation Comments PHOSPHORUS (test code = 2227) 5.9 MG/DL [id number] 00:00:00 Test Item Value Reference Range Interpretation Comments NT-proBNP (test code = 73068) 3071 PG/ML [id number] 00:00:00 Test Item Value Reference Range Interpretation Comments NT-proBNP (test code = 09652) 3071 PG/ML CBC W/AUTO [id number] 00:00:00 Test Item Value Reference Range Interpretation Comments WBC (test code = 1001) 5.1 K/UL RBC (test code = 1002) 4.27 M/UL HEMOGLOBIN (test code = 1003) 12.6 G/DL HEMATOCRIT (test code = 1004) 38.7 % MCV (test code = 1005) 90.6 fL MCH (test code = 1006) 29.5 PG MCHC (test code = 1007) 32.6 G/DL RDW (test code = 1038) 16.4 % NEUTROPHILS (test code = 1008) 56.4 % LYMPHOCYTES (test code = 1010) 30.9 % MONOCYTES (test code = 1011) 11.5 % EOSINOPHILS (test code = 1012) 0.6 % BASOPHILS (test code = 1013) 0.6 % PLATELET COUNT (test code = 1015) 208 K/UL CBC W/AUTO [id number] 00:00:00 Test Item Value Reference Range Interpretation Comments WBC (test code = 1001) 5.1 K/UL RBC (test code = 1002) 4.27 M/UL HEMOGLOBIN (test code = 1003) 12.6 G/DL HEMATOCRIT (test code = 1004) 38.7 % MCV (test code = 1005) 90.6 fL MCH (test code = 1006) 29.5 PG MCHC (test code = 1007) 32.6 G/DL RDW (test code = 1038) 16.4 % NEUTROPHILS (test code = 1008) 56.4 % LYMPHOCYTES (test code = 1010) 30.9 % MONOCYTES (test code = 1011) 11.5 % EOSINOPHILS (test code = 1012) 0.6 % BASOPHILS (test code = 1013) 0.6 % PLATELET COUNT (test code = 1015) 208 K/UL CBC W/AUTO [id number] 00:00:00 Test Item Value Reference Range Interpretation Comments WBC (test code = 1001) 5.1 K/UL RBC (test code = 1002) 4.27 M/UL HEMOGLOBIN (test code = 1003) 12.6 G/DL HEMATOCRIT (test code = 1004) 38.7 % MCV (test code = 1005) 90.6 fL MCH (test code = 1006) 29.5 PG MCHC (test code = 1007) 32.6 G/DL RDW (test code = 1038) 16.4 % NEUTROPHILS (test code = 1008) 56.4 % LYMPHOCYTES (test code = 1010) 30.9 % MONOCYTES (test code = 1011) 11.5 % EOSINOPHILS (test code = 1012) 0.6 % BASOPHILS (test code = 1013) 0.6 % PLATELET COUNT (test code = 1015) 208 K/UL HEMOGLOBIN [id number] 00:00:00 Test Item Value Reference Range Interpretation Comments HEMOGLOBIN A1c (test code = 38191) 6.3 % HEMOGLOBIN [id number] 00:00:00 Test Item Value Reference Range Interpretation Comments HEMOGLOBIN A1c (test code = 40174) 6.3 % HEMOGLOBIN [id number] 00:00:00 Test Item Value Reference Range Interpretation Comments HEMOGLOBIN A1c (test code = 74107) 6.3 % COMPREHENSIVE METABOLIC [id number] 00:00:00 Test Item Value Reference Range Interpretation Comments GLUCOSE (test code = 2217) 77 MG/DL BUN (test code = 2208) 58 MG/DL CREATININE (test code = 2214) 1.93 MG/DL eGFR AMER. (test code 28 ML/MIN/1.73 = 62747) eGFR NON- AMER. (test 24 ML/MIN/1.73 code = 83189) CALC BUN/CREAT (test code = 30 RATIO 2235) SODIUM (test code = 2231) 133 MEQ/L POTASSIUM (test code = 2228) 4.8 MEQ/L CHLORIDE (test code = 2215) 92 MEQ/L CARBON DIOXIDE (test code = 23 MEQ/L 2206) CALCIUM (test code = 2209) 9.4 MG/DL PROTEIN, TOTAL (test code = 7.3 G/DL 222) ALBUMIN (test code = 2201) 4.5 G/DL CALC GLOBULIN (test code = 2.8 G/DL 2240) CALC A/G RATIO (test code = 1.6 RATIO 2234) BILIRUBIN, TOTAL (test code = 0.5 MG/DL 2207) ALKALINE PHOSPHATASE (test 35 U/L code = 2204) AST (test code = 2218) 24 U/L ALT (test code = 2219) 13 U/L COMPREHENSIVE METABOLIC [id number] 00:00:00 Test Item Value Reference Range Interpretation Comments GLUCOSE (test code = 2217) 77 MG/DL BUN (test code = 2208) 58 MG/DL CREATININE (test code = 2214) 1.93 MG/DL eGFR AMER. (test code 28 ML/MIN/1.73 = 51262) eGFR NON- AMER. (test 24 ML/MIN/1.73 code = 76468) CALC BUN/CREAT (test code = 30 RATIO 2235) SODIUM (test code = 2231) 133 MEQ/L POTASSIUM (test code = 2228) 4.8 MEQ/L CHLORIDE (test code = 2215) 92 MEQ/L CARBON DIOXIDE (test code = 23 MEQ/L 2205) CALCIUM (test code = 2209) 9.4 MG/DL PROTEIN, TOTAL (test code = 7.3 G/DL 222) ALBUMIN (test code = 2201) 4.5 G/DL CALC GLOBULIN (test code = 2.8 G/DL 2240) CALC A/G RATIO (test code = 1.6 RATIO 2234) BILIRUBIN, TOTAL (test code = 0.5 MG/DL 2207) ALKALINE PHOSPHATASE (test 35 U/L code = 2204) AST (test code = 2218) 24 U/L ALT (test code = 2219) 13 U/L URIC [id number] 00:00:00 Test Item Value Reference Range Interpretation Comments URIC ACID (test code = 2233) 8.9 MG/DL URIC [id number] 00:00:00 Test Item Value Reference Range Interpretation Comments URIC ACID (test code = 2233) 8.9 MG/DL [id number] 00:00:00 Test Item Value Reference Range Interpretation Comments MAGNESIUM (test code = 2226) 2.7 MG/DL [id number] 00:00:00 Test Item Value Reference Range Interpretation Comments MAGNESIUM (test code = 2226) 2.7 MG/DL [id number] 00:00:00 Test Item Value Reference Range Interpretation Comments MAGNESIUM (test code = 2226) 2.7 MG/DL [id number] 00:00:00 Test Item Value Reference Range Interpretation Comments PHOSPHORUS (test code = 2227) 5.9 MG/DL [id number] 00:00:00 Test Item Value Reference Range Interpretation Comments PHOSPHORUS (test code = 2227) 5.9 MG/DL [id number] 00:00:00 Test Item Value Reference Range Interpretation Comments NT-proBNP (test code = 88523) 3071 PG/ML [id number] 00:00:00 Test Item Value Reference Range Interpretation Comments NT-proBNP (test code = 26148) 3071 PG/ML [id number] 00:00:00 Test Item Value Reference Range Interpretation Comments NT-proBNP (test code = 01593) 3071 PG/ML CBC W/AUTO [id number] 00:00:00 Test Item Value Reference Range Interpretation Comments WBC (test code = 1001) 5.1 K/UL RBC (test code = 1002) 4.27 M/UL HEMOGLOBIN (test code = 1003) 12.6 G/DL HEMATOCRIT (test code = 1004) 38.7 % MCV (test code = 1005) 90.6 fL MCH (test code = 1006) 29.5 PG MCHC (test code = 1007) 32.6 G/DL RDW (test code = 1038) 16.4 % NEUTROPHILS (test code = 1008) 56.4 % LYMPHOCYTES (test code = 1010) 30.9 % MONOCYTES (test code = 1011) 11.5 % EOSINOPHILS (test code = 1012) 0.6 % BASOPHILS (test code = 1013) 0.6 % PLATELET COUNT (test code = 1015) 208 K/UL CBC W/AUTO [id number] 00:00:00 Test Item Value Reference Range Interpretation Comments WBC (test code = 1001) 5.1 K/UL RBC (test code = 1002) 4.27 M/UL HEMOGLOBIN (test code = 1003) 12.6 G/DL HEMATOCRIT (test code = 1004) 38.7 % MCV (test code = 1005) 90.6 fL MCH (test code = 1006) 29.5 PG MCHC (test code = 1007) 32.6 G/DL RDW (test code = 1038) 16.4 % NEUTROPHILS (test code = 1008) 56.4 % LYMPHOCYTES (test code = 1010) 30.9 % MONOCYTES (test code = 1011) 11.5 % EOSINOPHILS (test code = 1012) 0.6 % BASOPHILS (test code = 1013) 0.6 % PLATELET COUNT (test code = 1015) 208 K/UL CBC W/AUTO [id number] 00:00:00 Test Item Value Reference Range Interpretation Comments WBC (test code = 1001) 5.1 K/UL RBC (test code = 1002) 4.27 M/UL HEMOGLOBIN (test code = 1003) 12.6 G/DL HEMATOCRIT (test code = 1004) 38.7 % MCV (test code = 1005) 90.6 fL MCH (test code = 1006) 29.5 PG MCHC (test code = 1007) 32.6 G/DL RDW (test code = 1038) 16.4 % NEUTROPHILS (test code = 1008) 56.4 % LYMPHOCYTES (test code = 1010) 30.9 % MONOCYTES (test code = 1011) 11.5 % EOSINOPHILS (test code = 1012) 0.6 % BASOPHILS (test code = 1013) 0.6 % PLATELET COUNT (test code = 1015) 208 K/UL HEMOGLOBIN [id number] 00:00:00 Test Item Value Reference Range Interpretation Comments HEMOGLOBIN A1c (test code = 61950) 6.3 % HEMOGLOBIN [id number] 00:00:00 Test Item Value Reference Range Interpretation Comments HEMOGLOBIN A1c (test code = 46765) 6.3 % HEMOGLOBIN [id number] 00:00:00 Test Item Value Reference Range Interpretation Comments HEMOGLOBIN A1c (test code = 48509) 6.3 % COMPREHENSIVE METABOLIC [id number] 00:00:00 Test Item Value Reference Range Interpretation Comments GLUCOSE (test code = 2217) 77 MG/DL BUN (test code = 2208) 58 MG/DL CREATININE (test code = 2214) 1.93 MG/DL eGFR AMER. (test code 28 ML/MIN/1.73 = 34872) eGFR NON- AMER. (test 24 ML/MIN/1.73 code = 70981) CALC BUN/CREAT (test code = 30 RATIO 2235) SODIUM (test code = 2231) 133 MEQ/L POTASSIUM (test code = 2228) 4.8 MEQ/L CHLORIDE (test code = 2215) 92 MEQ/L CARBON DIOXIDE (test code = 23 MEQ/L 2206) CALCIUM (test code = 2209) 9.4 MG/DL PROTEIN, TOTAL (test code = 7.3 G/DL 2228) ALBUMIN (test code = 2201) 4.5 G/DL CALC GLOBULIN (test code = 2.8 G/DL 2240) CALC A/G RATIO (test code = 1.6 RATIO 2234) BILIRUBIN, TOTAL (test code = 0.5 MG/DL 2206) ALKALINE PHOSPHATASE (test 35 U/L code = 2204) AST (test code = 2218) 24 U/L ALT (test code = 2219) 13 U/L COMPREHENSIVE METABOLIC [id number] 00:00:00 Test Item Value Reference Range Interpretation Comments GLUCOSE (test code = 2217) 77 MG/DL BUN (test code = 2208) 58 MG/DL CREATININE (test code = 2214) 1.93 MG/DL eGFR AMER. (test code 28 ML/MIN/1.73 = 04448) eGFR NON- AMER. (test 24 ML/MIN/1.73 code = 70739) CALC BUN/CREAT (test code = 30 RATIO 2235) SODIUM (test code = 2231) 133 MEQ/L POTASSIUM (test code = 2228) 4.8 MEQ/L CHLORIDE (test code = 2215) 92 MEQ/L CARBON DIOXIDE (test code = 23 MEQ/L 2206) CALCIUM (test code = 2209) 9.4 MG/DL PROTEIN, TOTAL (test code = 7.3 G/DL 2228) ALBUMIN (test code = 2201) 4.5 G/DL CALC GLOBULIN (test code = 2.8 G/DL 2240) CALC A/G RATIO (test code = 1.6 RATIO 2234) BILIRUBIN, TOTAL (test code = 0.5 MG/DL 2207) ALKALINE PHOSPHATASE (test 35 U/L code = 2204) AST (test code = 2218) 24 U/L ALT (test code = 2219) 13 U/L URIC [id number] 00:00:00 Test Item Value Reference Range Interpretation Comments URIC ACID (test code = 2233) 8.9 MG/DL URIC [id number] 00:00:00 Test Item Value Reference Range Interpretation Comments URIC ACID (test code = 2233) 8.9 MG/DL [id number] 00:00:00 Test Item Value Reference Range Interpretation Comments MAGNESIUM (test code = 2226) 2.7 MG/DL [id number] 00:00:00 Test Item Value Reference Range Interpretation Comments MAGNESIUM (test code = 2226) 2.7 MG/DL [id number] 00:00:00 Test Item Value Reference Range Interpretation Comments MAGNESIUM (test code = 2226) 2.7 MG/DL [id number] 00:00:00 Test Item Value Reference Range Interpretation Comments PHOSPHORUS (test code = 2227) 5.9 MG/DL [id number] 00:00:00 Test Item Value Reference Range Interpretation Comments PHOSPHORUS (test code = 2227) 5.9 MG/DL [id number] 00:00:00 Test Item Value Reference Range Interpretation Comments NT-proBNP (test code = 54993) 3071 PG/ML [id number] 00:00:00 Test Item Value Reference Range Interpretation Comments NT-proBNP (test code = 26856) 3071 PG/ML [id number] 00:00:00 Test Item Value Reference Range Interpretation Comments NT-proBNP (test code = 90026) 3071 PG/ML BASIC METABOLIC [id number] 00:00:00 Test Item Value Reference Range Interpretation Comments GLUCOSE (test code = 2345-7) 85 mg/dL UREA NITROGEN (BUN) (test 35 mg/dL code = 3094-0) CREATININE (test code = 0.95 mg/dL 0-0) eGFR NON-AFR. FILIPINO (test 57 mL/min/1.73m2 code = 97658-4) eGFR (test 66 mL/min/1.73m2 code = 10244-6) BUN/CREATININE RATIO (test 37 (calc) code = 3097-3) SODIUM (test code = 2951-2) 143 mmol/L POTASSIUM (test code = 4.5 mmol/L 2823-3) CHLORIDE (test code = 103 mmol/L 2075-0) CARBON DIOXIDE (test code = 30 mmol/L 8-9) CALCIUM (test code = 9.6 mg/dL 62358-8) BASIC METABOLIC [id number] 00:00:00 Test Item Value Reference Range Interpretation Comments GLUCOSE (test code = 2345-7) 85 mg/dL UREA NITROGEN (BUN) (test 35 mg/dL code = 3094-0) CREATININE (test code = 0.95 mg/dL 2160-0) eGFR NON-AFR. FILIPINO (test 57 mL/min/1.73m2 code = 11848-7) eGFR (test 66 mL/min/1.73m2 code = 86450-3) BUN/CREATININE RATIO (test 37 (calc) code = 3097-3) SODIUM (test code = 2951-2) 143 mmol/L POTASSIUM (test code = 4.5 mmol/L 2823-3) CHLORIDE (test code = 103 mmol/L 2075-0) CARBON DIOXIDE (test code = 30 mmol/L 8-9) CALCIUM (test code = 9.6 mg/dL 04242-2) BASIC METABOLIC [id number] 00:00:00 Test Item Value Reference Range Interpretation Comments GLUCOSE (test code = 2345-7) 85 mg/dL UREA NITROGEN (BUN) (test 35 mg/dL code = 3094-0) CREATININE (test code = 0.95 mg/dL 2160-0) eGFR NON-AFR. FILIPINO (test 57 mL/min/1.73m2 code = 69960-2) eGFR (test 66 mL/min/1.73m2 code = 11004-5) BUN/CREATININE RATIO (test 37 (calc) code = 3097-3) SODIUM (test code = 2951-2) 143 mmol/L POTASSIUM (test code = 4.5 mmol/L 2823-3) CHLORIDE (test code = 103 mmol/L 2075-0) CARBON DIOXIDE (test code = 30 mmol/L 8-9) CALCIUM (test code = 9.6 mg/dL 33378-7)
--- NOTE | 2022-01-02 19:44 | ER ---
Nurse's Notes [facility] Name: Melissa Barry Age: 81 yrs Sex: Female : 1940 Arrival Date: 01/02/2022 Time: 17:50 Bed IW7 [facility] MD: Diagnosis: Cellulitis of left lower limb;Bedbug bites Presentation: 01/02 19:31 Chief complaint: Patient states: "I have bed bugs and there is a bad wound on my leg". as6 Coronavirus screen: At this time, the client does not indicate any symptoms associated with coronavirus-19. Ebola Screen: No symptoms or risks identified at this time. Initial Sepsis Screen: Does the patient meet any 2 criteria? No. Patient's initial sepsis screen is negative. Does the patient have a suspected source of infection? No. Patient's initial sepsis screen is negative. Risk Assessment: Do you want to hurt yourself or someone else? Patient reports no desire to harm self or others. Onset of symptoms is unknown. 19:31 Method Of Arrival: Ambulatory as6 19:31 Acuity: LOIS 3 as6 Triage Assessment: 19:41 General: Appears in no apparent distress. Behavior is calm, cooperative. Pain: Denies as6 pain. Derm: Wound noted lateral aspect of left calf. Historical: - Allergies: 19:39 No Known Allergies; as6 - Home Meds: 19:39 None [Active]; as6 - PMHx: 19:39 None; as6 - PSHx: 19:39 cancer; as6 - Immunization history:: Client reports receiving the 2nd dose of the Covid vaccine, moderna Flu vaccine is up to date. - Social history:: Smoking status: Patient denies any tobacco usage or history of. Screenin:49 Abuse screen: Denies threats or abuse. Denies injuries from another. Nutritional as6 screening: No deficits noted. Tuberculosis screening: No symptoms or risk factors identified. Fall Risk None identified. Vital Signs: 19:31 BP 135 / 81; Pulse 100; Resp 18 S; Temp 98.5(O); Pulse Ox 98% on R/A; Weight 77.11 kg as6 (R); Height 5 ft. 0 in. (152.40 cm) (R); Pain 0/10; 19:31 Body Mass Index 33.20 (77.11 kg, 152.40 cm) as6 ED Course: 17:50 Patient arrived in ED. as 19:07 Danielle Ureña MD is Attending Physician. sd2 19:39 Triage completed. as6 19:41 Arm band placed on. as6 19:49 Patient has correct armband on for positive identification. as6 19:49 No provider procedures requiring assistance completed. Patient did not have IV access as6 during this emergency room visit. Administered Medications: No medications were administered Medication: 19:49 VIS not applicable for this client. as6 Outcome: 19:43 Discharge ordered by . sd2 19:49 Discharged to home ambulatory. as6 19:49 Condition: stable 19:49 Discharge instructions given to patient, Instructed on discharge instructions, follow up and referral plans. medication usage, Demonstrated understanding of instructions, follow-up care, medications, Prescriptions given X 2. 19:49 Patient left the ED. as6 Signatures: Erika Joyner as Meet Stockton, RN RN as6 Danielle Ureña MD MD sd2 Corrections: (The following items were deleted from the chart) 19:41 19:39 PMHx: Hypertensive disorder; as6 as6
--- NOTE | 2022-01-02 19:44 | EDPHYS ---
Physician Documentation [facility] Name: Melissa Barry Age: 81 yrs Sex: Female : 1940 Arrival Date: 01/02/2022 Time: 17:50 Bed IW7 Private MD: ED Physician Danielle Ureña HPI: 01/02 19:39 This 81 yrs old Female presents to ER via Unassigned with complaints of leg sd2 infection. 19:39 81-year-old female presents with a chief complaint of left lower extremity wound sd2 infection. She reports she has been battling a skin issue since November. She recently found out this is due to bedbugs and they are awaiting extermination with [employer] for her home. She states she has moved out of the home in an attempt to get better until it is fixed. She was seen by a physician and placed on Augmentin but then over the last few days has noticed one of the wounds on her left lower extremity has had some spreading redness. She has not had any fevers or vomiting and she is not diabetic.. Historical: - Allergies: 19:39 No Known Allergies; as6 - Home Meds: 19:39 None [Active]; as6 - PMHx: 19:39 None; as6 - PSHx: 19:39 cancer; as6 - Immunization history:: Client reports receiving the 2nd dose of the Covid vaccine, moderna Flu vaccine is up to date. - Social history:: Smoking status: Patient denies any tobacco usage or history of. ROS: 19:39 Constitutional: Negative for fever, chills, and weight loss, Eyes: Negative for injury, sd2 pain, redness, and discharge, Cardiovascular: Negative for chest pain, palpitations, and edema, Respiratory: Negative for shortness of breath, cough,positive for wheezing (has already been addressed by PCP and given inhaler recently) Abdomen/GI: Negative for abdominal pain, nausea, vomiting, diarrhea. MS/Extremity: Negative for injury and deformity, Skin: Negative for injury,and discoloration, Positive for rash, pruritus Neuro: Negative for headache, numbness and tingling. Exam: 19:39 Constitutional: This is a well developed, well nourished patient who is awake, alert, sd2 and in no acute distress. Head/Face: Normocephalic, atraumatic. Eyes: EOMI, normal conjunctiva bilaterally Chest/axilla: Normal chest wall appearance and motion. Nontender with no deformity. Cardiovascular: Regular rate and rhythm with a normal S1 and S2. No gallops, murmurs, or rubs. 2+ distal pulses. Respiratory: Lungs have equal breath sounds bilaterally, clear to auscultation and percussion. No rales, rhonchi but occasional expiratory wheezing noted. No increased work of breathing, no retractions or nasal flaring. Abdomen/GI: Soft, non-tender, with normal bowel sounds. No guarding or rebound. No evidence of tenderness throughout. Skin: Warm, dry with normal turgor. Normal color with healing bites noted to all extremities and face, one wound present to L lower oropeza with surrounding erythema and warmth MS/ Extremity: Pulses equal, no cyanosis. Neurovascular intact. Full, normal range of motion. Ambulatory without difficulty. Psych: Awake, alert, with orientation to person, place and time. Behavior, mood, and affect are within normal limits. Vital Signs: 19:31 BP 135 / 81; Pulse 100; Resp 18 S; Temp 98.5(O); Pulse Ox 98% on R/A; Weight 77.11 kg as6 (R); Height 5 ft. 0 in. (152.40 cm) (R); Pain 0/10; 19:31 Body Mass Index 33.20 (77.11 kg, 152.40 cm) as6 MDM: 19:39 Differential diagnosis: superficial laceration, tendon injury, vascular injury, rabies, sd2 cellulitis, among others. Data reviewed: vital signs, nurses notes. Counseling: I had a detailed discussion with the patient and/or guardian regarding: the historical points, exam findings, and any diagnostic results supporting the discharge/admit diagnosis, the need for outpatient follow up, to return to the emergency department if symptoms worsen or persist or if there are any questions or concerns that arise at home. Medical screen evaluation completed. EMTALA emergency medical condition absent. ED course: Imaging is consistent with a localized cellulitis. The patient has been on Augmentin but she was placed on it for wheezing and given an inhaler recently. I will start her on doxycycline and Keflex for optimal coverage and the patient will follow up with her PCP in a few days for recheck. She is comfortable with plan for discharge and verbalizes understanding of discharge plan and strict return precautions. 19:43 Patient medically screened. sd2 Administered Medications: No medications were administered Disposition Summary: 01/02/22 19:43 Discharge Ordered Location: Home sd2 Problem: new sd2 Symptoms: are unchanged sd2 Condition: Stable sd2 Diagnosis - Cellulitis of left lower limb sd2 - Bedbug bites sd2 Followup: sd2 - With: Private Physician - When: 2 - 3 days - Reason: Discharge Instructions: - Discharge Summary Sheet sd2 - Cellulitis, Adult sd2 Forms: - Medication Reconciliation Form sd2 - Thank You Letter sd2 - Antibiotic Education sd2 - Prescription Opioid Use sd2 Prescriptions: - Cephalexin 500 mg Oral Capsule - take 1 capsule by ORAL route every 6 hours for 10 days; 40 capsule; Refills: 0, sd2 Product Selection Permitted - Doxycycline Hyclate 100 mg Oral Tablet - take 1 tablet by ORAL route 2 times per day for 10 days; 20 tablet; Refills: 0, sd2 Product Selection Permitted Signatures: Meet Stockton RN RN as6 Danielle Ureña MD MD sd2 Corrections: (The following items were deleted from the chart) 19:41 19:39 PMHx: Hypertensive disorder; as6 as6
[2022-01-02 19:54] VITALS: BP 135/81; TEMP 98.5; O2SAT 98
== END 2022-01-02 19:49 | disposition home or self-care (01) ==
LOC: ER 17:34
DX: L03.116 Cellulitis of left lower limb (principal); W57.XXXA Bitten or stung by nonvenomous insect and other nonvenomous arthropods, initial encounter
CPT/HCPCS: 99282

== ENCOUNTER 2022-03-18 12:15 | Inpatient (IN) | payer OTHER ==
[2022-03-18 13:09] LABS: SARS-CoV-2 Antigen Rapid Res Negative (Negative)
--- OUTSIDE RECORDS SUMMARY | 2022-03-18 14:16 | XMS REPORT | Continuity of Care Document ---
:[address] [facility] t Address [address] [place] [address] Care Team Providers Name Role Phone Jess Johnson MD Primary Care Physician MARIZOL LOMELI Attending Clinician Unavailable RADIOLOGY Attending Clinician Unavailable Marizol Lomeli MD Attending Clinician Pob, [facility] Lab Main Attending Clinician Unavailable Doctor Unassigned, Zenda Attending Clinician Unavailable Tez Drake MD Attending Clinician TEZ DRAKE Attending Clinician Unavailable Radiology Attending Clinician Unavailable Unknown, Attending Attending Clinician Unavailable UNKNOWN, ATTENDING Attending Clinician Unavailable Ajibade_O_AH Attending Clinician Unavailable Jessica Zhong DO Attending Clinician JESSICA ZHONG Attending Clinician Unavailable Matt Kessler RN Attending Clinician Unavailable NICKIE MARTIN Attending Clinician Unavailable Ige-Odunuga_J_AH Attending Clinician Unavailable ROSELIA AYALA Admitting Clinician Unavailable Ajibade_O_AH Admitting Clinician Unavailable NICKIE MARTIN Admitting Clinician Unavailable Ige-Odunseveriano_J_AH Admitting Clinician Unavailable Payers Payer Name Policy Type Policy Number Effective Date Expiration Date S veena [employer]/[facility] MED [id number] 2022 ADVANTAGE CHOICE 00:00:00 [place] [employer] [place] [id number] 2013 2022 CLASSIC NO 00:00:00 00:00:00 PREMIUM H[place] [employer] [place] - [id number] 2019 [place] 00:[place]:00 (MEDICARE REPLACEMENT/ADVAN TAGE - HMO) Problems Condition Condition Condition Status Onset Resolution Last Treating Co mments Source Name Details Category Date Date Treatment Clinician Date ROMA (acute ROMA (acute Disease Active U nivers kidney kidney 5-30 ity of injury) injury) 00:00: [place] 00 Medical Branch Heart Heart Disease Active Univers failure failure 5-30 ity of 00:00: [place] 00 Medical Branch Pneumonia Pneumonia Disease Active 2018-02 Uni vers 2-27 ity of 00:00: [place] 00 Medical Branch Dyslipidem Dyslipidem Disease Active 2018-02 U reji ia ia 0-11 ity of 00:00: [place] 00 Medical Branch HFrEF HFrEF Disease Active [...] 0-09 it y of on on 00:00: [place] 00 Medical Branch 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 Active 2018-02 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 00 Medica l and and Branch 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 Essential Essential Disease Active 2018-02 Uni vers hypertensi hypertensi 0-09 it y of on on 00:00: [place] 00 Medical Branch Obesity Obesity Disease Active 2018-02 Univers (BMI (BMI 0-09 ity of 30-39.9) 30-39.9) 00:00: [place] 00 Medical Branch Allergies, Adverse Reactions, Alerts Allergy Allergy Status Severity Reaction(s) Onset Inactive Treating Comm ents Source Name Type Date Date Clinician SPIRONOL DRUG Active Unknown-Cmnt 2018-02 Un neela ACTONE INGREDI 2- ity of 00:00: [place] 00 Medical Branch Spironol Propensi Active Unknown - 2018-02 Hyperkale Univers actone ty to See comments 04-12 alexa ity of adverse 00:00: [place] reaction 00 Medical s Branch Family History Family Member Diagnosis Comments Start Date Stop Date Source Natural father Heart attack [facility] Social History Social Habit Start Date Stop Date Quantity Comments Source Exposure to 2022-03-06 2022-03-16 Not sure [facility]-CoV-2 00:00:00 15:10:00 [facility] (event) [place] Tobacco use and 2019-02-08 2019-02-08 Smokeless tobacco Un iversity of exposure 00:00:00 00:00:00 non-user [facility] Alcohol intake 2017-02-28 2017-02-28 [facility] 00:00:00 00:00:00 non-drinker of alcohol (finding) Sex Assigned At [address] [facility] 00:00:00 00:00:00 Smoking Status Start Date Stop Date Source Never smoked tobacco [facility] Medications Ordered Filled Start Stop Current Ordering Indication Dosage Frequency Signature Comments Components Source Medication Medication Date Date Medication? Clinician (SIG) Name Name sacubitriL- 2022- No 1{tbl} Take 1 U nivers valsartan 03-16 tablet by ity of 49-51 mg 16:27: 00:00 mouth 2 [place] tablet 33 :00 (two) Medical times Branch daily. sacubitriL- 2022- No 1{tbl} Take 1 U nivers valsartan 2-02 14- tablet by ity of 49-51 mg 16:27: 00:00 mouth 2 [place] tablet 33 :00 (two) Medical times Branch daily. CARVEDILOL 2022- No 3.125mg Take 3.125 Univers ORAL 2-01 02-01 mg by ity of 16:20: 00:00 mouth 2 [place] 42 :00 (two) Medical times Branch daily. CARVEDILOL 2022- No 3.125mg Take 3.125 Univers ORAL 2-01 02-01 mg by ity of 16:20: 00:00 mouth 2 [place] 42 :00 (two) Medical times Branch daily. fexofenadin Yes Take by Uni vers e 180 mg 2- mouth. ity of tablet 16:08: [address] coQ10, Yes Take by Univers ubiquinol, 2 mouth. ity of 100 mg Cap 16:08: [address] fexofenadin Yes Take by Uni vers e 180 mg 2- mouth. ity of tablet 16:08: [address] coQ10, Yes Take by Univers ubiquinol, 2 mouth. ity of 100 mg Cap 16:08: [address] fexofenadin Yes Take by Uni vers e 180 mg 2- mouth. ity of tablet 16:08: [address] coQ10, Yes Take by Univers ubiquinol, 2 mouth. ity of 100 mg Cap 16:08: [address] fexofenadin Yes Take by Uni vers e 180 mg 2- mouth. ity of tablet 16:08: [address] coQ10, Yes Take by Univers ubiquinol, 2 mouth. ity of 100 mg Cap 16:08: [address] fexofenadin Yes Take by Uni vers e 180 mg 2 mouth. ity of tablet 16:08: [address] coQ10, Yes Take by Univers ubiquinol, 2 mouth. ity of 100 mg Cap 16:08: [address] atorvastati Yes 10mg Take 10 mg Univers n calcium 2- by mouth ity of (ATORVASTAT 16:07: [place] [address] [place] [address] levothyroxi Yes 75ug Take 75 Uni vers ne 75 mcg 2-01 mcg by ity of tablet 16:07: mouth [place] [address] every Medical morning. Branch raloxifene 0 Yes 60mg Take 60 mg U nivers 60 mg 2-01 by mouth ity of tablet 16:07: daily. [address] montelukast 0 Yes 10mg Take 10 mg Univers 10 mg 2-01 by mouth ity of tablet 16:07: daily. [address] MULTIVITAMI Yes 1{tbl} Take 1 Un neela N ORAL 2-01 tablet by ity of 16:07: mouth. [address] allopurinoL 0 Yes 100mg Take 100 U nivers 100 mg 2-01 mg by ity of tablet 16:07: mouth in [place] [address] the Medical morning. Branch atorvastati 0 Yes 10mg Take 10 mg Univers n calcium 2-01 by mouth ity of (ATORVASTAT 16:07: [place] [address] [place] [address] levothyroxi 0 Yes 75ug Take 75 Uni vers ne 75 mcg 2-01 mcg by ity of tablet 16:07: mouth [place] [address] every Medical morning. Branch raloxifene 0 Yes 60mg Take 60 mg U nivers 60 mg 2-01 by mouth ity of tablet 16:07: daily. [address] montelukast 0 Yes 10mg Take 10 mg Univers 10 mg 2-01 by mouth ity of tablet 16:07: daily. [address] MULTIVITAMI Yes 1{tbl} Take 1 Un neela N ORAL 2-01 tablet by ity of 16:07: mouth. [address] allopurinoL 0 Yes 100mg Take 100 U nivers 100 mg 2-01 mg by ity of tablet 16:07: mouth in [place] [address] the Medical morning. Branch atorvastati 0 Yes 10mg Take 10 mg Univers n calcium 2-01 by mouth ity of (ATORVASTAT 16:07: [place] [address] [place] [address] levothyroxi 0 Yes 75ug Take 75 Uni vers ne 75 mcg 2-01 mcg by ity of tablet 16:07: mouth [place] [address] every Medical morning. Branch raloxifene 0 Yes 60mg Take 60 mg U nivers 60 mg 2-01 by mouth ity of tablet 16:07: daily. [address] montelukast 0 Yes 10mg Take 10 mg Univers 10 mg 2-01 by mouth ity of tablet 16:07: daily. [address] MULTIVITAMI 0 Yes 1{tbl} Take 1 Un neela N ORAL 2-01 tablet by ity of 16:07: mouth. [address] allopurinoL 0 Yes 100mg Take 100 U nivers 100 mg 2-01 mg by ity of tablet 16:07: mouth in [place] [address] the Medical morning. Branch atorvastati 0 Yes 10mg Take 10 mg Univers n calcium 2-01 by mouth ity of (ATORVASTAT 16:07: [place] [address] [place] [address] levothyroxi 0 Yes 75ug Take 75 Uni vers ne 75 mcg 2-01 mcg by ity of tablet 16:07: mouth [place] [address] every Medical morning. Branch raloxifene 0 Yes 60mg Take 60 mg U nivers 60 mg 2-01 by mouth ity of tablet 16:07: daily. [address] montelukast 0 Yes 10mg Take 10 mg Univers 10 mg 2-01 by mouth ity of tablet 16:07: daily. [address] MULTIVITAMI 0 Yes 1{tbl} Take 1 Un neela N ORAL 2-01 tablet by ity of 16:07: mouth. [address] allopurinoL 0 Yes 100mg Take 100 U nivers 100 mg 2-01 mg by ity of tablet 16:07: mouth in [place] [address] the Medical morning. Branch atorvastati 0 Yes 10mg Take 10 mg Univers n calcium 2-01 by mouth ity of (ATORVASTAT 16:07: [place]. [place] [address] [place] [address] levothyroxi 0 Yes 75ug Take 75 Uni vers ne 75 mcg 2-01 mcg by ity of tablet 16:07: mouth [place] [address] every Medical morning. Branch raloxifene 0 Yes 60mg Take 60 mg U nivers 60 mg 2-01 by mouth ity of tablet 16:07: daily. [address] montelukast 2022-0 Yes 10mg Take 10 mg Univers 10 mg 2-01 by mouth ity of tablet 16:07: daily. [address] MULTIVITAMI 2022-0 Yes 1{tbl} Take 1 Un neela N ORAL 2-01 tablet by ity of 16:07: mouth. [address] allopurinoL 2022-0 Yes 100mg Take 100 U nivers 100 mg 2-01 mg by ity of tablet 16:07: mouth in [place] 19 the Medical morning. Branch sacubitriL- 2023-0 Yes [id number] .5{tbl} Take 0.5 Univers valsartan 2-01 tablets by ity of 49-51 mg 00:00: mouth in [place] tablet 00 the Medical morning Branch and 0.5 tablets in the evening. sacubitriL- 2023-0 Yes [id number] .5{tbl} Take 0.5 Univers valsartan 2-01 tablets by ity of 49-51 mg 00:00: mouth in [place] tablet 00 the Medical morning Branch and 0.5 tablets in the evening. sacubitriL- 2023-0 Yes [id number] .5{tbl} Take 0.5 Univers valsartan 2-01 tablets by ity of 49-51 mg 00:00: mouth in [place] tablet 00 the Medical morning Branch and 0.5 tablets in the evening. sacubitriL- 2023-0 Yes [id number] .5{tbl} Take 0.5 Univers valsartan 2-01 tablets by ity of 49-51 mg 00:00: mouth in [place] tablet 00 the Medical morning Branch and 0.5 tablets in the evening. sacubitriL- 2023-0 Yes [id number] .5{tbl} Take 0.5 Univers valsartan 2-01 tablets by ity of 49-51 mg 00:00: mouth in [place] tablet 00 the Medical morning Branch and 0.5 tablets in the evening. triamcinolo 2022-0 Yes APPLY TO Un neela ne 1-30 RASH TO ity of acetonide 00:00: THE [place] 0.1 % cream 00 AFFECTED Medi adriel AREA TWICE Branch DAILY UP TO 2 WEEKS/ MONTH NEEDED triamcinolo 2023-0 Yes APPLY TO Un neela ne 1-30 RASH TO ity of acetonide 00:00: THE [place] 0.1 % cream 00 AFFECTED Medi adriel AREA TWICE Branch DAILY UP TO 2 WEEKS/ MONTH NEEDED triamcinolo 2023-0 Yes APPLY TO Un neela ne 1-30 RASH TO ity of acetonide 00:00: THE [place] 0.1 % cream 00 AFFECTED Medi adriel AREA TWICE Branch DAILY UP TO 2 WEEKS/ MONTH NEEDED triamcinolo 2023-0 Yes APPLY TO Un neela ne 1-30 RASH TO ity of acetonide 00:00: THE [place] 0.1 % cream 00 AFFECTED Medi adriel AREA TWICE Branch DAILY UP TO 2 WEEKS/ MONTH NEEDED triamcinolo 2022-0 Yes APPLY TO Un neela ne 1-30 RASH TO ity of acetonide 00:00: THE [place] 0.1 % cream 00 AFFECTED Medi adriel AREA TWICE Branch DAILY UP TO 2 WEEKS/ MONTH NEEDED PROVENTIL 2022-0 Yes Univers HFA 90 1-09 ity of mcg/actuati 00:00: [place] on inhaler 00 Medical Branch PROVENTIL 2022-0 Yes Univers HFA 90 1-09 ity of mcg/actuati 00:00: [place] on inhaler 00 Medical Branch PROVENTIL 2022-0 Yes Univers HFA 90 1-09 ity of mcg/actuati 00:00: [place] on inhaler 00 Medical Branch PROVENTIL 2022-0 Yes Univers HFA 90 1-09 ity of mcg/actuati 00:00: [place] on inhaler Medical Branch PROVENTIL 2022-0 Yes Univers HFA 90 1-09 ity of mcg/actuati 00:00: [place] on inhaler 00 Medical Branch spironolact 2021-1 Yes Univer s one 25 mg 1-23 ity of tablet 00:00: [place] [facility] spironolact 2021-1 Yes Univer s one 25 mg 1-23 ity of tablet 00:00: [place] [facility] spironolact 2021-1 Yes Univer s one 25 mg 1-23 ity of tablet 00:00: [place] [facility] spironolact 2021-1 Yes Univer s one 25 mg 1-23 ity of tablet 00:00: [place] [facility] spironolact 2021-1 Yes Univer s one 25 mg 1-23 ity of tablet 00:00: [place] [facility] Branch CARVEDILOL 2021-0 No 3.125MG TAB 11-01 00:00: 00 CARVEDILOL 2-0 No 3.125MG TAB 11-01 00:00: 00 TAKE 1 2021-0 No TABLET BY 8-15 MOUTH DAILY 00:00: 00 TAKE 1 2021-0 No TABLET BY 8-15 MOUTH DAILY 00:00: 00 TAKE 1 2021-0 No 10 TABLET BY 7-19 MOUTH DAILY [...] 2022-0 No 7- 00:00: 00 TAKE 1 2022-0 No 10 TABLET BY 7-11 MOUTH DAILY 00:00: 00 TAKE 1 2022-0 No 60 TABLET BY 7-11 MOUTH DAILY 00:00: 00 &lt 2022-0 No 25 7- 00:00: 00 &lt 2022-0 No 100 7 00:00: 00 Dose 2022-0 No Unknown 7 00:00: 00 TAKE 2 2022-0 No 40 TABLETS BY 7-11 MOUTH TWICE 00:00: DAILY 00 &lt 2022-0 No 7- 00:00: 00 TAKE 1 2022-0 No 10 TABLET BY 7-11 MOUTH DAILY 00:00: 00 TAKE 1 2022-0 No 60 TABLET BY 7-11 MOUTH DAILY 00:00: 00 &lt 2022-0 No 25 7- 00:00: 00 &lt 2022-0 No 100 7- 00:00: 00 Dose 2022-0 No Unknown 7 00:00: 00 TAKE 2 2022-0 No 40 TABLETS BY 7-11 MOUTH TWICE 00:00: DAILY 00 &lt 2022-0 No 7- 00:00: 00 TAKE 1 2022-0 No 10 TABLET BY 7-11 MOUTH DAILY [...] Dose 2022-0 No Unknown 3-08 00:00: 00 metoprolol 2022-0 Yes 25mg Take 25 mg U nivers succinate 3-03 by mouth. ity o f XL 25 mg 24 00:00: [place] hr tablet 00 [facility] metoprolol 2022-0 Yes 25mg Take 25 mg U nivers succinate 3-03 by mouth. ity o f XL 25 mg 24 00:00: [place] hr tablet 00 [facility] metoprolol 2-0 Yes 25mg Take 25 mg U nivers succinate 3-03 by mouth. ity o f XL 25 mg 24 00:00: [place] hr tablet 00 [facility] metoprolol 2022-0 Yes 25mg Take 25 mg U nivers succinate 3-03 by mouth. ity o f XL 25 mg 24 00:00: [place] hr tablet 00 [facility] metoprolol 2-0 Yes 25mg Take 25 mg U nivers succinate 3-03 by mouth. ity o f XL 25 mg 24 00:00: [place] hr tablet 00 [facility] Dose 2022-0 No Unknown 3-01 00:00: 00 [...] tablet,exte 00 nded release 24 hr metoprolol 2022-0 No 1mg succinate 1-03 ER 25 mg 00:00: tablet,exte 00 nded release 24 hr metoprolol 2022-0 No 1mg succinate 1-03 ER 25 mg 00:00: tablet,exte 00 nded release 24 hr furosemide 2021-1 No 2mg 40 mg 2-30 tablet 00:00: [...] 2020-02 No Unknown 1-16 00:00: 00 Dose 2021-1 No Unknown 1-16 00:00: 00 furosemide 2020-1 No 2mg 40 mg 1-16 tablet 00:00: 00 Entresto 49 2020-1 No 5mg mg-51 mg 1-16 tablet 00:00: 00 levothyroxi 2020-1 No 1mcg ne 75 mcg 1-16 tablet 00:00: 00 Flonase 1 No 1mcg/ac Allergy 1-16 tuation Relief 50 00:00: mcg/actuati 00 on nasal spray,suspe nsion montelukast 1 No 1mg 10 mg 1-16 tablet 00:00: 00 Dose 2020-1 No Unknown 1-16 00:00: 00 Dose 2020-1 No Unknown 1-16 00:00: 00 Dose 2020-1 No Unknown 1-16 00:00: 00 furosemide 2020-1 No 2mg 40 mg 1-16 tablet 00:00: 00 Entresto 49 2020-1 No 5mg mg-51 mg 1-16 tablet 00:00: 00 levothyroxi 1 No 1mcg ne 75 mcg 1-16 tablet 00:00: 00 Flonase 1 No 1mcg/ac Allergy 1-16 tuation Relief 50 00:00: mcg/actuati 00 on nasal spray,suspe nsion montelukast 2020-1 No 1mg 10 mg 0-13 tablet 00:00: 00 montelukast 2020-1 No 1mg 10 mg 0-13 tablet 00:00: 00 montelukast 2020-1 No 1mg 10 mg 0-13 tablet 00:00: 00 Dose 1-0 No Unknown 9-11 00:00: 00 Dose 1-0 No Unknown 9-11 00:00: 00 Dose 1-0 No Unknown 9-11 00:00: 00 allopurinol 1-0 No 1mg 100 mg 9-10 tablet 00:00: 00 allopurinol 1-0 No 1mg 100 mg 9-10 tablet 00:00: 00 allopurinol 1-0 No 1mg 100 mg 9-10 tablet 00:00: 00 raloxifene 1-0 No 1mg 60 mg 8-24 tablet 00:00: 00 atorvastati 1-0 No 1mg n 10 mg 8-24 tablet [...] mcg/actuati 00 on nasal spray,suspe nsion atorvastati 2021-0 No 1mg n 10 mg 2-19 tablet 00:00: 00 atorvastati 2021-0 No 1mg n 10 mg 2-19 tablet 00:00: 00 atorvastati 1-0 No 1mg n 10 mg 2-19 tablet 00:00: 00 ProAir HFA 2021-0 No 1mcg/ac 90 2-04 tuation mcg/actuati 00:00: [...] mg 1-15 tablet 00:00: 00 Entresto 49 2020-0 No 5mg mg-51 mg 1-15 tablet 00:00: 00 Flonase 2020-0 No 1mcg/ac Allergy 1-15 tuation Relief 50 00:00: mcg/actuati 00 on nasal spray,suspe nsion Flonase 2020-0 No 1mcg/ac Allergy 1-15 tuation Relief 50 [...] magnesium) tablet triamcinolo 2020-0 No 1% ne 8-09 acetonide [...] it y of oitin A 22:45: mouth [place] (GLUCOSAMIN 56 daily. Medica l E-CHONDR-MS Branch M ORAL) LUTEIN ORAL 2020-0 Yes 30mg Take 30 mg Univers 6-02 by mouth ity of 22:45: daily. [address] montelukast 2020-0 Yes 10mg Take 10 mg Univers 10 mg 6-02 by mouth ity of tablet 22:45: daily. [address] MULTIVITAMI 2020-0 Yes 1{tbl} Take 1 Un neela N ORAL 6-02 tablet by ity of 22:45: mouth. [address] sacubitril- 2020-0 Yes 1{tbl} Take 1 Un neela valsartan 6-02 tablet by ity o f 24-26 mg 22:45: mouth 2 [place] tablet 56 (two) Medical times Branch daily. CARVEDILOL 2020-0 Yes 3.125mg Take 3.125 Univers ORAL 6-02 mg by ity of 22:45: mouth 2 [place] [address] (two) Medical times [place] daily. atorvastati 2020-0 Yes 10mg Take 10 mg Univers n calcium 6-02 by mouth ity of (ATORVASTAT 22:45: [place] [address] [place] [address] levothyroxi 2020-0 Yes 75ug Take 75 Uni vers ne 100 mcg 6-02 mcg by ity of tablet 22:45: mouth [place] [address] every Medical morning. Branch raloxifene 2020-0 Yes 60mg Take 60 mg U nivers (EVISTA) 60 6-02 by mouth ity of mg tablet 22:45: daily. [place] [address] Medical Branch glucosamine 2020-0 Yes 2{tbl} Take 2 Un neela /msm/chondr 6-02 tablets by it y of oitin A 22:45: mouth [place] (GLUCOSAMIN 56 daily. Medica l E-CHONDR-MS Branch M ORAL) LUTEIN ORAL 2020-0 Yes 30mg Take 30 mg Univers 6-02 by mouth ity of 22:45: daily. [place] [address] Medical Branch montelukast 2020-0 Yes 10mg Take 10 mg Univers 10 mg 6-02 by mouth ity of tablet 22:45: daily. [place] [address] Medical Branch MULTIVITAMI 2020-0 Yes 1{tbl} Take 1 Un neela N ORAL 6-02 tablet by ity of 22:45: mouth. [place] [address] Medical Branch sacubitril- 2019-0 Yes 1{tbl} Take 1 Un neela valsartan 6-02 tablet by ity o f 24-26 mg 22:45: mouth 2 [place] tablet (two) Medical times Branch daily. CARVEDILOL 2020-0 Yes 3.125mg Take 3.125 Univers ORAL 6-02 mg by ity of 22:45: mouth 2 [place] 56 (two) Medical times Branch daily. atorvastati 2020-0 Yes 10mg Take 10 mg Univers n calcium 6-02 by mouth ity of (ATORVASTAT 22:45: [place]. [place] Medical Branch levothyroxi 2020-0 Yes 75ug Take 75 Uni vers ne 100 mcg 6-02 mcg by ity of tablet 22:45: mouth [place] [address] every Medical morning. Branch raloxifene 2020-0 Yes 60mg Take 60 mg U nivers (EVISTA) 60 6-02 by mouth ity of mg tablet 22:45: daily. [place] [address] Medical Branch glucosamine 2020-0 Yes 2{tbl} Take 2 Un neela /msm/chondr 6-02 tablets by it y of oitin A 22:45: mouth [place] (GLUCOSAMIN 56 daily. Medica l E-CHONDR-MS Branch M ORAL) LUTEIN ORAL 2020-0 Yes 30mg Take 30 mg Univers 6-02 by mouth ity of 22:45: daily. [place] [address] Medical Branch montelukast 2020-0 Yes 10mg Take 10 mg Univers 10 mg 6-02 by mouth ity of tablet 22:45: daily. [place] [address] Medical Branch MULTIVITAMI 2019-0 Yes 1{tbl} Take 1 Un neela N ORAL 6-02 tablet by ity of 22:45: mouth. [place] [address] Medical Branch sacubitril- 2019-0 Yes 1{tbl} Take 1 Un neela valsartan 6-02 tablet by ity o f 24-26 mg 22:45: mouth 2 [place] tablet (two) Medical times Branch daily. CARVEDILOL 2020-0 Yes 3.125mg Take 3.125 Univers ORAL 6-02 mg by ity of 22:45: mouth 2 [place] [address] (two) Medical times Branch daily. atorvastati 2019-0 Yes 10mg Take 10 mg Univers n calcium 6-02 by mouth ity of (ATORVASTAT 22:45: [place]. [place] Medical Branch levothyroxi 2019-0 Yes 75ug Take 75 Uni vers ne 100 mcg 6-02 mcg by ity of tablet 22:45: mouth [place] [address] every Medical morning. Branch raloxifene 2019-0 Yes 60mg Take 60 mg U nivers (EVISTA) 60 6-02 by mouth ity of mg tablet 22:45: daily. [address] glucosamine 2019-0 Yes 2{tbl} Take 2 Un neela /msm/chondr 6-02 tablets by it y of oitin A 22:45: mouth [place] (GLUCOSAMIN 56 daily. Medica l E-CHONDR-MS Branch M ORAL) LUTEIN ORAL 2019-0 Yes 30mg Take 30 mg Univers 6-02 by mouth ity of 22:45: daily. [address] Branch montelukast 2019-0 Yes 10mg Take 10 mg Univers 10 mg 6-02 by mouth ity of tablet 22:45: daily. [address] MULTIVITAMI 2019-0 Yes 1{tbl} Take 1 Un neela N ORAL 6-02 tablet by ity of 22:45: mouth. [address] Branch sacubitril- 2019-0 Yes 1{tbl} Take 1 Un neela valsartan 6-02 tablet by ity o f 24-26 mg 22:45: mouth 2 [place] tablet 56 (two) Medical times Branch daily. CARVEDILOL 2020-0 Yes 3.125mg Take 3.125 Univers ORAL 6-02 mg by ity of 22:45: mouth 2 [place] 56 (two) Medical times Branch daily. atorvastati 2020-0 Yes 10mg Take 10 mg Univers n calcium 6-02 by mouth ity of (ATORVASTAT 22:45: [place]. [place] Medical Branch levothyroxi 2020-0 Yes 75ug Take 75 Uni vers ne 100 mcg 6-02 mcg by ity of tablet 22:45: mouth [place] [address] every Medical morning. Branch raloxifene 2019-0 Yes 60mg Take 60 mg U nivers (EVISTA) 60 6-02 by mouth ity of mg tablet 22:45: daily. [place] [address] Medical Branch glucosamine 2019-0 Yes 2{tbl} Take 2 Un neela /msm/chondr 6-02 tablets by it y of oitin A 22:45: mouth [place] (GLUCOSAMIN 56 daily. Medica l E-CHONDR-MS Branch M ORAL) LUTEIN ORAL 2020-0 Yes 30mg Take 30 mg Univers 6-02 by mouth ity of 22:45: daily. [address] Branch montelukast 2020-0 Yes 10mg Take 10 mg Univers 10 mg 6-02 by mouth ity of tablet 22:45: daily. [address] Branch MULTIVITAMI 2020-0 Yes 1{tbl} Take 1 Un neela N ORAL 6-02 tablet by ity of 22:45: mouth. [address] Branch sacubitril- 2020-0 Yes 1{tbl} Take 1 Un neela valsartan 6-02 tablet by ity o f 24-26 mg 22:45: mouth 2 [place] tablet 56 (two) Medical times Branch daily. CARVEDILOL 2020-0 Yes 3.125mg Take 3.125 Univers ORAL 6-02 mg by ity of 22:45: mouth 2 [place] 56 (two) Medical times Branch daily. atorvastati 2020-0 Yes 10mg Take 10 mg Univers n calcium 6-02 by mouth ity of (ATORVASTAT 22:45: [place]. [place] Medical Branch levothyroxi 2020-0 Yes 75ug Take 75 Uni vers ne 100 mcg 6-02 mcg by ity of tablet 22:45: mouth [place] [address] every Medical morning. Branch raloxifene 2020-0 Yes 60mg Take 60 mg U nivers (EVISTA) 60 6-02 by mouth ity of mg tablet 22:45: daily. [place] [address] Medical Branch glucosamine 2020-0 Yes 2{tbl} Take 2 Un neela /msm/chondr 6-02 tablets by it y of oitin A 22:45: mouth [place] (GLUCOSAMIN 56 daily. Medica l E-CHONDR-MS Branch M ORAL) LUTEIN ORAL 2020-0 Yes 30mg Take 30 mg Univers 6-02 by mouth ity of 22:45: daily. [address] Branch montelukast 2020-0 Yes 10mg Take 10 mg Univers 10 mg 6-02 by mouth ity of tablet 22:45: daily. [address] Branch MULTIVITAMI 2020-0 Yes 1{tbl} Take 1 Un neela N ORAL 6-02 tablet by ity of 22:45: mouth. [address] Branch sacubitril- 2019-0 Yes 1{tbl} Take 1 Un neela valsartan 6-02 tablet by ity o f 24-26 mg 22:45: mouth 2 [place] [address] (two) Medical times [place] daily. CARVEDILOL 2020-0 Yes 3.125mg Take 3.125 Univers ORAL 6-02 mg by ity of 22:45: mouth 2 [place] [address] (two) Medical times [place] daily. atorvastati 2020-0 Yes 10mg Take 10 mg Univers n calcium 6-02 by mouth ity of (ATORVASTAT 22:45: [facility] [place] [facility] 2019-0 Yes 75ug Take 75 Uni vers ne 100 mcg 6-02 mcg by ity of tablet 22:45: mouth [place] [address] every Medical morning. Branch raloxifene 2020-0 Yes 60mg Take 60 mg U nivers (EVISTA) 60 6-02 by mouth ity of mg tablet 22:45: daily. [place] [address] Medical Branch CARVEDILOL 2020-0 Yes 3.125mg Take 3.125 Univers ORAL 6-02 mg by ity of 17:45: mouth 2 [place] [address] (two) Medical times [place] daily. atorvastati 2020-0 Yes 10mg Take 10 mg Univers n calcium 6-02 by mouth ity of (ATORVASTAT 17:45: [place]. [place] Medical Branch levothyroxi 2019-0 Yes 75ug Take 75 Uni vers ne 100 mcg 6-02 mcg by ity of tablet 17:45: mouth [place] [address] every Medical morning. Branch raloxifene 2019-0 Yes 60mg Take 60 mg U nivers (EVISTA) 60 6-02 by mouth ity of mg tablet 17:45: daily. [place] [address] Medical Branch glucosamine 2019-0 Yes 2{tbl} Take 2 Un ne[place] /msm/chondr 6-02 tablets by it y of oitin A 17:45: mouth [place] (GLUCOSAMIN 56 daily. Medica l E-CHONDR-MS Branch M ORAL) LUTEIN ORAL 2019-0 Yes 30mg Take 30 mg Univers 6-02 by mouth ity of 17:45: daily. [place] [address] Medical Branch montelukast 2019-0 Yes 10mg Take 10 mg Univers 10 mg 6-02 by mouth ity of tablet 17:45: daily. [place] [address] Medical Branch MULTIVITAMI 2019-0 Yes 1{tbl} Take 1 Un neela N ORAL 6-02 tablet by ity of 17:45: mouth. [place] [address] Medical Branch sacubitril- 2019-0 Yes 1{tbl} Take 1 Un neela valsartan 6-02 tablet by ity o f 24-26 mg 17:45: mouth 2 [place] tablet (two) Medical times Branch daily. CARVEDILOL 2019-0 Yes 3.125mg Take 3.125 Univers ORAL 6-02 mg by ity of 17:45: mouth 2 [place] 56 (two) Medical times Branch daily. atorvastati 2019-0 Yes 10mg Take 10 mg Univers n calcium 6-02 by mouth ity of (ATORVASTAT 17:[place] [facility] levothyroxi 2019-0 Yes 75ug Take 75 Uni vers ne 100 mcg 6-02 mcg by ity of tablet 17:45: mouth [place] [address] every Medical morning. Branch raloxifene 2019-0 Yes 60mg Take 60 mg U nivers (EVISTA) 60 6-02 by mouth ity of mg tablet 17:45: daily. [place] [address] Medical Branch glucosamine 2019-0 Yes 2{tbl} Take 2 Un neela /msm/chondr 6-02 tablets by it y of oitin A 17:45: mouth [place] (GLUCOSAMIN 56 daily. Medica l E-CHONDR-MS Branch M ORAL) LUTEIN ORAL 2020-0 Yes 30mg Take 30 mg Univers 6-02 by mouth ity of 17:45: daily. [address] montelukast 2020-0 Yes 10mg Take 10 mg Univers 10 mg 6-02 by mouth ity of tablet 17:45: daily. [address] MULTIVITAMI 2020-0 Yes 1{tbl} Take 1 Un neela N ORAL 6-02 tablet by ity of 17:45: mouth. [address] Branch sacubitril- 2020-0 Yes 1{tbl} Take 1 Un neela valsartan 6-02 tablet by ity o f 24-26 mg 17:45: mouth 2 [place] tablet (two) Medical times Branch daily. CARVEDILOL 2020-0 Yes 3.125mg Take 3.125 Univers ORAL 6-02 mg by ity of 17:45: mouth 2 [place] [address] (two) Medical times Branch daily. atorvastati 2020-0 Yes 10mg Take 10 mg Univers n calcium 6-02 by mouth ity of (ATORVASTAT [place] [facility] levothyroxi 2020-0 Yes 75ug Take 75 Uni vers ne 100 mcg 6-02 mcg by ity of tablet 17:45: mouth [place] [address] every Medical morning. Branch raloxifene 2020-0 Yes 60mg Take 60 mg U nivers (EVISTA) 60 6-02 by mouth ity of mg tablet 17:45: daily. [address] glucosamine 2020-0 Yes 2{tbl} Take 2 Un neela /msm/chondr 6-02 tablets by it y of oitin A 17:45: mouth [place] (GLUCOSAMIN 56 daily. Medica l E-CHONDR-MS Branch M ORAL) LUTEIN ORAL 2020-0 Yes 30mg Take 30 mg Univers 6-02 by mouth ity of 17:45: daily. [address] montelukast 2020-0 Yes 10mg Take 10 mg Univers 10 mg 6-02 by mouth ity of tablet 17:45: daily. [address] MULTIVITAMI 2020-0 Yes 1{tbl} Take 1 Un neela N ORAL 6-02 tablet by ity of 17:45: mouth. [place] 56 Medical Branch sacubitril- 2020-0 Yes 1{tbl} Take 1 Un neela valsartan 6-02 tablet by ity o f 24-26 mg 17:45: mouth 2 [place] tablet 56 (two) Medical times Branch daily. CARVEDILOL 2020-0 Yes 3.125mg Take 3.125 Univers ORAL 6-02 mg by ity of 17:45: mouth 2 [place] 56 (two) Medical times Branch daily. atorvastati 2020-0 Yes 10mg Take 10 mg Univers n calcium 6-02 by mouth ity of (ATORVASTAT 17:45: [place]. [place] [facility] levothyroxi 2019-0 Yes 75ug Take 75 Uni vers ne 100 mcg 6-02 mcg by ity of tablet 17:45: mouth [place] [address] every Medical morning. Branch raloxifene 2019-0 Yes 60mg Take 60 mg U nivers (EVISTA) 60 6-02 by mouth ity of mg tablet 17:45: daily. [address] Branch glucosamine 2019-0 Yes 2{tbl} Take 2 Un neela /msm/chondr 6-02 tablets by it y of oitin A 17:45: mouth [place] (GLUCOSAMIN 56 daily. Medica l E-CHONDR-MS Branch M ORAL) LUTEIN ORAL 2019-0 Yes 30mg Take 30 mg Univers 6-02 by mouth ity of 17:45: daily. [address] Branch montelukast 2019-0 Yes 10mg Take 10 mg Univers 10 mg 6-02 by mouth ity of tablet 17:45: daily. [address] MULTIVITAMI 2020-0 Yes 1{tbl} Take 1 Un neela N ORAL 6-02 tablet by ity of 17:45: mouth. [address] Branch sacubitril- 2020-0 Yes 1{tbl} Take 1 Un neela valsartan 6-02 tablet by ity o f 24-26 mg 17:45: mouth 2 [place] tablet 56 (two) Medical times Branch daily. CARVEDILOL 2020-0 Yes 3.125mg Take 3.125 Univers ORAL 6-02 mg by ity of 17:45: mouth 2 [place] 56 (two) Medical times Branch daily. atorvastati 2020-0 Yes 10mg Take 10 mg Univers n calcium 6-02 by mouth ity of (ATORVASTAT 17:[place]: [place] [facility] levothyroxi 2020-0 Yes 75ug Take 75 Uni vers ne 100 mcg 6-02 mcg by ity of tablet 17:45: mouth [place] [address] every Medical morning. Branch raloxifene 2020-0 Yes 60mg Take 60 mg U nivers (EVISTA) 60 6-02 by mouth ity of mg tablet 17:45: daily. [place] [address] Medical Branch glucosamine 2020-0 Yes 2{tbl} Take 2 Un neela /msm/chondr 6-02 tablets by it y of oitin A 17:45: mouth [place] (GLUCOSAMIN 56 daily. Medica l E-CHONDR-MS Branch M ORAL) LUTEIN ORAL 2020-0 Yes 30mg Take 30 mg Univers 6-02 by mouth ity of 17:45: daily. [address] Branch montelukast 2020-0 Yes 10mg Take 10 mg Univers 10 mg 6-02 by mouth ity of tablet 17:45: daily. [place] [address] Medical Branch MULTIVITAMI 2020-0 Yes 1{tbl} Take 1 Un neela N ORAL 6-02 tablet by ity of 17:45: mouth. [place] [address] Medical Branch sacubitril- 2020-0 Yes 1{tbl} Take 1 Un neela valsartan 6-02 tablet by ity o f 24-26 mg 17:45: mouth 2 [place] tablet 56 (two) Medical times Branch daily. glucosamine 2020-0 Yes 2{tbl} Take 2 Un enela /msm/chondr 6-02 tablets by it y of oitin A 17:45: mouth [place] (GLUCOSAMIN 56 daily. Medica l E-CHONDR-MS Branch M ORAL) LUTEIN ORAL 2020-0 Yes 30mg Take 30 mg Univers 6-02 by mouth ity of 17:45: daily. [place] [address] Medical Branch glucosamine 2020-0 Yes 2{tbl} Take 2 Un neela /msm/chondr 6-02 tablets by it y of oitin A 17:45: mouth [place] (GLUCOSAMIN 56 daily. Medica l E-CHONDR-MS Branch M ORAL) LUTEIN ORAL 2020-0 Yes 30mg Take 30 mg Univers 6-02 by mouth ity of 17:45: daily. [place] [address] Medical Branch glucosamine 2020-0 Yes 2{tbl} Take 2 Un neela /msm/chondr 6-02 tablets by it y of oitin A 17:45: mouth [place] (GLUCOSAMIN 56 daily. Medica l E-CHONDR-MS Branch M ORAL) LUTEIN ORAL 2020-0 Yes 30mg Take 30 mg Univers 6-02 by mouth ity of 17:45: daily. [place] [address] Medical Branch glucosamine 2020-0 Yes 2{tbl} Take 2 Un neela /msm/chondr 6-02 tablets by it y of oitin A 17:45: mouth [place] (GLUCOSAMIN 56 daily. Medica l E-CHONDR-MS Branch M ORAL) LUTEIN ORAL 2020-0 Yes 30mg Take 30 mg Univers 6-02 by mouth ity of 17:45: daily. [place] [address] Medical Branch glucosamine 2020-0 Yes 2{tbl} Take 2 Un neela /msm/chondr 6-02 tablets by it y of oitin A 17:45: mouth [place] (GLUCOSAMIN 56 daily. Medica l E-CHONDR-MS Branch ORAL) LUTEIN ORAL 2020-0 Yes 30mg Take 30 mg Univers 6-02 by mouth ity of 17:45: daily. [place] [address] Medical Branch furosemide 2020-0 Yes [id number] 80mg Take 2 Univers 40 mg 6-02 tablets by ity of tablet 00:00: mouth [place] 00 daily. Medical Branch KCL 20 mEq 2020-0 Yes [id number] 20meq Take 1 Univers tablet 6-02 tablet by ity of 00:00: mouth [place] 00 daily. Medical Branch furosemide 2020-0 Yes [id number] 80mg Take 2 Univers 40 mg 6-02 tablets by ity of tablet 00:00: mouth [place] 00 daily. Medical Branch KCL 20 mEq 2020-0 Yes [id number] 20meq Take 1 Univers tablet 6-02 tablet by ity of 00:00: mouth [place] 00 daily. Medical Branch furosemide 2020-0 Yes [id number] 80mg Take 2 Univers 40 mg 6-02 tablets by ity of tablet 00:00: mouth [place] 00 daily. Medical Branch KCL 20 mEq 2020-0 Yes [id number] 20meq Take 1 Univers tablet 6-02 tablet by ity of 00:00: mouth [place] 00 daily. Medical Branch furosemide 2020-0 Yes [id number] 80mg Take 2 Univers 40 mg 6-02 tablets by ity of tablet 00:00: mouth [place] 00 daily. Medical Branch KCL 20 mEq 2020-0 Yes [id number] 20meq Take 1 Univers tablet 6-02 tablet by ity of 00:00: mouth [place] 00 daily. Medical Branch furosemide 2020-0 Yes [id number] 80mg Take 2 [facility] 40 mg 6-02 tablets by ity of tablet 00:00: mouth [place] 00 daily. Medical Branch KCL 20 mEq 2020-0 Yes [id number] 20meq Take 1 Univers tablet 6-02 tablet by ity of 00:00: mouth [place] 00 daily. Medical Branch furosemide 2020-0 Yes [id number] 80mg Take 2 [facility] 40 mg 6-02 tablets by ity of tablet 00:00: mouth [place] 00 daily. Medical Branch KCL 20 mEq 2020-0 Yes [id number] 20meq Take 1 Univers tablet 6-02 tablet by ity of 00:00: mouth [place] 00 daily. Medical Branch furosemide 2020-0 Yes [id number] 80mg Take 2 [facility] 40 mg 6-02 tablets by ity of tablet 00:00: mouth [place] 00 daily. Medical Branch KCL 20 mEq 2020-0 Yes [id number] 20meq Take 1 Univers tablet 6-02 tablet by ity of 00:00: mouth [place] 00 daily. Medical Branch furosemide 2020-0 Yes [id number] 80mg Take 2 [facility] 40 mg 6-02 tablets by ity of tablet 00:00: mouth [place] 00 daily. Medical Branch KCL 20 mEq 2020-0 Yes [id number] 20meq Take 1 Univers tablet 6-02 tablet by ity of 00:00: mouth [place] 00 daily. Medical Branch furosemide 2020-0 Yes [id number] 80mg Take 2 Univers 40 mg 6-02 tablets by ity of tablet 00:00: mouth [place] 00 daily. Medical Branch KCL 20 mEq 2020-0 Yes [id number] 20meq Take 1 Univers tablet 6-02 tablet by ity of 00:00: mouth [place] 00 daily. Medical Branch furosemide 2020-0 Yes [id number] 80mg Take 2 [facility] 40 mg 6-02 tablets by ity of tablet 00:00: mouth [place] 00 daily. Medical Branch KCL 20 mEq 2020-0 Yes [id number] 20meq Take 1 Univers tablet 6-02 tablet by ity of 00:00: mouth [place] 00 daily. Medical Branch furosemide 2020-0 Yes [id number] 80mg Take 2 Univers 40 mg 6-02 tablets by ity of tablet 00:00: mouth [place] 00 daily. Medical Branch KCL 20 mEq 2020-0 Yes [id number] 20meq Take 1 Univers tablet 6-02 tablet by ity of 00:00: mouth [place] 00 daily. Medical Branch furosemide 2020-0 Yes [id number] 80mg Take 2 Univers 40 mg 6-02 tablets by ity of tablet 00:00: mouth [place] 00 daily. Medical Branch KCL 20 mEq 2020-0 Yes [id number] 20meq Take 1 Univers tablet 6-02 tablet by ity of 00:00: mouth [place] 00 daily. Medical Branch furosemide 2020-0 Yes [id number] 80mg Take 2 [facility] 40 mg 6-02 tablets by ity of tablet 00:00: mouth [place] 00 daily. Medical Branch KCL 20 mEq 2020-0 Yes [id number] 20meq Take 1 Univers tablet 6-02 tablet by ity of 00:00: mouth [place] 00 daily. Medical Branch furosemide 2020-0 Yes [id number] 80mg Take 2 Univers 40 mg 6-02 tablets by ity of tablet 00:00: mouth [place] 00 daily. Medical Branch KCL 20 mEq 2020-0 Yes [id number] 20meq Take 1 Univers tablet 6-02 tablet by ity of 00:00: mouth [place] 00 daily. Medical Branch furosemide 2020-0 Yes [id number] 80mg Take 2 Univers 40 mg 6-02 tablets by ity of tablet 00:00: mouth [place] 00 daily. Medical Branch KCL 20 mEq 2020-0 Yes [id number] 20meq Take 1 Univers tablet 6-02 tablet by ity of 00:00: mouth [place] 00 daily. Medical Branch furosemide 2020-0 Yes [id number] 80mg Take 2 Univers 40 mg 6-02 tablets by ity of tablet 00:00: mouth [place] 00 daily. Medical Branch KCL 20 mEq 2020-0 Yes [id number] 20meq Take 1 Univers tablet 6-02 tablet by ity of 00:00: mouth [place] 00 daily. Medical Branch levothyroxi 2020-0 No 1mcg ne 75 mcg 6-02 tablet 00:00: 00 levothyroxi 2020-0 No 1mcg ne 75 mcg 6-02 tablet 00:00: 00 levothyroxi 2020-0 No 1mcg ne 75 mcg 6-02 tablet 00:00: 00 montelukast 2020-0 No 1mg 10 mg 5-11 [...] tablet raloxifene 2020-0 No 1mg 60 mg 1-06 [...] 1mg 10 mg 1-06 tablet 00:00: 00 CARVEDILOL 2019-1 Yes 3.125mg Take 3.125 Univers ORAL 2-29 mg by ity of 22:46: mouth 2 [place] 16 (two) Medical times Branch daily. atorvastati 2018-02 Yes 10mg Take 10 mg Univers n calcium 2-29 by mouth ity of (ATORVASTAT 22:46: [place] [address] [place] [address] Branch levothyroxi 2018-02 Yes 100ug Take 100 U nivers ne 100 mcg 2-29 mcg by ity of tablet 22:46: mouth [place] 16 every Medical morning. Branch raloxifene 2018-02 Yes 60mg Take 60 mg U nivers (EVISTA) 60 2-29 by mouth ity of mg tablet 22:46: daily. [address] docosahexan 2018-02 Yes 1{capsu Take 1 U nivers oic 2-29 le} capsule by ity of acid/epa 22:46: mouth [place] (FISH OIL 16 daily. Medical ORAL) Branch glucosamine 2018- Yes 2{tbl} Take 2 Un neela /msm/chondr 2-29 tablets by it y of oitin A 22:46: mouth [place] (GLUCOSAMIN 16 daily. Medica l E-CHONDR-MS Branch M ORAL) LUTEIN ORAL 2018-02 Yes 30mg Take 30 mg Univers 2-29 by mouth ity of 22:46: daily. [address] montelukast 2018-02 Yes 10mg Take 10 mg Univers 10 mg 2-29 by mouth ity of tablet 22:46: daily. [address] MULTIVITAMI 2018-02 Yes 1{tbl} Take 1 Un neela N ORAL 2-29 tablet by ity of 22:46: mouth. [address] Cholecalcif 2018-02 Yes 1{capsu Take 1 U nivers [place], 2-29 le} capsule by ity of Vitamin D3, 22:46: [place]VIT[place]IN 16 Medical D3) 2,000 Branch unit capsule sacubitril- 2018- Yes 1{tbl} Take 1 Un neela valsartan 2-29 tablet by ity o f 24-26 mg 22:46: mouth 2 [place] tablet 16 (two) Medical times Branch daily. furosemide 2018-02 Yes [id number] 40mg Take 1 Univers 40 mg 2-29 tablet by ity of tablet 00:00: mouth [place] 00 every Medical morning Branch and evening. KCL 20 mEq 2018- Yes [id number] 20meq Take 1 Univers tablet 2-29 tablet by ity of 00:00: mouth 00 daily. Medical Branch magnesium 2018- Yes [id number] 400mg Take 400 Univers oxide 420 0-13 mg by ity of mg Tab 00:00: mouth 2 [place] (two) Medical times Branch daily. magnesium 2018- Yes [id number] 400mg Take 400 Univers oxide 420 0-13 mg by ity of mg Tab 00:00: mouth 2 [place] (two) Medical times Branch daily. magnesium 2018-02 Yes [id number] 400mg Take 400 Univers oxide 420 0-13 mg by ity of mg Tab 00:00: mouth 2 [place] (two) Medical times Branch daily. magnesium 2018- Yes [id number] 400mg Take 400 Univers oxide 420 0-13 mg by ity of mg Tab 00:00: mouth 2 [place] ([facility]) Medical times Branch daily. magnesium 2018-02 Yes [id number] 400mg Take 400 Univers oxide 420 0-13 mg by ity of mg Tab 00:00: mouth 2 [place] ([facility]) Medical times Branch daily. magnesium 2018-02 Yes [id number] 400mg Take 400 Univers oxide 420 0-13 mg by ity of mg Tab 00:00: mouth [place] ([facility]) Medical times Branch daily. magnesium 2018-02 Yes [id number] 400mg Take 400 Univers oxide 420 0-13 mg by ity of mg Tab 00:00: mouth 2 [place] (two) Medical times Branch daily. magnesium 2018-02 Yes [id number] 400mg Take 400 Univers oxide 420 0-13 mg by ity of mg Tab 00:00: mouth 2 [place] (two) Medical times Branch daily. magnesium 2018-02 Yes [id number] 400mg Take 400 Univers oxide 420 0-13 mg by ity of mg Tab 00:00: mouth 2 [place] (two) Medical times Branch daily. magnesium 2018- Yes [id number] 400mg Take 400 Univers oxide 420 0-13 mg by ity of mg Tab 00:00: mouth 2 [place] (two) Medical times Branch daily. magnesium 2018- Yes [id number] 400mg Take 400 Univers oxide 420 0-13 mg by ity of mg Tab 00:00: mouth 2 [place] (two) Medical times Branch daily. magnesium 2018- Yes [id number] 400mg Take 400 Univers oxide 420 0-13 mg by ity of mg Tab 00:00: mouth 2 (two) Medical times Branch daily. magnesium 2018-02 Yes [id number] 400mg Take 400 Univers oxide 420 0-13 mg by ity of mg Tab 00:00: mouth 2 [place] (two) Medical times Branch daily. magnesium 2018-02 Yes [id number] 400mg Take 400 Univers oxide 420 0-13 mg by ity of mg Tab 00:00: mouth 2 [place] (two) Medical times Branch daily. magnesium 2018-02 Yes [id number] 400mg Take 400 Univers oxide 420 0-13 mg by ity of mg Tab 00:00: mouth 2 [place] (two) Medical times Branch daily. magnesium 2018-02 Yes [id number] 400mg Take 400 Univers oxide 420 0-13 mg by ity of mg Tab 00:00: mouth 2 [place] (two) Medical times Branch daily. magnesium 2018-02 Yes [id number] 400mg Take 400 Univers oxide 420 0-13 mg by ity of mg Tab 00:00: mouth [place] () Medical times Branch daily. aspirin Yes 81mg [...] Q10) 100 mg 38 daily. l tablet UBIDECARENO 0 Yes 1{capsu QD Take 1 M ethodi [...] tablet 21:18: daily. Hospit a 38 l metFORMIN 0 Yes 500mg QD Take 500 [facility] (GLUCOPHAGE 1-[address] ) 500 mg 21:18: [facility] 38 every l evening. valsartan 0 Yes 320mg QD Take 320 [facility] (DIOVAN) 1-[address] 320 MG 21:18: [facility] tablet 38 nightly. l atorvastati 0 Yes 10mg QD Take 10 mg Methodi n (LIPITOR) 1-[address] 10 MG 21:18: nightly. [facility] tablet 38 l aspirin 2017-0 Yes 81mg QD Take 81 mg Meth ramesh (ECOTRIN) 1-[address] 81 MG 21:18: daily. [facility] enteric 38 l coated tablet levothyroxi 0 Yes 75ug QD Take 75 Met hodi [...] 100 mg 38 daily. l tablet metFORMIN 0 Yes 500mg QD Take 500 Met hodi [...] Status Commen ts Source Name Name Timothy COVID-19 2021-07-21 Completed Vaccine 00:00:00 [place] COVID-19 2021-07-21 Completed Vaccine 00:00:00 [place] COVID-19 2021-07-21 Completed Vaccine 00:00:00 influenza, high-dose, 2020-12-16 Completed quadrivalent 00:00:00 influenza, high-dose, 2020-12-16 Completed quadrivalent 00:00:00 influenza, high-dose, 2020-12-16 Completed quadrivalent 00:00:00 [place] COVID-19 2020-10-13 Completed Vaccine 00:00:00 [place] COVID-19 2020-10-13 Completed Vaccine 00:00:00 Moderna COVID-19 2020-10-13 Completed Vaccine 00:00:00 Moderna COVID-19 2020-04-11 Completed [...] Name Observation Time Observation Value Comments Source Systolic blood 2022-03-16 22:09:00 110 mm[Hg] Univer sity pressure [facility] Diastolic blood 2022-03-16 22:09:00 75 mm[Hg] Unive [facility] Heart rate 2022-03-16 22:09:00 82 /min Universi ty of [facility] Body temperature 2022-03-16 22:09:00 36.67 Jackie Univ ersity of [facility] Body height 2022-03-16 22:09:00 152.4 cm Universi ty of [facility] Body weight 2022-03-16 22:09:00 74.39 kg Universi [facility] BMI 2022-03-16 22:09:00 32.03 [facility] in 2022-03-16 22:09:00 97 /min [facility] Arterial blood by [facility] Pulse oximetry Branch BP Systolic 2021-11-23 17:15:00 127 mm[Hg] BP [...] Date / Time Performing Clinician Source Performed CONSENT/REFUSAL FOR 2022-03-16 21:14:34 Doctor Ferrari [facility] DIAGNOSIS AND TREATMENT [facility] URINALYSIS 2021-08-25 17:34:00 Jessica Zhong [facility] CREATININE, URINE RANDOM 2021-08-25 17:34:00 Jessica Zhong [facility] PHOSPHORUS 2021-08-25 17:31:00 Jessica Zhong [facility] URIC ACID 2021-08-25 17:31:00 Jessica Zhong [facility] MAGNESIUM 2021-08-25 17:31:00 Jessica Zhong [facility] COMP. METABOLIC PANEL 2021-08-25 17:31:00 Jessica Zhong [facility] ([id number]) Medical Branch ASSIGNMENT OF BENEFITS 2021-08-25 16:54:40 Doctor Vonda, [facility] ASSIGNMENT OF BENEFITS 2021-01-20 19:47:53 Doctor Vonda, [facility] DEXA AXIAL (HIP AND SPINE) 2020-10-12 13:58:43 Requisition, Rj sierra [facility] NOTICE OF BILLING 2020-10-12 13:37:49 Doctor Vonda, [facility] PRACTICES FOR MEDICARE [facility] PATIENTS [facility] PATIENT FINANCIAL 2020-10-12 13:37:02 Doctor Vonda, [facility] POLICY [facility] NO SHOW OR MISSED 2020-10-12 13:36:13 Doctor Ferrari [facility] APPOINTMENT POLICY [facility] ACKNOWLEDGEMENT CONSENT/REFUSAL FOR 2020-10-12 13:35:36 Doctor Unassigned, Unive [facility] DIAGNOSIS AND TREATMENT [facility] ASSIGNMENT OF BENEFITS 2020-10-12 13:34:54 [facility] ASSIGNMENT OF BENEFITS 2019-09-23 20:24:08 [facility] CONSENT/REFUSAL FOR 2019-07-12 19:25:10 Doctor Unassigned, [place] [facility] DIAGNOSIS AND TREATMENT [facility] Plan of Care Planned Activity Planned Date Details Comments Source Goal Plan of Care Note [code = 19165-6] Goal Plan of Care Note [code = 86591-4] Goal Plan of Care Note [code = 00244-1] Goal Plan of Care Note [code = 67074-4] Goal Plan of Care Note [code = 83140-5] Goal Plan of Care Note [code = 12932-7] Goal Plan of Care Note [code = 14609-0] Goal Plan of Care Note [code = 10119-7] Goal Plan of Care Note [code = 17373-8] Goal Plan of Care Note [code = 88714-2] Goal Plan of Care Note [code = 96115-9] Goal Plan of Care Note [code = 21410-2] Goal Plan of Care Note [code = 61821-7] Goal Plan of Care Note [code = 65647-0] Goal Plan of Care Note [code = 91569-6] Goal Plan of Care Note [code = 71400-5] Goal Plan of Care Note [code = 63906-5] Goal Plan of Care Note [code = 08475-4] Goal Plan of Care Note [code = 44298-6] Goal Plan of Care Note [code = 27038-7] Goal Plan of Care Note [code = 81076-4] Goal Plan of Care Note [code = 27536-1] Goal Plan of Care Note [code = 55384-0] Goal Plan of Care Note [code = 81080-9] Goal Plan of Care Note [code = 46907-8] Goal Plan of Care Note [code = 90184-6] Goal Plan of Care Note [code = 09988-6] Goal Plan of Care Note [code = 64077-2] Goal Plan of Care Note [code = 34994-1] Goal Plan of Care Note [code = 20971-9] Goal Plan of Care Note [code = 21130-1] Goal Plan of Care Note [code = 85417-3] Goal Plan of Care Note [code = 75430-6] Goal Plan of Care Note [code = 37195-7] Goal Plan of Care Note [code = 25039-6] Goal Plan of Care Note [code = 18939-8] Goal Plan of Care Note [code = 35132-8] Goal Plan of Care Note [code = 84931-5] Goal Plan of Care Note [code = 08403-5] Goal Plan of Care Note [code = 61312-3] Goal Plan of Care Note [code = 33007-1] Goal Plan of Care Note [code = 15296-2] Goal Plan of Care Note [code = 84931-9] Goal Plan of Care Note [code = 24482-7] Goal Plan of Care Note [code = 69963-2] Goal Plan of Care Note [code = 26191-1] Goal Plan of Care Note [code = 52142-6] Goal Plan of Care Note [code = 39154-2] Goal Plan of Care Note [code = 85923-0] Goal Plan of Care Note [code = 89678-9] Goal Plan of Care Note [code = 79745-3] Goal Plan of Care Note [code = 36937-2] Goal Plan of Care Note [code = 42327-2] Goal Plan of Care Note [code = 32571-5] Goal Plan of Care Note [code = 04271-8] Goal Plan of Care Note [code = 58511-4] Goal Plan of Care Note [code = 96985-9] Goal Plan of Care Note [code = 05238-7] Goal Plan of Care Note [code = 54979-6] Goal Plan of Care Note [code = 81339-9] Goal Plan of Care Note [code = 48123-0] Goal Plan of Care Note [code = 43927-0] Goal Plan of Care Note [code = 32183-8] Goal Plan of Care Note [code = 13541-6] Goal Plan of Care Note [code = 70202-8] Goal Plan of Care Note [code = 34228-9] Goal Plan of Care Note [code = 05291-4] Goal Plan of Care Note [code = 62206-6] Goal Plan of Care Note [code = 18042-0] Goal Plan of Care Note [code = 91833-9] Goal Plan of Care Note [code = 47153-8] Goal Plan of Care Note [code = 37314-5] Goal Plan of Care Note [code = 81318-3] Goal Plan of Care Note [code = 12256-2] Goal Plan of Care Note [code = 31513-3] Goal Plan of Care Note [code = 47057-2] Goal Plan of Care Note [code = 41718-6] Goal Plan of Care Note [code = 11617-2] Encounters Start End Encounter Admission Attending Care Care Encounter Source Date/Time Date/Time Type Type Clinicians Facility Department ID 2022-04-06 2022-04-06 [id number] Univers 13:40:00 13:40:00 QIALARRYAVERY ishaany o f [facility] 2022-03-30 2022-03-30 Outpatient R RADIOLOGY [facility] [id number] Univers 00:00:00 00:00:00 ity of [facility] 2022-03-25 2022-03-25 Outpatient R YANI, [facility] [id number] Univers 15:00:00 15:00:00 MARIZOL heredia o [facility] 2022-03-17 2022-03-17 [facility] [id number] Univers 00:00:00 00:00:00 Marizol BOWMAN [id number] [facility] [id number] [facility] [phone] Tn dical NAL [address] [facility] 2022-03-16 2022-03-16 Outpatient R YANI, [facility] [id number] Univers 17:15:26 23:59:00 MARIZOL quirosy o f [facility] 2022-03-16 2022-03-16 [facility] 1.2.840.114 [id number] Univers 17:15:00 23:59:00 Encounter Marizol BOWMAN [id number] ity [facility] 4.2.7.2.686 [facility] [phone] [facility] [address] 2022-03-162022-03-16 Office Yani [facility] 1.2.840.114 [id number] Univers 15:40:00 16:35:35 Visit Marizol BOWMAN 350.1.13.10 [facility] [place] [phone] Tn dical NAL 059 [facility] 2022-03-16 2022-03-16 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 [facility] Main [facility] 1.2.8 40.114 [id number] Univers 07:45:00 08:00:00 Visit Marizol Lomeli 350.1.13.10 [facility] [place] [phone] Tn dical NAL 353 [facility] 2022-03-16 2022-03-16 Orders Doctor SANTINO 1.2.840.114 [id number] Univers 00:00:00 00:00:00 Only Unassigned, SAKSHI 350.1.13.10 ity of [place] [facility] 4.2.7.2.686 Can as [phone] [address] 2022-02-11 2022-02-11 Outpatient R [facility] [id number] Univers 00:00:00 00:00:00 ity of [facility] 2021-11-23 2021-11-23 Outpatient [id number]- [id number]-b 00:00:00 00:00:00 Visit x9oo-7205 0fb-4227-b -r6o6-u8u 9h6-x3he0i a6v3zg93m 0ec68a 2021-11-11 2021-11-11 Outpatient ROOSEVELT ALBERT [id number] 022 [place] 14:37:51 14:37:51 0929 F Mason 2021-11-10 2021-11-10 Outpatient [id number]- [id number] n35028-[id number] 00:00:00 00:00:00 Visit py7j-108b s7p-151q-g -zt9u-hu6 f7z-lw7407 3071988ma 3015ae 2021-08-25 2021-08-25 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 Jacinto, [facility] Main [facility] 1.2.8 40.114 [id number] Univers 12:45:00 13:00:00 Visit Tez Drake COLBY 350.1.13.10 ity of [place].2.686 [place] [facility] [phone] [address] 2021-08-25 2021-08-25 Outpatient R VIDAL, [facility] [id number] Univers 12:45:00 12:45:00 TEZ ity [facility] 2021-08-25 2021-08-25 Orders Doctor SANTINO 1.2.840.114 [id number] Univers 00:00:00 00:00:00 Only Unassigned, SAKSHI 350.1.13.10 ity of [place] [facility] 4.2.7.2.686 Can as [phone] [address] 2021-08-23 2021-08-23 Outpatient [id number]- [id number] [id number] 00:00:00 00:00:00 Visit 46ed-49c5 6ed-49c5-a -c538-s25 490-a622fd [id number] 3337-12-08 2021-01-20 Outpatient R RADIOLOGY [facility] [id number] Univers 13:49:38 23:59:00 ity [facility] 2021-01-20 2021-01-20 Hospital Radiology [facility] 1.2.840.114 [id number] Univers 13:49:38 23:59:00 Encounter COLBY 350.1.13.10 ity of [place]2.7.2.[place] [phone] [facility] [address] 2021-01-20 2021-01-20 Orders Doctor SANTINO 1.2.840.114 [id number] Univers 00:00:00 00:00:00 Only Unassigned, SAKSHI 350.1.13.10 ity of [place] [facility] 4.2.7.2.686 Can as [phone] [facility] [address] 2020-10-12 2020-10-12 Hospital Unknown, [facility] 1.2.601.261 [id number] Univers 08:34:53 23:59:00 Encounter Attending [place] 350.1.13.10 ity of [place] 4.2.7.2.686 [facility] [phone] [facility] [address] 2020-10-12 2020-10-12 Outpatient R [facility] [id number] Univers 00:00:00 00:00:00 ity of [facility] 2020-09-07 2020-09-07 Outpatient R RADIOLOGY [facility] [id number] Univers 00:00:00 00:00:00 ity of [facility] 2020-07-27 2020-07-27 Outpatient R UNKNOWN, [facility] [id number] Univers 00:00:00 00:00:00 ATTENDING ity [facility] 2020-01-16 2020-01-16 Hospital Radiology [facility] 1.2.840.114 [id number] Univers 13:11:51 23:59:00 Encounter [place] 350.1.13.10 ity of [place] 4.2.7.2.686 [facility] [phone] [address] 2020-01-16 2020-01-16 Outpatient R [facility] [id number] Univers 00:00:00 00:00:00 ity of [facility] 2019-10-10 2019-10-10 Outpatient Ajibade_O_A VFP VFP [id number] [id number] [facility] 05:07:00 05:07:00 H 60533 Family Practic e 2019-10-10 2019-10-10 Outpatient Ajibade_O_A VFP VFP [phone] [facility] 05:07:00 05:07:00 H 87580 Family Practic e 2019-09-23 2019-09-23 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 Jacinto, Adc Lab Main [facility] 1.2.8 40.114 [id number] Univers 15:25:58 15:40:58 Visit Jessica Zhong 350.1.13.10 ity of [place] 4.2.7.2.[address] [facility] Professio [phone] [address] 2019-09-23 2019-09-23 [facility] [id number] Univers 15:30:00 15:30:00 JESSICA [facility] 2019-09-23 2019-09-23 Orders Doctor SANTINO 1.2.840.114 [id number] Univers 00:00:00 00:00:00 Only Unassigned, SAKSHI 350.1.13.10 ity of [place] [facility] 4.2.7.2.686 Can as [phone] [address] 2019-07-17 2019-07-17 Transition Eleno Kessler 1.2.840.114 [id number] Univers 00:00:00 00:00:00 of Care Matt Morrison 350.1.13.10 it[place] [phone] [address] 2019-07-12 2019-07-16 [facility] [id number] Univers 14:50:15 17:45:00 [facility] 2019-07-12 2019-07-12 Orders Doctor SANTINO 1.2.840.114 [id number] Univers 00:00:00 00:00:00 Only Unassigned, SAKSHI 350.1.13.10 ity of [place] [facility] 4.2.7.2.686 Can as [phone] [address] 2019-04-03 2019-04-03 Outpatient [facility] [phone] [facility] 07:22:00 07:22:00 _J_AH 92202 Family Practic e 2019-02-08 2019-02-10 Inpatient [facility] [id number] Univers 15:54:40 16:45:00 NICKIE [facility] Results Test Description Test Time Test Comments Results Result Comments Source CULTURE, URINE 2021-11-13 SPECIMEN NUMBER: 09:24:09 [id number] CULTURE, URINE SPECIMEN NUMBER: [id number] SOURCE: URINE REPORT STATUS: FINAL FINAL REPORT: 11/13/2021 NO GROWTH AFTER 36 HOURS INCUBATION CULTURE, URINE [ADDED] 2021-11-13 00:00:00 Test Item Value Reference Range Interpretation Comme nts CULTURE, URINE (test code = 86833) SPECIMEN NUMBER: [id number] CULTURE, URINE [ADDED]2021-11-13 00:00:00 Test Item Value Reference Range Interpretation Comments CULTURE, URINE (test SPECIMEN NUMBER: code = 59105) [id number] CULTURE, URINE [ADDED]2021-11-13 00:00:00 Test Item Value Reference Range Interpretation Comments CULTURE, URINE (test SPECIMEN NUMBER: code = 61002) [id number] CULTURE, URINE [ADDED]2021-11-13 00:00:00 Test Item Value Reference Range Interpretation Comments CULTURE, URINE (test SPECIMEN NUMBER: code = 17162) [id number] COMPREHENSIVE METABOLIC [id number] 03:55:42 Test Item Value Reference Range Interpretation Comments GLUCOSE (test code = 90 MG/DL 70-99 2216) BUN (test code = 35 MG/DL 8-23 H 2207) CREATININE (test 1.12 MG/DL 0.60-1.30 code = 2214) eGFR (2020 CKD-EPI) 49 >60 L The NKF -ASN (test code = 98797) ML/MIN/1.73 Taskforc e recommends use of Cystatin C to confirm eGFR in adults at risk for CKD . [facility] offers eGFR wit h Cystatin C-Creatinineusi ng the 2020 CKD-EPI eGFR_creat-cyst at equation (order code 3057) toincreas e the accuracy of est imated GFR. For more information, contactyour [facility] ount executive or se e announcement [email or web address] CALC BUN/CREAT (test 31 RATIO 6-28 H code = 2235) SODIUM (test code = 143 MEQ/L 324-958 3126) POTASSIUM (test code 4.3 MEQ/L 3.5-5.4 = 2227) CHLORIDE (test code 104 MEQ/L 95-107 = 221) CARBON DIOXIDE (test 25 MEQ/L 19-31 code [...] AST (test code = 20 U/L 9-40 2218) ALT (test code = 16 U/L 5-40 UNLESS OTH ERWISE 2219) INDICATED, ALL TESTING PERFORM ED ATCLINICAL PATH OLOGY LABORATORIES, [place] [place] [address] [facility] DIRECTOR: Emilia MURRAYIA NUMBER [id number] CAP ACCREDITATION N O. [id number] CBC W/AUTO DIFF WITH [id number] 03:20:59 Test Item Value Reference Range Interpretation [...] RBCS 0.00 K/UL 0.00-0.11 (test code = 29360) CBC W/AUTO DIFF WITH PLATELETS [ADDED]2021-11-12 00:00:00 [...] NUCLEATED RBCS (test code = 0.00 K/UL 20995) CBC W/AUTO DIFF WITH PLATELETS [ADDED]2021-11-12 00:00:00 [...] NUCLEATED RBCS (test code = 0.00 K/UL 07039) CBC W/AUTO DIFF WITH PLATELETS [ADDED]2021-11-12 00:00:00 [...] NUCLEATED RBCS (test code = 0.00 K/UL 31021) COMPREHENSIVE METABOLIC PANEL [ADDED]2021-11-12 00:00:00 Test Item Value Reference Range Interpretation Comments GLUCOSE (test code = 2217) 90 MG/DL BUN (test code = 2208) 35 MG/DL CREATININE (test code = 2214) 1.12 MG/DL eGFR (2020 CKD-EPI) (test code 49 ML/MIN/1.73 = 82114) CALC BUN/CREAT (test code = 31 RATIO [...] (2020 CKD-EPI) (test code 49 ML/MIN/1.73 = 23337) CALC BUN/CREAT (test code = 31 RATIO [...] NUCLEATED RBCS (test code = 0.00 K/UL 15384) CBC W/AUTO DIFF WITH PLATELETS [ADDED]2021-11-12 00:00:00 [...] NUCLEATED RBCS (test code = 0.00 K/UL 30989) CBC W/AUTO DIFF WITH PLATELETS [ADDED]2021-11-12 00:00:00 [...] NUCLEATED RBCS (test code = 0.00 K/UL 30764) COMPREHENSIVE METABOLIC PANEL [ADDED]2021-11-12 00:00:00 Test Item Value Reference Range Interpretation Comments GLUCOSE (test code = 2217) 90 MG/DL BUN (test code = 2208) 35 MG/DL CREATININE (test code = 2214) 1.12 MG/DL eGFR (2020 CKD-EPI) (test code 49 ML/MIN/1.73 = 82577) CALC BUN/CREAT (test code = 31 RATIO [...] (2020 CKD-EPI) (test code 49 ML/MIN/1.73 = 79524) CALC BUN/CREAT (test code = 31 RATIO [...] (test code = 2219) 16 U/L CULTURE, [id number] 10:27:35SPECIMEN NUMBER: [id number] CULTURE, URINE SPECIMEN NUMBER: [id number] SPECIMEN COMMENT: URINE SOURCE:URINE REPORT STATUS: FINAL FINAL REPORT: 04/21/2021 NO GROWTH AFTER 36 HOURS INCUBATIONCULTURE, URINE 2021-04-21 00:00:00 Test Item Value Reference Range Interpretation Comments CULTURE, URINE (test SPECIMEN NUMBER: code = 11978) [id number] CULTURE, [id number] 00:00:00 Test Item Value Reference Range Interpretation Comments CULTURE, URINE (test SPECIMEN NUMBER: code = 51053) [id number] CULTURE, [id number] 00:00:00 Test Item Value Reference Range Interpretation Comments CULTURE, URINE (test SPECIMEN NUMBER: code = 55119) [id number] CULTURE, [id number] 00:00:00 Test Item Value Reference Range Interpretation Comments CULTURE, URINE (test SPECIMEN NUMBER: code = 64377) [id number] CULTURE, [id number] 00:00:00 Test Item Value Reference Range Interpretation Comments CULTURE, URINE (test SPECIMEN NUMBER: code = 88784) [id number] INTACT [id number] 09:29:32 Test Item Value Reference Range Interpretation Comments INTACT PTH (test code = 5005) 27 PG/ML 15-65 [id number] 05:51:06 Test Item Value Reference Range Interpretation Comments MAGNESIUM (test code = 2226) 2.5 MG/DL 1.6-2.6 [id number] 05:51:06 Test Item Value Reference Range Interpretation Comments PHOSPHORUS (test code = 2227) 4.3 MG/DL 2.5-4.5 CBC W/AUTO DIFF WITH [id number] 04:55:06 Test Item Value Reference Range Interpretation [...] RBCS 0.00 K/UL 0.00-0.11 (test code = 35714) COMPREHENSIVE METABOLIC [id number] 04:53:48 Test Item Value Reference Range Interpretation Comments GLUCOSE (test code = 86 MG/DL 70-99 2216) BUN (test code = 43 MG/DL 8-23 H 2207) CREATININE (test 1.15 MG/DL 0.60-1.30 code = 221) eGFR (2020 CKD-EPI) 48 ML/MIN/1.73 >60 L (test code = 42743) CALC BUN/CREAT (test 37 RATIO 6-28 H code = 2235) SODIUM (test code = 141 MEQ/L 791-305 3227) POTASSIUM (test code 4.6 MEQ/L 3.5-5.4 = 2227) CHLORIDE (test code 103 MEQ/L 95-107 = 2214) CARBON DIOXIDE (test 22 MEQ/L 19-31 code = 220) CALCIUM (test code = 9.6 MG/DL 8.5-10.5 2208) PROTEIN, TOTAL (test 7.0 G/DL 6.1-8.3 code = 222) ALBUMIN (test code = 4.2 G/DL 3.5-5.2 2200) CALC GLOBULIN (test 2.8 G/DL 1.9-3.7 code = 2240) CALC A/G RATIO (test 1.5 RATIO 1.0-2.6 code = 2234) BILIRUBIN, TOTAL 0.3 MG/DL See_Comment [Automated message] [...] code = 12 U/L 5-40 2218) URIC [id number] 04:53:48 Test Item Value Reference Range Interpretation Comments URIC ACID (test code = 2233) 6.4 MG/DL 2.7-6.1 H ALBUMIN/CREATININE RATIO, URINE, [id number] 04:43:14 Test Item Value Reference Range Interpretation Comments CREATININE, URINE, 27.8 MG/DL NOT ESTAB RANDOM (test code = 2072) ALBUMIN, URINE, 0.2 MG/DL NOT ESTAB RANDOM (test code = 89990) CALC 7 MG/G <30 Note: Albumin/ Creatinine ALBUMIN/CREAT, RND ratio ref erence interval (test code = reflects ADA an d NKF 23227) guidelines. UNL ESS OTHERWISE INDIC ATED, ALL TESTING PERFORM ED ATCLINICAL PATH OLOGY LABORATORIES, [facility]. [address] [place] [address] LABORATORY DIRE CTOR: Joseph MURRAY. CLIA NUMBER [id number] CAP ACCREDITATION N O. [id number] CBC W/AUTO [id number] 00:00:00 Test Item Value Reference Range Interpretation [...] NUCLEATED RBCS (test code = 0.00 K/UL 44705) CBC W/AUTO [id number] 00:00:00 Test Item Value Reference Range Interpretation [...] NUCLEATED RBCS (test code = 0.00 K/UL 34238) COMPREHENSIVE METABOLIC [id number] 00:00:00 Test Item Value Reference Range Interpretation Comments GLUCOSE (test code = 2217) 86 MG/DL BUN (test code = 2208) 43 MG/DL CREATININE (test code = 2214) 1.15 MG/DL eGFR (2020 CKD-EPI) (test code 48 ML/MIN/1.73 = 24219) CALC BUN/CREAT (test code = 37 RATIO [...] ALT (test code = 2219) 12 U/L [id number] 00:00:00 Test Item Value Reference Range Interpretation Comments MAGNESIUM (test code = 2226) 2.5 MG/DL [id number] 00:00:00 Test Item Value Reference Range Interpretation Comments MAGNESIUM (test code = 2226) 2.5 MG/DL INTACT [id number] 00:00:00 Test Item Value Reference Range Interpretation Comments INTACT PTH (test code = 5005) 27 PG/ML INTACT [id number] 00:00:00 Test Item Value Reference Range Interpretation Comments INTACT PTH (test code = 5005) 27 PG/ML [id number] 00:00:00 Test Item Value Reference Range Interpretation Comments PHOSPHORUS (test code = 2227) 4.3 MG/DL URIC [id number] 00:00:00 Test Item Value Reference Range Interpretation Comments URIC ACID (test code = 2233) 6.4 MG/DL MICROALBUMIN/CREATININE, RANDOM AND [id number] 00:00:00 Test Item Value Reference Range Interpretation Comments CREATININE, URINE, RANDOM (test 27.8 MG/DL code = 2072) ALBUMIN, URINE, RANDOM (test code 0.2 MG/DL = 33598) CALC ALBUMIN/CREAT, RND (test code 7 MG/G = 63479) CBC W/AUTO [id number] 00:00:00 Test Item Value Reference Range Interpretation [...] NUCLEATED RBCS (test code = 0.00 K/UL 99966) CBC W/AUTO [id number] 00:00:00 Test Item Value Reference Range Interpretation [...] NUCLEATED RBCS (test code = 0.00 K/UL 28773) CBC W/AUTO [id number] 00:00:00 Test Item Value Reference Range Interpretation [...] NUCLEATED RBCS (test code = 0.00 K/UL 73809) COMPREHENSIVE METABOLIC [id number] 00:00:00 Test Item Value Reference Range Interpretation Comments GLUCOSE (test code = 2217) 86 MG/DL BUN (test code = 2208) 43 MG/DL CREATININE (test code = 2214) 1.15 MG/DL eGFR (2020 CKD-EPI) (test code 48 ML/MIN/1.73 = 97471) CALC BUN/CREAT (test code = 37 RATIO 2235) SODIUM (test code = 2231) 141 MEQ/L POTASSIUM (test code = 2228) 4.6 MEQ/L CHLORIDE (test code = 2215) 103 MEQ/L CARBON DIOXIDE (test code = 22 MEQ/L 220) CALCIUM (test code = 2209) 9.6 MG/DL [...] code = 2219) 12 U/L COMPREHENSIVE METABOLIC [id number] 00:00:00 Test Item Value Reference Range Interpretation Comments GLUCOSE (test code = 2217) 86 MG/DL BUN (test code = 2208) 43 MG/DL CREATININE (test code = 2214) 1.15 MG/DL eGFR (2020 CKD-EPI) (test code 48 ML/MIN/1.73 = 99969) CALC BUN/CREAT (test code = 37 RATIO 2235) SODIUM (test code = 2231) 141 MEQ/L POTASSIUM (test code = 2228) 4.6 MEQ/L CHLORIDE (test code = 2215) 103 MEQ/L CARBON DIOXIDE (test code = 22 MEQ/L 2206) CALCIUM (test code = 2209) 9.6 MG/DL [...] ALT (test code = 2219) 12 U/L [id number] 00:00:00 Test Item Value Reference Range Interpretation Comments MAGNESIUM (test code = 2226) 2.5 MG/DL [id number] 00:00:00 Test Item Value Reference Range Interpretation Comments MAGNESIUM (test code = 2226) 2.5 MG/DL [id number] 00:00:00 Test Item Value Reference Range Interpretation Comments MAGNESIUM (test code = 2226) 2.5 MG/DL INTACT [id number] 00:00:00 Test Item Value Reference Range Interpretation Comments INTACT PTH (test code = 5005) 27 PG/ML INTACT [id number] 00:00:00 Test Item Value Reference Range Interpretation Comments INTACT PTH (test code = 5005) 27 PG/ML INTACT [id number] 00:00:00 Test Item Value Reference Range Interpretation Comments INTACT PTH (test code = 5005) 27 PG/ML [id number] 00:00:00 Test Item Value Reference Range Interpretation Comments PHOSPHORUS (test code = 2227) 4.3 MG/DL [id number] 00:00:00 Test Item Value Reference Range Interpretation Comments PHOSPHORUS (test code = 2227) 4.3 MG/DL URIC [id number] 00:00:00 Test Item Value Reference Range Interpretation Comments URIC ACID (test code = 2233) 6.4 MG/DL URIC [id number] 00:00:00 Test Item Value Reference Range Interpretation Comments URIC ACID (test code = 2233) 6.4 MG/DL MICROALBUMIN/CREATININE, RANDOM AND [id number] 00:00:00 Test Item Value Reference Range Interpretation Comments CREATININE, URINE, RANDOM (test 27.8 MG/DL code = 2072) ALBUMIN, URINE, RANDOM (test code 0.2 MG/DL = 57388) CALC ALBUMIN/CREAT, RND (test code 7 MG/G = 83399) MICROALBUMIN/CREATININE, RANDOM AND [id number] 00:00:00 Test Item Value Reference Range Interpretation Comments CREATININE, URINE, RANDOM (test 27.8 MG/DL code = 2072) ALBUMIN, URINE, RANDOM (test code 0.2 MG/DL = 18178) CALC ALBUMIN/CREAT, RND (test code 7 MG/G = 75547) CBC W/AUTO [id number] 00:00:00 Test Item Value Reference Range Interpretation [...] NUCLEATED RBCS (test code = 0.00 K/UL 77635) CBC W/AUTO [id number] 00:00:00 Test Item Value Reference Range Interpretation [...] NUCLEATED RBCS (test code = 0.00 K/UL 04976) CBC W/AUTO [id number] 00:00:00 Test Item Value Reference Range Interpretation [...] NUCLEATED RBCS (test code = 0.00 K/UL 55401) COMPREHENSIVE METABOLIC [id number] 00:00:00 Test Item Value Reference Range Interpretation Comments GLUCOSE (test code = 2217) 86 MG/DL BUN (test code = 2208) 43 MG/DL CREATININE (test code = 2214) 1.15 MG/DL eGFR (2020 CKD-EPI) (test code 48 ML/MIN/1.73 = 04527) CALC BUN/CREAT (test code = 37 RATIO [...] code = 2219) 12 U/L COMPREHENSIVE METABOLIC [id number] 00:00:00 Test Item Value Reference Range Interpretation Comments GLUCOSE (test code = 2217) 86 MG/DL BUN (test code = 2208) 43 MG/DL CREATININE (test code = 2214) 1.15 MG/DL eGFR (2020 CKD-EPI) (test code 48 ML/MIN/1.73 = 91649) CALC BUN/CREAT (test code = 37 RATIO [...] ALT (test code = 2219) 12 U/L [id number] 00:00:00 Test Item Value Reference Range Interpretation Comments MAGNESIUM (test code = 2226) 2.5 MG/DL [id number] 00:00:00 Test Item Value Reference Range Interpretation Comments MAGNESIUM (test code = 2226) 2.5 MG/DL [id number] 00:00:00 Test Item Value Reference Range Interpretation Comments MAGNESIUM (test code = 2226) 2.5 MG/DL INTACT [id number] 00:00:00 Test Item Value Reference Range Interpretation Comments INTACT PTH (test code = 5005) 27 PG/ML INTACT [id number] 00:00:00 Test Item Value Reference Range Interpretation Comments INTACT PTH (test code = 5005) 27 PG/ML INTACT [id number] 00:00:00 Test Item Value Reference Range Interpretation Comments INTACT PTH (test code = 5005) 27 PG/ML [id number] 00:00:00 Test Item Value Reference Range Interpretation Comments PHOSPHORUS (test code = 2227) 4.3 MG/DL [id number] 00:00:00 Test Item Value Reference Range Interpretation Comments PHOSPHORUS (test code = 2227) 4.3 MG/DL URIC [id number] 00:00:00 Test Item Value Reference Range Interpretation Comments URIC ACID (test code = 2233) 6.4 MG/DL URIC [id number] 00:00:00 Test Item Value Reference Range Interpretation Comments URIC ACID (test code = 2233) 6.4 MG/DL MICROALBUMIN/CREATININE, RANDOM AND [id number] 00:00:00 Test Item Value Reference Range Interpretation Comments CREATININE, URINE, RANDOM (test 27.8 MG/DL code = 2072) ALBUMIN, URINE, RANDOM (test code 0.2 MG/DL = 39564) CALC ALBUMIN/CREAT, RND (test code 7 MG/G = 51133) MICROALBUMIN/CREATININE, RANDOM AND [id number] 00:00:00 Test Item Value Reference Range Interpretation Comments CREATININE, URINE, RANDOM (test 27.8 MG/DL code = 2072) ALBUMIN, URINE, RANDOM (test code 0.2 MG/DL = 68205) CALC ALBUMIN/CREAT, RND (test code 7 MG/G = 86303) [id number] 00:00:00 Test Item Value Reference Range Interpretation Comments PHOSPHORUS (test code = 2227) 4.8 MG/DL [id number] 00:00:00 Test Item Value Reference Range Interpretation Comments TSH, THIRD GENERATION (test code 2.190 UIU/ML = 2821) [id number] 00:00:00 Test Item Value Reference Range Interpretation Comments TSH, THIRD GENERATION (test code 2.190 UIU/ML = 2821) COMPREHENSIVE METABOLIC [id number] 00:00:00 Test Item Value Reference Range Interpretation Comments GLUCOSE (test code = 2217) 86 MG/DL BUN (test code = 2208) 44 MG/DL CREATININE (test code = 2214) 1.42 MG/DL eGFR AMER. (test code 40 ML/MIN/1.73 = 89312) eGFR NON- AMER. (test 34 ML/MIN/1.73 code = 55724) CALC BUN/CREAT (test code = 31 RATIO [...] CALC GLOBULIN (test code = 3.1 G/DL 2239) CALC A/G RATIO (test code = 1.4 RATIO 2233) BILIRUBIN, TOTAL (test code = 0.2 MG/DL 2206) ALKALINE PHOSPHATASE (test 33 U/L code = 2204) AST (test code = 2218) 16 U/L ALT (test code = 2219) 11 U/L URIC [id number] 00:00:00 Test Item Value Reference Range Interpretation Comments URIC ACID (test code = 2233) 7.9 MG/DL HEMOGLOBIN [id number] 00:00:00 Test Item Value Reference Range Interpretation Comments HEMOGLOBIN A1c (test code = 40610) 6.4 % HEMOGLOBIN [id number] 00:00:00 Test Item Value Reference Range Interpretation Comments HEMOGLOBIN A1c (test code = 60279) 6.4 % [id number] 00:00:00 Test Item Value Reference Range Interpretation Comments PHOSPHORUS (test code = 2227) 4.8 MG/DL [id number] 00:00:00 Test Item Value Reference Range Interpretation Comments PHOSPHORUS (test code = 2227) 4.8 MG/DL [id number] 00:00:00 Test Item Value Reference Range Interpretation Comments TSH, THIRD GENERATION (test code 2.190 UIU/ML = 2821) [id number] 00:00:00 Test Item Value Reference Range Interpretation Comments TSH, THIRD GENERATION (test code 2.190 UIU/ML = 2821) [id number] 00:00:00 Test Item Value Reference Range Interpretation Comments TSH, THIRD GENERATION (test code 2.190 UIU/ML = 2821) COMPREHENSIVE METABOLIC [id number] 00:00:00 Test Item Value Reference Range Interpretation Comments GLUCOSE (test code = 2217) 86 MG/DL BUN (test code = 2208) 44 MG/DL CREATININE (test code = 2214) 1.42 MG/DL eGFR AMER. (test code 40 ML/MIN/1.73 = 25449) eGFR NON- AMER. (test 34 ML/MIN/1.73 code = 61193) CALC BUN/CREAT (test code = 31 RATIO [...] code = 2219) 11 U/L COMPREHENSIVE METABOLIC [id number] 00:00:00 Test Item Value Reference Range Interpretation Comments GLUCOSE (test code = 2217) 86 MG/DL BUN (test code = 2208) 44 MG/DL CREATININE (test code = 2214) 1.42 MG/DL eGFR AMER. (test code 40 ML/MIN/1.73 = 12001) eGFR NON- AMER. (test 34 ML/MIN/1.73 code = 73167) CALC BUN/CREAT (test code = 31 RATIO [...] (test code = 2219) 11 U/L URIC [id number] 00:00:00 Test Item Value Reference Range Interpretation Comments URIC ACID (test code = 2233) 7.9 MG/DL URIC [id number] 00:00:00 Test Item Value Reference Range Interpretation Comments URIC ACID (test code = 2233) 7.9 MG/DL HEMOGLOBIN [id number] 00:00:00 Test Item Value Reference Range Interpretation Comments HEMOGLOBIN A1c (test code = 36282) 6.4 % HEMOGLOBIN [id number] 00:00:00 Test Item Value Reference Range Interpretation Comments HEMOGLOBIN A1c (test code = 53994) 6.4 % HEMOGLOBIN [id number] 00:00:00 Test Item Value Reference Range Interpretation Comments HEMOGLOBIN A1c (test code = 41029) 6.4 % [id number] 00:00:00 Test Item Value Reference Range Interpretation Comments PHOSPHORUS (test code = 2227) 4.8 MG/DL [id number] 00:00:00 Test Item Value Reference Range Interpretation Comments PHOSPHORUS (test code = 2227) 4.8 MG/DL [id number] 00:00:00 Test Item Value Reference Range Interpretation Comments TSH, THIRD GENERATION (test code 2.190 UIU/ML = 2821) [id number] 00:00:00 Test Item Value Reference Range Interpretation Comments TSH, THIRD GENERATION (test code 2.190 UIU/ML = 2821) [id number] 00:00:00 Test Item Value Reference Range Interpretation Comments TSH, THIRD GENERATION (test code 2.190 UIU/ML = 2821) COMPREHENSIVE METABOLIC [id number] 00:00:00 Test Item Value Reference Range Interpretation Comments GLUCOSE (test code = 2217) 86 MG/DL BUN (test code = 2208) 44 MG/DL CREATININE (test code = 2214) 1.42 MG/DL eGFR AMER. (test code 40 ML/MIN/1.73 = 99762) eGFR NON- AMER. (test 34 ML/MIN/1.73 code = 83768) CALC BUN/CREAT (test code = 31 RATIO [...] = 0.2 MG/DL 7) ALKALINE PHOSPHATASE (test 33 U/L code = 2204) AST (test code = 2218) 16 U/L ALT (test code = 2219) 11 U/L COMPREHENSIVE METABOLIC [id number] 00:00:00 Test Item Value Reference Range Interpretation Comments GLUCOSE (test code = 2217) 86 MG/DL BUN (test code = 2208) 44 MG/DL CREATININE (test code = 2214) 1.42 MG/DL eGFR AMER. (test code 40 ML/MIN/1.73 = 35769) eGFR NON- AMER. (test 34 ML/MIN/1.73 code = 13001) CALC BUN/CREAT (test code = 31 RATIO 2235) SODIUM (test code = 2231) 143 MEQ/L POTASSIUM (test code = 2228) 4.6 MEQ/L CHLORIDE (test code = 2215) 102 MEQ/L CARBON DIOXIDE (test code = 26 MEQ/L 2205) CALCIUM (test code = 2209) 9.4 MG/DL PROTEIN, TOTAL (test code = 7.3 G/DL 9) ALBUMIN (test code = 2201) 4.2 G/DL CALC GLOBULIN (test code = 3.1 G/DL 2240) CALC A/G RATIO (test code = 1.4 RATIO 2234) BILIRUBIN, TOTAL (test code = 0.2 MG/DL 7) ALKALINE PHOSPHATASE (test 33 U/L code = 2204) AST (test code = 2218) 16 U/L ALT (test code = 2219) 11 U/L URIC [id number] 00:00:00 Test Item Value Reference Range Interpretation Comments URIC ACID (test code = 2233) 7.9 MG/DL URIC [id number] 00:00:00 Test Item Value Reference Range Interpretation Comments URIC ACID (test code = 2233) 7.9 MG/DL HEMOGLOBIN [id number] 00:00:00 Test Item Value Reference Range Interpretation Comments HEMOGLOBIN A1c (test code = 50486) 6.4 % HEMOGLOBIN [id number] 00:00:00 Test Item Value Reference Range Interpretation Comments HEMOGLOBIN A1c (test code = 30942) 6.4 % HEMOGLOBIN [id number] 00:00:00 Test Item Value Reference Range Interpretation Comments HEMOGLOBIN A1c (test code = 39846) 6.4 % DEXA AXIAL (HIP AND SPINE)2020-10-12 18:42:22 Osteopenia. The lumbar bone density is stable, however the hip bone density hassignificant diminished since 2019. Preliminary Report Dictated by Resident: Fredrick Andrade ?MD. Luzma, have reviewed this study and agree withthe above report.EXAM: DEXA ? ? DEXA AXIAL (HIP AND SPINE) HISTORY: Female 80 years Other specified disorders of bone density andstructure, multiple sites External orders COMPARISON: ?03/04/2018 TECHNIQUE: Bone densitometry of the lumbar spine, right hip and femoral neck wasperformed on a [employer]el[employer] system. ? WHO Criteria:Normal: T Score ? [...] 1.3. ?Bone mineral density of 0.854 g/cm^2. [facility], Radiant Results Inft User - 10/12/2020 1:43 PM CDT EXAM: DEXA DEXA AXIAL (HIP AND SPINE)HISTORY: Female 80 years Other specified disorders of bone density andstructure, multiple sites External orders COMPARISON: 03/04/2018TECHNIQUE: Bone densitometry of the lumbar spine, right hip and femoral neck wasperformed on a [employer]el[employer] system. WHO Criteria:Normal: T Score ? -1.0 [...] reviewed this study and agree withthe above report.[facility]2020-10-12 18:42:22 Osteopenia. The lumbar bone density is stable, however the hip bone density hassignificant diminished since 2019. Preliminary Report Dictated by Resident: Fredrick Andrade MD., have reviewed this study and agree withthe above report.EXAM: DEXA ? ? DEXA AXIAL (HIP AND SPINE) HISTORY: Female 80 years Other specified disorders of bone density andstructure, multiple sites External orders COMPARISON: ?03/04/2018 TECHNIQUE: Bone densitometry of the lumbar spine, right hip and femoral neck wasperformed on a [employer]el[employer] system. ? WHO Criteria:Normal: T Score ? [...] 1.3. ?Bone mineral density of 0.854 g/cm^2. [facility], Radiant Results Inft User - 10/12/2020 1:43 PM CDT EXAM: DEXA DEXA AXIAL (HIP AND SPINE)HISTORY: Female 80 years Other specified disorders of bone density andstructure, multiple sites External orders COMPARISON: 03/04/2018TECHNIQUE: Bone densitometry of the lumbar spine, right hip and femoral neck wasperformed on a [employer] system. WHO Criteria:Normal: T Score ? -1.0 [...] diminished since 2019.Preliminary Report Dictated by Resident: Holly Weldon, Fredrick Segal MD., have reviewed this study and agree withthe above report.[facility] [id number] 00:00:00 Test Item Value Reference Range Interpretation Comments GLUCOSE (test code = 2217) 88 MG/DL BUN (test code = 2208) 58 MG/DL CREATININE (test code = 2214) 1.41 MG/DL eGFR AMER. (test code 40 ML/MIN/1.73 = 59723) eGFR NON- AMER. (test 35 ML/MIN/1.73 code = 64407) CALC BUN/CREAT (test code = 41 RATIO [...] ALT (test code = 2219) 15 U/L [id number] 00:00:00 Test Item Value Reference Range Interpretation Comments MAGNESIUM (test code = 2226) 2.5 MG/DL [id number] 00:00:00 Test Item Value Reference Range Interpretation Comments MAGNESIUM (test code = 2226) 2.5 MG/DL URIC [id number] 00:00:00 Test Item Value Reference Range Interpretation Comments URIC ACID (test code = 2233) 6.5 MG/DL [id number] 00:00:00 Test Item Value Reference Range Interpretation Comments PHOSPHORUS (test code = 2227) 5.8 MG/DL HEMOGLOBIN [id number] 00:00:00 Test Item Value Reference Range Interpretation Comments HEMOGLOBIN A1c (test code = 64468) 6.1 % HEMOGLOBIN [id number] 00:00:00 Test Item Value Reference Range Interpretation Comments HEMOGLOBIN A1c (test code = 39513) 6.1 % LIPID [id number] 00:00:00 Test Item Value Reference Range Interpretation Comments CHOLESTEROL (test code = 2210) 169 MG/DL TRIGLYCERIDES (test code = 2232) 78 MG/DL HDL CHOLESTEROL (test code = 2220) 65 MG/DL CALC LDL CHOL (test code = 2237) 87 MG/DL RISK RATIO LDL/HDL (test code = 1.34 RATIO 2238) URINALYSIS WITH [id number] 00:00:00 Test Item Value Reference Range Interpretation [...] EPITHELIAL CELLS (test code = 0-5 /HPF 61602) BACTERIA (test code = 1515) NONE SEEN CASTS, HYALINE (test code = 1517) TRACE CREATININE, RANDOM [id number] 00:00:00 Test Item Value Reference Range Interpretation Comments CREATININE, URINE, CONC. (test 84.1 MG/DL code = 2072) MICROALBUMIN, [id number] 00:00:00 Test Item Value Reference Range Interpretation Comments ALBUMIN, URINE, RANDOM (test code = 0.3 MG/DL 28684) NT-proBNP [ADDED]2020-08-07 00:00:00 Test Item Value Reference Range Interpretation Comments NT-proBNP (test code = 16326) 1372 PG/ML NT-proBNP [ADDED]2020-08-07 00:00:00 Test Item Value Reference Range Interpretation Comments NT-proBNP (test code = 51075) 1372 PG/ML COMPREHENSIVE METABOLIC [id number] 00:00:00 Test Item Value Reference Range Interpretation Comments GLUCOSE (test code = 2217) 88 MG/DL BUN (test code = 2208) 58 MG/DL CREATININE (test code = 2214) 1.41 MG/DL eGFR AMER. (test code 40 ML/MIN/1.73 = 25626) eGFR NON- AMER. (test 35 ML/MIN/1.73 code = 49886) CALC BUN/CREAT (test code = 41 RATIO 2235) SODIUM (test code = 2231) 140 MEQ/L POTASSIUM (test code = 2228) 4.3 MEQ/L CHLORIDE (test code = 2215) 101 MEQ/L CARBON DIOXIDE (test code = 27 MEQ/L 220) CALCIUM (test code = 2209) 9.8 MG/DL PROTEIN, TOTAL (test code = 6.9 G/DL 2228) ALBUMIN (test code = 2201) 4.4 G/DL CALC GLOBULIN (test code = 2.5 G/DL 2239) CALC A/G RATIO (test code = 1.8 RATIO 223) BILIRUBIN, TOTAL (test code = 0.3 MG/DL 2207) ALKALINE PHOSPHATASE (test 30 U/L code = 2204) AST (test code = 2218) 23 U/L ALT (test code = 2219) 15 U/L COMPREHENSIVE METABOLIC [id number] 00:00:00 Test Item Value Reference Range Interpretation Comments GLUCOSE (test code = 2217) 88 MG/DL BUN (test code = 2208) 58 MG/DL CREATININE (test code = 2214) 1.41 MG/DL eGFR AMER. (test code 40 ML/MIN/1.73 = 76327) eGFR NON- AMER. (test 35 ML/MIN/1.73 code = 02162) CALC BUN/CREAT (test code = 41 RATIO [...] A/G RATIO (test code = 1.8 RATIO 4) BILIRUBIN, TOTAL (test code = 0.3 MG/DL 2206) ALKALINE PHOSPHATASE (test 30 U/L code = 2204) AST (test code = 2218) 23 U/L ALT (test code = 2219) 15 U/L [id number] 00:00:00 Test Item Value Reference Range Interpretation Comments MAGNESIUM (test code = 2226) 2.5 MG/DL [id number] 00:00:00 Test Item Value Reference Range Interpretation Comments MAGNESIUM (test code = 2226) 2.5 MG/DL [id number] 00:00:00 Test Item Value Reference Range Interpretation Comments MAGNESIUM (test code = 2226) 2.5 MG/DL URIC [id number] 00:00:00 Test Item Value Reference Range Interpretation Comments URIC ACID (test code = 2233) 6.5 MG/DL URIC [id number] 00:00:00 Test Item Value Reference Range Interpretation Comments URIC ACID (test code = 2233) 6.5 MG/DL [id number] 00:00:00 Test Item Value Reference Range Interpretation Comments PHOSPHORUS (test code = 2227) 5.8 MG/DL [id number] 00:00:00 Test Item Value Reference Range Interpretation Comments PHOSPHORUS (test code = 2227) 5.8 MG/DL HEMOGLOBIN [id number] 00:00:00 Test Item Value Reference Range Interpretation Comments HEMOGLOBIN A1c (test code = 81923) 6.1 % HEMOGLOBIN [id number] 00:00:00 Test Item Value Reference Range Interpretation Comments HEMOGLOBIN A1c (test code = 52512) 6.1 % HEMOGLOBIN [id number] 00:00:00 Test Item Value Reference Range Interpretation Comments HEMOGLOBIN A1c (test code = 14719) 6.1 % LIPID [id number] 00:00:00 Test Item Value Reference Range Interpretation Comments CHOLESTEROL (test code = 2210) 169 MG/DL TRIGLYCERIDES (test code = 2232) 78 MG/DL HDL CHOLESTEROL (test code = 2220) 65 MG/DL CALC LDL CHOL (test code = 2237) 87 MG/DL RISK RATIO LDL/HDL (test code = 1.34 RATIO 2238) LIPID [id number] 00:00:00 Test Item Value Reference Range Interpretation Comments CHOLESTEROL (test code = 2210) 169 MG/DL TRIGLYCERIDES (test code = 2232) 78 MG/DL HDL CHOLESTEROL (test code = 2220) 65 MG/DL CALC LDL CHOL (test code = 2237) 87 MG/DL RISK RATIO LDL/HDL (test code = 1.34 RATIO 2238) URINALYSIS WITH [id number] 00:00:00 Test Item Value Reference Range Interpretation [...] EPITHELIAL CELLS (test code = 0-5 /HPF 20467) BACTERIA (test code = 1515) NONE SEEN CASTS, HYALINE (test code = 1517) TRACE URINALYSIS WITH [id number] 00:00:00 Test Item Value Reference Range Interpretation [...] EPITHELIAL CELLS (test code = 0-5 /HPF 18003) BACTERIA (test code = 1515) NONE SEEN CASTS, HYALINE (test code = 1517) TRACE CREATININE, RANDOM [id number] 00:00:00 Test Item Value Reference Range Interpretation Comments CREATININE, URINE, CONC. (test 84.1 MG/DL code = 2072) CREATININE, RANDOM [id number] 00:00:00 Test Item Value Reference Range Interpretation Comments CREATININE, URINE, CONC. (test 84.1 MG/DL code = 2072) MICROALBUMIN, [id number] 00:00:00 Test Item Value Reference Range Interpretation Comments ALBUMIN, URINE, RANDOM (test code = 0.3 MG/DL 35674) MICROALBUMIN, [id number] 00:00:00 Test Item Value Reference Range Interpretation Comments ALBUMIN, URINE, RANDOM (test code = 0.3 MG/DL 23951) NT-proBNP [ADDED]2020-08-07 00:00:00 Test Item Value Reference Range Interpretation Comments NT-proBNP (test code = 30840) 1372 PG/ML NT-proBNP [ADDED]2020-08-07 00:00:00 Test Item Value Reference Range Interpretation Comments NT-proBNP (test code = 19870) 1372 PG/ML NT-proBNP [ADDED]2020-08-07 00:00:00 Test Item Value Reference Range Interpretation Comments NT-proBNP (test code = 22800) 1372 PG/ML COMPREHENSIVE METABOLIC [id number] 00:00:00 Test Item Value Reference Range Interpretation Comments GLUCOSE (test code = 2217) 88 MG/DL BUN (test code = 2208) 58 MG/DL CREATININE (test code = 2214) 1.41 MG/DL eGFR AMER. (test code 40 ML/MIN/1.73 = 60840) eGFR NON- AMER. (test 35 ML/MIN/1.73 code = 74104) CALC BUN/CREAT (test code = 41 RATIO 2235) SODIUM (test code = 2231) 140 MEQ/L POTASSIUM (test code = 2228) 4.3 MEQ/L CHLORIDE (test code = 2215) 101 MEQ/L CARBON DIOXIDE (test code = 27 MEQ/L 220) CALCIUM (test code = 2209) 9.8 MG/DL PROTEIN, TOTAL (test code = 6.9 G/DL 2228) ALBUMIN (test code = 2201) 4.4 G/DL CALC GLOBULIN (test code = 2.5 G/DL 0) CALC A/G RATIO (test code = 1.8 RATIO 4) BILIRUBIN, TOTAL (test code = 0.3 MG/DL 2206) ALKALINE PHOSPHATASE (test 30 U/L code = 2204) AST (test code = 2218) 23 U/L ALT (test code = 2219) 15 U/L COMPREHENSIVE METABOLIC [id number] 00:00:00 Test Item Value Reference Range Interpretation Comments GLUCOSE (test code = 2217) 88 MG/DL BUN (test code = 2208) 58 MG/DL CREATININE (test code = 2214) 1.41 MG/DL eGFR AMER. (test code 40 ML/MIN/1.73 = 78766) eGFR NON- AMER. (test 35 ML/MIN/1.73 code = 82426) CALC BUN/CREAT (test code = 41 RATIO 2235) SODIUM (test code = 2231) 140 MEQ/L POTASSIUM (test code = 2228) 4.3 MEQ/L CHLORIDE (test code = 2215) 101 MEQ/L CARBON DIOXIDE (test code = 27 MEQ/L 2206) CALCIUM (test code = 2209) 9.8 MG/DL [...] ALT (test code = 2219) 15 U/L [id number] 00:00:00 Test Item Value Reference Range Interpretation Comments MAGNESIUM (test code = 2226) 2.5 MG/DL [id number] 00:00:00 Test Item Value Reference Range Interpretation Comments MAGNESIUM (test code = 2226) 2.5 MG/DL [id number] 00:00:00 Test Item Value Reference Range Interpretation Comments MAGNESIUM (test code = 2226) 2.5 MG/DL URIC [id number] 00:00:00 Test Item Value Reference Range Interpretation Comments URIC ACID (test code = 2233) 6.5 MG/DL URIC [id number] 00:00:00 Test Item Value Reference Range Interpretation Comments URIC ACID (test code = 2233) 6.5 MG/DL [id number] 00:00:00 Test Item Value Reference Range Interpretation Comments PHOSPHORUS (test code = 2227) 5.8 MG/DL [id number] 00:00:00 Test Item Value Reference Range Interpretation Comments PHOSPHORUS (test code = 2227) 5.8 MG/DL HEMOGLOBIN [id number] 00:00:00 Test Item Value Reference Range Interpretation Comments HEMOGLOBIN A1c (test code = 49770) 6.1 % HEMOGLOBIN [id number] 00:00:00 Test Item Value Reference Range Interpretation Comments HEMOGLOBIN A1c (test code = 61604) 6.1 % HEMOGLOBIN [id number] 00:00:00 Test Item Value Reference Range Interpretation Comments HEMOGLOBIN A1c (test code = 34047) 6.1 % LIPID [id number] 00:00:00 Test Item Value Reference Range Interpretation Comments CHOLESTEROL (test code = 2210) 169 MG/DL TRIGLYCERIDES (test code = 2232) 78 MG/DL HDL CHOLESTEROL (test code = 2220) 65 MG/DL CALC LDL CHOL (test code = 2237) 87 MG/DL RISK RATIO LDL/HDL (test code = 1.34 RATIO 2238) LIPID [id number] 00:00:00 Test Item Value Reference Range Interpretation Comments CHOLESTEROL (test code = 2210) 169 MG/DL TRIGLYCERIDES (test code = 2232) 78 MG/DL HDL CHOLESTEROL (test code = 2220) 65 MG/DL CALC LDL CHOL (test code = 2237) 87 MG/DL RISK RATIO LDL/HDL (test code = 1.34 RATIO 2238) URINALYSIS WITH [id number] 00:00:00 Test Item Value Reference Range Interpretation [...] EPITHELIAL CELLS (test code = 0-5 /HPF 57579) BACTERIA (test code = 1515) NONE SEEN CASTS, HYALINE (test code = 1517) TRACE URINALYSIS WITH [id number] 00:00:00 Test Item Value Reference Range Interpretation [...] EPITHELIAL CELLS (test code = 0-5 /HPF 70178) BACTERIA (test code = 1515) NONE SEEN CASTS, HYALINE (test code = 1517) TRACE CREATININE, RANDOM [id number] 00:00:00 Test Item Value Reference Range Interpretation Comments CREATININE, URINE, CONC. (test 84.1 MG/DL code = 2071) CREATININE, RANDOM [id number] 00:00:00 Test Item Value Reference Range Interpretation Comments CREATININE, URINE, CONC. (test 84.1 MG/DL code = 2071) MICROALBUMIN, [id number] 00:00:00 Test Item Value Reference Range Interpretation Comments ALBUMIN, URINE, RANDOM (test code = 0.3 MG/DL 55142) MICROALBUMIN, [id number] 00:00:00 Test Item Value Reference Range Interpretation Comments ALBUMIN, URINE, RANDOM (test code = 0.3 MG/DL 89171) NT-proBNP [ADDED]2020-08-07 00:00:00 Test Item Value Reference Range Interpretation Comments NT-proBNP (test code = 00743) 1372 PG/ML NT-proBNP [ADDED]2020-08-07 00:00:00 Test Item Value Reference Range Interpretation Comments NT-proBNP (test code = 62336) 1372 PG/ML NT-proBNP [ADDED]2020-08-07 00:00:00 Test Item Value Reference Range Interpretation Comments NT-proBNP (test code = 03427) 1372 PG/ML MICROALBUMIN, [id number] 00:00:00 Test Item Value Reference Range Interpretation Comments ALBUMIN, URINE, RANDOM (test code = 0.3 MG/DL 89511) MICROALBUMIN, [id number] 00:00:00 Test Item Value Reference Range Interpretation Comments ALBUMIN, URINE, RANDOM (test code = 0.3 MG/DL 46918) MICROALBUMIN, [id number] 00:00:00 Test Item Value Reference Range Interpretation Comments ALBUMIN, URINE, RANDOM (test code = 0.3 MG/DL 75812) MICROALBUMIN, [id number] 00:00:00 Test Item Value Reference Range Interpretation Comments ALBUMIN, URINE, RANDOM (test code = 0.3 MG/DL 01460) MICROALBUMIN, [id number] 00:00:00 Test Item Value Reference Range Interpretation Comments ALBUMIN, URINE, RANDOM (test code = 0.3 MG/DL 44404) CBC W/AUTO [id number] 00:00:00 Test Item Value Reference Range Interpretation [...] code = 1015) 178 K/UL CBC W/AUTO [id number] 00:00:00 Test Item Value Reference Range Interpretation [...] code = 1015) 178 K/UL COMPREHENSIVE METABOLIC [id number] 00:00:00 Test Item Value Reference Range Interpretation Comments GLUCOSE (test code = 2217) 85 MG/DL BUN (test code = 2208) 48 MG/DL CREATININE (test code = 2214) 1.12 MG/DL eGFR AMER. (test code 53 ML/MIN/1.73 = 99414) eGFR NON- AMER. (test 46 ML/MIN/1.73 code = 75480) CALC BUN/CREAT (test code = 43 RATIO [...] ALT (test code = 2219) 19 U/L [id number] 00:00:00 Test Item Value Reference Range Interpretation Comments MAGNESIUM (test code = 2226) 2.4 MG/DL [id number] 00:00:00 Test Item Value Reference Range Interpretation Comments MAGNESIUM (test code = 2226) 2.4 MG/DL [id number] 00:00:00 Test Item Value Reference Range Interpretation Comments PHOSPHORUS (test code = 2227) 4.9 MG/DL URIC [id number] 00:00:00 Test Item Value Reference Range Interpretation Comments URIC ACID (test code = 2233) 6.4 MG/DL HEMOGLOBIN [id number] 00:00:00 Test Item Value Reference Range Interpretation Comments HEMOGLOBIN A1c (test code = 39227) 5.8 % HEMOGLOBIN [id number] 00:00:00 Test Item Value Reference Range Interpretation Comments HEMOGLOBIN A1c (test code = 71425) 5.8 % CBC W/AUTO [id number] 00:00:00 Test Item Value Reference Range Interpretation [...] code = 1015) 178 K/UL CBC W/AUTO [id number] 00:00:00 Test Item Value Reference Range Interpretation [...] code = 1015) 178 K/UL CBC W/AUTO [id number] 00:00:00 Test Item Value Reference Range Interpretation [...] code = 1015) 178 K/UL COMPREHENSIVE METABOLIC [id number] 00:00:00 Test Item Value Reference Range Interpretation Comments GLUCOSE (test code = 2217) 85 MG/DL BUN (test code = 2208) 48 MG/DL CREATININE (test code = 2214) 1.12 MG/DL eGFR AMER. (test code 53 ML/MIN/1.73 = 69141) eGFR NON- AMER. (test 46 ML/MIN/1.73 code = 16728) CALC BUN/CREAT (test code = 43 RATIO 2235) SODIUM (test code = 2231) 140 MEQ/L POTASSIUM (test code = 2228) 4.8 MEQ/L CHLORIDE (test code = 2215) 102 MEQ/L CARBON DIOXIDE (test code = 27 MEQ/L 220) CALCIUM (test code = 2209) 10.1 MG/DL PROTEIN, TOTAL (test code = 7.1 G/DL 2228) ALBUMIN (test code = 2201) 4.4 G/DL CALC GLOBULIN (test code = 2.7 G/DL 0) CALC A/G RATIO (test code = 1.6 RATIO 4) BILIRUBIN, TOTAL (test code = 0.3 MG/DL 2206) ALKALINE PHOSPHATASE (test 32 U/L code = 2204) AST (test code = 2218) 26 U/L ALT (test code = 2219) 19 U/L COMPREHENSIVE METABOLIC [id number] 00:00:00 Test Item Value Reference Range Interpretation Comments GLUCOSE (test code = 2217) 85 MG/DL BUN (test code = 2208) 48 MG/DL CREATININE (test code = 2214) 1.12 MG/DL eGFR AMER. (test code 53 ML/MIN/1.73 = 42834) eGFR NON- AMER. (test 46 ML/MIN/1.73 code = 86549) CALC BUN/CREAT (test code = 43 RATIO 2235) SODIUM (test code = 2231) 140 MEQ/L POTASSIUM (test code = 2228) 4.8 MEQ/L CHLORIDE (test code = 2215) 102 MEQ/L CARBON DIOXIDE (test code = 27 MEQ/L 2206) CALCIUM (test code = 2209) 10.1 MG/DL PROTEIN, TOTAL (test code = 7.1 G/DL 2228) ALBUMIN (test code = 2201) 4.4 G/DL CALC GLOBULIN (test code = 2.7 G/DL 2239) CALC A/G RATIO (test code = 1.6 RATIO 4) BILIRUBIN, TOTAL (test code = 0.3 MG/DL 2206) ALKALINE PHOSPHATASE (test 32 U/L code = 2204) AST (test code = 2218) 26 U/L ALT (test code = 2219) 19 U/L [id number] 00:00:00 Test Item Value Reference Range Interpretation Comments MAGNESIUM (test code = 2226) 2.4 MG/DL [id number] 00:00:00 Test Item Value Reference Range Interpretation Comments MAGNESIUM (test code = 2226) 2.4 MG/DL [id number] 00:00:00 Test Item Value Reference Range Interpretation Comments MAGNESIUM (test code = 2226) 2.4 MG/DL [id number] 00:00:00 Test Item Value Reference Range Interpretation Comments PHOSPHORUS (test code = 2227) 4.9 MG/DL [id number] 00:00:00 Test Item Value Reference Range Interpretation Comments PHOSPHORUS (test code = 2227) 4.9 MG/DL URIC [id number] 00:00:00 Test Item Value Reference Range Interpretation Comments URIC ACID (test code = 2233) 6.4 MG/DL URIC [id number] 00:00:00 Test Item Value Reference Range Interpretation Comments URIC ACID (test code = 2233) 6.4 MG/DL HEMOGLOBIN [id number] 00:00:00 Test Item Value Reference Range Interpretation Comments HEMOGLOBIN A1c (test code = 78841) 5.8 % HEMOGLOBIN [id number] 00:00:00 Test Item Value Reference Range Interpretation Comments HEMOGLOBIN A1c (test code = 75708) 5.8 % HEMOGLOBIN [id number] 00:00:00 Test Item Value Reference Range Interpretation Comments HEMOGLOBIN A1c (test code = 76479) 5.8 % CBC W/AUTO [id number] 00:00:00 Test Item Value Reference Range Interpretation [...] code = 1015) 178 K/UL CBC W/AUTO [id number] 00:00:00 Test Item Value Reference Range Interpretation [...] code = 1015) 178 K/UL CBC W/AUTO [id number] 00:00:00 Test Item Value Reference Range Interpretation [...] code = 1015) 178 K/UL COMPREHENSIVE METABOLIC [id number] 00:00:00 Test Item Value Reference Range Interpretation Comments GLUCOSE (test code = 2217) 85 MG/DL BUN (test code = 2208) 48 MG/DL CREATININE (test code = 2214) 1.12 MG/DL eGFR AMER. (test code 53 ML/MIN/1.73 = 91777) eGFR NON- AMER. (test 46 ML/MIN/1.73 code = 85162) CALC BUN/CREAT (test code = 43 RATIO [...] code = 2219) 19 U/L COMPREHENSIVE METABOLIC [id number] 00:00:00 Test Item Value Reference Range Interpretation Comments GLUCOSE (test code = 2217) 85 MG/DL BUN (test code = 2208) 48 MG/DL CREATININE (test code = 2214) 1.12 MG/DL eGFR AMER. (test code 53 ML/MIN/1.73 = 87234) eGFR NON- AMER. (test 46 ML/MIN/1.73 code = 83381) CALC BUN/CREAT (test code = 43 RATIO [...] CALC GLOBULIN (test code = 2.7 G/DL 0) CALC A/G RATIO (test code = 1.6 RATIO 2233) BILIRUBIN, TOTAL (test code = 0.3 MG/DL 2206) ALKALINE PHOSPHATASE (test 32 U/L code = 2204) AST (test code = 2218) 26 U/L ALT (test code = 2219) 19 U/L [id number] 00:00:00 Test Item Value Reference Range Interpretation Comments MAGNESIUM (test code = 2226) 2.4 MG/DL [id number] 00:00:00 Test Item Value Reference Range Interpretation Comments MAGNESIUM (test code = 2226) 2.4 MG/DL [id number] 00:00:00 Test Item Value Reference Range Interpretation Comments MAGNESIUM (test code = 2226) 2.4 MG/DL [id number] 00:00:00 Test Item Value Reference Range Interpretation Comments PHOSPHORUS (test code = 2227) 4.9 MG/DL [id number] 00:00:00 Test Item Value Reference Range Interpretation Comments PHOSPHORUS (test code = 2227) 4.9 MG/DL URIC [id number] 00:00:00 Test Item Value Reference Range Interpretation Comments URIC ACID (test code = 2233) 6.4 MG/DL URIC [id number] 00:00:00 Test Item Value Reference Range Interpretation Comments URIC ACID (test code = 2233) 6.4 MG/DL HEMOGLOBIN [id number] 00:00:00 Test Item Value Reference Range Interpretation Comments HEMOGLOBIN A1c (test code = 03868) 5.8 % HEMOGLOBIN [id number] 00:00:00 Test Item Value Reference Range Interpretation Comments HEMOGLOBIN A1c (test code = 74213) 5.8 % HEMOGLOBIN [id number] 00:00:00 Test Item Value Reference Range Interpretation Comments HEMOGLOBIN A1c (test code = 87091) 5.8 % URINE CULTURE, NO [id number] 00:00:00 Test Item Value Reference Range Interpretation Comments URINE CULTURE, NO SPECIMEN NUMBER: SENS (test code = [id number]) URINE CULTURE, NO [id number] 00:00:00 Test Item Value Reference Range Interpretation Comments URINE CULTURE, NO SPECIMEN NUMBER: SENS (test code = [id number]) URINE CULTURE, NO [id number] 00:00:00 Test Item Value Reference Range Interpretation Comments URINE CULTURE, NO SPECIMEN NUMBER: SENS (test code = [id number]) URINE CULTURE, NO [id number] 00:00:00 Test Item Value Reference Range Interpretation Comments URINE CULTURE, NO SPECIMEN NUMBER: SENS (test code = [id number]) URINE CULTURE, NO [id number] 00:00:00 Test Item Value Reference Range Interpretation Comments URINE CULTURE, NO SPECIMEN NUMBER: SENS (test code = [id number]) MICROALBUMIN/CREATININE, RANDOM AND [id number] 00:00:00 Test Item Value Reference Range Interpretation Comments CREATININE, URINE, CONC. (test 52.6 MG/DL code = 2072) ALBUMIN, URINE, RANDOM (test code 0.5 MG/DL = 37204) CALC ALBUMIN/CREAT, RND (test code 10 MG/G = 03423) MICROALBUMIN/CREATININE, RANDOM AND [id number] 00:00:00 Test Item Value Reference Range Interpretation Comments CREATININE, URINE, CONC. (test 52.6 MG/DL code = 2072) ALBUMIN, URINE, RANDOM (test code 0.5 MG/DL = 16131) CALC ALBUMIN/CREAT, RND (test code 10 MG/G = 90443) MICROALBUMIN/CREATININE, RANDOM AND [id number] 00:00:00 Test Item Value Reference Range Interpretation Comments CREATININE, URINE, CONC. (test 52.6 MG/DL code = 2072) ALBUMIN, URINE, RANDOM (test code 0.5 MG/DL = 13088) CALC ALBUMIN/CREAT, RND (test code 10 MG/G = 37776) MICROALBUMIN/CREATININE, RANDOM AND [id number] 00:00:00 Test Item Value Reference Range Interpretation Comments CREATININE, URINE, CONC. (test 52.6 MG/DL code = 2072) ALBUMIN, URINE, RANDOM (test code 0.5 MG/DL = 20515) CALC ALBUMIN/CREAT, RND (test code 10 MG/G = 92814) MICROALBUMIN/CREATININE, RANDOM AND [id number] 00:00:00 Test Item Value Reference Range Interpretation Comments CREATININE, URINE, CONC. (test 52.6 MG/DL code = 2072) ALBUMIN, URINE, RANDOM (test code 0.5 MG/DL = 68479) CALC ALBUMIN/CREAT, RND (test code 10 MG/G = 78484) CBC W/AUTO [id number] 00:00:00 Test Item Value Reference Range Interpretation [...] code = 1015) 208 K/UL CBC W/AUTO [id number] 00:00:00 Test Item Value Reference Range Interpretation [...] (test code = 1015) 208 K/UL HEMOGLOBIN [id number] 00:00:00 Test Item Value Reference Range Interpretation Comments HEMOGLOBIN A1c (test code = 90263) 6.3 % HEMOGLOBIN [id number] 00:00:00 Test Item Value Reference Range Interpretation Comments HEMOGLOBIN A1c (test code = 55257) 6.3 % COMPREHENSIVE METABOLIC [id number] 00:00:00 Test Item Value Reference Range Interpretation Comments GLUCOSE (test code = 2217) 77 MG/DL BUN (test code = 2208) 58 MG/DL CREATININE (test code = 2214) 1.93 MG/DL eGFR AMER. (test code 28 ML/MIN/1.73 = 66581) eGFR NON- AMER. (test 24 ML/MIN/1.73 code = 61765) CALC BUN/CREAT (test code = 30 RATIO [...] (test code = 2219) 13 U/L URIC [id number] 00:00:00 Test Item Value Reference Range Interpretation Comments URIC ACID (test code = 2233) 8.9 MG/DL [id number] 00:00:00 Test Item Value Reference Range Interpretation Comments MAGNESIUM (test code = 2226) 2.7 MG/DL [id number] 00:00:00 Test Item Value Reference Range Interpretation Comments MAGNESIUM (test code = 2226) 2.7 MG/DL [id number] 00:00:00 Test Item Value Reference Range Interpretation Comments PHOSPHORUS (test code = 2227) 5.9 MG/DL [id number] 00:00:00 Test Item Value Reference Range Interpretation Comments NT-proBNP (test code = 30579) 3071 PG/ML [id number] 00:00:00 Test Item Value Reference Range Interpretation Comments NT-proBNP (test code = 69821) 3071 PG/ML CBC W/AUTO [id number] 00:00:00 Test Item Value Reference Range Interpretation [...] code = 1015) 208 K/UL CBC W/AUTO [id number] 00:00:00 Test Item Value Reference Range Interpretation [...] code = 1015) 208 K/UL CBC W/AUTO [id number] 00:00:00 Test Item Value Reference Range Interpretation [...] (test code = 1015) 208 K/UL HEMOGLOBIN [id number] 00:00:00 Test Item Value Reference Range Interpretation Comments HEMOGLOBIN A1c (test code = 04217) 6.3 % HEMOGLOBIN [id number] 00:00:00 Test Item Value Reference Range Interpretation Comments HEMOGLOBIN A1c (test code = 49715) 6.3 % HEMOGLOBIN [id number] 00:00:00 Test Item Value Reference Range Interpretation Comments HEMOGLOBIN A1c (test code = 00572) 6.3 % COMPREHENSIVE METABOLIC [id number] 00:00:00 Test Item Value Reference Range Interpretation Comments GLUCOSE (test code = 2217) 77 MG/DL BUN (test code = 2208) 58 MG/DL CREATININE (test code = 2214) 1.93 MG/DL eGFR AMER. (test code 28 ML/MIN/1.73 = 30959) eGFR NON- AMER. (test 24 ML/MIN/1.73 code = 05881) CALC BUN/CREAT (test code = 30 RATIO [...] code = 2219) 13 U/L COMPREHENSIVE METABOLIC [id number] 00:00:00 Test Item Value Reference Range Interpretation Comments GLUCOSE (test code = 2217) 77 MG/DL BUN (test code = 2208) 58 MG/DL CREATININE (test code = 2214) 1.93 MG/DL eGFR AMER. (test code 28 ML/MIN/1.73 = 41705) eGFR NON- AMER. (test 24 ML/MIN/1.73 code = 10522) CALC BUN/CREAT (test code = 30 RATIO 2235) SODIUM (test code = 2231) 133 MEQ/L POTASSIUM (test code = 2228) 4.8 MEQ/L CHLORIDE (test code = 2215) 92 MEQ/L CARBON DIOXIDE (test code = 23 MEQ/L 220) CALCIUM (test code = 2209) 9.4 MG/DL [...] (test code = 2219) 13 U/L URIC [id number] 00:00:00 Test Item Value Reference Range Interpretation Comments URIC ACID (test code = 2233) 8.9 MG/DL URIC [id number] 00:00:00 Test Item Value Reference Range Interpretation Comments URIC ACID (test code = 2233) 8.9 MG/DL [id number] 00:00:00 Test Item Value Reference Range Interpretation Comments MAGNESIUM (test code = 2226) 2.7 MG/DL [id number] 00:00:00 Test Item Value Reference Range Interpretation Comments MAGNESIUM (test code = 2226) 2.7 MG/DL [id number] 00:00:00 Test Item Value Reference Range Interpretation Comments MAGNESIUM (test code = 2226) 2.7 MG/DL [id number] 00:00:00 Test Item Value Reference Range Interpretation Comments PHOSPHORUS (test code = 2227) 5.9 MG/DL [id number] 00:00:00 Test Item Value Reference Range Interpretation Comments PHOSPHORUS (test code = 2227) 5.9 MG/DL [id number] 00:00:00 Test Item Value Reference Range Interpretation Comments NT-proBNP (test code = 66735) 3071 PG/ML [id number] 00:00:00 Test Item Value Reference Range Interpretation Comments NT-proBNP (test code = 03187) 3071 PG/ML [id number] 00:00:00 Test Item Value Reference Range Interpretation Comments NT-proBNP (test code = 56736) 3071 PG/ML CBC W/AUTO [id number] 00:00:00 Test Item Value Reference Range Interpretation [...] code = 1015) 208 K/UL CBC W/AUTO [id number] 00:00:00 Test Item Value Reference Range Interpretation [...] code = 1015) 208 K/UL CBC W/AUTO [id number] 00:00:00 Test Item Value Reference Range Interpretation [...] (test code = 1015) 208 K/UL HEMOGLOBIN [id number] 00:00:00 Test Item Value Reference Range Interpretation Comments HEMOGLOBIN A1c (test code = 68299) 6.3 % HEMOGLOBIN [id number] 00:00:00 Test Item Value Reference Range Interpretation Comments HEMOGLOBIN A1c (test code = 73938) 6.3 % HEMOGLOBIN [id number] 00:00:00 Test Item Value Reference Range Interpretation Comments HEMOGLOBIN A1c (test code = 39058) 6.3 % COMPREHENSIVE METABOLIC [id number] 00:00:00 Test Item Value Reference Range Interpretation Comments GLUCOSE (test code = 2217) 77 MG/DL BUN (test code = 2208) 58 MG/DL CREATININE (test code = 2214) 1.93 MG/DL eGFR AMER. (test code 28 ML/MIN/1.73 = 51970) eGFR NON- AMER. (test 24 ML/MIN/1.73 code = 45714) CALC BUN/CREAT (test code = 30 RATIO 2235) SODIUM (test code = 2231) 133 MEQ/L POTASSIUM (test code = 2228) 4.8 MEQ/L CHLORIDE (test code = 2215) 92 MEQ/L CARBON DIOXIDE (test code = 23 MEQ/L 2206) CALCIUM (test code = 2209) 9.4 MG/DL PROTEIN, TOTAL (test code = 7.3 G/DL 2229) ALBUMIN (test code = 2201) 4.5 G/DL CALC GLOBULIN (test code = 2.8 G/DL 2240) CALC A/G RATIO (test code = 1.6 RATIO 2234) BILIRUBIN, TOTAL (test code = 0.5 MG/DL 2206) ALKALINE PHOSPHATASE (test 35 U/L code = 2204) AST (test code = 2218) 24 U/L ALT (test code = 2219) 13 U/L COMPREHENSIVE METABOLIC [id number] 00:00:00 Test Item Value Reference Range Interpretation Comments GLUCOSE (test code = 2217) 77 MG/DL BUN (test code = 2208) 58 MG/DL CREATININE (test code = 2214) 1.93 MG/DL eGFR AMER. (test code 28 ML/MIN/1.73 = 06324) eGFR NON- AMER. (test 24 ML/MIN/1.73 code = 02609) CALC BUN/CREAT (test code = 30 RATIO 2235) SODIUM (test code = 2231) 133 MEQ/L POTASSIUM (test code = 2228) 4.8 MEQ/L CHLORIDE (test code = 2215) 92 MEQ/L CARBON DIOXIDE (test code = 23 MEQ/L 220) CALCIUM (test code = 2209) 9.4 MG/DL PROTEIN, TOTAL (test code = 7.3 G/DL 2229) ALBUMIN (test code = 2201) 4.5 G/DL CALC GLOBULIN (test code = 2.8 G/DL 2240) CALC A/G RATIO (test code = 1.6 RATIO 2234) BILIRUBIN, TOTAL (test code = 0.5 MG/DL 7) ALKALINE PHOSPHATASE (test 35 U/L code = 2204) AST (test code = 2218) 24 U/L ALT (test code = 2219) 13 U/L URIC [id number] 00:00:00 Test Item Value Reference Range Interpretation Comments URIC ACID (test code = 2233) 8.9 MG/DL URIC [id number] 00:00:00 Test Item Value Reference Range Interpretation Comments URIC ACID (test code = 2233) 8.9 MG/DL [id number] 00:00:00 Test Item Value Reference Range Interpretation Comments MAGNESIUM (test code = 2226) 2.7 MG/DL [id number] 00:00:00 Test Item Value Reference Range Interpretation Comments MAGNESIUM (test code = 2226) 2.7 MG/DL [id number] 00:00:00 Test Item Value Reference Range Interpretation Comments MAGNESIUM (test code = 2226) 2.7 MG/DL [id number] 00:00:00 Test Item Value Reference Range Interpretation Comments PHOSPHORUS (test code = 2227) 5.9 MG/DL [id number] 00:00:00 Test Item Value Reference Range Interpretation Comments PHOSPHORUS (test code = 2227) 5.9 MG/DL [id number] 00:00:00 Test Item Value Reference Range Interpretation Comments NT-proBNP (test code = 37478) 3071 PG/ML [id number] 00:00:00 Test Item Value Reference Range Interpretation Comments NT-proBNP (test code = 05894) 3071 PG/ML [id number] 00:00:00 Test Item Value Reference Range Interpretation Comments NT-proBNP (test code = 66127) 3071 PG/ML BASIC METABOLIC [id number] 00:00:00 Test Item Value Reference Range Interpretation Comments GLUCOSE (test code = 2345-7) 85 mg/dL UREA NITROGEN (BUN) (test 35 mg/dL code = 3094-0) CREATININE (test code = 0.95 mg/dL 2160-0) eGFR NON-AFR. ICELANDIC (test 57 mL/min/1.73m2 code = 81582-5) eGFR (test 66 mL/min/1.73m2 code = 66993-7) BUN/CREATININE RATIO (test 37 (calc) code = 3097-3) SODIUM (test code = 2951-2) 143 mmol/L POTASSIUM (test code = 4.5 mmol/L 2823-3) CHLORIDE (test code = 103 mmol/L 2075-0) CARBON DIOXIDE (test code = 30 mmol/L 2027-9) CALCIUM (test code = 9.6 mg/dL 89242-4) BASIC METABOLIC [id number] 00:00:00 Test Item Value Reference Range Interpretation Comments GLUCOSE (test code = 2345-7) 85 mg/dL UREA NITROGEN (BUN) (test 35 mg/dL code = 3094-0) CREATININE (test code = 0.95 mg/dL 2160-0) eGFR NON-AFR. ICELANDIC (test 57 mL/min/1.73m2 code = 59172-2) eGFR (test 66 mL/min/1.73m2 code = 29667-0) BUN/CREATININE RATIO (test 37 (calc) code = 3097-3) SODIUM (test code = 2951-2) 143 mmol/L POTASSIUM (test code = 4.5 mmol/L 2823-3) CHLORIDE (test code = 103 mmol/L 2075-0) CARBON DIOXIDE (test code = 30 mmol/L 2027-) CALCIUM (test code = 9.6 mg/dL 30436-2) BASIC METABOLIC [id number] 00:00:00 Test Item Value Reference Range Interpretation Comments GLUCOSE (test code = 2345-7) 85 mg/dL UREA NITROGEN (BUN) (test 35 mg/dL code = 3094-0) CREATININE (test code = 0.95 mg/dL 2160-0) eGFR NON-AFR. ICELANDIC (test 57 mL/min/1.73m2 code = 67240-8) eGFR (test 66 mL/min/1.73m2 code = 91044-6) BUN/CREATININE RATIO (test 37 (calc) code = 3097-3) SODIUM (test code = 2951-2) 143 mmol/L POTASSIUM (test code = 4.5 mmol/L 2823-3) CHLORIDE (test code = 103 mmol/L 2075-0) CARBON DIOXIDE (test code = 30 mmol/L 2027-9) CALCIUM (test code = 9.6 mg/dL 67833-9)
[2022-03-18] MEDS ORDERED: MAGNESIUM OXIDE 400 MG TAB PO ONE (15:19)
--- NOTE | 2022-03-18 15:26 | P.HP ---
Certification for Inpatient Patient admitted to: Inpatient With expected LOS: >2 Midnights Patient will require the following post-hospital care: None Practitioner: I am a practitioner with admitting privileges, knowledge of patient current condition, hospital course, and medical plan of care. Services: Services provided to patient in accordance with Admission requirements found in Title 42 Section 412.3 of the Code of Federal Regulations Patient History Date of Service: 03/18/22 Primary Care Provider: Michelle Stafford Reason for admission: Acute CHF History of Present Illness: Patient is an office Patient of Mrs. Stafford. She came into the office complaining of malasia and shortness of breath in the night. PMH of chf ef of 15%. She had just been to Dr. Sarmiento who lowered her entresto 49-51 by half and her lasix to 20mg. She had not picked up the new dosages yet. The patient was getting sob and came to the office. She had an EKG similar to the previous one However given her advanced age and clinical presentation. We decided to admit her for aggressive diuresis. Discussed with Dr. Sarmiento her regular data communications technician and he agreed. She also has a history of ckd. Sees Dr. Roblero. Allergies No Known Allergies Allergy (Verified 03/18/22 12:24) Review of Systems Respiratory: Shortness of Breath, SOB with Excertion Cardiovascular: Edema Physical Examination - Physical Exam General: Alert, In no apparent distress HEENT: Atraumatic, PERRLA, Mucous membr. moist/pink, EOMI, Sclerae nonicteric Neck: Supple, 2+ carotid pulse no bruit, No LAD, Without JVD or thyroid abnormality Respiratory: Clear to auscultation bilaterally, Normal air movement, Rhonchi/gurgles Cardiovascular: Regular rate/rhythm, Normal S1 S2, Edema (1+on the right side. ) Gastrointestinal: Normal bowel sounds, No tenderness Musculoskeletal: No tenderness Integumentary: No rashes Neurological: Normal gait, Normal speech, Normal strength at 5/5 x4 extr, Normal tone, Normal affect Lymphatics: No axilla or inguinal lymphadenopathy Assessment and Plan - Problems (Diagnosis) (1) Acute heart failure Current Visit: Yes Status: Acute Plan: will admit her start the patient on iv lasix. Consult Dr. Aggarwal. Her last echo was in 2019. Will need to repeat Qualifiers: Heart failure type: systolic Qualified Code(s): I50.21 - Acute systolic (congestive) heart failure (2) HTN (hypertension) Current Visit: Yes Status: Chronic Plan: restart the pts metoprolol. We may restart the entresto at a lower dosage Qualifiers: Hypertension type: primary hypertension Qualified Code(s): I10 - Essential (primary) hypertension (3) CKD (chronic kidney disease) Current Visit: Yes Status: Chronic Plan: will consider a consult to Dr. Baird when we get her current creatine level. Qualifiers: Chronic kidney disease stage: unspecified stage Qualified Code(s): N18.9 - Chronic kidney disease, unspecified (4) Hypothyroidism Current Visit: Yes Status: Acute Plan: check tsh and restart her levothyroxine Qualifiers: Hypothyroidism type: acquired Qualified Code(s): E03.9 - Hypothyroidism, unspecified (5) GERD (gastroesophageal reflux disease) Current Visit: Yes Status: Chronic Plan: restart her home pantoprazole Qualifiers: Esophagitis presence: without esophagitis Qualified Code(s): K21.9 - Gastro-esophageal reflux disease without esophagitis Discharge Plan: Home Plan to discharge in: Greater than 2 days - Advance Directives Does patient have a Living Will: No Does patient have a Durable POA for Healthcare: No - Code Status/Comfort Care Code Status Assessed: Yes Code Status: Full Code Physician Review: Patient Assessed, Agree with Above Assessment and Plan Critical Care: No Time Spent Managing Pts Care (In Minutes): 70
[2022-03-18] MEDS: ENOXAPARIN 30 MG/0.3 ML SQ SCH (16:23)
[2022-03-18] MEDS: FUROSEMIDE 40 MG/4 ML VIAL IV SCH (17:37)
[2022-03-18] MEDS ORDERED: PNEUMOCOCCAL VACCINE 0.5 ML IMVAC ONE (18:00)
[2022-03-18 18:16] LABS: Albumin 3.4 g/dL (3.4-5.0); Bilirubin Total 0.6 mg/dL (0.2-1.0); Potassium 4.2 mmol/L (3.5-5.1); Protein, Total 7.2 g/dL (6.4-8.2)
[2022-03-18 18:44] LABS: Absolute Lymphocytes (CBC) 1.1 K/uL (0.7-4.9); Lymphocytes % 18.8 % (15.3-44.8); MCV 91.9 fL (80-100); MPV 10.5 fL (7.6-11.3); RBC Red Blood Cell Count 4.79 M/uL (3.86-4.86)
[2022-03-18 20:26] LABS: Urine Bacteria <20 /HPF (<20); Urine Mucus Slight /HPF (None Seen); Urine RBC <5 /HPF (None Seen)
[2022-03-18 20:36] LABS: Urine Ascorbic Acid Negative (Negative); Urine Bilirubin Negative (Negative); Urine Blood Negative (Negative); Urine Clarity Slightly Cloudy (Clear); Urine Color Yellow (Yellow); Urine Glucose Negative (Negative); Urine Protein Negative (Negative); Urine Urobilinogen 0.2 (Normal)
[2022-03-18] MEDS: ATORVASTATIN 40 MG TAB PO SCH (20:41)
[2022-03-18] MEDS: METOPROLOL TAR 25 MG TAB PO SCH (20:46)
--- NOTE | 2022-03-18 21:50 | CON ---
Date of Consultation: 03/18/2022 Reason For Consultation: Shortness of breath and heart failure exacerbation. History Of Present Illness: This is a pleasant 81-year-old female who is known to have severe systol ic heart failure with ejection fraction less than 20%. 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 Dr. Sampson at [place] is regulating her medications. Apparently came in because of pro gressive worsening shortness of breath, lower extremity edema, and orthopnea. Seen by Dr. Mathews in t office today, appears to be severely fluid overloaded, so she was directly admitted to the [facility]. I saw her by the bedside, there is no distress; however, she is severely fluid overloaded. Denie s having any chest pain. Past Medical History: Congestive heart failure, hypertension, chronic kidney disease, hypothyroidism , acid reflux disease. Medications: Refer reconciliation sheet for detailed list. Allergies: NO KNOWN DRUG ALLERGIES. Family History: No premature coronary artery disease or cancer. Social History: She does not smoke or drink. Does not use any drugs. Review of Systems: All systems reviewed and they are negative except as mentioned in HPI. Physical Examination: Vital Signs: Reviewed. Head and Neck: Pupils are equal, reactive to light. Intact eye movements. No JVD. No cervical lym phadenopathy. Neck is supple. Thyroid is not enlarged. Lungs: Clear to auscultation bilaterally. No wheezing or crackles. No accessory muscle use. Heart: Irregular with S3 gallop. Abdomen: Soft, nontender. Bowel sounds positive. No organomegaly. No masses or hernia. No rigidi ty or rebound. Extremities: 3 to 4+ pitting edema. No clubbing or cyanosis. Intact pulses. Skin: No rash or nodules. Neurologic: Alert, awake, oriented x3. No acute focal deficits appreciated. Investigations: Labs are pending. Assessment/recommendation: 1.Acute on chronic systolic heart failure exacerbation. Massive edema. Start her on Lasix 40 mg IV q.12 hours. Monitor BUN, creatinine, electrolytes, and strict low-salt diet and obtain serial cardi ac enzymes. 2.Hypertension after diuresis. Re-evaluate blood pressure and adjust if needed. 3.Chronic kidney disease. Await on her labs to decide on dose of the Lasix. SR/MODL Voice ID: [id number] Report ID: [id number]
[2022-03-19] MEDS: LEVOTHYROXINE SOD 0.075 MG TAB PO SCH (05:32)
[2022-03-19 06:32] LABS: Lymphocytes % 18.5 % (15.3-44.8); MCV 91.7 fL (80-100); RBC Red Blood Cell Count 4.37 M/uL (3.86-4.86)
[2022-03-19 07:11] LABS: Albumin 2.9 g/dL (3.4-5.0); Bilirubin Total 0.5 mg/dL (0.2-1.0); Potassium 4.1 mmol/L (3.5-5.1); Protein, Total 6.2 g/dL (6.4-8.2); Thyroid Stimulating Hormone 3.27 uIU/mL (0.358-3.740)
[2022-03-19] MEDS: PANTOPRAZOLE 40MG TABLET PO SCH (08:16)
[2022-03-19] MEDS: METOPROLOL TAR 25 MG TAB PO SCH ×2 (08:16→20:38)
[2022-03-19] MEDS: FUROSEMIDE 40 MG/4 ML VIAL IV SCH ×2 (08:16→16:46)
--- NOTE | 2022-03-19 08:49 | P.PN ---
Subjective Date of Service: 03/19/22 Primary Care Provider: Michelle Stafford Chief Complaint: Acute CHF Subjective: Improving (patient feeling much better. edema has resolved) Review of Systems 10-point ROS is otherwise unremarkable Physical Examination - Vital Signs Temperature: 97.0 F Blood Pressure: 114/70 Pulse: 75 Respirations: 14 Pulse Ox (%): 100 - Physical Exam General: Alert, In no apparent distress HEENT: Atraumatic, PERRLA, EOMI Neck: Supple, JVD not distended Respiratory: Clear to auscultation bilaterally, Normal air movement Cardiovascular: Regular rate/rhythm, Normal S1 S2 Gastrointestinal: Normal bowel sounds, No tenderness Musculoskeletal: No tenderness Integumentary: No rashes Neurological: Normal speech, Normal tone, Normal affect Lymphatics: No axilla or inguinal lymphadenopathy - Studies Laboratory Data (last 24 hrs) 03/19/22 06:19: Sodium 142, Potassium 4.1, BUN 62 H, Creatinine 1.54 H, Glucose 72 L, Total Bilirubin 0.5, AST 37, ALT 49, Alkaline Phosphatase 47 03/19/22 06:19: WBC 5.40, Hgb 12.6 D, Hct 40.0, Plt Count 197 03/18/22 17:50: Sodium 141, Potassium 4.2, BUN 56 H, Creatinine 1.64 H, Glucose 76, Total Bilirubin 0.6, AST 42 H, ALT 58 H, Alkaline Phosphatase 50 03/18/22 17:50: WBC 5.60, Hgb 13.8, Hct 44.0, Plt Count 208 Assessment And Plan - Current Problems (Diagnosis) (1) Acute heart failure Current Visit: Yes Status: Acute Plan: will admit her start the patient on iv lasix. Consult Dr. Aggarwal. Her last echo was in 2019. 2/4 Patient is doing better. Will stop the spirnolcatone and start her on low dose entresto. echo pending Qualifiers: Heart failure type: systolic Qualified Code(s): I50.21 - Acute systolic (congestive) heart failure (2) HTN (hypertension) Current Visit: Yes Status: Chronic Plan: restart the pts metoprolol. We may restart the entresto at a lower dosage 2/4 she was hypotensive on her dose of entresto. Will switch to low dose and d/c spirnolactone Qualifiers: Hypertension type: primary hypertension Qualified Code(s): I10 - Essential (primary) hypertension (3) CKD (chronic kidney disease) Current Visit: Yes Status: Chronic Plan: will consider a consult to Dr. Baird when we get her current creatine level. 2/4 creatine is improving No need for nephro at this time. Will start the entresto. Perhaps we can d/c the furosemide tomorrow Qualifiers: Chronic kidney disease stage: stage 3 (moderate) Chronic kidney disease stage 3 subtype: stage 3b (GFR 30-44) Qualified Code(s): N18.32 - Chronic kidney disease, stage 3b (4) Hypothyroidism Current Visit: Yes Status: Acute Plan: check tsh and restart her levothyroxine Qualifiers: Hypothyroidism type: acquired Qualified Code(s): E03.9 - Hypothyroidism, unspecified (5) GERD (gastroesophageal reflux disease) Current Visit: Yes Status: Chronic Plan: restart her home pantoprazole Qualifiers: Esophagitis presence: without esophagitis Qualified Code(s): K21.9 - Gastro-esophageal reflux disease without esophagitis Discharge Plan: Home Plan to discharge in: 48 Hours - Code Status/Comfort Care Code Status Assessed: No Code Status: Full Code Physician Review: Patient Assessed, Agree with Above Assessment and Plan Critical Care: No Time Spent Managing PTS Care (In Minutes): 20
[2022-03-19] MEDS ORDERED: SPIRONOLACTONE 25 MG TABLET PO SCH (09:00)
[2022-03-19] MEDS ORDERED: FUROSEMIDE 40 MG/4 ML VIAL IV SCH (09:00)
[2022-03-19] MEDS: SACUBITRIL/VALSARTAN 24/26 MG TAB PO SCH ×2 (09:51→20:38)
[2022-03-19] MEDS: ENOXAPARIN 30 MG/0.3 ML SQ SCH ×2 (16:46→16:53)
[2022-03-19] MEDS: ATORVASTATIN 40 MG TAB PO SCH (20:40)
[2022-03-20] MEDS: LEVOTHYROXINE SOD 0.075 MG TAB PO SCH (06:09)
[2022-03-20 06:32] LABS: Absolute Lymphocytes (CBC) 1.3 K/uL (0.7-4.9); Hematocrit 41.9 % (36.0-45.0); Lymphocytes % 20.9 % (15.3-44.8); MCV 91.8 fL (80-100); RBC Red Blood Cell Count 4.56 M/uL (3.86-4.86)
[2022-03-20 06:53] LABS: Bilirubin Total 0.5 mg/dL (0.2-1.0); Protein, Total 6.5 g/dL (6.4-8.2)
[2022-03-20 06:55] LABS: Potassium 4.1 mmol/L (3.5-5.1)
[2022-03-20] MEDS: METOPROLOL TAR 25 MG TAB PO SCH ×2 (09:00→20:18)
[2022-03-20] MEDS: PANTOPRAZOLE 40MG TABLET PO SCH (09:01)
[2022-03-20] MEDS: SACUBITRIL/VALSARTAN 24/26 MG TAB PO SCH ×2 (10:05→20:18)
[2022-03-20] MEDS: FUROSEMIDE 40 MG/4 ML VIAL IV SCH (10:05)
--- NOTE | 2022-03-20 11:57 | P.PN ---
Subjective Date of Service: 03/20/22 Primary Care Provider: Michelle Stafford Chief Complaint: Acute CHF Subjective: No new changes Review of Systems 10-point ROS is otherwise unremarkable Physical Examination - Vital Signs Temperature: 97.4 F Blood Pressure: 117/71 Pulse: 84 Respirations: 16 Pulse Ox (%): 97 - Physical Exam General: Alert, In no apparent distress HEENT: Atraumatic, PERRLA, EOMI Neck: Supple, JVD not distended Respiratory: Clear to auscultation bilaterally, Normal air movement Cardiovascular: Regular rate/rhythm, Normal S1 S2 Gastrointestinal: Normal bowel sounds, No tenderness Musculoskeletal: No tenderness Integumentary: No rashes Neurological: Normal speech, Normal tone, Normal affect Lymphatics: No axilla or inguinal lymphadenopathy - Studies Laboratory Data (last 24 hrs) 03/20/22 06:07: Sodium 141, Potassium 4.1, BUN 67 H, Creatinine 1.79 H, Glucose 89, Total Bilirubin 0.5, AST 40 H, ALT 49, Alkaline Phosphatase 53 03/20/22 06:07: WBC 6.20, Hgb 13.3, Hct 41.9, Plt Count 204 Assessment And Plan - Current Problems (Diagnosis) (1) Acute heart failure Current Visit: Yes Status: Acute Plan: will admit her start the patient on iv lasix. Consult Dr. Aggarwal. Her last echo was in 2018. 2/ Patient is doing better. Will stop the spirnolcatone and start her on low dose entresto. echo pending Qualifiers: Heart failure type: systolic Qualified Code(s): I50.21 - Acute systolic (congestive) heart failure (2) HTN (hypertension) Current Visit: Yes Status: Chronic Plan: restart the pts metoprolol. We may restart the entresto at a lower dosage 2/ she was hypotensive on her dose of entresto. Will switch to low dose and d/c spirnolactone Qualifiers: Hypertension type: primary hypertension Qualified Code(s): I10 - Essential (primary) hypertension (3) CKD (chronic kidney disease) Current Visit: Yes Status: Chronic Plan: will consider a consult to Dr. Baird when we get her current creatine level. 2/ Patient has a slight increase in his creatine. Hold the lasix Qualifiers: Chronic kidney disease stage: stage 3 (moderate) Chronic kidney disease stage 3 subtype: stage 3b (GFR 30-44) Qualified Code(s): N18.32 - Chronic kidney disease, stage 3b (4) Hypothyroidism Current Visit: Yes Status: Acute Plan: check tsh and restart her levothyroxine Qualifiers: Hypothyroidism type: acquired Qualified Code(s): E03.9 - Hypothyroidism, unspecified (5) GERD (gastroesophageal reflux disease) Current Visit: Yes Status: Chronic Plan: restart her home pantoprazole Qualifiers: Esophagitis presence: without esophagitis Qualified Code(s): K21.9 - Gastro-esophageal reflux disease without esophagitis Discharge Plan: Home Plan to discharge in: 24 Hours - Code Status/Comfort Care Code Status Assessed: No Physician Review: Patient Assessed, Agree with Above Assessment and Plan Critical Care: No Time Spent Managing PTS Care (In Minutes): 20
[2022-03-20 16:58] VITALS: O2SAT 96
[2022-03-20] MEDS: ENOXAPARIN 30 MG/0.3 ML SQ SCH (17:00)
[2022-03-20 17:57] VITALS: BMI 31.4
[2022-03-20] MEDS: ATORVASTATIN 40 MG TAB PO SCH (20:18)
[2022-03-21] MEDS: LEVOTHYROXINE SOD 0.075 MG TAB PO SCH (05:27)
[2022-03-21 06:16] LABS: Absolute Lymphocytes (CBC) 1.2 K/uL (0.7-4.9); Hematocrit 42.3 % (36.0-45.0); Lymphocytes % 18.1 % (15.3-44.8); MCV 91.2 fL (80-100); MPV 10.1 fL (7.6-11.3); RBC Red Blood Cell Count 4.64 M/uL (3.86-4.86)
[2022-03-21 06:58] LABS: Bilirubin Total 0.4 mg/dL (0.2-1.0); Potassium 4.2 mmol/L (3.5-5.1); Protein, Total 6.7 g/dL (6.4-8.2)
[2022-03-21] MEDS: PANTOPRAZOLE 40MG TABLET PO SCH (07:44)
--- NOTE | 2022-03-21 07:56 | P.DS ---
Admission Date: 03/18/22 Discharge Date: 03/21/22 Primary Care Provider: Michelle Stafford Disposition: ROUTINE DISCHARGE Discharge Condition: GOOD Reason for Admission: Acute CHF - Problems (1) Acute heart failure Current Visit: Yes Status: Acute Qualifiers: Heart failure type: systolic Qualified Code(s): I50.21 - Acute systolic (congestive) heart failure (2) HTN (hypertension) Current Visit: Yes Status: Chronic Qualifiers: Hypertension type: primary hypertension Qualified Code(s): I10 - Essential (primary) hypertension (3) CKD (chronic kidney disease) Current Visit: Yes Status: Chronic Qualifiers: Chronic kidney disease stage: stage 3 (moderate) Chronic kidney disease stage 3 subtype: stage 3b (GFR 30-44) Qualified Code(s): N18.32 - Chronic kidney disease, stage 3b (4) Hypothyroidism Current Visit: Yes Status: Acute Qualifiers: Hypothyroidism type: acquired Qualified Code(s): E03.9 - Hypothyroidism, unspecified (5) GERD (gastroesophageal reflux disease) Current Visit: Yes Status: Chronic Qualifiers: Esophagitis presence: without esophagitis Qualified Code(s): K21.9 - Gastro-esophageal reflux disease without esophagitis Brief History of Present Illness: Patient is an office Patient of Mrs. Stafford. She came into the office complaining of malasia and shortness of breath in the night. PMH of chf ef of 15%. She had just been to Dr. Sarmiento who lowered her entresto 49-51 by half and her lasix to 20mg. She had not picked up the new dosages yet. The patient was getting sob and came to the office. She had an EKG similar to the previous one However given her advanced age and clinical presentation. We decided to admit her for aggressive diuresis. Discussed with Dr. 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 She also has a history of ckd. Sees Dr. Roblero. Hospital Course: Patient was admitted. Responded well to diuresis. Will get an echocardiogram and discharge her. Will have her follow up with Jina Rivera and Dr. Sarmiento. She can DC the spirnolactone. Continue on Entresto 24/51mg Thank you for allowing me to take part in her care. Vital Signs/Physical Exam: Temp Pulse Resp BP Pulse Ox 98 F 87 18 97/64 94 03/21/22 04:00 02/06/23 04:00 03/21/22 04:00 03/21/22 04:00 03/21/22 04:00 General: Alert, In no apparent distress HEENT: Atraumatic, PERRLA, EOMI Neck: Supple, JVD not distended Respiratory: Clear to auscultation bilaterally, Normal air movement Cardiovascular: Regular rate/rhythm, Normal S1 S2 Gastrointestinal: Normal bowel sounds, No tenderness Musculoskeletal: No tenderness Integumentary: No rashes Neurological: Normal speech, Normal tone, Normal affect Lymphatics: No axilla or inguinal lymphadenopathy Laboratory Data at Discharge: WBC 6.70 K/uL (4.3-10.9) 03/21/22 05:55 Hgb 13.3 g/dL (12.0-15.0) 03/21/22 05:55 Hct 42.3 % (36.0-45.0) 03/21/22 05:55 Plt Count 199 K/uL (152-406) 03/21/22 05:55 Sodium 143 mmol/L (136-145) 03/21/22 05:55 Potassium 4.2 mmol/L (3.5-5.1) 03/21/22 05:55 BUN 57 mg/dL (7-18) H 03/21/22 05:55 Creatinine 1.35 mg/dL (0.55-1.02) H 03/21/22 05:55 Glucose 96 mg/dL (74-106) 03/21/22 05:55 Total Bilirubin 0.4 mg/dL (0.2-1.0) 03/21/22 05:55 AST 33 U/L (15-37) 03/21/22 05:55 ALT 48 U/L (13-56) 03/21/22 05:55 Alkaline Phosphatase 60 U/L (45-117) 03/21/22 05:55 Home Medications: Allopurinol 1 tab PO DAILY 03/18/22 Aspirin [Aspirin EC 81 MG] 1 tab PO DAILY 03/18/22 Atorvastatin Calcium [Lipitor*] 1 tab PO DAILY 03/18/22 Furosemide 1 tab PO BID 03/18/22 Levothyroxine [Synthroid*] 1 tab PO DAILY 03/18/22 Magnesium Oxide [Mag 0X*] 200 mg PO DAILY 03/18/22 Metoprolol Succinate [Toprol Xl] 1 tab PO DAILY 03/18/22 Sacubitril/Valsartan [Entresto 24 mg-26 mg Tablet] 1 tab PO DAILY 03/18/22 Sacubitril/Valsartan [Entresto 24 mg-26 mg Tablet] 1 tab PO BID tab 03/21/22 Diet: AHA Activity: Ad val Followup: Danielle Stafford FNP [facility] [ALLIED HEALTH PROFESSIONAL] - 1 Week Time spent managing pt's care (in minutes): 30
[2022-03-21 08:09] VITALS: TEMP 97
[2022-03-21] MEDS: SACUBITRIL/VALSARTAN 24/26 MG TAB PO SCH (08:42)
[2022-03-21] MEDS: METOPROLOL TAR 25 MG TAB PO SCH (09:00)
[2022-03-21 11:05] VITALS: BP 104/71
--- NOTE | 2022-03-22 07:00 | ECHO ---
HEIGHT: 5 ft 0 in WEIGHT: 160 lb 12.8 oz DATE OF STUDY: 03/21/[address]: Juan Alberto Mathews MD 2-DIMENSIONAL: YES M.MODE: YES DOPPLER: YES COLOR FLOW: YES TDS: PORTABLE: YES DEFINITY: BUBBLE STUDY: DIAGNOSIS: ACUTE CONGESTIVE HEART FAILURE CARDIAC HISTORY: CATHERIZATION: SURGERY: PROSTHETIC VALVE: PACEMAKER: MEASUREMENTS (cm) DIASTOLIC (NORMALS) SYSTOLIC (NORMALS) IVSd 0.9 (0.6-1.2) LA Diam 4.3 (1.9-4.0) LVEF 11% LVIDd 5.3 (3.5-5.7) LVIDs 2.0 (2.0-3.5) %FS 5% LVPWd 0.9 (0.6-1.2) Ao Diam 2.3 (2.0-3.7) 2 DIMENSIONAL ASSESSMENT: RIGHT ATRIUM: NORMAL LEFT ATRIUM: ENLARGED RIGHT VENTRICLE: NORMAL LEFT VENTRICLE: DILATED LEFT VENTRICLE TRICUSPID VALVE: MODERATE TRICUSPID REGURGITATION MITRAL VALVE: SEVERE MITRAL REGURGITATION PULMONIC VALVE: MILD PULMONIC INSUFFICIENCY AORTIC VALVE: NORMAL PERICARDIAL EFFUSION: NONE AORTIC ROOT: NORMAL LEFT VENTRICULAR WALL MOTION: SEVERE GLOBAL HYPOKINESIS DOPPLER/COLOR FLOW: SEE BELOW COMMENTS: 1. SEVERELY DEPRESSED LEFT VENTRICULAR EJECTION FRACTION 10-15% 2. SEVERE GLOBAL HYPOKINESIS 3. LEFT ATRIAL ENLARGEMENT 4. SEVERE MITRAL REGURGITATION 5. MODERATE TRICUSPID REGURGITATION 6. MILD PULMONIC INSUFFICIENCY 7. SEVERE DIASTOLIC DYSFUNCTION 8. 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
== END 2022-03-21 12:25 | disposition home or self-care (01) | DRG 291 ==
LOC: 2ND 14:07 → OBSVTOIN 15:13
PROVIDERS: ADMIT Internal Medicine; ATTEND Internal Medicine
DX: I13.0 Hypertensive heart and chronic kidney disease with heart failure and stage 1 through stage 4 chronic kidney disease, or unspecified chronic kidney disease (principal); I50.21 Acute systolic (congestive) heart failure; N18.32 Chronic kidney disease, stage 3b; E03.9 Hypothyroidism, unspecified; K21.9 Gastro-esophageal reflux disease without esophagitis; Z79.82 Long term (current) use of aspirin; Z79.890 Hormone replacement therapy; Z79.899 Other long term (current) drug therapy; Z20.822 Contact with and (suspected) exposure to COVID-19
CPT/HCPCS: 36415; 80053; 81001; 84443; 85025; 87811; 93306; 97116; 97161; G0379; J1650; J1940

== ENCOUNTER 2023-01-15 15:38 | Inpatient (IN) | payer OTHER ==
--- OUTSIDE RECORDS SUMMARY | 2023-01-15 16:14 | XMS REPORT | Continuity of Care Document ---
:1940 Author Organization [facility] t Address [address] [facility] [address] [place] [address] Care Team Providers Name Role Phone Elizabeth WEBER, Jess Primary Care Physician MARIZOL LOMELI Attending Clinician Unavailable AMELIA WALLACE Attending Clinician Unavailable AMELIA WALLACE Attending Clinician Unavailable Marizol Lomeli MD Attending Clinician Doctor Unassigned, [place] Attending Clinician Unavailable GIOVANNY SAHNI Attending Clinician Unavailable Giovanny Sahni Attending Clinician Pob, [facility] Main Attending Clinician Unavailable Tez Drake MD Attending Clinician TEZ DRAKE Attending Clinician Unavailable Radiology Attending Clinician Unavailable RADIOLOGY Attending Clinician Unavailable Unknown, Attending Attending Clinician Unavailable UNKNOWN, ATTENDING Attending Clinician Unavailable Ajibade_O_AH Attending Clinician Unavailable Jessica Zhong DO Attending Clinician JESSICA ZHONG Attending Clinician Unavailable Matt Kessler RN Attending Clinician Unavailable NICKIE MARTIN Attending Clinician Unavailable Ige-Odizzy_J_AH Attending Clinician Unavailable GIOVANNY SAHNI Admitting Clinician Unavailable YAMILE CAVAZOS Admitting Clinician Unavailable ROSELIA AYALA Admitting Clinician Unavailable Alexus Admitting Clinician Unavailable NICKIE MARTIN Admitting Clinician Unavailable Ige-Sherron_J_AH Admitting Clinician Unavailable Payers Payer Name Policy Type Policy Number Effective Date Expiration Date Michelle curiel 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 1-17 ity of kidney kidney 00:00: [place] disease disease 00 Medical Branch Pulmonary Pulmonary Disease Active Uni vers hypertensi hypertensi 8-17 it y of on on 00:: [place] [facility] ROMA (acute ROMA (acute Disease Active U nivers kidney kidney 5-30 ity of injury) injury) 00:00: [place] [facility] Heart Heart Disease Active Univers failure failure 5-30 ity of 00:00: [place] [facility] Pneumonia Pneumonia Disease Active 2018-02 Uni vers 2-27 ity of 00:00: [place] [facility] Dyslipidem Dyslipidem Disease Active 2018-02 U nivers ia ia 0-11 ity of 00:00: [place] 00 Medical Branch HFrEF HFrEF Disease Active 2018-02 Univers (heart (heart 0-11 ity of failure failure 00:00: [place] with with 00 Medical reduced reduced Branch ejection ejection fraction) fraction) HFrEF HFrEF Disease Active 2018-02 Univers (heart (heart 0-11 ity of failure failure 00:00: [place] with with 00 Medical reduced reduced Branch ejection ejection fraction) fraction) CHF CHF Disease Active 2018-02 Univers exacerbati exacerbati 0-09 it y of on on 00:00: [place] [facility] 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 Active 2018-02 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 00 Medica l and and Branch 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 Essential Essential Disease Active 2018-02 Uni vers hypertensi hypertensi 0-09 it y of on on 00:00: [place] 00 Medical Branch Obesity Obesity Disease Active 2018-02 Univers (BMI (BMI 0-09 ity of 30-39.9) 30-39.9) 00:00: [place] 00 Medical Branch Allergies, Adverse Reactions, Alerts Allergy Allergy Status Severity Reaction(s) Onset Inactive Treating Comm ents Source Name Type Date Date Clinician SPIRONOL DRUG Active Unknown-Cmnt 2018-02 Un neela ACTONE INGREDI 2- ity of 00:00: [place] 00 [facility] Spironol Propensi Active Unknown - 2018-02 Hyperkale Univers actone ty to See comments 04-12 alexa ity of adverse 00:00: [place] reaction 00 Medical s Branch Family History Family Member Diagnosis Comments Start Date Stop Date Source Natural father [facility] Social History Social Habit Start Date Stop Date Quantity Comments Source Gender identity [facility] Exposure to 2022-06-19 2022-06-29 Not sure [facility] SARS-CoV-2 (event) 00:00:00 14:32:00 [facility] Tobacco use and 2019-02-08 2019-02-08 Smokeless Universit y of exposure 00:00:00 00:00:00 tobacco non-user [facility] Alcohol intake 2017-02-28 2017-02-28 Current [employer] 00:00:00 00:00:00 non-drinker of Hospital alcohol (finding) History of Social 2017-02-27 2017-02-[address] function 00:00:00 00:00:00 Hospital Sex [birth year] At [birth year] [employer] 00:00:00 00:00:00 Hospital Smoking Status Start Date Stop Date Source Never smoked tobacco [facility] Medications Ordered Filled Start Stop Current Ordering Indication Dosage Frequency Signature Comments Components Source Medication Medication Date Date Medication? Clinician (SIG) Name Name aspirin 81 2022-02 Yes 81mg Take 1 Unive rs mg EC 1-17 tablet by ity of tablet 15:45: mouth. [address] aspirin 81 2022-02 Yes 81mg Take 1 Unive rs mg EC 1-17 tablet by ity of tablet 15:45: mouth. [address] aspirin 81 2022-0 Yes 81mg Take 1 Unive rs mg EC 8-17 tablet by ity of tablet 14:16: mouth. [address] aspirin 81 0 Yes 81mg Take 1 Unive rs mg EC 8-17 tablet by ity of tablet 14:16: mouth. [address] aspirin 81 0 Yes 81mg Take 1 Unive rs mg EC 8-17 tablet by ity of tablet 14:16: mouth. [address] aspirin 81 0 Yes 81mg Take 1 Unive rs mg EC 8-17 tablet by ity of tablet 14:16: mouth. [address] aspirin 81 0 Yes 81mg Take 1 Unive rs mg EC 8-17 tablet by ity of tablet 14:16: mouth. [address] aspirin 81 0 Yes 81mg Take 1 Unive rs mg EC 8-17 tablet by ity of tablet 14:16: mouth. [address] aspirin 81 0 Yes 81mg Take 1 Unive rs mg EC 8-17 tablet by ity of tablet 14:16: mouth. [address] aspirin 81 0 Yes 81mg Take 1 Unive rs mg EC 8-17 tablet by ity of tablet 14:16: mouth. [address] clobetasol Yes by scalp Uni vers propionate 8-17 route. ity of (CLOBETASOL 13:55: [address] glucosamine Yes 2{tbl} Take 2 Un neela /msm/chondr 8-17 tablets by it y of oitin A 13:55: mouth [place] (GLUCOSAMIN 35 daily. Medica l E-CHONDR-MS Branch M ORAL) coQ10, Yes Take by Univers ubiquinol, 8-17 mouth. ity of 100 mg Cap 13:55: [address] clobetasol Yes by scalp Uni vers propionate 8-17 route. ity of (CLOBETASOL 13:55: [address] glucosamine Yes 2{tbl} Take 2 Un neela /msm/chondr 8-17 tablets by it y of oitin A 13:55: mouth [place] (GLUCOSAMIN 35 daily. Medica l E-CHONDR-MS Branch M ORAL) coQ10, Yes Take by Univers ubiquinol, 8-17 mouth. ity of 100 mg Cap 13:55: [place] [address] Medical Branch clobetasol Yes by scalp Uni vers propionate 8-17 route. ity of (CLOBETASOL 13:55: [facility]) 35 Medical Branch glucosamine Yes 2{tbl} Take 2 Un neela /msm/chondr 8-17 tablets by it y of oitin A 13:55: mouth [place] (GLUCOSAMIN 35 daily. Medica l E-CHONDR-MS Branch M ORAL) coQ10, Yes Take by Univers ubiquinol, 8-17 mouth. ity of 100 mg Cap 13:55: [place] [address] Medical Branch clobetasol Yes by scalp Uni vers propionate 8-17 route. ity of (CLOBETASOL 13:55: [facility]) Medical Branch glucosamine Yes 2{tbl} Take 2 Un neela /msm/chondr 8-17 tablets by it y of oitin A 13:55: mouth [place] (GLUCOSAMIN 35 daily. Medica l E-CHONDR-MS Branch M ORAL) coQ10, Yes Take by Univers ubiquinol, 8-17 mouth. ity of 100 mg Cap 13:55: [place] [address] Medical Branch clobetasol Yes by scalp Uni vers propionate 8-17 route. ity of (CLOBETASOL 13:55: [facility]) 35 Medical Branch glucosamine Yes 2{tbl} Take 2 Un neela /msm/chondr 8-17 tablets by it y of oitin A 13:55: mouth [place] (GLUCOSAMIN 35 daily. Medica l E-CHONDR-MS Branch M ORAL) coQ10, Yes Take by Univers ubiquinol, 8-17 mouth. ity of 100 mg Cap 13:55: [place] [address] Medical Branch clobetasol Yes by scalp Uni vers propionate 8-17 route. ity of (CLOBETASOL 13:55: [facility]) 35 Medical Branch glucosamine Yes 2{tbl} Take 2 Un neela /msm/chondr 8-17 tablets by it y of oitin A 13:55: mouth [place] (GLUCOSAMIN 35 daily. Medica l E-CHONDR-MS Branch M ORAL) coQ10, Yes Take by Univers ubiquinol, 8-17 mouth. ity of 100 mg Cap 13:55: [place] [address] Medical Branch clobetasol Yes by scalp Uni vers propionate 8-17 route. ity of (CLOBETASOL 13:55: [facility]) 35 Medical Branch glucosamine Yes 2{tbl} Take 2 Un neela /msm/chondr 8-17 tablets by it y of oitin A 13:55: mouth [place] (GLUCOSAMIN 35 daily. Medica l E-CHONDR-MS Branch M ORAL) coQ10, Yes Take by Univers ubiquinol, 8-17 mouth. ity of 100 mg Cap 13:55: [place] [address] Medical Branch clobetasol Yes by scalp Uni vers propionate 8-17 route. ity of (CLOBETASOL 13:55: [facility]) Medical Branch glucosamine Yes 2{tbl} Take 2 Un neela /msm/chondr 8-17 tablets by it y of oitin A 13:55: mouth [place] (GLUCOSAMIN 35 daily. Medica l E-CHONDR-MS Branch M ORAL) coQ10, Yes Take by Univers ubiquinol, 8-17 mouth. ity of 100 mg Cap 13:55: [place] [address] Medical Branch clobetasol Yes by scalp Uni vers propionate 8-17 route. ity of (CLOBETASOL 13:55: [facility]) 35 Medical Branch glucosamine Yes 2{tbl} Take 2 Un neela /msm/chondr 8-17 tablets by it y of oitin A 13:55: mouth [place] (GLUCOSAMIN 35 daily. Medica l E-CHONDR-MS Branch M ORAL) coQ10, Yes Take by Univers ubiquinol, 8-17 mouth. ity of 100 mg Cap 13:55: [place] [address] Medical Branch clobetasol Yes by scalp Uni vers propionate 8-17 route. ity of (CLOBETASOL 13:55: [facility]) 35 Medical Branch glucosamine 2022-0 Yes 2{tbl} Take 2 Un neela /msm/chondr 8-17 tablets by it y of oitin A 13:55: mouth [place] (GLUCOSAMIN 35 daily. Medica l E-CHONDR-MS Branch M ORAL) coQ10, 2022-0 Yes Take by Univers ubiquinol, 8-17 mouth. ity of 100 mg Cap 13:55: [place] [address] Medical Branch empaglifloz 2022-0 Yes [id number] 10mg Take 1 Univers in 8-17 tablet by ity of (JARDIANCE) 00:00: mouth in [place] 10 mg 00 the Medical morning. Branch empaglifloz 3-0 Yes [id number] 10mg Take 1 Univers in 8-17 tablet by ity of (JARDIANCE) 00:00: mouth in [place] 10 mg 00 the Medical morning. Branch empaglifloz 3-0 Yes [id number] 10mg Take 1 Univers in 8-17 tablet by ity of (JARDIANCE) 00:00: mouth in [place] 10 mg 00 the Medical morning. Branch empaglifloz 3-0 Yes [id number] 10mg Take 1 Univers in 8-17 tablet by ity of (JARDIANCE) 00:00: mouth in [place] 10 mg 00 the Medical morning. Branch empaglifloz 3-0 Yes [id number] 10mg Take 1 Univers in 8-17 tablet by ity of (JARDIANCE) 00:00: mouth in [place] 10 mg 00 the Medical morning. Branch empaglifloz 3-0 Yes [id number] 10mg Take 1 Univers in 8-17 tablet by ity of (JARDIANCE) 00:00: mouth in [place] 10 mg 00 the Medical morning. Branch empaglifloz 2023-0 Yes [id number] 10mg Take 1 Univers in 8-17 tablet by ity of (JARDIANCE) 00:00: mouth in [place] 10 mg 00 the Medical morning. Branch empaglifloz 2023-0 Yes [id number] 10mg Take 1 Univers in 8-17 tablet by ity of (JARDIANCE) 00:00: mouth in [place] 10 mg 00 the Medical morning. Branch empaglifloz 2023-0 Yes [id number] 10mg Take 1 Univers in 8-17 tablet by ity of (JARDIANCE) 00:00: mouth in [place] 10 mg 00 the Medical morning. Branch empaglifloz 2023-0 Yes [id number] 10mg Take 1 Univers in 8-17 tablet by ity of (JARDIANCE) 00:00: mouth in [place] 10 mg 00 the Medical morning. Branch torsemide 2023-0 Yes 40mg Take 2 Univer s 20 mg 8-04 tablets by ity of tablet 00:00: mouth in [place] 00 the Medical morning. Branch torsemide 2023-0 Yes 40mg Take 2 Univer s 20 mg 8-04 tablets by ity of tablet 00:00: mouth in [place] the Medical morning. Branch torsemide 2023-0 Yes 40mg Take 2 Univer s 20 mg 8-04 tablets by ity of tablet 00:00: mouth in [place] the Medical morning. Branch torsemide 2023-0 Yes 40mg Take 2 Univer s 20 mg 8-04 tablets by ity of tablet 00:00: mouth in [place] 00 the Medical morning. Branch torsemide 2023-0 Yes 40mg Take 2 Univer s 20 mg 8-04 tablets by ity of tablet 00:00: mouth in [place] the Medical morning. Branch torsemide 2023-0 Yes 40mg Take 2 Univer s 20 mg 8-04 tablets by ity of tablet 00:00: mouth in [place] the Medical morning. Branch torsemide 2023-0 Yes 40mg Take 2 Univer s 20 mg 8-04 tablets by ity of tablet 00:00: mouth in [place] 00 the Medical morning. Branch torsemide 2023-0 Yes 40mg Take 2 Univer s 20 mg 8-04 tablets by ity of tablet 00:00: mouth in [place] 00 the Medical morning. Branch torsemide 2023-0 Yes 40mg Take 2 Univer s 20 mg 8-04 tablets by ity of tablet 00:00: mouth in [place] 00 the Medical morning. Branch torsemide 2023-0 Yes 40mg Take 2 Univer s 20 mg 8-04 tablets by ity of tablet 00:00: mouth in [place] 00 the Medical morning. Branch carvediloL 2023-0 Yes 3.125mg Take 1 Un neela 3.125 mg 7-19 tablet by ity of tablet 00:00: mouth in [place] 00 the Medical morning Branch and 1 tablet in the evening. carvediloL 2023-0 Yes 3.125mg Take 1 Un neela 3.125 mg 7-19 tablet by ity of tablet 00:00: mouth in [place] 00 the Medical morning Branch and 1 tablet in the evening. carvediloL 2023-0 Yes 3.125mg Take 1 Un neela 3.125 mg 7-19 tablet by ity of tablet 00:00: mouth in [place] 00 the Medical morning Branch and 1 tablet in the evening. carvediloL 2023-0 Yes 3.125mg Take 1 Un neela 3.125 mg 7-19 tablet by ity of tablet 00:00: mouth in [place] 00 the Medical morning Branch and 1 tablet in the evening. carvediloL 2023-0 Yes 3.125mg Take 1 Un neela 3.125 mg 7-19 tablet by ity of tablet 00:00: mouth in [place] [address] the Medical morning Branch and 1 tablet in the evening. carvediloL 2023-0 Yes 3.125mg Take 1 Un neela 3.125 mg 7-19 tablet by ity of tablet 00:00: mouth in [place] [address] the Medical morning Branch and 1 tablet in the evening. carvediloL 2023-0 Yes 3.125mg Take 1 Un neela 3.125 mg 7-19 tablet by ity of tablet 00:00: mouth in [place] [address] the Medical morning Branch and 1 tablet in the evening. carvediloL 2023-0 Yes 3.125mg Take 1 Un neela 3.125 mg 7-19 tablet by ity of tablet 00:00: mouth in [place] [address] the Medical morning Branch and 1 tablet in the evening. carvediloL 2023-0 Yes 3.125mg Take 1 Un neela 3.125 mg 7-19 tablet by ity of tablet 00:00: mouth in [place] [address] the Medical morning Branch and 1 tablet in the evening. carvediloL 2023-0 Yes 3.125mg Take 1 Un neela 3.125 mg 7-19 tablet by ity of tablet 00:00: mouth in [place] [address] the Medical morning Branch and 1 tablet in the evening. empaglifloz 2023-0 Yes [id number] 10mg Take 1 Univers in 6-16 tablet by ity of (JARDIANCE) 00:00: mouth in [place] 10 mg 00 the Medical morning. Branch empaglifloz 2023-0 Yes [id number] 10mg Take 1 Univers in 6-16 tablet by ity of (JARDIANCE) 00:00: mouth in [place] 10 mg 00 the Medical morning. Branch empaglifloz 2023-0 Yes [id number] 10mg Take 1 Univers in 6-16 tablet by ity of (JARDIANCE) 00:00: mouth in [place] 10 mg 00 the Medical morning. Branch empaglifloz 2023-0 Yes [id number] 10mg Take 1 Univers in 6-16 tablet by ity of (JARDIANCE) 00:00: mouth in [place] 10 mg 00 the Medical morning. Branch empaglifloz 2023-0 2023- No [id number] 10mg Take 1 Univers in 6-16 08-17 tablet by ity of (JARDIANCE) 00:00: 00:00 mouth in [place] 10 mg 00 :00 the Medical morning. Branch empaglifloz 2023-0 2023- No [id number] 10mg Take 1 Univers in 6-16 08-17 tablet by ity of (JARDIANCE) 00:00: 00:00 mouth in [place] 10 mg 00 :00 the Medical morning. Branch empaglifloz 2023-0 2023- No [id number] 10mg Take 1 Univers in 6-16 08-17 tablet by ity of (JARDIANCE) 00:00: 00:00 mouth in [place] 10 mg 00 :00 the Medical morning. Branch clobetasol 2023-0 Yes by scalp Uni vers propionate 5-17 route. ity of (CLOBETASOL 14:48: [place] [facility]) 27 Medical Branch clobetasol 2023-0 Yes by scalp Uni vers propionate 5-17 route. ity of (CLOBETASOL 14:48: [place] [facility]) 27 Medical Branch clobetasol 2023-0 Yes by scalp Uni vers propionate 5-17 route. ity of (CLOBETASOL 14:48: [place] [facility]) 27 Medical Branch clobetasol 2023-0 Yes by scalp Uni vers propionate 5-17 route. ity of (CLOBETASOL 14:48: [place] [facility]) 27 Medical Branch clobetasol 2022-0 Yes by scalp Uni vers propionate 5-17 route. ity of (CLOBETASOL 14:48: [facility]) 27 Medical Branch clobetasol 2022-0 Yes by scalp Uni vers propionate 5-17 route. ity of (CLOBETASOL 14:48: [facility]) 27 Medical Branch raloxifene 2022-0 Yes 60mg Take 1 Unive rs 60 mg 5-17 tablet by ity of tablet 14:45: mouth in [place] [address] the Medical morning. Branch montelukast 2022-0 Yes 10mg Take 1 Univ ers 10 mg 5-17 tablet by ity of tablet 14:45: mouth in [place] [address] the Medical morning. Branch MULTIVITAMI 2022-0 Yes 1{tbl} Take 1 Un neela N ORAL 5-17 tablet by ity of 14:45: mouth. [place] [address] Medical Branch raloxifene 2022-0 Yes 60mg Take 1 Unive rs 60 mg 5-17 tablet by ity of tablet 14:45: mouth in [place] [address] the Medical morning. Branch montelukast 2022-0 Yes 10mg Take 1 Univ ers 10 mg 5-17 tablet by ity of tablet 14:45: mouth in [place] [address] the Medical morning. Branch MULTIVITAMI 2022-0 Yes 1{tbl} Take 1 Un neela N ORAL 5-17 tablet by ity of 14:45: mouth. [place] [address] Medical Branch raloxifene 2022-0 Yes 60mg Take 1 Unive rs 60 mg 5-17 tablet by ity of tablet 14:45: mouth in [place] [address] the Medical morning. Branch montelukast 2022-0 Yes 10mg Take 1 Univ ers 10 mg 5-17 tablet by ity of tablet 14:45: mouth in [place] [address] the Medical morning. Branch MULTIVITAMI 2022-0 Yes 1{tbl} Take 1 Un neela N ORAL 5-17 tablet by ity of 14:45: mouth. [place] [address] Medical Branch raloxifene 2022-0 Yes 60mg Take 1 Unive rs 60 mg 5-17 tablet by ity of tablet 14:45: mouth in [place] [address] the Medical morning. Branch montelukast 2022-0 Yes 10mg Take 1 Univ ers 10 mg 5-17 tablet by ity of tablet 14:45: mouth in [place] [address] the Medical morning. Branch MULTIVITAMI 3-0 Yes 1{tbl} Take 1 Un neela N ORAL 5-17 tablet by ity of 14:45: mouth. [place] [address] Medical Branch raloxifene 3-0 Yes 60mg Take 1 Unive rs 60 mg 5-17 tablet by ity of tablet 14:45: mouth in [place] [address] the Medical morning. Branch montelukast 3-0 Yes 10mg Take 1 Univ ers 10 mg 5-17 tablet by ity of tablet 14:45: mouth in [place] [address] the Medical morning. Branch MULTIVITAMI 2022-0 Yes 1{tbl} Take 1 Un neela N ORAL 5-17 tablet by ity of 14:45: mouth. [place] [address] Medical Branch raloxifene 3-0 Yes 60mg Take 1 Unive rs 60 mg 5-17 tablet by ity of tablet 14:45: mouth in [place] [address] the Medical morning. Branch montelukast 2022-0 Yes 10mg Take 1 Univ ers 10 mg 5-17 tablet by ity of tablet 14:45: mouth in [place] [address] the Medical morning. Branch MULTIVITAMI 2022-0 Yes 1{tbl} Take 1 Un neela N ORAL 5-17 tablet by ity of 14:45: mouth. [place] [address] Medical Branch raloxifene 3-0 Yes 60mg Take 1 Unive rs 60 mg 5-17 tablet by ity of tablet 14:45: mouth in [place] [address] the Medical morning. Branch montelukast 2022-0 Yes 10mg Take 1 Univ ers 10 mg 5-17 tablet by ity of tablet 14:45: mouth in [place] [address] the Medical morning. Branch MULTIVITAMI 2022-0 Yes 1{tbl} Take 1 Un neela N ORAL 5-17 tablet by ity of 14:45: mouth. [place] [address] Medical Branch raloxifene 3-0 Yes 60mg Take 1 Unive rs 60 mg 5-17 tablet by ity of tablet 14:45: mouth in [place] [address] the Medical morning. Branch montelukast 2023-0 Yes 10mg Take 1 Univ ers 10 mg 5-17 tablet by ity of tablet 14:45: mouth in [place] [address] the Medical morning. Branch MULTIVITAMI 2022-0 Yes 1{tbl} Take 1 Un neela N ORAL 5-17 tablet by ity of 14:45: mouth. [place] [address] Medical Branch raloxifene 2022-0 Yes 60mg Take 1 Unive rs 60 mg 5-17 tablet by ity of tablet 14:45: mouth in [place] [address] the Medical morning. Branch montelukast 2022-0 Yes 10mg Take 1 Univ ers 10 mg 5-17 tablet by ity of tablet 14:45: mouth in [place] [address] the Medical morning. Branch MULTIVITAMI 2022-0 Yes 1{tbl} Take 1 Un neela N ORAL 5-17 tablet by ity of 14:45: mouth. [place] [address] Medical Branch raloxifene 2022-0 Yes 60mg Take 1 Unive rs 60 mg 5-17 tablet by ity of tablet 14:45: mouth in [place] [address] the Medical morning. Branch montelukast 2022-0 Yes 10mg Take 1 Univ ers 10 mg 5-17 tablet by ity of tablet 14:45: mouth in [place] [address] the Medical morning. Branch MULTIVITAMI 2022-0 Yes 1{tbl} Take 1 Un neela N ORAL 5-17 tablet by ity of 14:45: mouth. [place] [address] Medical Branch raloxifene 2022-0 Yes 60mg Take 1 Unive rs 60 mg 5-17 tablet by ity of tablet 14:45: mouth in [place] [address] the Medical morning. Branch montelukast 2022-0 Yes 10mg Take 1 Univ ers 10 mg 5-17 tablet by ity of tablet 14:45: mouth in [place] [address] the Medical morning. Branch MULTIVITAMI 2022-0 Yes 1{tbl} Take 1 Un neela N ORAL 5-17 tablet by ity of 14:45: mouth. [place] [address] Medical Branch raloxifene 3-0 Yes 60mg Take 1 Unive rs 60 mg 5-17 tablet by ity of tablet 14:45: mouth in [place] [address] the Medical morning. Branch montelukast 3-0 Yes 10mg Take 1 Univ ers 10 mg 5-17 tablet by ity of tablet 14:45: mouth in [place] [address] the Medical morning. Branch MULTIVITAMI 2022-0 Yes 1{tbl} Take 1 Un neela N ORAL 5-17 tablet by ity of 14:45: mouth. [place] [address] Medical Branch raloxifene 3-0 Yes 60mg Take 1 Unive rs 60 mg 5-17 tablet by ity of tablet 14:45: mouth in [place] [address] the Medical morning. Branch montelukast 2022-0 Yes 10mg Take 1 Univ ers 10 mg 5-17 tablet by ity of tablet 14:45: mouth in [place] [address] the Medical morning. Branch MULTIVITAMI 2022-0 Yes 1{tbl} Take 1 Un neela N ORAL 5-17 tablet by ity of 14:45: mouth. [address] Branch raloxifene 2022-0 Yes 60mg Take 1 Unive rs 60 mg 5-17 tablet by ity of tablet 14:45: mouth in [place] [address] the Medical morning. Branch montelukast 2022-0 Yes 10mg Take 1 Univ ers 10 mg 5-17 tablet by ity of tablet 14:45: mouth in [place] [address] the Medical morning. Branch MULTIVITAMI 2022-0 Yes 1{tbl} Take 1 Un neela N ORAL 5-17 tablet by ity of 14:45: mouth. [address] raloxifene 2022-0 Yes 60mg Take 1 Unive rs 60 mg 5-17 tablet by ity of tablet 14:45: mouth in [place] [address] the Medical morning. Branch montelukast 2022-0 Yes 10mg Take 1 Univ ers 10 mg 5-17 tablet by ity of tablet 14:45: mouth in [place] [address] the Medical morning. Branch MULTIVITAMI 2022-0 Yes 1{tbl} Take 1 Un neela N ORAL 5-17 tablet by ity of 14:45: mouth. [address] raloxifene 2022-0 Yes 60mg Take 1 Unive rs 60 mg 5-17 tablet by ity of tablet 14:45: mouth in [place] [address] the Medical morning. Branch montelukast 2022-0 Yes 10mg Take 1 Univ ers 10 mg 5-17 tablet by ity of tablet 14:45: mouth in [place] [address] the Medical morning. Branch MULTIVITAMI 2022-0 Yes 1{tbl} Take 1 Un neela N ORAL 5-17 tablet by ity of 14:45: mouth. [address] aspirin 81 2022-0 Yes 81mg Take 1 Unive rs mg EC 5-17 tablet by ity of tablet 14:43: mouth. [address] aspirin 81 2022-0 Yes 81mg Take 1 Unive rs mg EC 5-17 tablet by ity of tablet 14:43: mouth. [address] aspirin 81 2022-0 Yes 81mg Take 1 Unive rs mg EC 5-17 tablet by ity of tablet 14:43: mouth. [address] aspirin 81 2022-0 Yes 81mg Take 1 Unive rs mg EC 5-17 tablet by ity of tablet 14:43: mouth. [address] aspirin 81 2022-0 Yes 81mg Take 1 Unive rs mg EC 5-17 tablet by ity of tablet 14:43: mouth. [address] aspirin 81 2022-0 Yes 81mg Take 1 Unive rs mg EC 5-17 tablet by ity of tablet 14:43: mouth. [address] fexofenadin Yes Take by Uni vers e 180 mg 5-17 mouth. ity of tablet 14:43: [address] fexofenadin Yes Take by Uni vers e 180 mg 5-17 mouth. ity of tablet 14:43: [address] fexofenadin Yes Take by Uni vers e 180 mg 5-17 mouth. ity of tablet 14:43: [address] fexofenadin Yes Take by Uni vers e 180 mg 5-17 mouth. ity of tablet 14:43: [address] fexofenadin Yes Take by Uni vers e 180 mg 5-17 mouth. ity of tablet 14:43: [address] fexofenadin Yes Take by Uni vers e 180 mg 5-17 mouth. ity of tablet 14:43: [address] fexofenadin Yes Take by [facility] vers e 180 mg 5-17 mouth. ity of tablet 14:43: [address] fexofenadin Yes Take by [facility] vers e 180 mg 5-17 mouth. ity of tablet 14:43: [address] fexofenadin 0 Yes Take by [facility] vers e 180 mg 5-17 mouth. ity of tablet 14:43: [address] fexofenadin Yes Take by [facility] vers e 180 mg 5-17 mouth. ity of tablet 14:43: [address] fexofenadin Yes Take by [facility] vers e 180 mg 5-17 mouth. ity of tablet 14:43: [address] fexofenadin 0 Yes Take by [facility] vers e 180 mg 5-17 mouth. ity of tablet 14:43: [address] fexofenadin 0 Yes Take by [facility] vers e 180 mg 5-17 mouth. ity of tablet 14:43: [address] fexofenadin 0 Yes Take by [facility] vers e 180 mg 5-17 mouth. ity of tablet 14:43: [address] fexofenadin 0 Yes Take by [facility] vers e 180 mg 5-17 mouth. ity of tablet 14:43: [address] fexofenadin Yes Take by [facility] vers e 180 mg 5-17 mouth. ity of tablet 14:43: [address] doxycycline 2022-0 Yes Univer s hyclate 100 5-16 ity of mg capsule 00:00: [address] doxycycline 2023-0 Yes Univer s hyclate 100 5-16 ity of mg capsule 00:00: [address] doxycycline 2023-0 Yes Un[facility] s hyclate 100 5-16 ity of mg capsule 00:00: [address] doxycycline 2023-0 Yes Un[facility] s hyclate 100 5-16 ity of mg capsule 00:00: [address] doxycycline 2023-0 Yes Un[facility] s hyclate 100 5-16 ity of mg capsule 00:00: [address] doxycycline 2023-0 Yes Un[facility] s hyclate 100 5-16 ity of mg capsule 00:00: [address] doxycycline 2023-0 Yes Un[facility] s hyclate 100 5-16 ity of mg capsule 00:00: [address] doxycycline 2023-0 Yes Un[facility] s hyclate 100 5-16 ity of mg capsule 00:00: [address] doxycycline 2023-0 Yes Un[facility] s hyclate 100 5-16 ity of mg capsule 00:00: [address] doxycycline 2023-0 Yes Un[facility] s hyclate 100 5-16 ity of mg capsule 00:00: [address] doxycycline 2023-0 Yes [facility] s hyclate 100 5-16 ity of mg capsule 00:00: [address] doxycycline 2023-0 Yes [facility] s hyclate 100 5-16 ity of mg capsule 00:00: [facility] Branch doxycycline 3-0 Yes Univer s hyclate 100 5-16 ity of mg capsule 00:00: [facility] Branch doxycycline 3-0 Yes Un[facility] s hyclate 100 5-16 ity of mg capsule 00:00: [facility] Branch doxycycline 3-0 Yes [facility] s hyclate 100 5-16 ity of mg capsule 00:00: [facility] doxycycline 3-0 Yes [facility] s hyclate 100 5-16 ity of mg capsule 00:00: [facility] Branch clindamycin 2022-0 Yes APPLY TO Un neela 1 % gel 4-24 AFFECTED ity of 00:00: AREAS SPOT OR Medical FIELD Branch TREATMENT EVERY MORNING clindamycin 2022-0 Yes APPLY TO Un neela 1 % gel 4-24 AFFECTED ity of 00:00: AREAS SPOT OR Medical FIELD Branch TREATMENT EVERY MORNING clindamycin 2022-0 Yes APPLY TO Un neela 1 % gel 4-24 AFFECTED ity of 00:00: AREAS SPOT OR Medical FIELD Branch TREATMENT EVERY MORNING clindamycin 2022-0 Yes APPLY TO Un neela 1 % gel 4-24 AFFECTED ity of 00:00: AREAS SPOT OR Medical FIELD Branch TREATMENT EVERY MORNING clindamycin 2022-0 Yes APPLY TO Un neela 1 % gel 4-24 AFFECTED ity of 00:00: AREAS SPOT OR Medical FIELD Branch TREATMENT EVERY MORNING clindamycin 2022-0 Yes APPLY TO Un neela 1 % gel 4-24 AFFECTED ity of 00:00: AREAS SPOT OR Medical FIELD Branch TREATMENT EVERY MORNING clindamycin 2022-0 Yes APPLY TO Un neela 1 % gel 4-24 AFFECTED ity of 00:00: AREAS 00 SPOT OR Medical FIELD Branch TREATMENT EVERY MORNING clindamycin 2022-0 Yes APPLY TO Un neela 1 % gel 4-24 AFFECTED ity of 00:00: AREAS 00 SPOT OR Medical FIELD Branch TREATMENT EVERY MORNING clindamycin 2022-0 Yes APPLY TO Un neela 1 % gel 4-24 AFFECTED ity of 00:00: AREAS SPOT OR Medical FIELD Branch TREATMENT EVERY MORNING clindamycin 2022-0 Yes APPLY TO Un neela 1 % gel 4-24 AFFECTED ity of 00:00: AREAS [place] 00 SPOT OR Medical FIELD Branch TREATMENT EVERY MORNING clindamycin 2022-0 Yes APPLY TO Un neela 1 % gel 4-24 AFFECTED ity of 00:00: AREAS [place] 00 SPOT OR Medical FIELD Branch TREATMENT EVERY MORNING clindamycin 2022-0 Yes APPLY TO Un neela 1 % gel 4-24 AFFECTED ity of 00:00: AREAS [place] 00 SPOT OR Medical FIELD Branch TREATMENT EVERY MORNING clindamycin 2022-0 Yes APPLY TO Un neela 1 % gel 4-24 AFFECTED ity of 00:00: AREAS [place] 00 SPOT OR Medical FIELD Branch TREATMENT EVERY MORNING clindamycin 2022-0 Yes APPLY TO Un neela 1 % gel 4-24 AFFECTED ity of 00:00: AREAS [place] 00 SPOT OR Medical FIELD Branch TREATMENT EVERY MORNING clindamycin 2022-0 Yes APPLY TO Un neela 1 % gel 4-24 AFFECTED ity of 00:00: AREAS 00 SPOT OR Medical FIELD Branch TREATMENT EVERY MORNING clindamycin 2022-0 Yes APPLY TO Un neela 1 % gel 4-24 AFFECTED ity of 00:00: AREAS [place] 00 SPOT OR Medical FIELD Branch TREATMENT EVERY MORNING tretinoin 2022-0 Yes Univers 0.01 % gel 3-23 ity of 00:00: 00 [facility] Branch tretinoin 2023-0 Yes Univers 0.01 % gel 3-23 ity of 00:00: 00 [facility] Branch tretinoin 3-0 Yes Univers 0.01 % gel 3-23 ity of 00:00: 00 [facility] Branch tretinoin 2023-0 Yes Univers 0.01 % gel 3-23 ity of 00:00: 00 [facility] Branch tretinoin 2023-0 Yes Univers 0.01 % gel 3-23 ity of 00:00: 00 [facility] tretinoin 2023-0 Yes Univers 0.01 % gel 3-23 ity of 00:00: 00 [facility] tretinoin 2023-0 Yes Univers 0.01 % gel 3-23 ity of 00:00: 00 [facility] tretinoin 2023-0 Yes Univers 0.01 % gel 3-23 ity of 00:00: 00 [facility] tretinoin 2023-0 Yes Univers 0.01 % gel 3-23 ity of 00:00: Medical Branch tretinoin 2022-0 Yes Univers 0.01 % gel 3-23 ity of 00:00: Medical Branch tretinoin 2022-0 Yes Univers 0.01 % gel 3-23 ity of 00:00: Medical Branch tretinoin 2022-0 Yes Univers 0.01 % gel 3-23 ity of 00:00: Medical Branch tretinoin 2022-0 Yes Univers 0.01 % gel 3-23 ity of 00:00: Medical Branch tretinoin 2022-0 Yes Univers 0.01 % gel 3-23 ity of 00:00: Medical Branch tretinoin 2022-0 Yes Univers 0.01 % gel 3-23 ity of 00:00: Medical Branch tretinoin 2022-0 Yes Univers 0.01 % gel 3-23 ity of 00:00: Medical Branch sacubitriL- 2022-0 2022- No 1{tbl} Take 1 U nivers [...] 2022- No 3.125mg Take 3.125 Univers ORAL 2- 02-01 mg by ity of 16:20: 00:00 mouth 2 [place] 42 :00 (two) Medical times Branch daily. CARVEDILOL 2022- No 3.125mg Take 3.125 [facility] ORAL 2- 02-01 mg by ity of 16:20: 00:00 mouth 2 [place] 42 :00 (two) Medical times Branch daily. fexofenadin Yes Take by [facility] vers e 180 mg 03-16 mouth. ity of tablet 16:08: [address] Branch coQ10, Yes Take by Univers ubiquinol, 03-16 mouth. ity of 100 mg Cap 16:08: [address] fexofenadin 0 Yes Take by Uni vers e 180 mg 2- mouth. ity of tablet 16:08: [address] coQ10, 0 Yes Take by Univers ubiquinol, 2 mouth. ity of 100 mg Cap 16:08: [address] fexofenadin Yes Take by [facility] vers e 180 mg 2 mouth. ity of tablet 16:08: [address] coQ10, 0 Yes Take by Univers ubiquinol, 2 mouth. ity of 100 mg Cap 16:08: [address] fexofenadin Yes Take by [facility] vers e 180 mg 2 mouth. ity of tablet 16:08: [address] coQ10, Yes Take by Univers ubiquinol, 2 mouth. ity of 100 mg Cap 16:08: [address] fexofenadin Yes Take by [facility] vers e 180 mg 2 mouth. ity of tablet 16:08: [address] coQ10, Yes Take by Univers ubiquinol, 2 mouth. ity of 100 mg Cap 16:08: [address] fexofenadin Yes Take by Uni vers e 180 mg 2 mouth. ity of tablet 16:08: [address] coQ10, 0 Yes Take by Univers ubiquinol, 2 mouth. ity of 100 mg Cap 16:08: [address] fexofenadin Yes Take by [facility] vers e 180 mg 2 mouth. ity of tablet 16:08: [address] coQ10, 0 Yes Take by Univers ubiquinol, 2- mouth. ity of 100 mg Cap 16:08: [address] fexofenadin Yes Take by [facility] vers e 180 mg 2- mouth. ity of tablet 16:08: [address] coQ10, 0 Yes Take by Univers ubiquinol, 2- mouth. ity of 100 mg Cap 16:08: [address] fexofenadin Yes Take by [facility] vers e 180 mg 2 mouth. ity of tablet 16:08: [address] coQ10, 0 Yes Take by Univers ubiquinol, 2- mouth. ity of 100 mg Cap 16:08: [address] fexofenadin 2022-0 Yes Take by [facility] vers e 180 mg 2- mouth. ity of tablet 16:08: [address] coQ10, 0 Yes Take by Univers ubiquinol, 2- mouth. ity of 100 mg Cap 16:08: [address] fexofenadin 0 Yes Take by [facility] vers e 180 mg 2- mouth. ity of tablet 16:08: [address] coQ10, 0 Yes Take by Univers ubiquinol, 2- mouth. ity of 100 mg Cap 16:08: [address] fexofenadin 0 Yes Take by [facility] vers e 180 mg 2- mouth. ity of tablet 16:08: [address] coQ10, 0 Yes Take by Univers ubiquinol, 2- mouth. ity of 100 mg Cap 16:08: [address] fexofenadin 0 Yes Take by [facility] vers e 180 mg 2- mouth. ity of tablet 16:08: [address] coQ10, 0 Yes Take by Univers ubiquinol, 2- mouth. ity of 100 mg Cap 16:08: [address] coQ10, 0 Yes Take by Univers ubiquinol, 2- mouth. ity of 100 mg Cap 16:08: [address] coQ10, 0 Yes Take by Univers ubiquinol, 2- mouth. ity of 100 mg Cap 16:08: [address] coQ10, 0 Yes Take by Univers ubiquinol, 2- mouth. ity of 100 mg Cap 16:08: [address] coQ10, 2022-0 Yes Take by Univers ubiquinol, 2-01 mouth. ity of 100 mg Cap 16:08: [address] coQ10, 0 Yes Take by Univers ubiquinol, 2- mouth. ity of 100 mg Cap 16:08: [address] coQ10, 2022-0 Yes Take by Univers ubiquinol, 2-01 mouth. ity of 100 mg Cap 16:08: [address] atorvastati 2022-0 Yes 10mg Take 10 mg [facility] n calcium 2-01 by mouth ity of (ATORVASTAT 16:07: [place] [facility] levothyroxi 0 Yes 75ug Take 75 Uni vers ne 75 mcg 2-01 mcg by ity of tablet 16:07: mouth [place] [address] every Medical morning. Branch allopurinoL 0 Yes 100mg Take 100 U nivers 100 mg 2-01 mg by ity of tablet 16:07: mouth in [place] [address] the Medical morning. Branch atorvastati 0 Yes 10mg Take 10 mg [facility] n calcium 2-01 by mouth ity of (ATORVASTAT 16:07: [place] 19 [facility] levothyroxi 0 Yes 75ug Take 75 Uni vers ne 75 mcg 2-01 mcg by ity of tablet 16:07: mouth [place] [address] every Medical morning. Branch allopurinoL 0 Yes 100mg Take 100 U nivers 100 mg 2-01 mg by ity of tablet 16:07: mouth in [place] [address] the Medical morning. Branch atorvastati 0 Yes 10mg Take 10 mg [facility] n calcium 2-01 by mouth ity of (ATORVASTAT 16:07: [place] 19 [facility] levothyroxi 0 Yes 75ug Take 75 Uni vers ne 75 mcg 2-01 mcg by ity of tablet 16:07: mouth [place] [address] every Medical morning. Branch allopurinoL 2022-0 Yes 100mg Take 100 U nivers 100 mg 2-01 mg by ity of tablet 16:07: mouth in [place] [address] the Medical morning. Branch atorvastati 0 Yes 10mg Take 10 mg [facility] n calcium 2-01 by mouth ity of (ATORVASTAT 16:07: [place]. [place] 19 [facility] levothyroxi 0 Yes 75ug Take 75 Uni vers ne 75 mcg 2-01 mcg by ity of tablet 16:07: mouth [place] [address] every Medical morning. Branch allopurinoL 2022-0 Yes 100mg Take 100 U nivers 100 mg 2-01 mg by ity of tablet 16:07: mouth in [place] [address] the Medical morning. Branch atorvastati 2023-0 Yes 10mg Take 10 mg [facility] n calcium 2-01 by mouth ity of (ATORVASTAT 16:07: [place]. [place] [facility] levothyroxi 0 Yes 75ug Take 75 Uni vers ne 75 mcg 2-01 mcg by ity of tablet 16:07: mouth [place] [address] every Medical morning. Branch raloxifene 0 Yes 60mg Take 60 mg U nivers 60 mg 2-01 by mouth ity of tablet 16:07: daily. [address] Branch montelukast 0 Yes 10mg Take 10 mg Univers 10 mg 2-01 by mouth ity of tablet 16:07: daily. [address] MULTIVITAMI 0 Yes 1{tbl} Take 1 Un neela N ORAL 2-01 tablet by ity of 16:07: mouth. [address] Branch allopurinoL 0 Yes 100mg Take 100 U nivers 100 mg 2-01 mg by ity of tablet 16:07: mouth in [place] [address] the Medical morning. Branch atorvastati 0 Yes 10mg Take 10 mg [facility] n calcium 2-01 by mouth ity of (ATORVASTAT 16:07: [place] [address] [place] [address] Branch levothyroxi 0 Yes 75ug Take 75 Uni vers ne 75 mcg 2-01 mcg by ity of tablet 16:07: mouth [place] [address] every Medical morning. Branch raloxifene 0 Yes 60mg Take 60 mg U nivers 60 mg 2-01 by mouth ity of tablet 16:07: daily. [address] montelukast 0 Yes 10mg Take 10 mg Univers 10 mg 2-01 by mouth ity of tablet 16:07: daily. [address] MULTIVITAMI 0 Yes 1{tbl} Take 1 Un neela N ORAL 2-01 tablet by ity of 16:07: mouth. [address] Branch allopurinoL 0 Yes 100mg Take 100 U nivers 100 mg 2-01 mg by ity of tablet 16:07: mouth in [place] [address] the Medical morning. Branch atorvastati 0 Yes 10mg Take 10 mg [facility] n calcium 2-01 by mouth ity of (ATORVASTAT 16:07: [place]. [place] 19 [facility] levothyroxi 0 Yes 75ug Take 75 Uni vers ne 75 mcg 2-01 mcg by ity of tablet 16:07: mouth [place] [address] every Medical morning. Branch raloxifene 0 Yes 60mg Take 60 mg U nivers 60 mg 2-01 by mouth ity of tablet 16:07: daily. [address] Branch montelukast 0 Yes 10mg Take 10 mg Univers 10 mg 2-01 by mouth ity of tablet 16:07: daily. [address] MULTIVITAMI 0 Yes 1{tbl} Take 1 Un neela N ORAL 2-01 tablet by ity of 16:07: mouth. [address] Branch allopurinoL 0 Yes 100mg Take 100 U nivers 100 mg 2-01 mg by ity of tablet 16:07: mouth in [place] [address] the Medical morning. Branch atorvastati 0 Yes 10mg Take 10 mg [facility] n calcium 2-01 by mouth ity of (ATORVASTAT 16:07: [place] [address] [place] [address] Branch levothyroxi 0 Yes 75ug Take 75 Uni vers ne 75 mcg 2-01 mcg by ity of tablet 16:07: mouth [place] [address] every Medical morning. Branch raloxifene 0 Yes 60mg Take 60 mg U nivers 60 mg 2-01 by mouth ity of tablet 16:07: daily. [address] Branch montelukast 0 Yes 10mg Take 10 mg Univers 10 mg 2-01 by mouth ity of tablet 16:07: daily. [address] MULTIVITAMI 0 Yes 1{tbl} Take 1 Un neela N ORAL 2-01 tablet by ity of 16:07: mouth. [address] Branch allopurinoL 0 Yes 100mg Take 100 U nivers 100 mg 2-01 mg by ity of tablet 16:07: mouth in [place] [address] the Medical morning. Branch atorvastati 0 Yes 10mg Take 10 mg [facility] n calcium 2-01 by mouth ity of (ATORVASTAT 16:07: [place]. [place] [facility] levothyroxi 0 Yes 75ug Take 75 Uni vers ne 75 mcg 2-01 mcg by ity of tablet 16:07: mouth [place] [address] every Medical morning. Branch raloxifene 2022-0 Yes 60mg Take 60 mg U nivers 60 mg 2-01 by mouth ity of tablet 16:07: daily. [address] Branch montelukast 2022-0 Yes 10mg Take 10 mg Univers 10 mg 2-01 by mouth ity of tablet 16:07: daily. [address] MULTIVITAMI 0 Yes 1{tbl} Take 1 Un neela N ORAL 2-01 tablet by ity of 16:07: mouth. [address] Branch allopurinoL 0 Yes 100mg Take 100 U nivers 100 mg 2-01 mg by ity of tablet 16:07: mouth in [place] [address] the Medical morning. Branch atorvastati 0 Yes 10mg Take 10 mg [facility] n calcium 2-01 by mouth ity of (ATORVASTAT 16:07: [place]. [place] [address] [place] [address] levothyroxi 0 Yes 75ug Take 75 Uni vers ne 75 mcg 2-01 mcg by ity of tablet 16:07: mouth [place] [address] every Medical morning. Branch raloxifene 0 Yes 60mg Take 60 mg U nivers 60 mg 2-01 by mouth ity of tablet 16:07: daily. [address] montelukast 0 Yes 10mg Take 10 mg Univers 10 mg 2-01 by mouth ity of tablet 16:07: daily. [address] MULTIVITAMI 0 Yes 1{tbl} Take 1 Un neela N ORAL 2-01 tablet by ity of 16:07: mouth. [address] allopurinoL 2022-0 Yes 100mg Take 100 U nivers 100 mg 2-01 mg by ity of tablet 16:07: mouth in [place] [address] the Medical morning. Branch atorvastati 2022-0 Yes 10mg Take 10 mg [facility] n calcium 2-01 by mouth ity of (ATORVASTAT 16:07: [place]. [place] [address] [place] [address] Branch levothyroxi 2022-0 Yes 75ug Take 75 Uni vers ne 75 mcg 2-01 mcg by ity of tablet 16:07: mouth [place] [address] every Medical morning. Branch raloxifene 2022-0 Yes 60mg Take 60 mg U nivers 60 mg 2-01 by mouth ity of tablet 16:07: daily. [address] Branch montelukast 0 Yes 10mg Take 10 mg Univers 10 mg 2-01 by mouth ity of tablet 16:07: daily. [address] MULTIVITAMI 0 Yes 1{tbl} Take 1 Un neela N ORAL 2-01 tablet by ity of 16:07: mouth. [address] Branch allopurinoL 2022-0 Yes 100mg Take 100 U nivers 100 mg 2-01 mg by ity of tablet 16:07: mouth in [place] [address] the Medical morning. Branch atorvastati 0 Yes 10mg Take 10 mg [facility] n calcium 2-01 by mouth ity of (ATORVASTAT 16:07: [place]. [place] [address] [place] [address] Branch levothyroxi 0 Yes 75ug Take 75 Uni vers ne 75 mcg 2-01 mcg by ity of tablet 16:07: mouth [place] [address] every Medical morning. Branch raloxifene 0 Yes 60mg Take 60 mg U nivers 60 mg 2-01 by mouth ity of tablet 16:07: daily. [address] montelukast 0 Yes 10mg Take 10 mg Univers 10 mg 2-01 by mouth ity of tablet 16:07: daily. [address] MULTIVITAMI 0 Yes 1{tbl} Take 1 Un neela N ORAL 2-01 tablet by ity of 16:07: mouth. [address] Branch allopurinoL 0 Yes 100mg Take 100 U nivers 100 mg 2-01 mg by ity of tablet 16:07: mouth in [place] [address] the Medical morning. Branch atorvastati 0 Yes 10mg Take 10 mg [facility] n calcium 2-01 by mouth ity of (ATORVASTAT 16:07: [place]. [place] [facility] Branch levothyroxi 0 Yes 75ug Take 75 Uni vers ne 75 mcg 2-01 mcg by ity of tablet 16:07: mouth [place] [address] every Medical morning. Branch raloxifene 0 Yes 60mg Take 60 mg U nivers 60 mg 2-01 by mouth ity of tablet 16:07: daily. [address] Branch montelukast 0 Yes 10mg Take 10 mg [facility] 10 mg 2-01 by mouth ity of tablet 16:07: daily. [address] MULTIVITAMI 0 Yes 1{tbl} Take 1 Un neela N ORAL 2-01 tablet by ity of 16:07: mouth. [address] allopurinoL 0 Yes 100mg Take 100 U nivers 100 mg 2-01 mg by ity of tablet 16:07: mouth in [place] [address] the Medical morning. Branch atorvastati 0 Yes 10mg Take 10 mg [facility] n calcium 2-01 by mouth ity of (ATORVASTAT 16:07: [place]. [place] [address] [place] [address] levothyroxi 0 Yes 75ug Take 75 Uni vers ne 75 mcg 2-01 mcg by ity of tablet 16:07: mouth [place] [address] every Medical morning. Branch raloxifene 0 Yes 60mg Take 60 mg U nivers 60 mg 2-01 by mouth ity of tablet 16:07: daily. [address] montelukast 0 Yes 10mg Take 10 mg [facility] 10 mg 2-01 by mouth ity of tablet 16:07: daily. [address] MULTIVITAMI Yes 1{tbl} Take 1 Un neela N ORAL 2-01 tablet by ity of 16:07: mouth. [address] allopurinoL 0 Yes 100mg Take 100 U nivers 100 mg 2-01 mg by ity of tablet 16:07: mouth in [place] [address] the Medical morning. Branch atorvastati 0 Yes 10mg Take 10 mg [facility] n calcium 2-01 by mouth ity of (ATORVASTAT 16:07: daily. [place] [address] [place] [address] levothyroxi 0 Yes 75ug Take 75 Uni vers ne 75 mcg 2-01 mcg by ity of tablet 16:07: mouth [place] [address] every Medical morning. Branch raloxifene 0 Yes 60mg Take 60 mg U nivers 60 mg 2-01 by mouth ity of tablet 16:07: daily. [address] montelukast 0 Yes 10mg Take 10 mg [facility] 10 mg 2-01 by mouth ity of tablet 16:07: daily. [address] MULTIVITAMI 2023-0 Yes 1{tbl} Take 1 Un neela N ORAL 2-01 tablet by ity of 16:07: mouth. [address] allopurinoL 0 Yes 100mg Take 100 U nivers 100 mg 2-01 mg by ity of tablet 16:07: mouth in [place] [address] the Medical morning. Branch atorvastati 0 Yes 10mg Take 10 mg [facility] n calcium 2-01 by mouth ity of (ATORVASTAT 16:07: [place]. [place] [facility] Branch levothyroxi 0 Yes 75ug Take 75 Uni vers ne 75 mcg 2-01 mcg by ity of tablet 16:07: mouth [place] [address] every Medical morning. Branch raloxifene 0 Yes 60mg Take 60 mg U nivers 60 mg 2-01 by mouth ity of tablet 16:07: daily. [address] montelukast 0 Yes 10mg Take 10 mg [facility] 10 mg 2-01 by mouth ity of tablet 16:07: daily. [address] MULTIVITAMI 0 Yes 1{tbl} Take 1 Un neela N ORAL 2-01 tablet by ity of 16:07: mouth. [address] allopurinoL 0 Yes 100mg Take 100 U nivers 100 mg 2-01 mg by ity of tablet 16:07: mouth in [place] [address] the Medical morning. Branch atorvastati 0 Yes 10mg Take 10 mg [facility] n calcium 2-01 by mouth ity of (ATORVASTAT 16:07: [place]. [place] [address] [place] [address] Branch levothyroxi 0 Yes 75ug Take 75 Uni vers ne 75 mcg 2-01 mcg by ity of tablet 16:07: mouth [place] [address] every Medical morning. Branch raloxifene 0 Yes 60mg Take 60 mg U nivers 60 mg 2-01 by mouth ity of tablet 16:07: daily. [address] montelukast 0 Yes 10mg Take 10 mg [facility] 10 mg 2-01 by mouth ity of tablet 16:07: daily. [address] MULTIVITAMI 0 Yes 1{tbl} Take 1 Un neela N ORAL 2-01 tablet by ity of 16:07: mouth. [address] allopurinoL 0 Yes 100mg Take 100 U nivers 100 mg 2-01 mg by ity of tablet 16:07: mouth in [place] [address] the Medical morning. Branch atorvastati 0 Yes 10mg Take 10 mg [facility] n calcium 2-01 by mouth ity of (ATORVASTAT 16:07: [place]. [place] [facility] levothyroxi 2022-0 Yes 75ug Take 75 Uni vers ne 75 mcg 2-01 mcg by ity of tablet 16:07: mouth [place] [address] every Medical morning. Branch allopurinoL 0 Yes 100mg Take 100 U nivers 100 mg 2-01 mg by ity of tablet 16:07: mouth in [place] [address] the Medical morning. Branch atorvastati 0 Yes 10mg Take 10 mg [facility] n calcium 2-01 by mouth ity of (ATORVASTAT 16:07: daily. [place] 19 [facility] levothyroxi 2022-0 Yes 75ug Take 75 Uni vers ne 75 mcg 2-01 mcg by ity of tablet 16:07: mouth [place] [address] every Medical morning. Branch allopurinoL 0 Yes 100mg Take 100 U nivers 100 mg 2-01 mg by ity of tablet 16:07: mouth in [place] [address] the Medical morning. Branch atorvastati 0 Yes 10mg Take 10 mg [facility] n calcium 2-01 by mouth ity of (ATORVASTAT 16:07: daily. [place] 19 [facility] levothyroxi 2022-0 Yes 75ug Take 75 Uni vers ne 75 mcg 2-01 mcg by ity of tablet 16:07: mouth [place] [address] every Medical morning. Branch allopurinoL 2022-0 Yes 100mg Take 100 U nivers 100 mg 2-01 mg by ity of tablet 16:07: mouth in [place] [address] the Medical morning. Branch atorvastati 2022-0 Yes 10mg Take 10 mg [facility] n calcium 2-01 by mouth ity of (ATORVASTAT 16:07: daily. [place] 19 [facility] levothyroxi 2022-0 Yes 75ug Take 75 Uni vers ne 75 mcg 2-01 mcg by ity of tablet 16:07: mouth [place] [address] every Medical morning. Branch allopurinoL 2022-0 Yes 100mg Take 100 U nivers 100 mg 2-01 mg by ity of tablet 16:07: mouth in [place] 19 the Medical morning. Branch atorvastati 0 Yes 10mg Take 10 mg [facility] n calcium 2-01 by mouth ity of (ATORVASTAT 16:07: daily. [place] 19 [facility] levothyroxi 2022-0 Yes 75ug Take 75 Uni vers ne 75 mcg 2-01 mcg by ity of tablet 16:07: mouth [place] [address] every Medical morning. Branch allopurinoL 0 Yes 100mg Take 100 U nivers 100 mg 2-01 mg by ity of tablet 16:07: mouth in [place] [address] the Medical morning. Branch atorvastati 0 Yes 10mg Take 10 mg [facility] n calcium 2-01 by mouth ity of (ATORVASTAT 16:07: daily. [place] 19 [facility] levothyroxi 2022-0 Yes 75ug Take 75 Uni vers ne 75 mcg 2-01 mcg by ity of tablet 16:07: mouth [place] [address] every Medical morning. Branch allopurinoL 0 Yes 100mg Take 100 U nivers 100 mg 2-01 mg by ity of tablet 16:07: mouth in [place] [address] the Medical morning. Branch atorvastati 0 Yes 10mg Take 10 mg [facility] n calcium 2-01 by mouth ity of (ATORVASTAT 16:07: daily. [place] 19 [facility] levothyroxi 2022-0 Yes 75ug Take 75 Uni vers ne 75 mcg 2-01 mcg by ity of tablet 16:07: mouth [place] [address] every Medical morning. Branch allopurinoL 0 Yes 100mg Take 100 U nivers 100 mg 2-01 mg by ity of tablet 16:07: mouth in [place] [address] the Medical morning. Branch atorvastati 0 Yes 10mg Take 10 mg [facility] n calcium 2-01 by mouth ity of (ATORVASTAT 16:07: daily. [place] 19 [facility] levothyroxi 0 Yes 75ug Take 75 Uni vers ne 75 mcg 2-01 mcg by ity of tablet 16:07: mouth [place] [address] every Medical morning. Branch allopurinoL 2022-0 Yes 100mg Take 100 U nivers 100 mg 2-01 mg by ity of tablet 16:07: mouth in [place] [address] the Medical morning. Branch atorvastati 2022-0 Yes 10mg Take 10 mg [facility] n calcium 2-01 by mouth ity of (ATORVASTAT 16:07: [place] ORAL) 19 Medical Branch levothyroxi 2022-0 Yes 75ug Take 75 Uni vers ne 75 mcg 2-01 mcg by ity of tablet 16:07: mouth [place] [address] every Medical morning. Branch allopurinoL 2022-0 Yes 100mg Take 100 U nivers 100 mg 2-01 mg by ity of tablet 16:07: mouth in [place] [address] the Medical morning. Branch atorvastati 2022-0 Yes 10mg Take 10 mg [facility] n calcium 2-01 by mouth ity of (ATORVASTAT [place]:07[place] 19 [facility] levothyroxi 2022-0 Yes 75ug Take 75 Uni vers ne 75 mcg 2-01 mcg by ity of tablet 16:07: mouth [place] [address] every Medical morning. Branch allopurinoL 2022-0 Yes 100mg Take 100 U nivers 100 mg 2-01 mg by ity of tablet 16:07: mouth in [place] [address] the Medical morning. Branch atorvastati 2022-0 Yes 10mg Take 10 mg [facility] n calcium 2-01 by mouth it[place] of (ATORVASTAT [place]:07[place] 19 [facility] levothyroxi 2022-0 Yes 75ug Take 75 Uni vers ne 75 mcg 2-01 mcg by ity of tablet 16:07: mouth [place] [address] every Medical morning. Branch allopurinoL 2022-0 Yes 100mg Take 100 U nivers 100 mg 2-01 mg by ity of tablet 16:07: mouth in [place] [address] the Medical morning. Branch atorvastati 2022-0 Yes 10mg Take 10 mg [facility] n calcium 2-01 by mouth it[place] of (ATORVASTAT 16:07: [place] 19 [facility] levothyroxi 2022-0 Yes 75ug Take 75 Uni vers ne 75 mcg 2-01 mcg by ity of tablet 16:07: mouth [place] [address] every Medical morning. Branch allopurinoL 2022-0 Yes 100mg Take 100 U nivers 100 mg 2-01 mg by ity of tablet 16:07: mouth in [place] 19 the Medical morning. Branch sacubitriL- 2023-0 Yes [id number] .5{tbl} Take 0.5 Univers valsartan 2-01 tablets by ity of 49-51 mg 00:00: mouth in [place] tablet 00 the Medical morning Branch and 0.5 tablets in the evening. sacubitriL- 2023-0 Yes [id number] .5{tbl} Take 0.5 Univers valsartan 2-01 tablets by ity of 49-51 mg 00:00: mouth in [place] tablet 00 the Medical morning Branch and 0.5 tablets in the evening. sacubitriL- 3-0 Yes [id number] .5{tbl} Take 0.5 Univers valsartan 2-01 tablets by ity of 49-51 mg 00:00: mouth in [place] tablet 00 the [facility] morning Branch and 0.5 tablets in the evening. sacubitriL- 2023-0 Yes [id number] .5{tbl} Take 0.5 Univers valsartan 2-01 tablets by ity of 49-51 mg 00:00: mouth in [place] tablet 00 the [facility] morning Branch and 0.5 tablets in the evening. sacubitriL- 3-0 Yes [id number] .5{tbl} Take 0.5 Univers valsartan 2-01 tablets by ity of 49-51 mg 00:00: mouth in [place] tablet 00 the [facility] Branch and 0.5 tablets in the evening. sacubitriL- 3-0 Yes [id number] .5{tbl} Take 0.5 Univers valsartan 2-01 tablets by ity of 49-51 mg 00:00: mouth in [place] tablet 00 the [facility] morning Branch and 0.5 tablets in the evening. sacubitriL- 2023-0 Yes [id number] .5{tbl} Take 0.5 Univers valsartan 2-01 tablets by ity of 49-51 mg 00:00: mouth in [place] tablet 00 the Medical morning Branch and 0.5 tablets in the evening. sacubitriL- 2023-0 Yes [id number] .5{tbl} Take 0.5 Univers valsartan 2-01 tablets by ity of 49-51 mg 00:00: mouth in [place] tablet 00 the [facility] Branch and 0.5 tablets in the evening. sacubitriL- 3-0 Yes [id number] .5{tbl} Take 0.5 Univers valsartan 2-01 tablets by ity of 49-51 mg 00:00: mouth in [place] tablet 00 the Medical morning Branch and 0.5 tablets in the evening. sacubitriL- 3-0 Yes [id number] .5{tbl} Take 0.5 Univers valsartan 2-01 tablets by ity of 49-51 mg 00:00: mouth in [place] tablet 00 the Medical morning Branch and 0.5 tablets in the evening. sacubitriL- 3-0 Yes [id number] .5{tbl} Take 0.5 Univers valsartan 2-01 tablets by ity of 49-51 mg 00:00: mouth in [place] tablet 00 the Medical morning Branch and 0.5 tablets in the evening. sacubitriL- 3-0 Yes [id number] .5{tbl} Take 0.5 Univers valsartan 2-01 tablets by ity of 49-51 mg 00:00: mouth in [place] tablet 00 the Medical morning Branch and 0.5 tablets in the evening. sacubitriL- 3-0 Yes [id number] .5{tbl} Take 0.5 Univers valsartan 2-01 tablets by ity of 49-51 mg 00:00: mouth in [place] tablet 00 the Medical morning Branch and 0.5 tablets in the evening. sacubitriL- 3-0 Yes [id number] .5{tbl} Take 0.5 Univers valsartan 2-01 tablets by ity of 49-51 mg 00:00: mouth in [place] tablet 00 the Medical morning Branch and 0.5 tablets in the evening. sacubitriL- 3-0 Yes [id number] .5{tbl} Take 0.5 Univers valsartan 2-01 tablets by ity of 49-51 mg 00:00: mouth in [place] tablet 00 the Medical morning Branch and 0.5 tablets in the evening. sacubitriL- 2023-0 Yes [id number] .5{tbl} Take 0.5 Univers valsartan 2-01 tablets by ity of 49-51 mg 00:00: mouth in [place] tablet 00 the Medical morning Branch and 0.5 tablets in the evening. sacubitriL- 3-0 Yes [id number] .5{tbl} Take 0.5 Univers valsartan 2-01 tablets by ity of 49-51 mg 00:00: mouth in [place] tablet 00 the Medical morning Branch and 0.5 tablets in the evening. sacubitriL- 3-0 Yes [id number] .5{tbl} Take 0.5 Univers valsartan 2-01 tablets by ity of 49-51 mg 00:00: mouth in [place] tablet 00 the Medical morning Branch and 0.5 tablets in the evening. sacubitriL- 3-0 Yes [id number] .5{tbl} Take 0.5 Univers valsartan 2-01 tablets by ity of 49-51 mg 00:00: mouth in [place] tablet 00 the Medical morning Branch and 0.5 tablets in the evening. sacubitriL- 3-0 Yes [id number] .5{tbl} Take 0.5 Univers valsartan 2-01 tablets by ity of 49-51 mg 00:00: mouth in [place] tablet 00 the Medical morning Branch and 0.5 tablets in the evening. sacubitriL- 3-0 Yes [id number] .5{tbl} Take 0.5 Univers valsartan 2-01 tablets by ity of 49-51 mg 00:00: mouth in [place] tablet 00 the Medical morning Branch and 0.5 tablets in the evening. sacubitriL- 3-0 Yes [id number] .5{tbl} Take 0.5 Univers valsartan 2-01 tablets by ity of 49-51 mg 00:00: mouth in [place] tablet 00 the Medical morning Branch and 0.5 tablets in the evening. sacubitriL- 3-0 Yes [id number] .5{tbl} Take 0.5 Univers valsartan 2-01 tablets by ity of 49-51 mg 00:00: mouth in [place] tablet 00 the Medical morning Branch and 0.5 tablets in the evening. sacubitriL- 3-0 Yes [id number] .5{tbl} Take 0.5 Univers valsartan 2-01 tablets by ity of 49-51 mg 00:00: mouth in [place] tablet 00 the Medical morning Branch and 0.5 tablets in the evening. sacubitriL- 2023-0 Yes [id number] .5{tbl} Take 0.5 Univers valsartan 2-01 tablets by ity of 49-51 mg 00:00: mouth in [place] tablet 00 the Medical morning Branch and 0.5 tablets in the evening. sacubitriL- 2023-0 Yes [id number] .5{tbl} Take 0.5 Univers valsartan 2-01 tablets by ity of 49-51 mg 00:00: mouth in [place] tablet 00 the Medical morning Branch and 0.5 tablets in the evening. sacubitriL- 2023-0 Yes [id number] .5{tbl} Take 0.5 Univers valsartan 2-01 tablets by ity of 49-51 mg 00:00: mouth in [place] tablet 00 the Medical morning Branch and 0.5 tablets in the evening. sacubitriL- 3-0 Yes [id number] .5{tbl} Take 0.5 Univers valsartan 2-01 tablets by ity of 49-51 mg 00:00: mouth in [place] tablet 00 the Medical morning Branch and 0.5 tablets in the evening. sacubitriL- 3-0 Yes [id number] .5{tbl} Take 0.5 Univers valsartan 2-01 tablets by ity of 49-51 mg 00:00: mouth in [place] tablet 00 the Medical morning Branch and 0.5 tablets in the evening. triamcinolo 2023-0 Yes APPLY TO Un neela [...] [place] 0.1 % cream 00 AFFECTED Medi ardiel AREA TWICE Branch DAILY UP TO 2 [...] UP TO 2 WEEKS/ MONTH NEEDED PROVENTIL 2023-0 Yes Univers HFA 90 1-09 ity of mcg/actuati 00:00: [place] on inhaler 00 Medical Branch PROVENTIL 2023-0 Yes Univers HFA 90 1-09 ity of mcg/actuati 00:00: [place] on inhaler 00 Medical Branch PROVENTIL 2023-0 Yes Univers HFA 90 1-09 ity of mcg/actuati 00:00: [place] on inhaler 00 Medical Branch PROVENTIL 2023-0 Yes Univers HFA 90 1-09 ity of mcg/actuati 00:00: [place] on inhaler 00 Medical Branch PROVENTIL 2023-0 Yes Univers HFA 90 1-09 ity of mcg/actuati 00:00: [place] on inhaler 00 Medical Branch PROVENTIL 0 Yes Univers HFA 90 1-09 ity of [...] mcg/actuati 00:00: [place] on inhaler [facility] HFA 90 1-09 ity of mcg/actuati 00:00: [place] on inhaler [facility] HFA 90 1-09 ity of mcg/actuati 00:00: [place] on inhaler [facility] HFA 90 1-09 ity of mcg/actuati 00:00: [place] on inhaler [facility] HFA 90 1-09 ity of mcg/actuati 00:00: [place] on inhaler [facility] Yes [facility] HFA 90 1-09 ity [...] [place] on inhaler 00 Medical Branch PROVENTIL 202-0 Yes Univers HFA 90 1-09 ity of [...] 25 mg 1-23 ity of tablet 00:00: [place] 00 Medical Branch spironolact 202-1 Yes Univer s one 25 mg 1-23 ity of tablet 00:00: [place] 00 Medical Branch spironolact 2022-1 Yes Univer s one 25 mg 1-23 ity of tablet 00:00: [place] 00 Medical Branch spironolact 2022-1 Yes Univer s one 25 mg 1-23 ity of tablet 00:00: [place] 00 Medical Branch spironolact 2022-1 Yes Univer s one 25 mg 1-23 ity of tablet 00:00: [place] 00 Medical Branch spironolact 2022-1 Yes Univer s one 25 mg 1-23 ity of tablet 00:00: [place] 00 Medical Branch spironolact 2022-1 Yes Univer s one 25 mg 1-23 ity of tablet 00:00: [place] 00 Medical Branch spironolact 2022-1 Yes Univer s one 25 mg 1-23 ity of tablet 00:00: [place] 00 Medical Branch spironolact 2021- Yes Univer s one 25 mg 1-23 ity of tablet 00:00: [place] 00 Medical Branch spironolact 2021- Yes Univer s one 25 mg 1-23 ity of tablet 00:00: [place] [address] Medical Branch spironolact 2021- Yes Univer s one 25 mg 1-23 ity of tablet 00:00: [place] 00 Medical Branch spironolact 2021- Yes Univer s one 25 mg 1-23 ity of tablet 00:00: [place] [address] Medical Branch spironolact 2021- Yes Univer s one 25 mg 1-23 ity of tablet 00:00: [place] [address] Medical Branch spironolact 2021- Yes Univer s one 25 mg 1-23 ity of tablet 00:00: [place] [address] Medical Branch spironolact 2021- Yes Univer s one 25 mg 1-23 ity of tablet 00:00: [place] [address] Medical Branch spironolact 2021- Yes Univer s one 25 mg 1-23 ity of tablet 00:00: [place] [address] Medical Branch spironolact 2021- Yes Univer s one 25 mg 1-23 ity of tablet 00:00: [place] [address] Medical Branch spironolact 2021- Yes Univer s one 25 mg 1-23 ity of tablet 00:00: [place] [address] Medical Branch spironolact 2021-1 Yes Univer s one 25 mg 1-23 ity of tablet 00:00: [place] 00 Medical Branch spironolact 202-1 3- No Unive rs one 25 mg 1-23 08-17 ity of tablet 00:00: 00:00 [place] 00 :00 Medical Branch spironolact 202-1 2022- No Unive rs one 25 mg 1-23 08-17 ity of tablet 00:00: 00:00 [place] 00 :00 Medical Branch spironolact 2021-1 2022- No Unive rs one 25 mg 1-23 08-17 ity of tablet 00:00: 00:00 [place] 00 :00 Medical Branch CARVEDILOL 2-0 No 3.125MG TAB 9-19 00:00: 00 CARVEDILOL 2-0 No 3.125MG TAB 9-19 00:00: 00 TAKE 1 2022-0 No TABLET BY 8-15 MOUTH DAILY 00:00: 00 TAKE 1 2022-0 No TABLET BY 8-15 MOUTH DAILY 00:00: [...] DAILY 00:00: 00 &lt 2022-0 No 25 7-11 00:00: 00 &lt 2022-0 No 100 7- 00:00: 00 Dose 2022-0 No Unknown 7-11 00:00: 00 TAKE 2 2022-0 No 40 TABLETS BY 7-11 MOUTH TWICE 00:00: DAILY 00 &lt 2022-0 No 7-11 00:00: 00 TAKE 1 2022-0 No 10 TABLET BY 7-11 MOUTH DAILY 00:00: 00 TAKE 1 2022-0 No 60 TABLET BY 7-11 MOUTH DAILY 00:00: 00 &lt 2022-0 No 25 7-11 00:00: 00 &lt 2022-0 No 100 7-11 00:00: 00 Dose 2022-0 No Unknown 7 [...] 2022-0 No Unknown 3-08 00:00: 00 Dose 2021-0 No Unknown 3-08 00:00: 00 Dose 2021-0 No Unknown 3-08 00:00: 00 metoprolol 2021-0 Yes 25mg Take 25 mg U nivers succinate 3-03 by mouth. ity o f XL 25 mg 24 00:00: [place] hr tablet 00 Medical Branch metoprolol 2021-0 Yes 25mg Take 25 mg U nivers succinate 3-03 by mouth. ity o f XL 25 mg 24 00:00: [place] hr tablet 00 Medical Branch metoprolol 2021-0 Yes 25mg Take 25 mg U nivers succinate 3-03 by mouth. ity o f XL 25 mg 24 00:00: [place] hr tablet 00 Medical Branch metoprolol 2021-0 Yes 25mg Take 25 mg U nivers succinate 3-03 by mouth. ity o f XL 25 mg 24 00:00: [place] hr tablet 00 Medical Branch metoprolol 2021-0 Yes 25mg Take 25 mg U nivers succinate 3-03 by mouth. ity o f XL 25 mg 24 00:00: [place] hr tablet 00 Medical Branch metoprolol 2021-0 Yes 25mg Take 25 mg U nivers succinate 3-03 by mouth. ity o f XL 25 mg 24 00:00: [place] hr tablet 00 Medical Branch metoprolol 2021-0 Yes 25mg Take 25 mg U nivers succinate 3-03 by mouth. ity o f XL 25 mg 24 00:00: [place] hr tablet 00 Medical Branch metoprolol 2021-0 Yes 25mg Take 25 mg U nivers succinate 3-03 by mouth. ity o f XL 25 mg 24 00:00: [place] hr tablet 00 Medical Branch metoprolol 2021-0 Yes 25mg Take 25 mg U nivers succinate 3-03 by mouth. ity o f XL 25 mg 24 00:00: [place] hr tablet 00 Medical Branch metoprolol 2021-0 Yes 25mg Take 25 mg U nivers succinate 3-03 by mouth. ity o f XL 25 mg 24 00:00: [place] hr tablet 00 Medical Branch metoprolol 2021-0 Yes 25mg Take 25 mg U nivers succinate 3-03 by mouth. ity o f XL 25 mg 24 00:00: [place] hr tablet 00 Medical Branch metoprolol 2021-0 Yes 25mg Take 25 mg U nivers succinate 3-03 by mouth. ity o f XL 25 mg 24 00:00: [place] hr tablet 00 [facility] Branch metoprolol 0 Yes 25mg Take 25 mg U nivers succinate 3-03 by mouth. ity o f XL 25 mg 24 00:00: [place] hr tablet 00 Medical Branch metoprolol 0 Yes 25mg Take 1 Unive rs succinate 3-03 tablet by ity o f XL 25 mg 24 00:00: mouth. [place] hr tablet 00 [facility] Branch metoprolol 0 Yes 25mg Take 1 Unive rs succinate 3-03 tablet by ity o f XL 25 mg 24 00:00: mouth. [place] hr tablet 00 [facility] metoprolol Yes 25mg Take 1 Unive rs succinate 3-03 tablet by ity o f XL 25 mg 24 00:00: mouth. [place] hr tablet 00 [facility] Branch metoprolol Yes 25mg Take 1 Unive rs succinate 3-03 tablet by ity o f XL 25 mg 24 00:00: mouth. [place] hr tablet [facility] Branch metoprolol Yes 25mg Take 1 Unive rs succinate 3-03 tablet by ity o f XL 25 mg 24 00:00: mouth. [place] hr tablet [facility] Branch metoprolol Yes 25mg Take 1 Unive rs succinate 3-03 tablet by ity o f XL 25 mg 24 00:00: mouth. [place] hr tablet 00 [facility] Branch metoprolol 0 2022- No 25mg Take 1 Univ ers succinate 3-03 08-17 tablet by ity of XL 25 mg 24 00:00: 00:00 mouth. [place] tablet 00 :00 [facility] Branch metoprolol 0 3- No 25mg Take 1 Univ ers succinate 3-03 08-17 tablet by ity of XL 25 mg 24 00:00: 00:00 mouth. [place] tablet 00 :00 [facility] Branch metoprolol 0 3- No 25mg Take 1 Univ ers succinate 3-03 08-17 tablet by ity of XL 25 mg 24 00:00: 00:00 mouth. [place] tablet 00 :00 [facility] Branch Dose 2021-0 No Unknown 3- 00:00: 00 raloxifene 2022-0 No 1mg 60 [...] tablet,exte 00 nded release 24 hr furosemide 1-1 No 2mg 40 mg 2-30 tablet 00:00: 00 furosemide 1-1 No 1mg 40 mg 2-30 tablet 00:00: 00 furosemide 1-1 No 2mg 40 mg 2-30 tablet 00:00: 00 furosemide 1-1 No 1mg 40 mg 2-30 tablet 00:00: 00 furosemide 1-1 No 2mg 40 mg 2-30 tablet 00:00: 00 furosemide 1-1 No 1mg 40 mg 2-30 tablet 00:00: 00 levothyroxi 1-1 No 1mcg ne 75 mcg 2-27 tablet 00:00: 00 levothyroxi 1-1 No 1mcg ne 75 mcg 2-27 tablet 00:00: 00 levothyroxi 1-1 No 1mcg ne 75 mcg 2-27 tablet 00:00: 00 magnesium 1-1 No 1mg oxide 400 1-24 magnesi mg [...] tablet 00:00: 00 Dose 2020-02 No Unknown -16 00:00: 00 Dose 2020-02 No Unknown 16 00:00: 00 Dose 2020-02 No Unknown 1-16 [...] 2020-02 No Unknown 1-16 00:00: 00 furosemide 2021-1 No 2mg 40 mg 1-16 tablet 00:00: 00 Entresto 49 2020-1 No 5mg mg-51 mg 1-16 tablet 00:00: 00 levothyroxi 2020-1 No 1mcg ne 75 mcg 1-16 tablet 00:00: 00 Flonase 2020-1 No 1mcg/ac Allergy 1-16 tuation Relief 50 00:00: mcg/actuati 00 on nasal spray,suspe nsion montelukast 2020-1 No 1mg 10 mg 0-13 tablet 00:00: 00 montelukast 1-1 No 1mg 10 mg 0-13 tablet 00:00: 00 montelukast 2020-1 No 1mg 10 mg 0-13 tablet 00:00: 00 Dose 2021-0 No Unknown 9-11 00:00: 00 Dose 1-0 [...] 60 mg 4-21 tablet 00:00: 00 furosemide 1-0 No 1mg 40 mg 3-26 [...] mcg/actuati 00 on nasal spray,suspe nsion atorvastati 1-0 No 1mg n 10 mg 2-19 tablet 00:00: 00 atorvastati 1-0 No 1mg n 10 mg 2-19 tablet 00:00: 00 atorvastati 1-0 No 1mg n 10 mg 2-19 tablet 00:00: 00 ProAir HFA 2021-0 No 1mcg/ac 90 2-04 tuation mcg/actuati 00:00: on aerosol 00 inhaler allopurinol 2021-0 No 1mg 100 mg 2-04 tablet 00:00: 00 ProAir HFA 2021-0 No 1mcg/ac 90 2-04 tuation mcg/actuati 00:00: on aerosol 00 inhaler allopurinol 2021-0 No 1mg 100 mg 2-04 tablet 00:00: 00 ProAir HFA 2021-0 No [...] 00 on nasal spray,suspe nsion Entresto 49 2020-0 No 5mg mg-51 mg 1-15 tablet 00:00: 00 Entresto 49 1-0 No 5mg mg-51 mg 1-15 tablet 00:00: 00 Flonase 2020-0 No 1mcg/ac Allergy 1-15 tuation Relief 50 00:00: mcg/actuati 00 on nasal spray,suspe nsion Flonase 2020-0 No 1mcg/ac Allergy 1-15 tuation Relief 50 00:00: mcg/actuati 00 on nasal spray,suspe nsion Entresto 49 2020-0 No 5mg mg-51 mg 1-15 tablet 00:00: 00 Entresto 49 1-0 No 5mg mg-51 mg 1-15 tablet 00:00: 00 Flonase 1-0 No 1mcg/ac Allergy 1-15 tuation Relief 50 00:00: mcg/actuati 00 on nasal spray,suspe nsion Flonase 1-0 No 1mcg/ac Allergy 1-15 tuation Relief 50 00:00: mcg/actuati 00 on nasal spray,suspe nsion montelukast 2019-1 No 1mg 10 mg 2-07 tablet 00:00: 00 montelukast 2020-1 No 1mg 10 mg 2-07 tablet 00:00: 00 montelukast 2020-1 No 1mg 10 mg 2-07 tablet 00:00: 00 raloxifene 2020-1 No 1mg 60 mg 1-10 tablet 00:00: 00 raloxifene 2020-1 No 1mg 60 mg 1-10 tablet 00:00: 00 raloxifene 2019-1 No 1mg 60 mg 1-10 tablet 00:00: [...] it y of oitin A 22:45: mouth [place] (GLUCOSAMIN 56 daily. Medica l E-CHONDR-MS Branch M ORAL) LUTEIN ORAL 2020-0 Yes 30mg Take 30 mg Univers 6-02 by mouth ity of 22:45: daily. [address] Branch montelukast 2020-0 Yes 10mg Take 10 mg Univers 10 mg 6-02 by mouth ity of tablet 22:45: daily. [address] Branch MULTIVITAMI 2020-0 Yes 1{tbl} Take 1 Un neela N ORAL 6-02 tablet by ity of 22:45: mouth. [address] Branch sacubitril- 2020-0 Yes 1{tbl} Take 1 Un neela valsartan 6-02 tablet by ity o f 24-26 mg 22:45: mouth 2 [place] tablet (two) Medical times Branch daily. CARVEDILOL 2020-0 Yes 3.125mg Take 3.125 Univers ORAL 6-02 mg by ity of 22:45: mouth 2 [place] [address] (two) Medical times Branch daily. atorvastati 2020-0 Yes 10mg Take 10 mg Univers n calcium 6-02 by mouth ity of (ATORVASTAT 22:45: [place]. [place] Medical Branch levothyroxi 2020-0 Yes 75ug Take 75 Uni vers ne 100 mcg 6-02 mcg by ity of tablet 22:45: mouth [place] [address] every Medical morning. Branch raloxifene 2019-0 Yes 60mg Take 60 mg U nivers (EVISTA) 60 6-02 by mouth ity of mg tablet 22:45: daily. [address] Branch glucosamine 2020-0 Yes 2{tbl} Take 2 Un neela /msm/chondr 6-02 tablets by it y of oitin A 22:45: mouth [place] (GLUCOSAMIN 56 daily. Medica l E-CHONDR-MS Branch M ORAL) LUTEIN ORAL 2020-0 Yes 30mg Take 30 mg Univers 6-02 by mouth ity of 22:45: daily. [address] montelukast 2020-0 Yes 10mg Take 10 mg Univers 10 mg 6-02 by mouth ity of tablet 22:45: daily. [address] MULTIVITAMI 2020-0 Yes 1{tbl} Take 1 Un neela N ORAL 6-02 tablet by ity of 22:45: mouth. [address] Branch sacubitril- 2020-0 Yes 1{tbl} Take 1 Un neela valsartan 6-02 tablet by ity o f 24-26 mg 22:45: mouth 2 [place] tablet 56 (two) Medical times Branch daily. CARVEDILOL 2020-0 Yes 3.125mg Take 3.125 Univers ORAL 6-02 mg by ity of 22:45: mouth 2 [place] 56 (two) Medical times Branch daily. atorvastati 2020-0 Yes 10mg Take 10 mg Univers n calcium 6-02 by mouth ity of (ATORVASTAT 22:45: [place]. [place] Medical Branch levothyroxi 2019-0 Yes 75ug Take 75 Uni vers ne 100 mcg 6-02 mcg by ity of tablet 22:45: mouth [place] [address] every Medical morning. Branch raloxifene 2019-0 Yes 60mg Take 60 mg U nivers (EVISTA) 60 6-02 by mouth ity of mg tablet 22:45: daily. [address] Branch glucosamine 2019-0 Yes 2{tbl} Take 2 Un neela /msm/chondr 6-02 tablets by it y of oitin A 22:45: mouth [place] (GLUCOSAMIN 56 daily. Medica l E-CHONDR-MS Branch M ORAL) LUTEIN ORAL 2020-0 Yes 30mg Take 30 mg Univers 6-02 by mouth ity of 22:45: daily. [address] montelukast 2020-0 Yes 10mg Take 10 mg Univers 10 mg 6-02 by mouth ity of tablet 22:45: daily. [address] MULTIVITAMI 2020-0 Yes 1{tbl} Take 1 Un neela N ORAL 6-02 tablet by ity of 22:45: mouth. [address] Branch sacubitril- 2020-0 Yes 1{tbl} Take 1 Un neela valsartan 6-02 tablet by ity o f 24-26 mg 22:45: mouth 2 [place] tablet (two) Medical times Branch daily. CARVEDILOL 2020-0 Yes 3.125mg Take 3.125 Univers ORAL 6-02 mg by ity of 22:45: mouth 2 [place] [address] (two) Medical times Branch daily. atorvastati 2020-0 Yes 10mg Take 10 mg Univers n calcium 6-02 by mouth ity of (ATORVASTAT 22:45: [place]. [place] Medical Branch levothyroxi 2019-0 Yes 75ug Take 75 Uni vers ne 100 mcg 6-02 mcg by ity of tablet 22:45: mouth [place] [address] every Medical morning. Branch raloxifene 2019-0 Yes 60mg Take 60 mg U nivers (EVISTA) 60 6-02 by mouth ity of mg tablet 22:45: daily. [place] [address] Medical Branch glucosamine 2019-0 Yes 2{tbl} Take 2 Un neela /msm/chondr 6-02 tablets by it y of oitin A 22:45: mouth [place] (GLUCOSAMIN 56 daily. Medica l E-CHONDR-MS Branch M ORAL) LUTEIN ORAL 2019-0 Yes 30mg Take 30 mg Univers 6-02 by mouth ity of 22:45: daily. [address] Branch montelukast 2019-0 Yes 10mg Take 10 mg Univers 10 mg 6-02 by mouth ity of tablet 22:45: daily. [address] Branch MULTIVITAMI 2019-0 Yes 1{tbl} Take 1 Un neela N ORAL 6-02 tablet by ity of 22:45: mouth. [place] [address] Medical Branch sacubitril- 2019-0 Yes 1{tbl} Take 1 Un neela valsartan 6-02 tablet by ity o f 24-26 mg 22:45: mouth 2 [place] tablet (two) Medical times Branch daily. CARVEDILOL 2019-0 Yes 3.125mg Take 3.125 Univers ORAL 6-02 mg by ity of 22:45: mouth 2 [place] [address] (two) Medical times Branch daily. atorvastati 2019-0 Yes 10mg Take 10 mg Univers n calcium 6-02 by mouth ity of (ATORVASTAT 22:45: [place] Medical Branch levothyroxi 2019-0 Yes 75ug Take 75 Uni vers ne 100 mcg 6-02 mcg by ity of tablet 22:45: mouth [place] [address] every Medical morning. Branch raloxifene 2019-0 Yes 60mg Take 60 mg U nivers (EVISTA) 60 6-02 by mouth ity of mg tablet 22:45: daily. [address] Branch glucosamine 2019-0 Yes 2{tbl} Take 2 Un neela /msm/chondr 6-02 tablets by it y of oitin A 22:45: mouth [place] (GLUCOSAMIN 56 daily. Medica l E-CHONDR-MS Branch M ORAL) LUTEIN ORAL 2020-0 Yes 30mg Take 30 mg Univers 6-02 by mouth ity of 22:45: daily. [address] montelukast 2020-0 Yes 10mg Take 10 mg Univers 10 mg 6-02 by mouth ity of tablet 22:45: daily. [address] Branch MULTIVITAMI 2020-0 Yes 1{tbl} Take 1 Un neela N ORAL 6-02 tablet by ity of 22:45: mouth. [address] Branch sacubitril- 2020-0 Yes 1{tbl} Take 1 Un neela valsartan 6-02 tablet by ity o f 24-26 mg 22:45: mouth 2 [place] tablet (two) Medical times Branch daily. CARVEDILOL 2020-0 Yes 3.125mg Take 3.125 Univers ORAL 6-02 mg by ity of 22:45: mouth 2 [place] [address] (two) Medical times Branch daily. atorvastati 2020-0 Yes 10mg Take 10 mg Univers n calcium 6-02 by mouth ity of (ATORVASTAT 22:45: [place] Medical Branch levothyroxi 2019-0 Yes 75ug Take 75 Uni vers ne 100 mcg 6-02 mcg by ity of tablet 22:45: mouth [place] [address] every Medical morning. Branch raloxifene 2019-0 Yes 60mg Take 60 mg U nivers (EVISTA) 60 6-02 by mouth ity of mg tablet 22:45: daily. [address] glucosamine 2020-0 Yes 2{tbl} Take 2 Un neela /msm/chondr 6-02 tablets by it y of oitin A 22:45: mouth [place] (GLUCOSAMIN 56 daily. Medica l E-CHONDR-MS Branch M ORAL) LUTEIN ORAL 2020-0 Yes 30mg Take 30 mg Univers 6-02 by mouth ity of 22:45: daily. [address] montelukast 2020-0 Yes 10mg Take 10 mg Univers 10 mg 6-02 by mouth ity of tablet 22:45: daily. [address] MULTIVITAMI 2020-0 Yes 1{tbl} Take 1 Un neela N ORAL 6-02 tablet by ity of 22:45: mouth. [address] sacubitril- 2020-0 Yes 1{tbl} Take 1 Un neela valsartan 6-02 tablet by ity o f 24-26 mg 22:45: mouth 2 [place] [id number] (two) Medical times Branch daily. CARVEDILOL 2020-0 Yes 3.125mg Take 3.125 [facility] ORAL 6-02 mg by ity of 22:45: mouth 2 [place] [address] (two) Medical times Branch daily. atorvastati 2020-0 Yes 10mg Take 10 mg [facility] n calcium 6-02 by mouth ity of (ATORVASTAT 22:[place] [facility] [place] levothyroxi 2020-0 Yes 75ug Take 75 [facility] vers ne 100 mcg 6-02 mcg by ity of tablet 22:45: mouth [place] [address] every Medical morning. Branch raloxifene 2020-0 Yes 60mg Take 60 mg U nivers (EVISTA) 60 6-02 by mouth ity of mg tablet 22:45: daily. [address] LUTEIN ORAL 2020-0 Yes 30mg Take 30 mg [facility] 6-02 by mouth ity of 17:45: daily. [address] LUTEIN ORAL 2020-0 Yes 30mg Take 30 mg [facility] 6-02 by mouth ity of 17:45: daily. [address] LUTEIN ORAL 2020-0 Yes 30mg Take 30 mg [facility] 6-02 by mouth ity of 17:45: daily. [address] LUTEIN ORAL 2020-0 Yes 30mg Take 30 mg [facility] 6-02 by mouth ity of 17:45: daily. [address] CARVEDILOL 2020-0 Yes 3.125mg Take 3.125 [facility] ORAL 6-02 mg by ity of 17:45: mouth 2 [place] [address] (two) Medical times [place] daily. atorvastati 2020-0 Yes 10mg Take 10 mg [facility] n calcium 6-02 by mouth [facility] [place] (ATORVASTAT 17:[place] [facility] levothyroxi 2020-0 Yes 75ug Take 75 [facility] vers ne 100 mcg 6-02 mcg by ity of tablet 17:45: mouth [place] [address] every Medical morning. Branch raloxifene 2020-0 Yes 60mg Take 60 mg U nivers (EVISTA) 60 6-02 by mouth ity of mg tablet 17:45: daily. [address] Branch glucosamine 2020-0 Yes 2{tbl} Take 2 Un neela /msm/chondr 6-02 tablets by it y of oitin A 17:45: mouth [place] (GLUCOSAMIN 56 daily. Medica l E-CHONDR-MS Branch M ORAL) LUTEIN ORAL 2020-0 Yes 30mg Take 30 mg [facility] 6-02 by mouth ity of 17:45: daily. [address] Branch montelukast 2020-0 Yes 10mg Take 10 mg [facility] 10 mg 6-02 by mouth ity of tablet 17:45: daily. [address] Branch MULTIVITAMI 2020-0 Yes 1{tbl} Take 1 Un neela N ORAL 6-02 tablet by ity of 17:45: mouth. [address] Branch sacubitril- 2020-0 Yes 1{tbl} Take 1 Un neela valsartan 6-02 tablet by ity o f 24-26 mg 17:45: mouth 2 [place] [address] (two) Medical times Branch daily. CARVEDILOL 2020-0 Yes 3.125mg Take 3.125 [facility] ORAL 6-02 mg by ity of 17:45: mouth 2 [place] [address] (two) Medical times Branch daily. atorvastati 2020-0 Yes 10mg Take 10 mg [facility] n calcium 6-02 by mouth ity of (ATORVASTAT 17:[place]: [place]. [place]AL[place] [facility] levothyroxi 2020-0 Yes 75ug Take 75 [facility] vers ne 100 mcg 6-02 mcg by ity of tablet 17:45: mouth [place] [address] every Medical morning. Branch raloxifene 2020-0 Yes 60mg Take 60 mg U nivers (EVISTA) 60 6-02 by mouth ity of mg tablet 17:45: daily. [address] glucosamine 2020-0 Yes 2{tbl} Take 2 Un neela /msm/chondr 6-02 tablets by it y of oitin A 17:45: mouth [place] (GLUCOSAMIN 56 daily. Medica l E-CHONDR-MS Branch M ORAL) LUTEIN ORAL 2020-0 Yes 30mg Take 30 mg [facility] 6-02 by mouth ity of 17:45: daily. [address] montelukast 2020-0 Yes 10mg Take 10 mg [facility] 10 mg 6-02 by mouth ity of tablet 17:45: daily. [address] Branch MULTIVITAMI 2020-0 Yes 1{tbl} Take 1 Un neela N ORAL 6-02 tablet by ity of 17:45: mouth. [address] Branch sacubitril- 2020-0 Yes 1{tbl} Take 1 Un neela valsartan 6-02 tablet by ity o f 24-26 mg 17:45: mouth 2 [place] tablet 56 (two) Medical times Branch daily. [...] mcg by ity of tablet 17:45: mouth [place] [address] every Medical morning. Branch raloxifene 2019-0 Yes 60mg Take 60 mg U nivers (EVISTA) 60 6-02 by mouth ity of mg tablet 17:45: daily. [address] glucosamine 2019-0 Yes 2{tbl} Take 2 Un neela /msm/chondr 6-02 tablets by it y of oitin A 17:45: mouth [place] (GLUCOSAMIN 56 daily. Medica l E-CHONDR-MS Branch M ORAL) LUTEIN ORAL 2019-0 Yes 30mg Take 30 mg [facility] 6-02 by mouth ity of 17:45: daily. [address] Branch montelukast 2019-0 Yes 10mg Take 10 mg [facility] 10 mg 6-02 by mouth ity of tablet 17:45: daily. [address] Branch MULTIVITAMI 2020-0 Yes 1{tbl} Take 1 Un neela N ORAL 6-02 tablet by ity of 17:45: mouth. [address] Branch sacubitril- 2019-0 Yes 1{tbl} Take 1 Un neela valsartan 6-02 tablet by ity o f 24-26 mg 17:45: mouth 2 [place] tablet 56 (two) Medical times Branch daily. CARVEDILOL 2020-0 Yes 3.125mg Take 3.125 [facility] ORAL 6-02 mg by ity of 17:45: mouth 2 [place] [address] (two) Medical times Branch daily. atorvastati 2020-0 Yes 10mg Take 10 mg [facility] n calcium 6-02 by mouth ity of (ATORVASTAT 17:45: [place]. [place]AL[place] [facility] levothyroxi 2019-0 Yes 75ug Take 75 [facility] vers ne 100 mcg 6-02 mcg by ity of tablet 17:45: mouth [place] [address] every Medical morning. Branch raloxifene 2019-0 Yes 60mg Take 60 mg U nivers (EVISTA) 60 6-02 by mouth ity of mg tablet 17:45: daily. [address] Branch glucosamine 2019-0 Yes 2{tbl} Take 2 Un neela /msm/chondr 6-02 tablets by it y of oitin A 17:45: mouth [place] (GLUCOSAMIN 56 daily. Medica l E-CHONDR-MS Branch M ORAL) LUTEIN ORAL 2019-0 Yes 30mg Take 30 mg [facility] 6-02 by mouth ity of 17:45: daily. [address] Branch montelukast 2019-0 Yes 10mg Take 10 mg [facility] 10 mg 6-02 by mouth ity of tablet 17:45: daily. [address] Branch MULTIVITAMI 2020-0 Yes 1{tbl} Take 1 Un neela N ORAL 6-02 tablet by ity of 17:45: mouth. [address] Branch sacubitril- 2019-0 Yes 1{tbl} Take 1 Un neela valsartan 6-02 tablet by ity o f 24-26 mg 17:45: mouth 2 [place] [address] (two) Medical times Branch daily. CARVEDILOL 2020-0 Yes 3.125mg Take 3.125 [facility] ORAL 6-02 mg by ity of 17:45: mouth 2 [place] [address] (two) Medical times Branch daily. atorvastati 2019-0 Yes 10mg Take 10 mg [facility] n calcium 6-02 by mouth ity of (ATORVASTAT 17:45: [place]. [place]AL[place] [facility] levothyroxi 2019-0 Yes 75ug Take 75 [facility] vers ne 100 mcg 6-02 mcg by ity of tablet 17:45: mouth [place] [address] every Medical morning. Branch raloxifene 2019-0 Yes 60mg Take 60 mg U nivers (EVISTA) 60 6-02 by mouth ity of mg tablet 17:45: daily. [address] glucosamine 2020-0 Yes 2{tbl} Take 2 Un neela /msm/chondr 6-02 tablets by it y of oitin A 17:45: mouth [place] (GLUCOSAMIN 56 daily. Medica l E-CHONDR-MS Branch M ORAL) LUTEIN ORAL 2020-0 Yes 30mg Take 30 mg [facility] 6-02 by mouth ity of 17:45: daily. [address] montelukast 2020-0 Yes 10mg Take 10 mg [facility] 10 mg 6-02 by mouth ity of tablet 17:45: daily. [address] MULTIVITAMI 2020-0 Yes 1{tbl} Take 1 Un neela N ORAL 6-02 tablet by ity of 17:45: mouth. [address] sacubitril- 2020-0 Yes 1{tbl} Take 1 [...] 6-02 by mouth ity of 17:45: daily. [address] glucosamine 2020-0 Yes 2{tbl} Take 2 Un neela /msm/chondr 6-02 tablets by it y of oitin A 17:45: mouth [place] (GLUCOSAMIN 56 daily. Medica l E-CHONDR-MS Branch M ORAL) LUTEIN ORAL 2020-0 Yes 30mg Take 30 mg [facility] 6-02 by mouth ity of 17:45: daily. [address] glucosamine 2020-0 Yes 2{tbl} Take 2 Un neela /msm/chondr 6-02 tablets by it y of oitin A 17:45: mouth [place] (GLUCOSAMIN 56 daily. Medica l E-CHONDR-MS Branch M ORAL) LUTEIN ORAL 2020-0 Yes 30mg Take 30 mg [facility] 6-02 by mouth ity of 17:45: daily. [address] glucosamine 2020-0 Yes 2{tbl} Take 2 Un neela /msm/chondr 6-02 tablets by it y of oitin A 17:45: mouth [place] (GLUCOSAMIN 56 daily. Medica l E-CHONDR-MS Branch M ORAL) LUTEIN ORAL 2020-0 Yes 30mg Take 30 mg [facility] 6-02 by mouth ity of 17:45: daily. [address] glucosamine 2020-0 Yes 2{tbl} Take 2 Un neela /msm/chondr 6-02 tablets by it y of oitin A 17:45: mouth [place] (GLUCOSAMIN 56 daily. Medica l E-CHONDR-MS Branch ORAL) LUTEIN ORAL 2020-0 Yes 30mg Take 30 mg [facility] 6-02 by mouth ity of 17:45: daily. [address] glucosamine 2020-0 Yes 2{tbl} Take 2 Un neela /msm/chondr 6-02 tablets by it y of oitin A 17:45: mouth [place] (GLUCOSAMIN 56 daily. Medica l E-CHONDR-MS Branch ORAL) LUTEIN ORAL 2020-0 Yes 30mg Take 30 mg [facility] 6-02 by mouth ity of 17:45: daily. [address] glucosamine 2020-0 Yes 2{tbl} Take 2 Un neela /msm/chondr 6-02 tablets by it y of oitin A 17:45: mouth [place] (GLUCOSAMIN 56 daily. Medica l E-CHONDR-MS Branch ORAL) LUTEIN ORAL 2020-0 Yes 30mg Take 30 mg [facility] 6-02 by mouth ity of 17:45: daily. [address] glucosamine 2020-0 Yes 2{tbl} Take 2 Un neela /msm/chondr 6-02 tablets by it y of oitin A 17:45: mouth [place] (GLUCOSAMIN 56 daily. Medica l E-CHONDR-MS Branch M ORAL) LUTEIN ORAL 2020-0 Yes 30mg Take 30 mg [facility] 6-02 by mouth ity of 17:45: daily. [address] glucosamine 2020-0 Yes 2{tbl} Take 2 Un neela /msm/chondr 6-02 tablets by it y of oitin A 17:45: mouth [place] (GLUCOSAMIN 56 daily. Medica l E-CHONDR-MS Branch M ORAL) LUTEIN ORAL 2020-0 Yes 30mg Take 30 mg [facility] 6-02 by mouth ity of 17:45: daily. [address] glucosamine 2020-0 Yes 2{tbl} Take 2 Un neela /msm/chondr 6-02 tablets by it y of oitin A 17:45: mouth [place] (GLUCOSAMIN 56 daily. Medica l E-CHONDR-MS Branch M ORAL) LUTEIN ORAL 2020-0 Yes 30mg Take 30 mg [facility] 6-02 by mouth ity of 17:45: daily. [address] glucosamine 2020-0 Yes 2{tbl} Take 2 Un neela /msm/chondr 6-02 tablets by it y of oitin A 17:45: mouth [place] (GLUCOSAMIN 56 daily. Medica l E-CHONDR-MS Branch M ORAL) LUTEIN ORAL 2020-0 Yes 30mg Take 30 mg [facility] 6-02 by mouth ity of 17:45: daily. [address] glucosamine 2020-0 Yes 2{tbl} Take 2 Un neela /msm/chondr 6-02 tablets by it y of oitin A 17:45: mouth [place] (GLUCOSAMIN 56 daily. Medica l E-CHONDR-MS Branch M ORAL) LUTEIN ORAL 2020-0 Yes 30mg Take 30 mg [facility] 6-02 by mouth ity of 17:45: daily. [address] glucosamine 2020-0 Yes 2{tbl} Take 2 Un neela /msm/chondr 6-02 tablets by it y of oitin A 17:45: mouth [place] (GLUCOSAMIN 56 daily. Medica l E-CHONDR-MS Branch M ORAL) LUTEIN ORAL 2020-0 Yes 30mg Take 30 mg [facility] 6-02 by mouth ity of 17:45: daily. [address] glucosamine 2020-0 Yes 2{tbl} Take 2 Un neela /msm/chondr 6-02 tablets by it y of oitin A 17:45: mouth [place] (GLUCOSAMIN 56 daily. Medica l E-CHONDR-MS Branch M ORAL) LUTEIN ORAL 2020-0 Yes 30mg Take 30 mg [facility] 6-02 by mouth ity of 17:45: daily. [address] glucosamine 2020-0 Yes 2{tbl} Take 2 Un neela /msm/chondr 6-02 tablets by it y of oitin A 17:45: mouth [place] (GLUCOSAMIN 56 daily. Medica l E-CHONDR-MS [facility] ORAL) LUTEIN ORAL 2020-0 Yes 30mg Take 30 mg [facility] 6-02 by mouth ity of 17:45: daily. [address] glucosamine 2020-0 Yes 2{tbl} Take 2 Un neela /msm/chondr 6-02 tablets by it y of oitin A 17:45: mouth [place] (GLUCOSAMIN 56 daily. [facility] E-CHONDR-MS [facility] ORAL) LUTEIN ORAL 2020-0 Yes 30mg Take 30 mg [facility] 6-02 by mouth ity of 17:45: daily. [address] glucosamine 2020-0 Yes 2{tbl} Take 2 Un neela /msm/chondr 6-02 tablets by it y of oitin A 17:45: mouth [place] (GLUCOSAMIN 56 daily. [facility] E-CHONDR-MS [facility] ORAL) LUTEIN ORAL 2020-0 Yes 30mg Take 30 mg [facility] 6-02 by mouth ity of 17:45: daily. [address] glucosamine 2020-0 Yes 2{tbl} Take 2 Un neela /msm/chondr 6-02 tablets by it y of oitin A 17:45: mouth [place] (GLUCOSAMIN 56 daily. [facility] E-CHONDR-MS [facility] ORAL) LUTEIN ORAL 2020-0 Yes 30mg Take 30 mg [facility] 6-02 by mouth ity of 17:45: daily. [address] glucosamine 2020-0 Yes 2{tbl} Take 2 Un neela /msm/chondr 6-02 tablets by it y of oitin A 17:45: mouth [place] (GLUCOSAMIN 56 daily. [facility]ONDR-[facility] ORAL) LUTEIN ORAL 2020-0 Yes 30mg Take 30 mg [facility] 6-02 by mouth ity of 17:45: daily. [address] LUTEIN ORAL 2020-0 Yes 30mg Take 30 mg [facility] 6-02 by mouth ity of 17:45: daily. [address] LUTEIN ORAL 2020-0 Yes 30mg Take 30 mg [facility] 6-02 by mouth ity of 17:45: daily. [address] LUTEIN ORAL 2020-0 Yes 30mg Take 30 mg [facility] 6-02 by mouth ity of 17:45: daily. [address] LUTEIN ORAL 2020-0 Yes 30mg Take 30 mg [facility] 6-02 by mouth ity of 17:45: daily. [place] [address] Medical Branch LUTEIN ORAL 2020-0 Yes 30mg Take 30 mg [facility] 6-02 by mouth ity of 17:45: daily. [place] [address] Medical Branch LUTEIN ORAL 2020-0 Yes 30mg Take 30 mg [facility] 6-02 by mouth ity of 17:45: daily. [place] [address] Medical Branch furosemide 2020-0 Yes [id number] 80mg Take 2 [facility] 40 mg 6-02 tablets by ity of tablet 00:00: mouth [place] 00 daily. Medical Branch KCL 20 mEq 2020-0 Yes [id number] 20meq Take 1 [facility] tablet 6-02 tablet by ity of 00:00: mouth [place] 00 daily. Medical Branch furosemide 2020-0 Yes [id number] 80mg Take 2 [facility] 40 mg 6-02 tablets by ity of tablet 00:00: mouth [place] 00 daily. Medical Branch KCL 20 mEq 2020-0 Yes [id number] 20meq Take 1 [facility] tablet 6-02 tablet by ity of 00:00: mouth [place] 00 daily. Medical Branch furosemide 2020-0 Yes [id number] 80mg Take 2 [facility] 40 mg 6-02 tablets by ity of tablet 00:00: mouth [place] 00 daily. Medical Branch KCL 20 mEq 2020-0 Yes [id number] 20meq Take 1 [facility] tablet 6-02 tablet by ity of 00:00: mouth [place] 00 daily. Medical Branch furosemide 2020-0 Yes [id number] 80mg Take 2 [facility] 40 mg 6-02 tablets by ity of tablet 00:00: mouth [place] 00 daily. Medical Branch KCL 20 mEq 2020-0 Yes [id number] 20meq Take 1 [facility] tablet 6-02 tablet by ity of 00:00: mouth [place] 00 daily. Medical Branch furosemide 2020-0 Yes [id number] 80mg Take 2 [facility] 40 mg 6-02 tablets by ity of tablet 00:00: mouth [place] 00 daily. Medical Branch KCL 20 mEq 2020-0 Yes [id number] 20meq Take 1 [facility] tablet 6-02 tablet by ity of 00:00: mouth [place] 00 daily. Medical Branch furosemide 2020-0 Yes [id number] 80mg Take 2 [facility] 40 mg 6-02 tablets by ity of tablet 00:00: mouth [place] 00 daily. Medical Branch KCL 20 mEq 2020-0 Yes [id number] 20meq Take 1 [facility] tablet 6-02 tablet by ity of 00:00: mouth [place] 00 daily. Medical Branch furosemide 2020-0 Yes [id number] 80mg Take 2 [facility] 40 mg 6-02 tablets by ity of tablet 00:00: mouth [place] 00 daily. Medical Branch KCL 20 mEq 2020-0 Yes [id number] 20meq Take 1 [facility] tablet 6-02 tablet by ity of 00:00: mouth [place] 00 daily. Medical Branch furosemide 2020-0 Yes [id number] 80mg Take 2 [facility] 40 mg 6-02 tablets by ity of tablet 00:00: mouth [place] 00 daily. Medical Branch KCL 20 mEq 2020-0 Yes [id number] 20meq Take 1 [facility] tablet 6-02 tablet by ity of 00:00: mouth [place] 00 daily. Medical Branch furosemide 2020-0 Yes [id number] 80mg Take 2 [facility] 40 mg 6-02 tablets by ity of tablet 00:00: mouth [place] 00 daily. Medical Branch KCL 20 mEq 2020-0 Yes [id number] 20meq Take 1 [facility] tablet 6-02 tablet by ity of 00:00: mouth [place] 00 daily. Medical Branch furosemide 2020-0 Yes [id number] 80mg Take 2 [facility] 40 mg 6-02 tablets by ity of tablet 00:00: mouth [place] 00 daily. Medical Branch KCL 20 mEq 2020-0 Yes [id number] 20meq Take 1 [facility] tablet 6-02 tablet by ity of 00:00: mouth [place] 00 daily. Medical Branch furosemide 2020-0 Yes [id number] 80mg Take 2 [facility] 40 mg 6-02 tablets by ity of tablet 00:00: mouth [place] 00 daily. Medical Branch KCL 20 mEq 2020-0 Yes [id number] 20meq Take 1 [facility] tablet 6-02 tablet by ity of 00:00: mouth [place] 00 daily. Medical Branch furosemide 2020-0 Yes [id number] 80mg Take 2 [facility] 40 mg 6-02 tablets by ity of tablet 00:00: mouth [place] 00 daily. Medical Branch KCL 20 mEq 2020-0 Yes [id number] 20meq Take 1 [facility] tablet 6-02 tablet by ity of 00:00: mouth [place] 00 daily. Medical Branch furosemide 2020-0 Yes [id number] 80mg Take 2 [facility] 40 mg 6-02 tablets by ity of tablet 00:00: mouth [place] 00 daily. Medical Branch KCL 20 mEq 2020-0 Yes [id number] 20meq Take 1 [facility] tablet 6-02 tablet by ity of 00:00: mouth [place] 00 daily. Medical Branch furosemide 2020-0 Yes [id number] 80mg Take 2 [facility] 40 mg 6-02 tablets by ity of tablet 00:00: mouth [place] 00 daily. Medical Branch KCL 20 mEq 2020-0 Yes [id number] 20meq Take 1 [facility] tablet 6-02 tablet by ity of 00:00: mouth [place] 00 daily. Medical Branch furosemide 2020-0 Yes [id number] 80mg Take 2 [facility] 40 mg 6-02 tablets by ity of tablet 00:00: mouth [place] 00 daily. Medical Branch KCL 20 mEq 2020-0 Yes [id number] 20meq Take 1 [facility] tablet 6-02 tablet by ity of 00:00: mouth [place] 00 daily. Medical Branch furosemide 2020-0 Yes [id number] 80mg Take 2 [facility] 40 mg 6-02 tablets by ity of tablet 00:00: mouth [place] 00 daily. Medical Branch KCL 20 mEq 2020-0 Yes [id number] 20meq Take 1 [facility] tablet 6-02 tablet by ity of 00:00: mouth [place] 00 daily. Medical Branch furosemide 2020-0 Yes [id number] 80mg Take 2 [facility] 40 mg 6-02 tablets by ity of tablet 00:00: mouth [place] 00 daily. Medical Branch KCL 20 mEq 2020-0 Yes [id number] 20meq Take 1 [facility] tablet 6-02 tablet by ity of 00:00: mouth [place] 00 daily. Medical Branch furosemide 2020-0 Yes [id number] 80mg Take 2 [facility] 40 mg 6-02 tablets by ity of tablet 00:00: mouth [place] 00 daily. Medical Branch KCL 20 mEq 2020-0 Yes [id number] 20meq Take 1 [facility] tablet 6-02 tablet by ity of 00:00: mouth [place] 00 daily. Medical Branch furosemide 2020-0 Yes [id number] 80mg Take 2 [facility] 40 mg 6-02 tablets by ity of tablet 00:00: mouth [place] 00 daily. Medical Branch KCL 20 mEq 2020-0 Yes [id number] 20meq Take 1 [facility] tablet 6-02 tablet by ity of 00:00: mouth [place] 00 daily. Medical Branch furosemide 2020-0 Yes [id number] 80mg Take 2 [facility] 40 mg 6-02 tablets by ity of tablet 00:00: mouth [place] 00 daily. Medical Branch KCL 20 mEq 2020-0 Yes [id number] 20meq Take 1 [facility] tablet 6-02 tablet by ity of 00:00: mouth [place] 00 daily. Medical Branch furosemide 2020-0 Yes [id number] 80mg Take 2 [facility] 40 mg 6-02 tablets by ity of tablet 00:00: mouth [place] 00 daily. Medical Branch KCL 20 mEq 2020-0 Yes [id number] 20meq Take 1 [facility] tablet 6-02 tablet by ity of 00:00: mouth [place] 00 daily. Medical Branch furosemide 2020-0 Yes [id number] 80mg Take 2 [facility] 40 mg 6-02 tablets by ity of tablet 00:00: mouth [place] 00 daily. Medical Branch KCL 20 mEq 2020-0 Yes [id number] 20meq Take 1 [facility] tablet 6-02 tablet by ity of 00:00: mouth [place] 00 daily. Medical Branch furosemide 2020-0 Yes [id number] 80mg Take 2 [facility] 40 mg 6-02 tablets by ity of tablet 00:00: mouth [place] 00 daily. Medical Branch KCL 20 mEq 2020-0 Yes [id number] 20meq Take 1 [facility] tablet 6-02 tablet by ity of 00:00: mouth [place] 00 daily. Medical Branch furosemide 2020-0 Yes [id number] 80mg Take 2 [facility] 40 mg 6-02 tablets by ity of tablet 00:00: mouth [place] 00 daily. Medical Branch KCL 20 mEq 2020-0 Yes [id number] 20meq Take 1 [facility] tablet 6-02 tablet by ity of 00:00: mouth [place] 00 daily. Medical Branch furosemide 2020-0 Yes [id number] 80mg Take 2 [facility] 40 mg 6-02 tablets by ity of tablet 00:00: mouth [place] 00 daily. Medical Branch KCL 20 mEq 2020-0 Yes [id number] 20meq Take 1 [facility] tablet 6-02 tablet by ity of 00:00: mouth [place] 00 daily. Medical Branch furosemide 2020-0 Yes [id number] 80mg Take 2 [facility] 40 mg 6-02 tablets by ity of tablet 00:00: mouth [place] 00 daily. Medical Branch KCL 20 mEq 2020-0 Yes [id number] 20meq Take 1 [facility] tablet 6-02 tablet by ity of 00:00: mouth [place] 00 daily. Medical Branch furosemide 2020-0 Yes [id number] 80mg Take 2 [facility] 40 mg 6-02 tablets by ity of tablet 00:00: mouth [place] 00 daily. Medical Branch KCL 20 mEq 2020-0 Yes [id number] 20meq Take 1 [facility] tablet 6-02 tablet by ity of 00:00: mouth [place] 00 daily. Medical Branch furosemide 2020-0 Yes [id number] 80mg Take 2 [facility] 40 mg 6-02 tablets by ity of tablet 00:00: mouth [place] 00 daily. Medical Branch KCL 20 mEq 2020-0 Yes [id number] 20meq Take 1 [facility] tablet 6-02 tablet by ity of 00:00: mouth [place] 00 daily. Medical Branch furosemide 2020-0 Yes [id number] 80mg Take 2 [facility] 40 mg 6-02 tablets by ity of tablet 00:00: mouth [place] 00 daily. Medical Branch KCL 20 mEq 2020-0 Yes [id number] 20meq Take 1 [facility] tablet 6-02 tablet by ity of 00:00: mouth [place] 00 daily. Medical Branch furosemide 2020-0 Yes [id number] 80mg Take 2 [facility] 40 mg 6-02 tablets by ity of tablet 00:00: mouth [place] 00 daily. Medical Branch KCL 20 mEq 2020-0 Yes [id number] 20meq Take 1 [facility] tablet 6-02 tablet by ity of 00:00: mouth [place] 00 daily. Medical Branch levothyroxi 2020-0 No 1mcg ne 75 mcg 6-02 tablet 00:00: 00 levothyroxi 2020-0 No 1mcg ne 75 mcg 6-02 tablet 00:00: 00 levothyroxi 2020-0 No 1mcg ne 75 mcg 6-02 tablet 00:00: 00 furosemide 2020-0 3- No [id number] 80mg Take 2 [facility] 40 mg 6-02 08-17 tablets by ity of tablet 00:00: 00:00 mouth [place] 00 :00 daily. Medical Branch KCL 20 mEq 2020-0 3- No [id number] 20meq Take 1 [facility] tablet 6-02 08-17 tablet by ity of 00:00: 00:00 mouth [place] 00 :00 daily. Medical Branch furosemide 2020-0 3- No [id number] 80mg Take 2 [facility] 40 mg 6-02 08-17 tablets by ity of tablet 00:00: 00:00 mouth [place] 00 :00 daily. Medical Branch KCL 20 mEq 2020-0 3- No [id number] 20meq Take 1 [facility] tablet 6-02 08-17 tablet by ity of 00:00: 00:00 mouth [place] 00 :00 daily. Medical Branch furosemide 2020-0 3- No [id number] 80mg Take 2 [facility] 40 mg 07-15- tablets by ity of tablet 00:00: 00:00 mouth [place] 00 :00 daily. Medical Branch KCL 20 mEq 2019-0 3- No [id number] 20meq Take 1 [facility] tablet 07-15 tablet by ity of 00:00: 00:00 mouth [place] 00 :00 daily. Medical Branch montelukast 2020-0 No 1mg [...] 3.125 mg 1-06 tablet 00:00: 00 potassium 2019-0 No 1mEq chloride ER -06 10 mEq 00:00: tablet,exte 00 nded release magnesium 2019-0 No 1x 1/3" oxide 400 1-06 mg (241.3 00:00: mg 00 magnesium) tablet levothyroxi No 1mcg ne 75 mcg 1-06 tablet 00:00: 00 CARVEDILOL 2018-02 Yes 3.125mg Take 3.125 [facility] ORAL 2-29 mg by ity of 22:46: mouth 2 [place] [address] (two) Medical times Branch daily. atorvastati 2018-02 Yes 10mg Take 10 mg [facility] n calcium 2-29 by mouth ity of (ATORVASTAT 22:46[place] [address] [place] [address] Branch levothyroxi 2018-02 Yes 100ug Take 100 U nivers ne 100 mcg 2-29 mcg by ity of tablet 22:46: mouth [place] [address] every Medical morning. Branch raloxifene 2018-02 Yes 60mg Take 60 mg U nivers (EVISTA) 60 2-29 by mouth ity of mg tablet 22:46: daily. [address] Branch docosahexan 2018-02 Yes 1{capsu Take 1 U nivers oic 2-29 le} capsule by ity of acid/epa 22:46: mouth [place] (FISH OIL 16 daily. Medical ORAL) Branch glucosamine 2018-02 Yes 2{tbl} Take 2 Un neela /msm/chondr 2-29 tablets by it y of oitin A 22:46: mouth [place] (GLUCOSAMIN 16 daily. Medica l E-CHONDR-MS Branch M ORAL) LUTEIN ORAL 2018-02 Yes 30mg Take 30 mg [facility] 2-29 by mouth ity of 22:46: daily. [address] montelukast 2018-02 Yes 10mg Take 10 mg [facility] 10 mg 2-29 by mouth ity of tablet 22:46: daily. [address] MULTIVITAMI 2018-02 Yes 1{tbl} Take 1 Un neela N ORAL 2-29 tablet by ity of 22:46: mouth. [address] Cholecalcif 2018-02 Yes 1{capsu Take 1 U nivers [place]ary, 2-29 le} capsule by ity of Vitamin D3, 22:46: mouth. [place] (VITAMIN 16 Medical D3) 2,000 Branch unit capsule sacubitril- 2018- Yes 1{tbl} Take 1 Un neela valsartan 2-29 tablet by ity o f 24-26 mg 22:46: mouth 2 [place] tablet 16 (two) Medical times Branch daily. furosemide 2018- Yes [id number] 40mg Take 1 [facility] 40 mg 2-29 tablet by ity of tablet 00:00: mouth 00 every Medical morning Branch and evening. KCL 20 mEq 2018- Yes [id number] 20meq Take 1 [facility] tablet 2-29 tablet by ity of 00:00: mouth 00 daily. Medical Branch magnesium 2018-02 Yes [id number] 400mg Take 400 [facility] oxide 420 0-13 mg by ity of mg Tab 00:00: mouth 2 (two) Medical times Branch daily. magnesium 2018-02 Yes [id number] 400mg Take 400 [facility] oxide 420 0-13 mg by ity of mg Tab 00:00: mouth 2 (two) Medical times Branch daily. magnesium 2018-02 Yes [id number] 400mg Take 400 [facility] oxide 420 0-13 mg by ity of mg Tab 00:00: mouth 2 (two) Medical times Branch daily. magnesium 2018-02 Yes [id number] 400mg Take 400 [facility] oxide 420 0-13 mg by ity of mg Tab 00:00: mouth (two) Medical times Branch daily. magnesium 2018-02 Yes [id number] 400mg Take 400 [facility] oxide 420 0-13 mg by ity of mg Tab 00:00: mouth 2 (two) Medical times Branch daily. magnesium 2018-02 Yes [id number] 400mg Take 400 [facility] oxide 420 0-13 mg by ity of mg Tab 00:00: mouth 2 (two) Medical times Branch daily. magnesium 2018- Yes [id number] 400mg Take 400 [facility] oxide 420 0-13 mg by ity of mg Tab 00:00: mouth 2 (two) Medical times Branch daily. magnesium 2018-02 Yes [id number] 400mg Take 400 [facility] oxide 420 0-13 mg by ity of mg Tab 00:00: mouth 2 (two) Medical times Branch daily. magnesium 2018-02 Yes [id number] 400mg Take 400 Univers oxide 420 0-13 mg by ity of mg Tab 00:00: mouth 2 (two) Medical times Branch daily. magnesium 2018- Yes [id number] 400mg Take 400 Univers oxide 420 0-13 mg by ity of mg Tab 00:00: mouth 2 (two) Medical times Branch daily. magnesium 2018- Yes [id number] 400mg Take 400 Univers oxide 420 0-13 mg by ity of mg Tab 00:00: mouth 2 (two) Medical times Branch daily. magnesium 2018- Yes [id number] 400mg Take 400 Univers oxide 420 0-13 mg by ity of mg Tab 00:00: mouth 2 (two) Medical times Branch daily. magnesium 2018- Yes [id number] 400mg Take 400 Univers oxide 420 0-13 mg by ity of mg Tab 00:00: mouth (two) Medical times Branch daily. magnesium 2018-02 Yes [id number] 400mg Take 400 Univers oxide 420 0-13 mg by ity of mg Tab 00:00: mouth (two) Medical times Branch daily. magnesium 2018-02 Yes [id number] 400mg Take 400 Univers oxide 420 0-13 mg by ity of mg Tab 00:00: mouth (two) Medical times Branch daily. magnesium 2018- Yes [id number] 400mg Take 400 Univers oxide 420 0-13 mg by ity of mg Tab 00:00: mouth (two) Medical times Branch daily. magnesium 2018- Yes [id number] 400mg Take 400 Univers oxide 420 0-13 mg by ity of mg Tab 00:00: mouth (two) Medical times Branch daily. magnesium 2018- Yes [id number] 400mg Take 400 Univers oxide 420 0-13 mg by ity of mg Tab 00:00: mouth 2 (two) Medical times Branch daily. magnesium 2018- Yes [id number] 400mg Take 400 Univers oxide 420 0-13 mg by ity of mg Tab 00:00: mouth 2 (two) Medical times Branch daily. magnesium 2018- Yes [id number] 400mg Take 400 Univers oxide 420 0-13 mg by ity of mg Tab 00:00: mouth 2 (two) Medical times Branch daily. magnesium 2018 Yes [id number] 400mg Take 400 Univers oxide 420 0-13 mg by ity of mg Tab 00:00: mouth 2 (two) Medical times Branch daily. magnesium 2018-02 Yes [id number] 400mg Take 400 Univers oxide 420 0-13 mg by ity of mg Tab 00:00: mouth 2 (two) Medical times Branch daily. magnesium 2018-02 Yes [id number] 400mg Take 400 Univers oxide 420 0-13 mg by ity of mg Tab 00:00: mouth 2 (two) Medical times Branch daily. magnesium 2018-02 Yes [id number] 400mg Take 400 Univers oxide 420 0-13 mg by ity of mg Tab 00:00: mouth 2 (two) Medical times Branch daily. magnesium 2018-02 Yes [id number] 400mg Take 400 Univers oxide 420 0-13 mg by ity of mg Tab 00:00: mouth 2 (two) Medical times Branch daily. magnesium 2018-02 Yes [id number] 400mg Take 400 Univers oxide 420 0-13 mg by ity of mg Tab 00:00: mouth (two) Medical times Branch daily. magnesium 2018-02 Yes [id number] 400mg Take 400 Univers oxide 420 0-13 mg by ity of mg Tab 00:00: mouth [place] (two) Medical times Branch daily. magnesium 2018-02 Yes [id number] 400mg Take 400 Univers oxide 420 0-13 mg by ity of mg Tab 00:00: mouth (two) Medical times Branch daily. magnesium 2018-02 Yes [id number] 400mg Take 400 Univers oxide 420 0-13 mg by ity of mg Tab 00:00: mouth (two) Medical times Branch daily. magnesium 2018-02 Yes [id number] 400mg Take 400 Univers oxide 420 0-13 mg by ity of mg Tab 00:00: mouth 2 [place] (two) Medical times Branch daily. magnesium 2018- Yes [id number] 400mg Take 400 Univers oxide 420 0-13 mg by ity of mg Tab 00:00: mouth 2 [place] (two) Medical times Branch daily. magnesium 2018- Yes [id number] 400mg Take 400 Univers oxide 420 0-13 mg by ity of mg Tab 00:00: mouth 2 (two) Medical times Branch daily. magnesium 2018-02 Yes [id number] 400mg Take 400 [facility] oxide 420 0-13 mg by ity of mg Tab 00:00: mouth 2 (two) Medical times Branch daily. magnesium 2018- Yes [id number] 400mg Take 400 Univers oxide 420 0-13 mg by ity of mg Tab 00:00: mouth 2 [place] (two) Medical times Branch daily. magnesium 2018-02 Yes [id number] 400mg Take 400 Univers oxide 420 0-13 mg by ity of mg Tab 00:00: mouth 2 (two) Medical times Branch daily. magnesium 2018-02 Yes [id number] 400mg Take 400 Univers oxide 420 0-13 mg by ity of mg Tab 00:00: mouth 2 [place] (two) Medical times Branch daily. magnesium 2018- Yes [id number] 400mg Take 400 [facility] oxide 420 0-13 mg by ity of mg Tab 00:00: mouth 2 [place] (two) Medical times Branch daily. magnesium 2018-02 Yes [id number] 400mg Take 400 Univers oxide 420 0-13 mg by ity of mg Tab 00:00: mouth 2 [place] (two) Medical times Branch daily. magnesium 2018-02 Yes [id number] 400mg Take 400 Univers oxide 420 0-13 mg by ity of mg Tab 00:00: mouth 2 [place] (two) Medical times Branch daily. magnesium 2018-02 Yes [id number] 400mg Take 400 Univers oxide 420 0-13 mg by ity of mg Tab 00:00: mouth 2 [place] (two) Medical times Branch daily. magnesium 2018-02 Yes [id number] 400mg Take 400 Univers oxide 420 0-13 mg by ity of mg Tab 00:00: mouth 2 [place] (two) Medical times Branch daily. metFORMIN Yes 500mg QD Take 500 Met [...] Q10) 100 mg 38 daily. l tablet levothyroxi 2018-0 Yes 75ug QD Take 75 Met hodi ne sodium 1-[address] (TIROSINT) 21:18: mouth Hospit a 75 mcg 38 daily. l capsule raloxifene 20180 Yes 60mg QD Take 60 mg M [...] daily. Hospita enteric 38 l coated tablet metFORMIN 2018-0 Yes 500mg QD Take [...] 21:18: daily. Hospit a 38 l UBIDECARENO 0 Yes 1{capsu QD Take 1 [...] 21:18: daily. Hospit a 38 l UBIDECARENO 20180 Yes 1{capsu QD Take 1 M ethodi [...] Q10) 100 mg 38 daily. l tablet raloxifene 2016-02 Yes TK 1 T PO [...] st mg tablet 00:00: Hospita 00 l Vital Signs Vital Name Observation Time Observation Value Comments Source Systolic blood 2022-12-30 21:50:00 107 mm[Hg] Univer sity pressure [facility] Diastolic blood 2022-12-30 21:50:00 73 mm[Hg] [facility] Heart rate 2022-12-30 21:50:00 88 /min [facility] Body temperature 2022-12-30 21:50:00 36.28 Jackie [facility] Respiratory rate 2022-12-30 21:50:00 17 /min [facility] Body weight 2022-12-30 21:50:00 60.374 kg [facility] BMI 2022-12-30 21:50:00 25.99 kg/m2 [facility] Oxygen saturation in 2022-12-30 21:50:00 97 /min [facility] of Arterial blood by [place] [facility] Pulse oximetry Branch Systolic blood 2022-09-29 18:59:00 107 mm[Hg] Univer sity of pressure [place] [facility] Diastolic blood 2022-09-29 18:59:00 71 mm[Hg] Unive rsity of pressure [place] [facility] Heart rate 2022-09-29 18:59:00 78 /min [facility] [place] [facility] Body height 2022-09-29 18:59:00 152.4 cm [facility] [place] [facility] Body weight 2022-09-29 18:59:00 61.916 kg [facility] [place] [facility] BMI 2022-09-29 18:59:00 26.66 kg/m2 [facility] [place] [facility] Oxygen saturation in 2022-09-29 18:59:00 97 /min University of Arterial blood by [place] [facility] Pulse oximetry Branch Systolic blood 2022-06-29 19:50:00 100 mm[Hg] Univer sity of pressure [place] [facility] Diastolic blood 2022-06-29 19:50:00 62 mm[Hg] Unive rsity of pressure [place] [facility] Heart rate 2022-06-29 19:50:00 76 /min [facility] [place] [facility] Body height 2022-06-29 19:50:00 152.4 cm [facility] [place] [facility] Body weight 2022-06-29 19:50:00 66.679 kg [facility] [place] [facility] BMI 2022-06-29 19:50:00 28.71 kg/m2 [facility] [place] [facility] Oxygen saturation in 2022-06-29 19:50:00 94 /min [facility] of Arterial blood by [place] [facility] Pulse oximetry Branch Systolic blood 2022-03-16 22:09:00 110 mm[Hg] Univer sity of pressure [place] [facility] Diastolic blood 2022-03-16 22:09:00 75 mm[Hg] Unive rsity of pressure [place] [facility] Heart rate 2022-03-16 22:09:00 82 /min [facility] [place] [facility] Body temperature 2022-03-16 22:09:00 36.67 Jackie [facility] [place] [facility] Body height 2022-03-16 22:09:00 152.4 cm [facility] Body weight 2022-03-16 22:09:00 74.39 kg [facility] BMI 2022-03-16 22:09:00 32.03 kg/m2 [facility] Oxygen saturation in 2022-03-16 22:09:00 97 /min [facility] blood by [facility] Pulse oximetry Branch BP Systolic 2021-11-23 [...] Date / Time Performing Clinician Source Performed EXTERNAL PROVIDER RECORDS 2022-10-05 05:01:00 Doctor Ferrari [facility] Name [facility] [place] XR CHEST 2 VW 2022-09-22 18:26:46 Giovanny Sahni [facility] ASSIGNMENT OF BENEFITS 2022-09-22 18:03:24 Doctor Vonda, [facility] Name [facility] [place] REFERRAL- REQUEST/RESPONSE 2022-06-20 05:01:00 Doctor Vonda [facility] Name [facility] [place] PHYSICIAN ORDERS 2022-06-09 05:01:00 Doctor Vonda [facility] Name Medical [place] DEXA AXIAL (HIP AND SPINE) 2022-05-05 18:27:00 Requisition, Rj sierra [facility] XR CHEST 2 VW 2022-04-06 18:41:00 Requisition, Paper [facility] INSURANCE CORRESPONDENCE 2022-03-17 06:01:00 Doctor Ferrari [facility] Name [facility] CONSENT/REFUSAL FOR 2022-03-16 21:14:34 Doctor Ferrari, [facility] DIAGNOSIS AND TREATMENT [place] [facility] [place] URINALYSIS 2021-08-25 17:34:00 Jessica Zhong [facility] CREATININE, URINE RANDOM 2021-08-25 17:34:00 Jessica Zhong Un [facility] PHOSPHORUS 2021-08-25 17:31:00 Jessica Zhong [facility] URIC ACID 2021-08-25 17:31:00 Jessica Zhong [facility] MAGNESIUM 2021-08-25 17:31:00 Jessica Zhong [facility] COMP. METABOLIC PANEL 2021-08-25 17:31:00 Jessica Zhong [facility] ([id number]) [facility] [place] ASSIGNMENT OF BENEFITS 2021-08-25 16:54:40 Doctor Vonda, [facility] [place] [facility] ASSIGNMENT OF BENEFITS 2021-01-20 19:47:53 Doctor Vonda [facility] [place] [facility] DEXA AXIAL (HIP AND SPINE) 2020-10-12 13:58:43 Requisition, Rj sierra [facility] Medical [place] NOTICE OF BILLING 2020-10-12 13:37:49 Doctor Unassigned, [facility] PRACTICES FOR MEDICARE [place] [facility] PATIENTS [facility] PATIENT FINANCIAL 2020-10-12 13:37:02 [facility] [place] [facility] NO SHOW OR MISSED 2020-10-12 13:36:13 Doctor Unassigned, [facility] APPOINTMENT POLICY [place] [facility] ACKNOWLEDGEMENT CONSENT/REFUSAL FOR 2020-10-12 13:35:36 Doctor Liliassdg, [facility] [place] [facility] DIAGNOSIS AND TREATMENT [place] [facility] ASSIGNMENT OF BENEFITS 2020-10-12 13:34:54 Doctor Unassigned, [facility] [place] [facility] ASSIGNMENT OF BENEFITS 2019-09-23 20:24:08 Doctor Unassigned, [facility] [place] [facility] CONSENT/REFUSAL FOR 2019-07-12 19:25:10 Doctor Unassigned, [facility] DIAGNOSIS AND TREATMENT [place] [facility] Plan of Care Planned Activity Planned Date Details Comments Source Goal Plan of Care Note [code = 57024-0] Goal Plan of Care Note [code = 99786-5] Goal Plan of Care Note [code = 44019-2] Goal Plan of Care Note [code = 07436-4] Goal Plan of Care Note [code = 24207-3] Goal Plan of Care Note [code = 60533-7] Goal Plan of Care Note [code = 64939-5] Goal Plan of Care Note [code = 22324-9] Goal Plan of Care Note [code = 53103-7] Goal Plan of Care Note [code = 16226-7] Goal Plan of Care Note [code = 02479-0] Goal Plan of Care Note [code = 00167-4] Goal Plan of Care Note [code = 53729-7] Goal Plan of Care Note [code = 72654-9] Goal Plan of Care Note [code = 59949-8] Goal Plan of Care Note [code = 92599-1] Goal Plan of Care Note [code = 08305-7] Goal Plan of Care Note [code = 05224-8] Goal Plan of Care Note [code = 27715-4] Goal Plan of Care Note [code = 28389-2] Goal Plan of Care Note [code = 10558-3] Goal Plan of Care Note [code = 82379-8] Goal Plan of Care Note [code = 23829-3] Goal Plan of Care Note [code = 11396-1] Goal Plan of Care Note [code = 34861-1] Goal Plan of Care Note [code = 41501-4] Goal Plan of Care Note [code = 21211-8] Goal Plan of Care Note [code = 38692-1] Goal Plan of Care Note [code = 88756-7] Goal Plan of Care Note [code = 48581-4] Goal Plan of Care Note [code = 61228-9] Goal Plan of Care Note [code = 30394-4] Goal Plan of Care Note [code = 52975-5] Goal Plan of Care Note [code = 71705-7] Goal Plan of Care Note [code = 83731-2] Goal Plan of Care Note [code = 49982-7] Goal Plan of Care Note [code = 55216-3] Goal Plan of Care Note [code = 47489-9] Goal Plan of Care Note [code = 62582-8] Goal Plan of Care Note [code = 15998-0] Goal Plan of Care Note [code = 71798-5] Goal Plan of Care Note [code = 73379-0] Goal Plan of Care Note [code = 26926-1] Goal Plan of Care Note [code = 37790-2] Goal Plan of Care Note [code = 34614-7] Goal Plan of Care Note [code = 36856-6] Goal Plan of Care Note [code = 72152-0] Goal Plan of Care Note [code = 50966-4] Goal Plan of Care Note [code = 66989-4] Goal Plan of Care Note [code = 03219-0] Goal Plan of Care Note [code = 17900-8] Goal Plan of Care Note [code = 33321-4] Goal Plan of Care Note [code = 84691-6] Goal Plan of Care Note [code = 55231-2] Goal Plan of Care Note [code = 61481-0] Goal Plan of Care Note [code = 25449-1] Goal Plan of Care Note [code = 86814-6] Goal Plan of Care Note [code = 72227-1] Goal Plan of Care Note [code = 37225-2] Goal Plan of Care Note [code = 07535-5] Goal Plan of Care Note [code = 44751-1] Goal Plan of Care Note [code = 80584-9] Goal Plan of Care Note [code = 07650-9] Goal Plan of Care Note [code = 15357-9] Goal Plan of Care Note [code = 10084-7] Goal Plan of Care Note [code = 22815-1] Goal Plan of Care Note [code = 36762-8] Goal Plan of Care Note [code = 45131-3] Goal Plan of Care Note [code = 08710-0] Goal Plan of Care Note [code = 43432-1] Goal Plan of Care Note [code = 50441-0] Goal Plan of Care Note [code = 23903-1] Goal Plan of Care Note [code = 06368-8] Goal Plan of Care Note [code = 13385-6] Goal Plan of Care Note [code = 38377-3] Goal Plan of Care Note [code = 77531-7] Goal Plan of Care Note [code = 75654-7] Goal Plan of Care Note [code = 79167-7] Encounters Start End Encounter Admission Attending Care Care Encounter Source Date/Time Date/Time Type Type Clinicians Facility Department ID 2022-12-30 2022-12-30 [id number] Univers 14:00:00 16:04:36 MARIZOL heredia o f [facility] 2022-12-30 2022-12-30 [facility] 1.2.840.114 [id number] Univers 14:00:00 16:04:36 Visit Marizol BOW[place] 350.1.13.10 ity of [place] 4.2.7.2.686 Segundo SHIRLEY [id number] Sc dic[address] 2022-10-06 2022-10-06 [facility] 1.2.903.326 [id number] Univers 00:00:00 00:00:00 Marizol [place] 350.1.13.10 [place] [id number] Sc dicnm NAL 9 [facility] 2022-10-06 2022-10-06 Telephone [facility] 1.2.978.912 [id number] Univers 00:00:00 00:00:00 Shirleynarayanhelio COL[place] 350.1.13.10 it[facility] [place] [id number] [facility] NAL 9 [facility] 2022-10-05 2022-10-05 Orders Doctor SANTINO 1.2.840.114 [id number] Univers 00:00:00 00:00:00 Only Unassigned, SAKSHI 350.1.13.10 [facility] 4.2.7.2.686 [place] as [phone] [facility] 00[address] [place] 2022-09-29 2022-09-29 Outpatient [facility] [id number] Univers 15:00:00 15:00:00 MARIZOL heredia o [facility] 2022-09-29 2022-09-29 Outpatient [facility] [id number] Univers 13:40:00 14:13:50 CLAIREHELIO yan o [facility] 2022-09-29 2022-09-29 Office [facility] 1.2.840.114 [id number] Univers 13:40:00 14:13:50 Visit Marizol BOW[place] 350.1.13.10 ity of [facility] [place] [id number] [address] 2022-09-22 2022-09-22 [facility] [id number] Univers 13:04:52 23:59:00 GIOVANNY ity of [facility] 2022-09-22 2022-09-22 [facility] [place] 1.2.840.114 [id number] Univers 13:04:52 23:59:00 Encounter Giovanny BOWMAN 350.1.13.10 ity of [facility] [place] [id number] [facility] 807 [place] 2022-09-22 2022-09-22 Orders Doctor SANTINO 1.2.840.114 [id number] Univers 00:00:00 00:00:00 Only Unassigned, SAKSHI 350.1.13.10 [facility] 4.2.7.2.686 Can as [phone] [facility] 009 [place] 2022-08-02 2022-08-02 Telephone [facility] 1.2.436.115 [id number] Univers 00:00:00 00:00:00 Marizol BOWMAN 350.1.13.10 ity of [facility] [place] [id number] Sc dic[address] 2022-07-29 2022-07-29 Telephone [facility] 1.2.265.033 [id number] Univers 00:00:00 00:00:00 Marizol BOWMAN 350.1.13.10 it[place] [id number] [address] 2022-07-27 2022-07-27 Outpatient R REX, [facility] [id number] Univers 13:45:34 13:45:34 MARIZOL heredia o [facility] 2022-06-29 2022-06-29 Outpatient R REX, [facility] [id number] Univers 14:40:00 15:09:02 MARIZOL heredia o jolene [facility] 2022-06-29 2022-06-29 Office [facility] 1.2.840.114 [id number] Univers 14:40:00 15:00:00 Visit Marizol BOWMAN 350.1.13.10 ity of [facility] 4[place] [id number] Sc dic[address] 2022-06-27 2022-06-27 Telephone [facility] 1.2.117.249 [id number] Univers 00:00:00 00:00:00 Marizol SAMANOTON 350.1.13.10 ity of [facility] 4[place]2.[place] [id number] Sc dical NAL 059 [facility] 2022-06-20 2022-06-20 Orders Doctor SANTINO 1.2.840.114 [id number] Univers 00:00:00 00:00:00 Only Unassigned, SAKSHI 350.1.13.10 ity [facility] [place] [facility] 4.2.7.2.686 Can as [phone] [facility] 009 [place] 2022-06-09 2022-06-09 Dining Room Server Jacinto, Adc Lab Main [facility] 1.2.8 40.114 [id number] Univers 11:00:00 11:15:00 Visit Tez Drake 350.1.13.10 ity of [facility] 4[place]2.7.2.[place] [id number] Sc dical NAL 353 [facility] 2022-06-09 2022-06-09 Outpatient R SONDRA [facility] [id number] Univers 11:00:00 11:00:00 TEZ ity [facility] 2022-06-09 2022-06-09 Orders Doctor SANTINO 1.2.840.114 [id number] Univers 00:00:00 00:00:00 Only Unassigned, SAKSHI 350.1.13.10 ity of [place] [facility] 4.2.7.2.686 Can as [phone] [facility] 009 [place] 2022-05-05 2022-05-05 Hospital Radiology [facility] 1.2.840.114 [id number] Univers 12:41:26 23:59:00 Encounter [place] 350.1.13.10 ity of [facility] 4.2.7.2.[place] [id number] [facility] [address] [place] 2022-05-05 2022-05-05 Outpatient R RADIOLOGY [facility] [id number] Univers 12:40:09 12:40:09 ity of [facility] 2022-05-05 2022-05-05 Hospital Radiology [facility] 1.2.840.114 [id number] Univers 12:40:09 12:40:09 Encounter [place] 350.1.13.10 ity of [facility] 4[place]2.7.2.[place] [id number] [facility] [address] 2022-04-06 2022-04-06 Outpatient R RADIOLOGY [facility] [id number] Univers 12:26:21 23:59:00 ity of [facility] 2022-04-06 2022-04-06 Hospital Radiology [facility] 1.2.840.114 [id number] Univers 12:26:21 23:59:00 Encounter [place] 350.1.13.10 ity of [place] [id number] [facility] 807 [address] 2022-04-06 2022-04-06 Outpatient [facility] [id number] Univers 13:40:00 13:40:00 CLAIREJUN ity o f [facility] 2022-03-30 2022-03-30 Outpatient R RADIOLOGY [facility] [id number] Univers 00:00:00 00:00:00 ity of [facility] 2022-03-25 2022-03-25 Outpatient [facility] [id number] Univers 14:00:00 14:00:00 MARIZOL ity o f [facility] 2022-03-17 2022-03-17 Telephone [facility] 1.2.613.362 [id number] Univers 00:00:00 00:00:00 Marizol BOWMAN 350.1.13.10 ity of [place] 4.2.7.2.[address] [facility] [id number] Sc dical NAL 059 Branch BUILDING 2022-03-17 2022-03-17 Orders Doctor SANTINO 1.2.840.114 [id number] Univers 00:00:00 00:00:00 Only Unassigned, SAKSHI 350.1.13.10 ity of [place] [facility] 4.2.7.2.686 Can as [id number] [facility] 009 Branch 2022-03-16 2022-03-16 Outpatient [facility] [id number] Univers 17:15:26 23:59:00 CLAIREJUN ity o f [facility] 2022-03-16 2022-03-16 [facility] 1.2.840.114 [id number] Univers 17:15:00 23:59:00 Encounter Marizol BOWMAN 350.1.13.10 ity of [facility] 4.2.7.2.[place] [id number] [facility] [address] [place] 2022-03-16 2022-03-16 Office Rex, [facility] 1.2.840.114 [id number] Univers 15:40:00 16:35:35 Visit Marizol BOWMAN 350.1.13.10 ity of [facility] 4.2.7.2.[place] [id number] Sc dical NAL 059 [facility] 2022-03-16 2022-03-16 Dining Room Server Jacinto, Adc Lab Main [facility] 1.2.8 40.114 [id number] Univers 07:45:00 08:00:00 Visit Marizol Lomeli 350.1.13.10 ity of [facility] 4.2.7.2.[place] [id number] Sc dical NAL 353 [facility] 2022-03-16 2022-03-16 Orders Doctor SANTINO 1.2.840.114 [id number] Univers 00:00:00 00:00:00 Only Unassigned, SAKSHI 350.1.13.10 ity of [place] [facility] 4.2.7.2.686 Can as [phone] [facility] 00[address] [place] 2022-02-11 2022-02-11 Outpatient R [facility] [id number] Univers 00:00:00 00:00:00 ity of [facility] 2021-11-23 2021-11-23 Outpatient [id number] 00:00:00 00:00:00 Visit [id number] 2021-11-11 2021-11-11 Outpatient [facility] [id number] [place] 14:37:51 14:37:51 0929 F [place] 2021-11-10 2021-11-10 Outpatient [id number] 00:00:00 00:00:00 Visit [id number] 2021-08-25 2021-08-25 Dining Room Server Jacinto, Gordon Lab Main [facility] 1.2.8 40.114 [id number] Univers 12:45:00 13:00:00 Visit SondraTez COLBY 350.1.13.10 ity of [place] 4.2.7.2.686 [facility] [id number] Sc dical [address] 2021-08-25 2021-08-25 Outpatient R SONDRA [facility] [id number] Univers 12:45:00 12:45:00 TEZ heredia [facility] 2021-08-25 2021-08-25 Orders Doctor SANTINO 1.2.840.114 [id number] Univers 00:00:00 00:00:00 Only Unassigned, SAKHSI 350.1.13.10 ity of [place] [facility] 4.2.7.2.686 Can as [phone] [facility] [address] [place] 2021-08-23 2021-08-23 Outpatient [id number] 00:00:00 00:00:00 Visit [id number] 5024-12-08 2021-01-20 Outpatient R RADIOLOGY [facility] [id number] Univers 13:49:38 23:59:00 ity of [facility] 2021-01-20 2021-01-20 Hospital Radiology [facility] 1.2.840.114 [id number] Univers 13:49:38 23:59:00 Encounter COLBY [id number] ity of [place] 4.2.7.2.686 [facility] ZOAR [phone] [facility] [address] 2021-01-20 2021-01-20 Orders Doctor SANTINO [id number] Univers 00:00:00 00:00:00 Only Unassigned, SAKSHI [id number] ity of [place] [facility] [id number] Can as [phone] [facility] [address] 2020-10-12 2020-10-12 Hospital Unknown, [facility] [id number] Univers 08:34:53 23:59:00 Encounter Attending [place] [id number] [place] [phone] [facility] [address] 2020-10-12 2020-10-12 Outpatient R [facility] [id number] Univers 00:00:00 00:00:00 ity of [facility] 2020-09-07 2020-09-07 Outpatient R RADIOLOGY [facility] [id number] Univers 00:00:00 00:00:00 ity of [facility] 2020-07-27 2020-07-27 Outpatient R UNKNOWN, [facility] [id number] Univers 00:00:00 00:00:00 ATTENDING ity of [facility] 2020-01-16 2020-01-16 Hospital Radiology [facility] 1.2.840.114 [id number] Univers 13:11:51 23:59:00 Encounter Colby [id number] ity of [place] 4.2.7.2.686 [facility] [phone] [address] 2020-01-16 2020-01-16 Outpatient R [facility] [id number] Univers 00:00:00 00:00:00 ity [facility] 2019-10-10 2019-10-10 Outpatient Ajibade_O_A VFP VFP [address] 05:07:00 05:07:00 H [address]474 Family Practic e 2019-10-10 2019-10-10 Outpatient Ajibade_O_A VFP VFP [id number] [id number] [facility] 05:07:00 05:07:00 H 55265 Family Practic e 2019-09-23 2019-09-23 Dining Room Server [facility] Main [facility] 1.2.8 [id number] Univers 15:25:58 15:40:58 Visit Jessica Zhong 350.1.13.10 [place] of [place] [phone] Sc dical [address] 2019-09-23 2019-09-23 Outpatient R TREVIN [facility] [id number] Univers 15:30:00 15:30:00 JESSICA heredia [facility] 2019-09-23 2019-09-23 Orders Doctor SANTINO 1.2.840.114 [id number] Univers 00:00:00 00:00:00 Only Unassigned, SAKSHI 350.1.13.10 ity of [place] [facility] 4.2.7.2.686 Can as [phone] [address] 2019-07-17 2019-07-17 Transition VictoriaEleno 1.2.840.114 [id number] Univers 00:00:00 00:00:00 of Care Matt Morrison [id number] [place]y of [place].2.[place] [phone] [address] 2019-07-12 2019-07-16 Inpatient X [facility] [id number] Univers 14:50:15 17:45:00 NICKIE [facility] 2019-07-12 2019-07-12 Orders Doctor SANTINO 1.2.840.114 [id number] Univers 00:00:00 00:00:00 Only Unassigned, SAKSHI 350.1.13.10 ity of [place] [facility] 4.2.7.2.686 Can as [phone] [address] 2019-04-03 2019-04-03 Outpatient [facility] [id number] [facility] 07:22:00 07:22:00 _J_AH 39878 Family Practic e 2019-02-08 2019-02-10 Inpatient X [facility] [id number] Univers 15:54:40 16:45:00 [facility] Results Test Description Test Time Test Comments Results Result Comments Source CULTURE, URINE 2021-11-13 SPECIMEN NUMBER: 09:24:09 [id number] CULTURE, URINE SPECIMEN NUMBER: [id number] SOURCE: URINE REPORT STATUS: FINAL FINAL REPORT: 11/13/2021 NO GROWTH AFTER 36 HOURS INCUBATION CULTURE, URINE [ADDED] 2021-11-13 00:00:00 Test Item Value Reference Range Interpretation Comme nts CULTURE, URINE (test code = 01005) SPECIMEN NUMBER: [id number] CULTURE, URINE [ADDED]2021-11-13 00:00:00 Test Item Value Reference Range Interpretation Comments CULTURE, URINE (test SPECIMEN NUMBER: code = 37780) [id number] CULTURE, URINE [ADDED]2021-11-13 00:00:00 Test Item Value Reference Range Interpretation Comments CULTURE, URINE (test SPECIMEN NUMBER: code = 45237) [id number] CULTURE, URINE [ADDED]2021-11-13 00:00:00 Test Item Value Reference Range Interpretation Comments CULTURE, URINE (test SPECIMEN NUMBER: code = 31879) [id number] COMPREHENSIVE METABOLIC [id number] 03:55:42 Test Item Value Reference Range Interpretation Comments GLUCOSE (test code = 90 MG/DL 70-99 2216) BUN (test code = 35 MG/DL 8-23 H 2207) CREATININE (test 1.12 MG/DL 0.60-1.30 code = 2214) eGFR (2020 CKD-EPI) 49 >60 L The NKF -ASN (test code = 86698) ML/MIN/1.73 Taskforc e recommends use of Cystatin C to confirm eGFR in adults at risk for CKD . [facility] offers eGFR wit h Cystatin C-Creatinineusi ng the 2020 CKD-EPI eGFR_creat-cyst at equation (order code 3057) toincreas e the accuracy of est imated GFR. For more information, contactur [facility] ount executive or se e announcement [email or web address] CALC BUN/CREAT (test 31 RATIO 6-28 H code = 2235) SODIUM (test code = 143 MEQ/L 107-312 1665) POTASSIUM (test code 4.3 MEQ/L 3.5-5.4 = 2227) CHLORIDE (test code 104 MEQ/L 95-107 = 2214) CARBON DIOXIDE (test 25 MEQ/L 19-31 code = 220) CALCIUM (test code = 10.1 MG/DL 8.5-10.5 2208) PROTEIN, TOTAL (test 7.2 G/DL 6.1-8.3 code = 222) ALBUMIN (test [...] TESTING PERFORM ED ATCLINICAL PATH OLOGY LABORATORIES, [facility]. [address] [place] [address] LABOR ATORY DIRECTOR: GER LIMA M.D. CLIA NUMBER [id number] CAP ACCREDITATION N O. [id number] CBC W/AUTO DIFF WITH [id number] 03:20:59 Test Item Value Reference Range Interpretation [...] RBCS 0.00 K/UL 0.00-0.11 (test code = 42430) CBC W/AUTO DIFF WITH PLATELETS [ADDED]2021-11-12 00:00:00 [...] NUCLEATED RBCS (test code = 0.00 K/UL 06913) CBC W/AUTO DIFF WITH PLATELETS [ADDED]2021-11-12 00:00:00 [...] NUCLEATED RBCS (test code = 0.00 K/UL 75417) CBC W/AUTO DIFF WITH PLATELETS [ADDED]2021-11-12 00:00:00 [...] NUCLEATED RBCS (test code = 0.00 K/UL 83250) COMPREHENSIVE METABOLIC PANEL [ADDED]2021-11-12 00:00:00 Test Item Value Reference Range Interpretation Comments GLUCOSE (test code = 2217) 90 MG/DL BUN (test code = 2208) 35 MG/DL CREATININE (test code = 2214) 1.12 MG/DL eGFR (2020 CKD-EPI) (test code 49 ML/MIN/1.73 = 11437) CALC BUN/CREAT (test code = 31 RATIO [...] A/G RATIO (test code = 1.4 RATIO 223) BILIRUBIN, TOTAL (test code = 0.2 MG/DL [...] (2020 CKD-EPI) (test code 49 ML/MIN/1.73 = 56238) CALC BUN/CREAT (test code = 31 RATIO [...] A/G RATIO (test code = 1.4 RATIO 4) BILIRUBIN, TOTAL (test code = 0.2 MG/DL [...] NUCLEATED RBCS (test code = 0.00 K/UL 67648) CBC W/AUTO DIFF WITH PLATELETS [ADDED]2021-11-12 00:00:00 [...] NUCLEATED RBCS (test code = 0.00 K/UL 70360) CBC W/AUTO DIFF WITH PLATELETS [ADDED]2021-11-12 00:00:00 [...] NUCLEATED RBCS (test code = 0.00 K/UL 81673) COMPREHENSIVE METABOLIC PANEL [ADDED]2021-11-12 00:00:00 Test Item Value Reference Range Interpretation Comments GLUCOSE (test code = 2217) 90 MG/DL BUN (test code = 2208) 35 MG/DL CREATININE (test code = 2214) 1.12 MG/DL eGFR (2020 CKD-EPI) (test code 49 ML/MIN/1.73 = 82686) CALC BUN/CREAT (test code = 31 RATIO [...] BILIRUBIN, TOTAL (test code = 0.2 MG/DL 220) ALKALINE PHOSPHATASE (test 32 U/L code = 2204) AST (test code = 2218) 20 U/L ALT (test code = 2219) 16 U/L COMPREHENSIVE METABOLIC PANEL [ADDED]2021-11-12 00:00:00 Test Item Value Reference Range Interpretation Comments GLUCOSE (test code = 2217) 90 MG/DL BUN (test code = 2208) 35 MG/DL CREATININE (test code = 2214) 1.12 MG/DL eGFR (2020 CKD-EPI) (test code 49 ML/MIN/1.73 = 29804) CALC BUN/CREAT (test code = 31 RATIO [...] (test code = 2219) 16 U/L CULTURE, [id number] 10:27:35SPECIMEN NUMBER: [id number] CULTURE, URINE SPECIMEN NUMBER: [id number] SPECIMEN COMMENT: URINE SOURCE:URINE REPORT STATUS: FINAL FINAL REPORT: 04/21/2021 NO GROWTH AFTER 36 HOURS INCUBATIONCULTURE, URINE 2021-04-21 00:00:00 Test Item Value Reference Range Interpretation Comments CULTURE, URINE (test SPECIMEN NUMBER: code = 36722) [id number] CULTURE, [id number] 00:00:00 Test Item Value Reference Range Interpretation Comments CULTURE, URINE (test SPECIMEN NUMBER: code = 25553) [id number] CULTURE, [id number] 00:00:00 Test Item Value Reference Range Interpretation Comments CULTURE, URINE (test SPECIMEN NUMBER: code = 14472) [id number] CULTURE, [id number] 00:00:00 Test Item Value Reference Range Interpretation Comments CULTURE, URINE (test SPECIMEN NUMBER: code = 89840) [id number] CULTURE, [id number] 00:00:00 Test Item Value Reference Range Interpretation Comments CULTURE, URINE (test SPECIMEN NUMBER: code = 25306) [id number] INTACT [id number] 09:29:32 Test Item Value Reference Range Interpretation Comments INTACT PTH (test code = 5005) 27 PG/ML 15-65 [id number] 05:51:06 Test Item Value Reference Range Interpretation Comments MAGNESIUM (test code = 2226) 2.5 MG/DL 1.6-2.6 [id number] 05:51:06 Test Item Value Reference Range Interpretation Comments PHOSPHORUS (test code = 2227) 4.3 MG/DL 2.5-4.5 CBC W/AUTO DIFF WITH [id number] 04:55:06 Test Item Value Reference Range Interpretation [...] RBCS 0.00 K/UL 0.00-0.11 (test code = 43776) COMPREHENSIVE METABOLIC [id number] 04:53:48 Test Item Value Reference Range Interpretation Comments GLUCOSE (test code = 86 MG/DL 70-99 2216) BUN (test code = 43 MG/DL 8-23 H 2207) CREATININE (test 1.15 MG/DL 0.60-1.30 code = 2214) eGFR (2020 CKD-EPI) 48 ML/MIN/1.73 >60 L (test code = 61999) CALC BUN/CREAT (test 37 RATIO 6-28 H code = 2235) SODIUM (test code = 141 MEQ/L 082-722 0401) POTASSIUM (test code 4.6 MEQ/L 3.5-5.4 = 2227) CHLORIDE (test code 103 MEQ/L 95-107 = 2214) CARBON DIOXIDE (test 22 MEQ/L 19-31 code = 220) CALCIUM (test code = 9.6 MG/DL 8.5-10.5 2208) PROTEIN, TOTAL (test 7.0 G/DL 6.1-8.3 code = 222) ALBUMIN (test code = 4.2 G/DL 3.5-5.2 2200) CALC GLOBULIN (test 2.8 G/DL 1.9-3.7 code = 2239) CALC A/G RATIO (test 1.5 RATIO 1.0-2.6 code = 2233) BILIRUBIN, TOTAL 0.3 MG/DL See_Comment [Automated message] (test code = 2206) The syste m which generated this result transmit fabian reference range : <=1.2. The refe rence range was not u sed to interpret th is result as normal/abnormal . ALKALINE PHOSPHATASE 32 U/L 40-142 L (test code = 2203) AST (test code = 17 U/L 9-40 2217) ALT (test code = 12 U/L 5-40 2218) URIC [id number] 04:53:48 Test Item Value Reference Range Interpretation Comments URIC ACID (test code = 223) 6.4 MG/DL 2.7-6.1 H ALBUMIN/CREATININE RATIO, URINE, [id number] 04:43:14 Test Item Value Reference Range Interpretation Comments CREATININE, URINE, 27.8 MG/DL NOT ESTAB RANDOM (test code = 2072) ALBUMIN, URINE, 0.2 MG/DL NOT ESTAB RANDOM (test code = 79994) CALC 7 MG/G <30 Note: Albumin/ Creatinine ALBUMIN/CREAT, RND ratio ref erence interval (test code = [place] NK[place] [address]) guidelines. UN LESS OTHERWISE INDIC ATED, ALL TESTING PERFORM ED ATCLINICAL PATH OLOGY LABORATORIES, [address] [place] [address] LABORATORY DIRE CTOR: Joseph MURRAY. CLIA NUMBER [id number] CAP ACCREDITATION N O. [id number] CBC W/AUTO [id number] 00:00:00 Test Item Value Reference Range Interpretation [...] NUCLEATED RBCS (test code = 0.00 K/UL 61557) CBC W/AUTO [id number] 00:00:00 Test Item Value Reference Range Interpretation [...] NUCLEATED RBCS (test code = 0.00 K/UL 48848) COMPREHENSIVE METABOLIC [id number] 00:00:00 Test Item Value Reference Range Interpretation Comments GLUCOSE (test code = 2217) 86 MG/DL BUN (test code = 2208) 43 MG/DL CREATININE (test code = 2214) 1.15 MG/DL eGFR (2020 CKD-EPI) (test code 48 ML/MIN/1.73 = 49726) CALC BUN/CREAT (test code = 37 RATIO [...] ALT (test code = 2219) 12 U/L [id number] 00:00:00 Test Item Value Reference Range Interpretation Comments MAGNESIUM (test code = 2226) 2.5 MG/DL [id number] 00:00:00 Test Item Value Reference Range Interpretation Comments MAGNESIUM (test code = 2226) 2.5 MG/DL INTACT [id number] 00:00:00 Test Item Value Reference Range Interpretation Comments INTACT PTH (test code = 5005) 27 PG/ML INTACT [id number] 00:00:00 Test Item Value Reference Range Interpretation Comments INTACT PTH (test code = 5005) 27 PG/ML [id number] 00:00:00 Test Item Value Reference Range Interpretation Comments PHOSPHORUS (test code = 2227) 4.3 MG/DL URIC [id number] 00:00:00 Test Item Value Reference Range Interpretation Comments URIC ACID (test code = 2233) 6.4 MG/DL MICROALBUMIN/CREATININE, RANDOM AND [id number] 00:00:00 Test Item Value Reference Range Interpretation Comments CREATININE, URINE, RANDOM (test 27.8 MG/DL code = 2072) ALBUMIN, URINE, RANDOM (test code 0.2 MG/DL = 46391) CALC ALBUMIN/CREAT, RND (test code 7 MG/G = 94033) CBC W/AUTO [id number] 00:00:00 Test Item Value Reference Range Interpretation [...] NUCLEATED RBCS (test code = 0.00 K/UL 60242) CBC W/AUTO [id number] 00:00:00 Test Item Value Reference Range Interpretation [...] NUCLEATED RBCS (test code = 0.00 K/UL 86934) CBC W/AUTO [id number] 00:00:00 Test Item Value Reference Range Interpretation [...] NUCLEATED RBCS (test code = 0.00 K/UL 47302) COMPREHENSIVE METABOLIC [id number] 00:00:00 Test Item Value Reference Range Interpretation Comments GLUCOSE (test code = 2217) 86 MG/DL BUN (test code = 2208) 43 MG/DL CREATININE (test code = 2214) 1.15 MG/DL eGFR (2020 CKD-EPI) (test code 48 ML/MIN/1.73 = 76361) CALC BUN/CREAT (test code = 37 RATIO [...] code = 2219) 12 U/L COMPREHENSIVE METABOLIC [id number] 00:00:00 Test Item Value Reference Range Interpretation Comments GLUCOSE (test code = 2217) 86 MG/DL BUN (test code = 2208) 43 MG/DL CREATININE (test code = 2214) 1.15 MG/DL eGFR (2020 CKD-EPI) (test code 48 ML/MIN/1.73 = 84197) CALC BUN/CREAT (test code = 37 RATIO [...] ALT (test code = 2219) 12 U/L [id number] 00:00:00 Test Item Value Reference Range Interpretation Comments MAGNESIUM (test code = 2226) 2.5 MG/DL [id number] 00:00:00 Test Item Value Reference Range Interpretation Comments MAGNESIUM (test code = 2226) 2.5 MG/DL [id number] 00:00:00 Test Item Value Reference Range Interpretation Comments MAGNESIUM (test code = 2226) 2.5 MG/DL INTACT [id number] 00:00:00 Test Item Value Reference Range Interpretation Comments INTACT PTH (test code = 5005) 27 PG/ML INTACT [id number] 00:00:00 Test Item Value Reference Range Interpretation Comments INTACT PTH (test code = 5005) 27 PG/ML INTACT [id number] 00:00:00 Test Item Value Reference Range Interpretation Comments INTACT PTH (test code = 5005) 27 PG/ML [id number] 00:00:00 Test Item Value Reference Range Interpretation Comments PHOSPHORUS (test code = 2227) 4.3 MG/DL [id number] 00:00:00 Test Item Value Reference Range Interpretation Comments PHOSPHORUS (test code = 2227) 4.3 MG/DL URIC [id number] 00:00:00 Test Item Value Reference Range Interpretation Comments URIC ACID (test code = 2233) 6.4 MG/DL URIC [id number] 00:00:00 Test Item Value Reference Range Interpretation Comments URIC ACID (test code = 2233) 6.4 MG/DL MICROALBUMIN/CREATININE, RANDOM AND [id number] 00:00:00 Test Item Value Reference Range Interpretation Comments CREATININE, URINE, RANDOM (test 27.8 MG/DL code = 2072) ALBUMIN, URINE, RANDOM (test code 0.2 MG/DL = 05002) CALC ALBUMIN/CREAT, RND (test code 7 MG/G = 98656) MICROALBUMIN/CREATININE, RANDOM AND [id number] 00:00:00 Test Item Value Reference Range Interpretation Comments CREATININE, URINE, RANDOM (test 27.8 MG/DL code = 2072) ALBUMIN, URINE, RANDOM (test code 0.2 MG/DL = 95113) CALC ALBUMIN/CREAT, RND (test code 7 MG/G = 49010) CBC W/AUTO [id number] 00:00:00 Test Item Value Reference Range Interpretation [...] NUCLEATED RBCS (test code = 0.00 K/UL 55950) CBC W/AUTO [id number] 00:00:00 Test Item Value Reference Range Interpretation [...] NUCLEATED RBCS (test code = 0.00 K/UL 31032) CBC W/AUTO [id number] 00:00:00 Test Item Value Reference Range Interpretation [...] NUCLEATED RBCS (test code = 0.00 K/UL 75178) COMPREHENSIVE METABOLIC [id number] 00:00:00 Test Item Value Reference Range Interpretation Comments GLUCOSE (test code = 2217) 86 MG/DL BUN (test code = 2208) 43 MG/DL CREATININE (test code = 2214) 1.15 MG/DL eGFR (2020 CKD-EPI) (test code 48 ML/MIN/1.73 = 62059) CALC BUN/CREAT (test code = 37 RATIO [...] code = 2219) 12 U/L COMPREHENSIVE METABOLIC [id number] 00:00:00 Test Item Value Reference Range Interpretation Comments GLUCOSE (test code = 2217) 86 MG/DL BUN (test code = 2208) 43 MG/DL CREATININE (test code = 2214) 1.15 MG/DL eGFR (2020 CKD-EPI) (test code 48 ML/MIN/1.73 = 17966) CALC BUN/CREAT (test code = 37 RATIO [...] ALT (test code = 2219) 12 U/L [id number] 00:00:00 Test Item Value Reference Range Interpretation Comments MAGNESIUM (test code = 2226) 2.5 MG/DL [id number] 00:00:00 Test Item Value Reference Range Interpretation Comments MAGNESIUM (test code = 2226) 2.5 MG/DL [id number] 00:00:00 Test Item Value Reference Range Interpretation Comments MAGNESIUM (test code = 2226) 2.5 MG/DL INTACT [id number] 00:00:00 Test Item Value Reference Range Interpretation Comments INTACT PTH (test code = 5005) 27 PG/ML INTACT [id number] 00:00:00 Test Item Value Reference Range Interpretation Comments INTACT PTH (test code = 5005) 27 PG/ML INTACT [id number] 00:00:00 Test Item Value Reference Range Interpretation Comments INTACT PTH (test code = 5005) 27 PG/ML [id number] 00:00:00 Test Item Value Reference Range Interpretation Comments PHOSPHORUS (test code = 2227) 4.3 MG/DL [id number] 00:00:00 Test Item Value Reference Range Interpretation Comments PHOSPHORUS (test code = 2227) 4.3 MG/DL URIC [id number] 00:00:00 Test Item Value Reference Range Interpretation Comments URIC ACID (test code = 2233) 6.4 MG/DL URIC [id number] 00:00:00 Test Item Value Reference Range Interpretation Comments URIC ACID (test code = 2233) 6.4 MG/DL MICROALBUMIN/CREATININE, RANDOM AND [id number] 00:00:00 Test Item Value Reference Range Interpretation Comments CREATININE, URINE, RANDOM (test 27.8 MG/DL code = 2072) ALBUMIN, URINE, RANDOM (test code 0.2 MG/DL = 41600) CALC ALBUMIN/CREAT, RND (test code 7 MG/G = 29528) MICROALBUMIN/CREATININE, RANDOM AND [id number] 00:00:00 Test Item Value Reference Range Interpretation Comments CREATININE, URINE, RANDOM (test 27.8 MG/DL code = 2072) ALBUMIN, URINE, RANDOM (test code 0.2 MG/DL = 41186) CALC ALBUMIN/CREAT, RND (test code 7 MG/G = 02286) [id number] 00:00:00 Test Item Value Reference Range Interpretation Comments PHOSPHORUS (test code = 2227) 4.8 MG/DL [id number] 00:00:00 Test Item Value Reference Range Interpretation Comments TSH, THIRD GENERATION (test code 2.190 UIU/ML = 2821) [id number] 00:00:00 Test Item Value Reference Range Interpretation Comments TSH, THIRD GENERATION (test code 2.190 UIU/ML = 2821) COMPREHENSIVE METABOLIC [id number] 00:00:00 Test Item Value Reference Range Interpretation Comments GLUCOSE (test code = 2217) 86 MG/DL BUN (test code = 2208) 44 MG/DL CREATININE (test code = 2214) 1.42 MG/DL eGFR AMER. (test code 40 ML/MIN/1.73 = 78564) eGFR NON- AMER. (test 34 ML/MIN/1.73 code = 70211) CALC BUN/CREAT (test code = 31 RATIO [...] (test code = 2219) 11 U/L URIC [id number] 00:00:00 Test Item Value Reference Range Interpretation Comments URIC ACID (test code = 2233) 7.9 MG/DL HEMOGLOBIN [id number] 00:00:00 Test Item Value Reference Range Interpretation Comments HEMOGLOBIN A1c (test code = 26814) 6.4 % HEMOGLOBIN [id number] 00:00:00 Test Item Value Reference Range Interpretation Comments HEMOGLOBIN A1c (test code = 75341) 6.4 % [id number] 00:00:00 Test Item Value Reference Range Interpretation Comments PHOSPHORUS (test code = 2227) 4.8 MG/DL [id number] 00:00:00 Test Item Value Reference Range Interpretation Comments PHOSPHORUS (test code = 2227) 4.8 MG/DL [id number] 00:00:00 Test Item Value Reference Range Interpretation Comments TSH, THIRD GENERATION (test code 2.190 UIU/ML = 2821) [id number] 00:00:00 Test Item Value Reference Range Interpretation Comments TSH, THIRD GENERATION (test code 2.190 UIU/ML = 2821) [id number] 00:00:00 Test Item Value Reference Range Interpretation Comments TSH, THIRD GENERATION (test code 2.190 UIU/ML = 2821) COMPREHENSIVE METABOLIC [id number] 00:00:00 Test Item Value Reference Range Interpretation Comments GLUCOSE (test code = 2217) 86 MG/DL BUN (test code = 2208) 44 MG/DL CREATININE (test code = 2214) 1.42 MG/DL eGFR AMER. (test code 40 ML/MIN/1.73 = 80661) eGFR NON- AMER. (test 34 ML/MIN/1.73 code = 13298) CALC BUN/CREAT (test code = 31 RATIO [...] ALKALINE PHOSPHATASE (test 33 U/L code = 220) AST (test code = 2218) 16 U/L ALT (test code = 2219) 11 U/L COMPREHENSIVE METABOLIC [id number] 00:00:00 Test Item Value Reference Range Interpretation Comments GLUCOSE (test code = 2217) 86 MG/DL BUN (test code = 2208) 44 MG/DL CREATININE (test code = 2214) 1.42 MG/DL eGFR AMER. (test code 40 ML/MIN/1.73 = 09480) eGFR NON- AMER. (test 34 ML/MIN/1.73 code = 24857) CALC BUN/CREAT (test code = 31 RATIO [...] (test code = 2219) 11 U/L URIC [id number] 00:00:00 Test Item Value Reference Range Interpretation Comments URIC ACID (test code = 2233) 7.9 MG/DL URIC [id number] 00:00:00 Test Item Value Reference Range Interpretation Comments URIC ACID (test code = 2233) 7.9 MG/DL HEMOGLOBIN [id number] 00:00:00 Test Item Value Reference Range Interpretation Comments HEMOGLOBIN A1c (test code = 85124) 6.4 % HEMOGLOBIN [id number] 00:00:00 Test Item Value Reference Range Interpretation Comments HEMOGLOBIN A1c (test code = 90873) 6.4 % HEMOGLOBIN [id number] 00:00:00 Test Item Value Reference Range Interpretation Comments HEMOGLOBIN A1c (test code = 36545) 6.4 % [id number] 00:00:00 Test Item Value Reference Range Interpretation Comments PHOSPHORUS (test code = 2227) 4.8 MG/DL [id number] 00:00:00 Test Item Value Reference Range Interpretation Comments PHOSPHORUS (test code = 2227) 4.8 MG/DL [id number] 00:00:00 Test Item Value Reference Range Interpretation Comments TSH, THIRD GENERATION (test code 2.190 UIU/ML = 2821) [id number] 00:00:00 Test Item Value Reference Range Interpretation Comments TSH, THIRD GENERATION (test code 2.190 UIU/ML = 2821) [id number] 00:00:00 Test Item Value Reference Range Interpretation Comments TSH, THIRD GENERATION (test code 2.190 UIU/ML = 2821) COMPREHENSIVE METABOLIC [id number] 00:00:00 Test Item Value Reference Range Interpretation Comments GLUCOSE (test code = 2217) 86 MG/DL BUN (test code = 2208) 44 MG/DL CREATININE (test code = 2214) 1.42 MG/DL eGFR AMER. (test code 40 ML/MIN/1.73 = 61005) eGFR NON- AMER. (test 34 ML/MIN/1.73 code = 26189) CALC BUN/CREAT (test code = 31 RATIO 2235) SODIUM (test code = 2231) 143 MEQ/L POTASSIUM (test code = 2228) 4.6 MEQ/L CHLORIDE (test code = 2215) 102 MEQ/L CARBON DIOXIDE (test code = 26 MEQ/L 2205) CALCIUM (test code = 2209) 9.4 MG/DL PROTEIN, TOTAL (test code = 7.3 G/DL 222) ALBUMIN (test code = 2201) 4.2 G/DL CALC GLOBULIN (test code = 3.1 G/DL 2240) CALC A/G RATIO (test code = 1.4 RATIO 2234) BILIRUBIN, TOTAL (test code = 0.2 MG/DL 220) ALKALINE PHOSPHATASE (test 33 U/L code = 2204) AST (test code = 2218) 16 U/L ALT (test code = 2219) 11 U/L COMPREHENSIVE METABOLIC [id number] 00:00:00 Test Item Value Reference Range Interpretation Comments GLUCOSE (test code = 2217) 86 MG/DL BUN (test code = 2208) 44 MG/DL CREATININE (test code = 2214) 1.42 MG/DL eGFR AMER. (test code 40 ML/MIN/1.73 = 09475) eGFR NON- AMER. (test 34 ML/MIN/1.73 code = 33436) CALC BUN/CREAT (test code = 31 RATIO [...] (test code = 2219) 11 U/L URIC [id number] 00:00:00 Test Item Value Reference Range Interpretation Comments URIC ACID (test code = 2233) 7.9 MG/DL URIC [id number] 00:00:00 Test Item Value Reference Range Interpretation Comments URIC ACID (test code = 2233) 7.9 MG/DL HEMOGLOBIN [id number] 00:00:00 Test Item Value Reference Range Interpretation Comments HEMOGLOBIN A1c (test code = 11812) 6.4 % HEMOGLOBIN [id number] 00:00:00 Test Item Value Reference Range Interpretation Comments HEMOGLOBIN A1c (test code = 11677) 6.4 % HEMOGLOBIN [id number] 00:00:00 Test Item Value Reference Range Interpretation Comments HEMOGLOBIN A1c (test code = 98529) 6.4 % DEXA AXIAL (HIP AND SPINE)2020-10-12 18:42:22 Osteopenia. The lumbar bone density is stable, however the hip bone density hassignificant diminished since 2018. Preliminary Report Dictated by Resident: Fredrick Andrade ?MD Luzma., have reviewed this study and agree withthe above report.EXAM: DEXA ? ? DEXA AXIAL (HIP AND SPINE) HISTORY: Female 80 years Other specified disorders of bone density andstructure, multiple sites External orders COMPARISON: ?03/04/2018 TECHNIQUE: Bone densitometry of the lumbar spine, right hip and femoral neck wasperformed on a REPUCOM system. ? WHO Criteria:Normal: T Score ? [...] 1.3. ?Bone mineral density of 0.854 g/cm^2. [facility], Radiant Results Inft User - 10/12/2020 1:43 PM CDT EXAM: DEXA DEXA AXIAL (HIP AND SPINE)HISTORY: Female 80 years Other specified disorders of bone density andstructure, multiple sites External orders COMPARISON: 03/04/2018TECHNIQUE: Bone densitometry of the lumbar spine, right hip and femoral neck wasperformed on a REPUCOM system. WHO Criteria:Normal: T Score ? -1.0 Osteopenia: T Score -1.1 to < 2.5 Osteoporosis: T Score ? -2.5 Fracture risk doubles for each 1.5 SD below the mean. FINDINGS:Lumbar spine L1-L4: T value 1.7. Bone mineral density of 1.411 g/cm^2. Compared to 2019 the lumbar d ensity changed by +1.4%.Right Hip: T value 0.4. Bone mineral density of 1.062 g/cm^2. Compared to 2019 the hip total bone density diminished by -8.5%.Right Neck: T value - 1.3. Bone mineral density of 0.854 g/cm^2. IMPRESSIONOsteopenia.The lumbar bone density is stable, however the hip bone density hassignificant diminished since 2019.Preliminary Report Dictated by Resident: Fredrick Mejía MD., have reviewed this study and agree withthe above report.[facility]2020-10-12 18:42:22 Osteopenia. The [...] hip and femoral neck wasperformed on a REPUCOM system. ? WHO Criteria:Normal: T Score ? [...] 1.3. ?Bone mineral density of 0.854 g/cm^2. [facility], Radiant Results Inft User - 10/12/2020 1:43 PM CDT EXAM: DEXA DEXA AXIAL (HIP AND SPINE)HISTORY: Female 80 years Other specified disorders of bone density andstructure, multiple sites External orders COMPARISON: 1/20/2019TECHNIQUE: Bone densitometry of the lumbar spine, right hip and femoral neck wasperformed on a REPUCOM system. WHO Criteria:Normal: T Score ? -1.0 [...] reviewed this study and agree withthe above report.[facility] [id number] 00:00:00 Test Item Value Reference Range Interpretation Comments GLUCOSE (test code = 2217) 88 MG/DL BUN (test code = 2208) 58 MG/DL CREATININE (test code = 2214) 1.41 MG/DL eGFR AMER. (test code 40 ML/MIN/1.73 = 88881) eGFR NON- AMER. (test 35 ML/MIN/1.73 code = 31373) CALC BUN/CREAT (test code = 41 RATIO [...] ALT (test code = 2219) 15 U/L [id number] 00:00:00 Test Item Value Reference Range Interpretation Comments MAGNESIUM (test code = 2226) 2.5 MG/DL [id number] 00:00:00 Test Item Value Reference Range Interpretation Comments MAGNESIUM (test code = 2226) 2.5 MG/DL URIC [id number] 00:00:00 Test Item Value Reference Range Interpretation Comments URIC ACID (test code = 2233) 6.5 MG/DL [id number] 00:00:00 Test Item Value Reference Range Interpretation Comments PHOSPHORUS (test code = 2227) 5.8 MG/DL HEMOGLOBIN [id number] 00:00:00 Test Item Value Reference Range Interpretation Comments HEMOGLOBIN A1c (test code = 77471) 6.1 % HEMOGLOBIN [id number] 00:00:00 Test Item Value Reference Range Interpretation Comments HEMOGLOBIN A1c (test code = 87766) 6.1 % LIPID [id number] 00:00:00 Test Item Value Reference Range Interpretation Comments CHOLESTEROL (test code = 2210) 169 MG/DL TRIGLYCERIDES (test code = 2232) 78 MG/DL HDL CHOLESTEROL (test code = 2220) 65 MG/DL CALC LDL CHOL (test code = 2237) 87 MG/DL RISK RATIO LDL/HDL (test code = 1.34 RATIO 2238) URINALYSIS WITH [id number] 00:00:00 Test Item Value Reference Range Interpretation [...] EPITHELIAL CELLS (test code = 0-5 /HPF 19397) BACTERIA (test code = 1515) NONE SEEN CASTS, HYALINE (test code = 1517) TRACE CREATININE, RANDOM [id number] 00:00:00 Test Item Value Reference Range Interpretation Comments CREATININE, URINE, CONC. (test 84.1 MG/DL code = 2072) MICROALBUMIN, [id number] 00:00:00 Test Item Value Reference Range Interpretation Comments ALBUMIN, URINE, RANDOM (test code = 0.3 MG/DL 77678) NT-proBNP [ADDED]2020-08-07 00:00:00 Test Item Value Reference Range Interpretation Comments NT-proBNP (test code = 17928) 1372 PG/ML NT-proBNP [ADDED]2020-08-07 00:00:00 Test Item Value Reference Range Interpretation Comments NT-proBNP (test code = 09065) 1372 PG/ML COMPREHENSIVE METABOLIC [id number] 00:00:00 Test Item Value Reference Range Interpretation Comments GLUCOSE (test code = 2217) 88 MG/DL BUN (test code = 2208) 58 MG/DL CREATININE (test code = 2214) 1.41 MG/DL eGFR AMER. (test code 40 ML/MIN/1.73 = 68692) eGFR NON- AMER. (test 35 ML/MIN/1.73 code = 39428) CALC BUN/CREAT (test code = 41 RATIO [...] code = 2219) 15 U/L COMPREHENSIVE METABOLIC [id number] 00:00:00 Test Item Value Reference Range Interpretation Comments GLUCOSE (test code = 2217) 88 MG/DL BUN (test code = 2208) 58 MG/DL CREATININE (test code = 2214) 1.41 MG/DL eGFR AMER. (test code 40 ML/MIN/1.73 = 09094) eGFR NON- AMER. (test 35 ML/MIN/1.73 code = 30867) CALC BUN/CREAT (test code = 41 RATIO [...] ALT (test code = 2219) 15 U/L [id number] 00:00:00 Test Item Value Reference Range Interpretation Comments MAGNESIUM (test code = 2226) 2.5 MG/DL [id number] 00:00:00 Test Item Value Reference Range Interpretation Comments MAGNESIUM (test code = 2226) 2.5 MG/DL [id number] 00:00:00 Test Item Value Reference Range Interpretation Comments MAGNESIUM (test code = 2226) 2.5 MG/DL URIC [id number] 00:00:00 Test Item Value Reference Range Interpretation Comments URIC ACID (test code = 2233) 6.5 MG/DL URIC [id number] 00:00:00 Test Item Value Reference Range Interpretation Comments URIC ACID (test code = 2233) 6.5 MG/DL [id number] 00:00:00 Test Item Value Reference Range Interpretation Comments PHOSPHORUS (test code = 2227) 5.8 MG/DL [id number] 00:00:00 Test Item Value Reference Range Interpretation Comments PHOSPHORUS (test code = 2227) 5.8 MG/DL HEMOGLOBIN [id number] 00:00:00 Test Item Value Reference Range Interpretation Comments HEMOGLOBIN A1c (test code = 62586) 6.1 % HEMOGLOBIN [id number] 00:00:00 Test Item Value Reference Range Interpretation Comments HEMOGLOBIN A1c (test code = 09213) 6.1 % HEMOGLOBIN [id number] 00:00:00 Test Item Value Reference Range Interpretation Comments HEMOGLOBIN A1c (test code = 82505) 6.1 % LIPID [id number] 00:00:00 Test Item Value Reference Range Interpretation Comments CHOLESTEROL (test code = 2210) 169 MG/DL TRIGLYCERIDES (test code = 2232) 78 MG/DL HDL CHOLESTEROL (test code = 2220) 65 MG/DL CALC LDL CHOL (test code = 2237) 87 MG/DL RISK RATIO LDL/HDL (test code = 1.34 RATIO 2238) LIPID [id number] 00:00:00 Test Item Value Reference Range Interpretation Comments CHOLESTEROL (test code = 2210) 169 MG/DL TRIGLYCERIDES (test code = 2232) 78 MG/DL HDL CHOLESTEROL (test code = 2220) 65 MG/DL CALC LDL CHOL (test code = 2237) 87 MG/DL RISK RATIO LDL/HDL (test code = 1.34 RATIO 2238) URINALYSIS WITH [id number] 00:00:00 Test Item Value Reference Range Interpretation [...] EPITHELIAL CELLS (test code = 0-5 /HPF 20040) BACTERIA (test code = 1515) NONE SEEN CASTS, HYALINE (test code = 1517) TRACE URINALYSIS WITH [id number] 00:00:00 Test Item Value Reference Range Interpretation [...] EPITHELIAL CELLS (test code = 0-5 /HPF 66808) BACTERIA (test code = 1515) NONE SEEN CASTS, HYALINE (test code = 1517) TRACE CREATININE, RANDOM [id number] 00:00:00 Test Item Value Reference Range Interpretation Comments CREATININE, URINE, CONC. (test 84.1 MG/DL code = 2072) CREATININE, RANDOM [id number] 00:00:00 Test Item Value Reference Range Interpretation Comments CREATININE, URINE, CONC. (test 84.1 MG/DL code = 2072) MICROALBUMIN, [id number] 00:00:00 Test Item Value Reference Range Interpretation Comments ALBUMIN, URINE, RANDOM (test code = 0.3 MG/DL 62794) MICROALBUMIN, [id number] 00:00:00 Test Item Value Reference Range Interpretation Comments ALBUMIN, URINE, RANDOM (test code = 0.3 MG/DL 21486) NT-proBNP [ADDED]2020-08-07 00:00:00 Test Item Value Reference Range Interpretation Comments NT-proBNP (test code = 76337) 1372 PG/ML NT-proBNP [ADDED]2020-08-07 00:00:00 Test Item Value Reference Range Interpretation Comments NT-proBNP (test code = 45725) 1372 PG/ML NT-proBNP [ADDED]2020-08-07 00:00:00 Test Item Value Reference Range Interpretation Comments NT-proBNP (test code = 40224) 1372 PG/ML COMPREHENSIVE METABOLIC [id number] 00:00:00 Test Item Value Reference Range Interpretation Comments GLUCOSE (test code = 2217) 88 MG/DL BUN (test code = 2208) 58 MG/DL CREATININE (test code = 2214) 1.41 MG/DL eGFR AMER. (test code 40 ML/MIN/1.73 = 53745) eGFR NON- AMER. (test 35 ML/MIN/1.73 code = 71009) CALC BUN/CREAT (test code = 41 RATIO 5) SODIUM (test code = 2231) [...] code = 2219) 15 U/L COMPREHENSIVE METABOLIC [id number] 00:00:00 Test Item Value Reference Range Interpretation Comments GLUCOSE (test code = 2217) 88 MG/DL BUN (test code = 2208) 58 MG/DL CREATININE (test code = 2214) 1.41 MG/DL eGFR AMER. (test code 40 ML/MIN/1.73 = 74259) eGFR NON- AMER. (test 35 ML/MIN/1.73 code = 40508) CALC BUN/CREAT (test code = 41 RATIO [...] ALT (test code = 2219) 15 U/L [id number] 00:00:00 Test Item Value Reference Range Interpretation Comments MAGNESIUM (test code = 2226) 2.5 MG/DL [id number] 00:00:00 Test Item Value Reference Range Interpretation Comments MAGNESIUM (test code = 2226) 2.5 MG/DL [id number] 00:00:00 Test Item Value Reference Range Interpretation Comments MAGNESIUM (test code = 2226) 2.5 MG/DL URIC [id number] 00:00:00 Test Item Value Reference Range Interpretation Comments URIC ACID (test code = 2233) 6.5 MG/DL URIC [id number] 00:00:00 Test Item Value Reference Range Interpretation Comments URIC ACID (test code = 2233) 6.5 MG/DL [id number] 00:00:00 Test Item Value Reference Range Interpretation Comments PHOSPHORUS (test code = 2227) 5.8 MG/DL [id number] 00:00:00 Test Item Value Reference Range Interpretation Comments PHOSPHORUS (test code = 2227) 5.8 MG/DL HEMOGLOBIN [id number] 00:00:00 Test Item Value Reference Range Interpretation Comments HEMOGLOBIN A1c (test code = 67567) 6.1 % HEMOGLOBIN [id number] 00:00:00 Test Item Value Reference Range Interpretation Comments HEMOGLOBIN A1c (test code = 05110) 6.1 % HEMOGLOBIN [id number] 00:00:00 Test Item Value Reference Range Interpretation Comments HEMOGLOBIN A1c (test code = 54784) 6.1 % LIPID [id number] 00:00:00 Test Item Value Reference Range Interpretation Comments CHOLESTEROL (test code = 2210) 169 MG/DL TRIGLYCERIDES (test code = 2232) 78 MG/DL HDL CHOLESTEROL (test code = 2220) 65 MG/DL CALC LDL CHOL (test code = 2237) 87 MG/DL RISK RATIO LDL/HDL (test code = 1.34 RATIO 2238) LIPID [id number] 00:00:00 Test Item Value Reference Range Interpretation Comments CHOLESTEROL (test code = 2210) 169 MG/DL TRIGLYCERIDES (test code = 2232) 78 MG/DL HDL CHOLESTEROL (test code = 2220) 65 MG/DL CALC LDL CHOL (test code = 2237) 87 MG/DL RISK RATIO LDL/HDL (test code = 1.34 RATIO 2238) URINALYSIS WITH [id number] 00:00:00 Test Item Value Reference Range Interpretation [...] EPITHELIAL CELLS (test code = 0-5 /HPF 18176) BACTERIA (test code = 1515) NONE SEEN CASTS, HYALINE (test code = 1517) TRACE URINALYSIS WITH [id number] 00:00:00 Test Item Value Reference Range Interpretation [...] EPITHELIAL CELLS (test code = 0-5 /HPF 31665) BACTERIA (test code = 1515) NONE SEEN CASTS, HYALINE (test code = 1517) TRACE CREATININE, RANDOM [id number] 00:00:00 Test Item Value Reference Range Interpretation Comments CREATININE, URINE, CONC. (test 84.1 MG/DL code = 2071) CREATININE, RANDOM [id number] 00:00:00 Test Item Value Reference Range Interpretation Comments CREATININE, URINE, CONC. (test 84.1 MG/DL code = 2071) MICROALBUMIN, [id number] 00:00:00 Test Item Value Reference Range Interpretation Comments ALBUMIN, URINE, RANDOM (test code = 0.3 MG/DL 65071) MICROALBUMIN, [id number] 00:00:00 Test Item Value Reference Range Interpretation Comments ALBUMIN, URINE, RANDOM (test code = 0.3 MG/DL 87827) NT-proBNP [ADDED]2020-08-07 00:00:00 Test Item Value Reference Range Interpretation Comments NT-proBNP (test code = 59545) 1372 PG/ML NT-proBNP [ADDED]2020-08-07 00:00:00 Test Item Value Reference Range Interpretation Comments NT-proBNP (test code = 22372) 1372 PG/ML NT-proBNP [ADDED]2020-08-07 00:00:00 Test Item Value Reference Range Interpretation Comments NT-proBNP (test code = 28904) 1372 PG/ML MICROALBUMIN, [id number] 00:00:00 Test Item Value Reference Range Interpretation Comments ALBUMIN, URINE, RANDOM (test code = 0.3 MG/DL 17176) MICROALBUMIN, [id number] 00:00:00 Test Item Value Reference Range Interpretation Comments ALBUMIN, URINE, RANDOM (test code = 0.3 MG/DL 48540) MICROALBUMIN, [id number] 00:00:00 Test Item Value Reference Range Interpretation Comments ALBUMIN, URINE, RANDOM (test code = 0.3 MG/DL 69639) MICROALBUMIN, [id number] 00:00:00 Test Item Value Reference Range Interpretation Comments ALBUMIN, URINE, RANDOM (test code = 0.3 MG/DL 20670) MICROALBUMIN, [id number] 00:00:00 Test Item Value Reference Range Interpretation Comments ALBUMIN, URINE, RANDOM (test code = 0.3 MG/DL 11692) CBC W/AUTO [id number] 00:00:00 Test Item Value Reference Range Interpretation [...] code = 1015) 178 K/UL CBC W/AUTO [id number] 00:00:00 Test Item Value Reference Range Interpretation [...] code = 1015) 178 K/UL COMPREHENSIVE METABOLIC [id number] 00:00:00 Test Item Value Reference Range Interpretation Comments GLUCOSE (test code = 2217) 85 MG/DL BUN (test code = 2208) 48 MG/DL CREATININE (test code = 2214) 1.12 MG/DL eGFR AMER. (test code 53 ML/MIN/1.73 = 22115) eGFR NON- AMER. (test 46 ML/MIN/1.73 code = 41083) CALC BUN/CREAT (test code = 43 RATIO [...] ALT (test code = 2219) 19 U/L [id number] 00:00:00 Test Item Value Reference Range Interpretation Comments MAGNESIUM (test code = 2226) 2.4 MG/DL [id number] 00:00:00 Test Item Value Reference Range Interpretation Comments MAGNESIUM (test code = 2226) 2.4 MG/DL [id number] 00:00:00 Test Item Value Reference Range Interpretation Comments PHOSPHORUS (test code = 2227) 4.9 MG/DL URIC [id number] 00:00:00 Test Item Value Reference Range Interpretation Comments URIC ACID (test code = 2233) 6.4 MG/DL HEMOGLOBIN [id number] 00:00:00 Test Item Value Reference Range Interpretation Comments HEMOGLOBIN A1c (test code = 93429) 5.8 % HEMOGLOBIN [id number] 00:00:00 Test Item Value Reference Range Interpretation Comments HEMOGLOBIN A1c (test code = 65227) 5.8 % CBC W/AUTO [id number] 00:00:00 Test Item Value Reference Range Interpretation [...] code = 1015) 178 K/UL CBC W/AUTO [id number] 00:00:00 Test Item Value Reference Range Interpretation [...] code = 1015) 178 K/UL CBC W/AUTO [id number] 00:00:00 Test Item Value Reference Range Interpretation [...] code = 1015) 178 K/UL COMPREHENSIVE METABOLIC [id number] 00:00:00 Test Item Value Reference Range Interpretation Comments GLUCOSE (test code = 2217) 85 MG/DL BUN (test code = 2208) 48 MG/DL CREATININE (test code = 2214) 1.12 MG/DL eGFR AMER. (test code 53 ML/MIN/1.73 = 30930) eGFR NON- AMER. (test 46 ML/MIN/1.73 code = 76174) CALC BUN/CREAT (test code = 43 RATIO [...] code = 2219) 19 U/L COMPREHENSIVE METABOLIC [id number] 00:00:00 Test Item Value Reference Range Interpretation Comments GLUCOSE (test code = 2217) 85 MG/DL BUN (test code = 2208) 48 MG/DL CREATININE (test code = 2214) 1.12 MG/DL eGFR AMER. (test code 53 ML/MIN/1.73 = 92638) eGFR NON- AMER. (test 46 ML/MIN/1.73 code = 23450) CALC BUN/CREAT (test code = 43 RATIO [...] CALC GLOBULIN (test code = 2.7 G/DL 224) CALC A/G RATIO (test code = 1.6 RATIO 2234) BILIRUBIN, TOTAL (test code = 0.3 MG/DL 2206) ALKALINE PHOSPHATASE (test 32 U/L code = 2204) AST (test code = 2218) 26 U/L ALT (test code = 2219) 19 U/L [id number] 00:00:00 Test Item Value Reference Range Interpretation Comments MAGNESIUM (test code = 2226) 2.4 MG/DL [id number] 00:00:00 Test Item Value Reference Range Interpretation Comments MAGNESIUM (test code = 2226) 2.4 MG/DL [id number] 00:00:00 Test Item Value Reference Range Interpretation Comments MAGNESIUM (test code = 2226) 2.4 MG/DL [id number] 00:00:00 Test Item Value Reference Range Interpretation Comments PHOSPHORUS (test code = 2227) 4.9 MG/DL [id number] 00:00:00 Test Item Value Reference Range Interpretation Comments PHOSPHORUS (test code = 2227) 4.9 MG/DL URIC [id number] 00:00:00 Test Item Value Reference Range Interpretation Comments URIC ACID (test code = 2233) 6.4 MG/DL URIC [id number] 00:00:00 Test Item Value Reference Range Interpretation Comments URIC ACID (test code = 2233) 6.4 MG/DL HEMOGLOBIN [id number] 00:00:00 Test Item Value Reference Range Interpretation Comments HEMOGLOBIN A1c (test code = 82832) 5.8 % HEMOGLOBIN [id number] 00:00:00 Test Item Value Reference Range Interpretation Comments HEMOGLOBIN A1c (test code = 20813) 5.8 % HEMOGLOBIN [id number] 00:00:00 Test Item Value Reference Range Interpretation Comments HEMOGLOBIN A1c (test code = 89968) 5.8 % CBC W/AUTO [id number] 00:00:00 Test Item Value Reference Range Interpretation [...] code = 1015) 178 K/UL CBC W/AUTO [id number] 00:00:00 Test Item Value Reference Range Interpretation [...] code = 1015) 178 K/UL CBC W/AUTO [id number] 00:00:00 Test Item Value Reference Range Interpretation [...] code = 1015) 178 K/UL COMPREHENSIVE METABOLIC [id number] 00:00:00 Test Item Value Reference Range Interpretation Comments GLUCOSE (test code = 2217) 85 MG/DL BUN (test code = 2208) 48 MG/DL CREATININE (test code = 2214) 1.12 MG/DL eGFR AMER. (test code 53 ML/MIN/1.73 = 25778) eGFR NON- AMER. (test 46 ML/MIN/1.73 code = 86320) CALC BUN/CREAT (test code = 43 RATIO [...] code = 2219) 19 U/L COMPREHENSIVE METABOLIC [id number] 00:00:00 Test Item Value Reference Range Interpretation Comments GLUCOSE (test code = 2217) 85 MG/DL BUN (test code = 2208) 48 MG/DL CREATININE (test code = 2214) 1.12 MG/DL eGFR AMER. (test code 53 ML/MIN/1.73 = 24336) eGFR NON- AMER. (test 46 ML/MIN/1.73 code = 47390) CALC BUN/CREAT (test code = 43 RATIO [...] ALT (test code = 2219) 19 U/L [id number] 00:00:00 Test Item Value Reference Range Interpretation Comments MAGNESIUM (test code = 2226) 2.4 MG/DL [id number] 00:00:00 Test Item Value Reference Range Interpretation Comments MAGNESIUM (test code = 2226) 2.4 MG/DL [id number] 00:00:00 Test Item Value Reference Range Interpretation Comments MAGNESIUM (test code = 2226) 2.4 MG/DL [id number] 00:00:00 Test Item Value Reference Range Interpretation Comments PHOSPHORUS (test code = 2227) 4.9 MG/DL [id number] 00:00:00 Test Item Value Reference Range Interpretation Comments PHOSPHORUS (test code = 2227) 4.9 MG/DL URIC [id number] 00:00:00 Test Item Value Reference Range Interpretation Comments URIC ACID (test code = 2233) 6.4 MG/DL URIC [id number] 00:00:00 Test Item Value Reference Range Interpretation Comments URIC ACID (test code = 2233) 6.4 MG/DL HEMOGLOBIN [id number] 00:00:00 Test Item Value Reference Range Interpretation Comments HEMOGLOBIN A1c (test code = 31199) 5.8 % HEMOGLOBIN [id number] 00:00:00 Test Item Value Reference Range Interpretation Comments HEMOGLOBIN A1c (test code = 42160) 5.8 % HEMOGLOBIN [id number] 00:00:00 Test Item Value Reference Range Interpretation Comments HEMOGLOBIN A1c (test code = 57907) 5.8 % URINE CULTURE, NO [id number] 00:00:00 Test Item Value Reference Range Interpretation Comments URINE CULTURE, NO SPECIMEN NUMBER: SENS (test code = [id number]) URINE CULTURE, NO [id number] 00:00:00 Test Item Value Reference Range Interpretation Comments URINE CULTURE, NO SPECIMEN NUMBER: SENS (test code = [id number]) URINE CULTURE, NO [id number] 00:00:00 Test Item Value Reference Range Interpretation Comments URINE CULTURE, NO SPECIMEN NUMBER: SENS (test code = [id number]) URINE CULTURE, NO [id number] 00:00:00 Test Item Value Reference Range Interpretation Comments URINE CULTURE, NO SPECIMEN NUMBER: SENS (test code = [id number]) URINE CULTURE, NO [id number] 00:00:00 Test Item Value Reference Range Interpretation Comments URINE CULTURE, NO SPECIMEN NUMBER: SENS (test code = [id number] 69947) MICROALBUMIN/CREATININE, RANDOM AND [id number] 00:00:00 Test Item Value Reference Range Interpretation Comments CREATININE, URINE, CONC. (test 52.6 MG/DL code = 2072) ALBUMIN, URINE, RANDOM (test code 0.5 MG/DL = 93631) CALC ALBUMIN/CREAT, RND (test code 10 MG/G = 80073) MICROALBUMIN/CREATININE, RANDOM AND [id number] 00:00:00 Test Item Value Reference Range Interpretation Comments CREATININE, URINE, CONC. (test 52.6 MG/DL code = 2072) ALBUMIN, URINE, RANDOM (test code 0.5 MG/DL = 87090) CALC ALBUMIN/CREAT, RND (test code 10 MG/G = 18250) MICROALBUMIN/CREATININE, RANDOM AND [id number] 00:00:00 Test Item Value Reference Range Interpretation Comments CREATININE, URINE, CONC. (test 52.6 MG/DL code = 2072) ALBUMIN, URINE, RANDOM (test code 0.5 MG/DL = 76372) CALC ALBUMIN/CREAT, RND (test code 10 MG/G = 92111) MICROALBUMIN/CREATININE, RANDOM AND [id number] 00:00:00 Test Item Value Reference Range Interpretation Comments CREATININE, URINE, CONC. (test 52.6 MG/DL code = 2072) ALBUMIN, URINE, RANDOM (test code 0.5 MG/DL = 03236) CALC ALBUMIN/CREAT, RND (test code 10 MG/G = 26729) MICROALBUMIN/CREATININE, RANDOM AND [id number] 00:00:00 Test Item Value Reference Range Interpretation Comments CREATININE, URINE, CONC. (test 52.6 MG/DL code = 2072) ALBUMIN, URINE, RANDOM (test code 0.5 MG/DL = 15190) CALC ALBUMIN/CREAT, RND (test code 10 MG/G = 09944) CBC W/AUTO [id number] 00:00:00 Test Item Value Reference Range Interpretation [...] code = 1015) 208 K/UL CBC W/AUTO [id number] 00:00:00 Test Item Value Reference Range Interpretation [...] (test code = 1015) 208 K/UL HEMOGLOBIN [id number] 00:00:00 Test Item Value Reference Range Interpretation Comments HEMOGLOBIN A1c (test code = 62074) 6.3 % HEMOGLOBIN [id number] 00:00:00 Test Item Value Reference Range Interpretation Comments HEMOGLOBIN A1c (test code = 85585) 6.3 % COMPREHENSIVE METABOLIC [id number] 00:00:00 Test Item Value Reference Range Interpretation Comments GLUCOSE (test code = 2217) 77 MG/DL BUN (test code = 2208) 58 MG/DL CREATININE (test code = 2214) 1.93 MG/DL eGFR AMER. (test code 28 ML/MIN/1.73 = 00975) eGFR NON- AMER. (test 24 ML/MIN/1.73 code = 40982) CALC BUN/CREAT (test code = 30 RATIO [...] (test code = 2219) 13 U/L URIC [id number] 00:00:00 Test Item Value Reference Range Interpretation Comments URIC ACID (test code = 2233) 8.9 MG/DL [id number] 00:00:00 Test Item Value Reference Range Interpretation Comments MAGNESIUM (test code = 2226) 2.7 MG/DL [id number] 00:00:00 Test Item Value Reference Range Interpretation Comments MAGNESIUM (test code = 2226) 2.7 MG/DL [id number] 00:00:00 Test Item Value Reference Range Interpretation Comments PHOSPHORUS (test code = 2227) 5.9 MG/DL [id number] 00:00:00 Test Item Value Reference Range Interpretation Comments NT-proBNP (test code = 18662) 3071 PG/ML [id number] 00:00:00 Test Item Value Reference Range Interpretation Comments NT-proBNP (test code = 81487) 3071 PG/ML CBC W/AUTO [id number] 00:00:00 Test Item Value Reference Range Interpretation [...] code = 1015) 208 K/UL CBC W/AUTO [id number] 00:00:00 Test Item Value Reference Range Interpretation [...] code = 1015) 208 K/UL CBC W/AUTO [id number] 00:00:00 Test Item Value Reference Range Interpretation [...] (test code = 1015) 208 K/UL HEMOGLOBIN [id number] 00:00:00 Test Item Value Reference Range Interpretation Comments HEMOGLOBIN A1c (test code = 06364) 6.3 % HEMOGLOBIN [id number] 00:00:00 Test Item Value Reference Range Interpretation Comments HEMOGLOBIN A1c (test code = 48429) 6.3 % HEMOGLOBIN [id number] 00:00:00 Test Item Value Reference Range Interpretation Comments HEMOGLOBIN A1c (test code = 32524) 6.3 % COMPREHENSIVE METABOLIC [id number] 00:00:00 Test Item Value Reference Range Interpretation Comments GLUCOSE (test code = 2217) 77 MG/DL BUN (test code = 2208) 58 MG/DL CREATININE (test code = 2214) 1.93 MG/DL eGFR AMER. (test code 28 ML/MIN/1.73 = 57058) eGFR NON- AMER. (test 24 ML/MIN/1.73 code = 60566) CALC BUN/CREAT (test code = 30 RATIO [...] code = 2219) 13 U/L COMPREHENSIVE METABOLIC [id number] 00:00:00 Test Item Value Reference Range Interpretation Comments GLUCOSE (test code = 2217) 77 MG/DL BUN (test code = 2208) 58 MG/DL CREATININE (test code = 2214) 1.93 MG/DL eGFR AMER. (test code 28 ML/MIN/1.73 = 40731) eGFR NON- AMER. (test 24 ML/MIN/1.73 code = 80880) CALC BUN/CREAT (test code = 30 RATIO [...] (test code = 2219) 13 U/L URIC [id number] 00:00:00 Test Item Value Reference Range Interpretation Comments URIC ACID (test code = 2233) 8.9 MG/DL URIC [id number] 00:00:00 Test Item Value Reference Range Interpretation Comments URIC ACID (test code = 2233) 8.9 MG/DL [id number] 00:00:00 Test Item Value Reference Range Interpretation Comments MAGNESIUM (test code = 2226) 2.7 MG/DL [id number] 00:00:00 Test Item Value Reference Range Interpretation Comments MAGNESIUM (test code = 2226) 2.7 MG/DL [id number] 00:00:00 Test Item Value Reference Range Interpretation Comments MAGNESIUM (test code = 2226) 2.7 MG/DL [id number] 00:00:00 Test Item Value Reference Range Interpretation Comments PHOSPHORUS (test code = 2227) 5.9 MG/DL [id number] 00:00:00 Test Item Value Reference Range Interpretation Comments PHOSPHORUS (test code = 2227) 5.9 MG/DL [id number] 00:00:00 Test Item Value Reference Range Interpretation Comments NT-proBNP (test code = 18672) 3071 PG/ML [id number] 00:00:00 Test Item Value Reference Range Interpretation Comments NT-proBNP (test code = 58130) 3071 PG/ML [id number] 00:00:00 Test Item Value Reference Range Interpretation Comments NT-proBNP (test code = 61075) 3071 PG/ML CBC W/AUTO [id number] 00:00:00 Test Item Value Reference Range Interpretation [...] code = 1015) 208 K/UL CBC W/AUTO [id number] 00:00:00 Test Item Value Reference Range Interpretation [...] code = 1015) 208 K/UL CBC W/AUTO [id number] 00:00:00 Test Item Value Reference Range Interpretation [...] (test code = 1015) 208 K/UL HEMOGLOBIN [id number] 00:00:00 Test Item Value Reference Range Interpretation Comments HEMOGLOBIN A1c (test code = 61518) 6.3 % HEMOGLOBIN [id number] 00:00:00 Test Item Value Reference Range Interpretation Comments HEMOGLOBIN A1c (test code = 61145) 6.3 % HEMOGLOBIN [id number] 00:00:00 Test Item Value Reference Range Interpretation Comments HEMOGLOBIN A1c (test code = 31752) 6.3 % COMPREHENSIVE METABOLIC [id number] 00:00:00 Test Item Value Reference Range Interpretation Comments GLUCOSE (test code = 2217) 77 MG/DL BUN (test code = 2208) 58 MG/DL CREATININE (test code = 2214) 1.93 MG/DL eGFR AMER. (test code 28 ML/MIN/1.73 = 68436) eGFR NON- AMER. (test 24 ML/MIN/1.73 code = 72586) CALC BUN/CREAT (test code = 30 RATIO [...] code = 2219) 13 U/L COMPREHENSIVE METABOLIC [id number] 00:00:00 Test Item Value Reference Range Interpretation Comments GLUCOSE (test code = 2217) 77 MG/DL BUN (test code = 2208) 58 MG/DL CREATININE (test code = 2214) 1.93 MG/DL eGFR AMER. (test code 28 ML/MIN/1.73 = 40058) eGFR NON- AMER. (test 24 ML/MIN/1.73 code = 88125) CALC BUN/CREAT (test code = 30 RATIO [...] (test code = 2219) 13 U/L URIC [id number] 00:00:00 Test Item Value Reference Range Interpretation Comments URIC ACID (test code = 2233) 8.9 MG/DL URIC [id number] 00:00:00 Test Item Value Reference Range Interpretation Comments URIC ACID (test code = 2233) 8.9 MG/DL [id number] 00:00:00 Test Item Value Reference Range Interpretation Comments MAGNESIUM (test code = 2226) 2.7 MG/DL [id number] 00:00:00 Test Item Value Reference Range Interpretation Comments MAGNESIUM (test code = 2226) 2.7 MG/DL [id number] 00:00:00 Test Item Value Reference Range Interpretation Comments MAGNESIUM (test code = 2226) 2.7 MG/DL [id number] 00:00:00 Test Item Value Reference Range Interpretation Comments PHOSPHORUS (test code = 2227) 5.9 MG/DL [id number] 00:00:00 Test Item Value Reference Range Interpretation Comments PHOSPHORUS (test code = 2227) 5.9 MG/DL [id number] 00:00:00 Test Item Value Reference Range Interpretation Comments NT-proBNP (test code = 88046) 3071 PG/ML [id number] 00:00:00 Test Item Value Reference Range Interpretation Comments NT-proBNP (test code = 97167) 3071 PG/ML [id number] 00:00:00 Test Item Value Reference Range Interpretation Comments NT-proBNP (test code = 91763) 3071 PG/ML BASIC METABOLIC [id number] 00:00:00 Test Item Value Reference Range Interpretation Comments GLUCOSE (test code = 2345-7) 85 mg/dL UREA NITROGEN (BUN) (test 35 mg/dL code = 3094-0) CREATININE (test code = 0.95 mg/dL 0-0) eGFR NON-AFR. SOUTH AFRICAN (test 57 mL/min/1.73m2 code = 91177-0) eGFR (test 66 mL/min/1.73m2 code = 32200-1) BUN/CREATININE RATIO (test 37 (calc) code = 3097-3) SODIUM (test code = 2951-2) 143 mmol/L POTASSIUM (test code = 4.5 mmol/L 2823-3) CHLORIDE (test code = 103 mmol/L 2075-0) CARBON DIOXIDE (test code = 30 mmol/L 2027-9) CALCIUM (test code = 9.6 mg/dL 65143-5) BASIC METABOLIC [id number] 00:00:00 Test Item Value Reference Range Interpretation Comments GLUCOSE (test code = 2345-7) 85 mg/dL UREA NITROGEN (BUN) (test 35 mg/dL code = 3094-0) CREATININE (test code = 0.95 mg/dL 2160-0) eGFR NON-AFR. SOUTH AFRICAN (test 57 mL/min/1.73m2 code = 05549-6) eGFR (test 66 mL/min/1.73m2 code = 59240-0) BUN/CREATININE RATIO (test 37 (calc) code = 3097-3) SODIUM (test code = 2951-2) 143 mmol/L POTASSIUM (test code = 4.5 mmol/L 2823-3) CHLORIDE (test code = 103 mmol/L 2075-0) CARBON DIOXIDE (test code = 30 mmol/L 8-9) CALCIUM (test code = 9.6 mg/dL 96734-9) BASIC METABOLIC [id number] 00:00:00 Test Item Value Reference Range Interpretation Comments GLUCOSE (test code = 2345-7) 85 mg/dL UREA NITROGEN (BUN) (test 35 mg/dL code = 3094-0) CREATININE (test code = 0.95 mg/dL 2160-0) eGFR NON-AFR. SOUTH AFRICAN (test 57 mL/min/1.73m2 code = 33992-4) eGFR (test 66 mL/min/1.73m2 code = 01413-8) BUN/CREATININE RATIO (test 37 (calc) code = 3097-3) SODIUM (test code = 2951-2) 143 mmol/L POTASSIUM (test code = 4.5 mmol/L 2823-3) CHLORIDE (test code = 103 mmol/L 2075-0) CARBON DIOXIDE (test code = 30 mmol/L 8-9) CALCIUM (test code = 9.6 mg/dL 06734-9) Notes Date/Time Note Provider Source 2022-10-10 11:08:01 0804-08-04W14:08:01Formatting Gerda Schmitz [facility] of this note might be different from the original.Patient returned call to clinic. Discussed Dr. Lomeli's recommendations. She states she was told same thing by [address] and has already started increasing fruits/vegetables. She has follow up with Dr. Zhong as well at the end of October. No further questions at this time. 33927-3Psfnjrcie encounter [id number]:09:23Teleph one encounter NoteTXT1.2.840.055337.1.13.104. 2.7.2.386966|[id number] banner for patient [id number] Hayden [address] JmlfXnxxetjjbKdpvkaagzMZOD30608 34552ZMYIQEYHRCHPCQVTMDCMZV9650 -08-28T11:09:231.2.840.047011.1 .72.3.15|1.2.840.674349.1.13.10 4.2.7.2.727879_[id number] 2022-10-10 08:45:35 7715-39-49M85:45:35Formatting Gerda Schmitz [facility] of this note might be different from the original.Images from the original note were not included.Attempted to contact patient with results/recommendations. LVM for patient to return call to [phone].Marizol Lomeli MD P Cardiology NurseI reviewed her labs. K 3.4. Recommend K-rich diet. 22528-1Ctwrqbibm encounter BceiJY4161-13-61R88:47:13Teleph one encounter NoteTXT1.2.840.872776.1.13.104. 2.7.2.426235|[id number] ble for patient leti20245-2XheaOI574898080Agih Hayden [address]TX[address] 56958PNEXYOAYDRNCIEJYTZJLGA7181 -08-28T08:47:131.2.840.079508.1 .72.3.15|1.2.840.901190.1.13.10 4.2.7.2.727879_[id number] 2022-10-06 13:57:44 9885-18-03D89:57:44Formatting Babita velasquez [facility] of this note might be different from the original.Received lab report from Dr. Mathews office putting in Dr. Albert ADC folder for review. 50023-3Amjdqvmpm encounter CzdxEE0608-45-06T28:59:31Teleph one encounter NoteTXT1.2.840.221661.1.13.104. 2.7.2.224381|[id number] ble for patient enag14991-9MtotIX505262804Bhtcm da Castillo [address]TX[address] 08356DGEEHQIQWZCFOSGNIYLINN9302 -08-24T13:59:311.2.840.724015.1 .72.3.15|1.2.840.032831.1.13.10 4.2.7.2.727879_[id number] 2022-10-06 09:20:58 7284-53-42E44:20:58Formatting Ann-Marie loyola [facility] of this note might be different from the original.Results from [employer]. Placed in provider's box. 37624-2Idehwwvks encounter DdmvSD8493-49-75B30:21:27Teleph one encounter NoteTXT1.2.840.121410.1.13.104. 2.7.2.600054|[id number] [facility] patient [id number] [address] KwruMkmsukgcbDardrkrccYZRV42316 51058CZEAGEQQSTQJTVLJEGBHZR4393 -10-06T09:21:271.2.840.577261.1 .72.3.15|1.2.840.214715.1.13.10 4.2.7.2.727879_[id number]
--- NOTE | 2023-01-15 16:59 | RAD REPORT ---
EXAM DESCRIPTION: Anuj Single View01/15/2023 4:36 pm CLINICAL HISTORY: sob COMPARISON: none FINDINGS: Mild bilateral interstitial lung opacities. Heart is moderately enlarged IMPRESSION: Mild CHF
[2023-01-15] MEDS ORDERED: NA CHLORIDE 0.9% 1,000 ML ONE (17:02)
[2023-01-15 17:07] LABS: Urine Bilirubin NEGATIVE (Negative); Urine Blood Negative (Negative); Urine Clarity Clear (Clear); Urine Color Light-Yellow (Yellow); Urine Glucose NEGATIVE (Negative); Urine Protein NEGATIVE (Negative); Urine Urobilinogen Normal (Normal); Urine pH 5.5 (5.0-7.0)
[2023-01-15 17:23] LABS: Absolute Lymphocytes (CBC) 0.5 K/uL (0.7-4.9); Lymphocytes % 9.2 % (15.3-44.8); MCV 92.4 fL (80-100); MPV 9.5 fL (7.6-11.3); Platelets 232 thou/uL (152-406); RBC Red Blood Cell Count 4.98 M/uL (3.86-4.86)
[2023-01-15 17:26] LABS: Protime INR 1.34
[2023-01-15 17:35] LABS: SARS-CoV-2 Antigen Rapid Res Negative (Negative)
[2023-01-15 17:44] LABS: Albumin 2.6 g/dL (3.4-5.0); Bilirubin Direct 0.4 mg/dL (0-0.2); Bilirubin Indirect, Calculated 0.3 mg/dL (0.2-0.8); Bilirubin Total 0.7 mg/dL (0.2-1.0); Magnesium 2.7 mg/dL (1.6-2.4); Potassium 4.2 mEq/L (3.5-5.1); Protein, Total 7.3 g/dL (6.4-8.2)
[2023-01-15 17:47] LABS: Troponin High Sensitivity 64.6 pg/mL (<58.9)
--- NOTE | 2023-01-15 18:46 | RAD REPORT ---
EXAM DESCRIPTION: USExtrem Venous W Compress Bil01/15/2023 5:34 pm CLINICAL HISTORY: Leg swelling COMPARISON: none FINDINGS: The common femoral, superficial femoral, greater saphenous, popliteal and posterior tibial veins bilaterally are compressible and demonstrate augmentation. Doppler demonstrates good flow. Grayscale, color and spectral analysis performed on all vessels IMPRESSION: No evidence of deep venous thrombosis involving either lower extremity.
--- NOTE | 2023-01-15 18:49 | ER ---
[facility] Name: Melissa Barry Age: 82 yrs Sex: Female : 1940 Arrival Date: 01/15/2023 Time: 15:38 Bed 5 Private MD: Diagnosis: Generalized edema;Edema, unspecified;Combined systolic (congestive) and diastolic (congestive) heart failure;Dyspnea Presentation: 01/15 16:02 Chief complaint: Worsening bilateral leg swelling, SOB, and generalized weakness x 4 hb days. Coronavirus screen: At this time, the client does not indicate any symptoms associated with coronavirus-19. Ebola Screen: No symptoms or risks identified at this time. Initial Sepsis Screen: Does the patient meet any 2 criteria? No. Patient's initial sepsis screen is negative. Does the patient have a suspected source of infection? No. Patient's initial sepsis screen is negative. Risk Assessment: Do you want to hurt yourself or someone else? Patient reports no desire to harm self or others. Onset of symptoms was December 17, 2022. 16:02 Method Of Arrival: Wheelchair hb 16:02 Acuity: LOIS 3 hb Historical: - Allergies: 16:03 No Known Allergies; hb - Home Meds: 17:21 amiloride 5 mg oral tablet [Active]; allopurinol 100 mg Oral tablet [Active]; Jardiance mb9 10 mg oral tablet [Active]; torsemide 20 mg oral tablet [Active]; Entresto 24-26 mg oral tablet [Active]; atorvastatin 10 mg oral tablet [Active]; levothyroxine oral [Active]; - PMHx: 17:21 Hypertensive disorder; Hypothyroidism; Hypercholesterolemia; mb9 17:26 Breast Cancer; Congestive heart failure; mb9 - PSHx: 16:03 cancer; hb - Immunization history:: Adult Immunizations up to date. - Social history:: Smoking status: Patient denies any tobacco usage or history of. Screenin:19 [facility] ED Fall Risk Assessment (Adult) History of falling in the last 3 months, mb9 including since admission No falls in past 3 months (0 pts) Confusion or Disorientation No (0 pts) Intoxicated or Sedated No (0 pts) Impaired Gait No (0 pts) Mobility Assist Device Used No (0 pt) Altered Elimination No (0 pt) Score/Fall Risk Level 0 - 2 = Low Risk Oriented to surroundings, Maintained a safe environment, Educated pt \T\ family on fall prevention, incl call for assistance when getting out of bed. Abuse screen: Denies threats or abuse. Nutritional screening: No deficits noted. Tuberculosis screening: No symptoms or risk factors identified. Assessment: 17:17 General: Appears uncomfortable, ill, Behavior is cooperative. Pain: Denies pain. Neuro: mb9 Mosley Agitation-Sedation Scale (RASS): 0 - Alert and Calm Level of Consciousness is awake, alert, obeys commands, Oriented to person, place, time, situation, Appropriate for age. Cardiovascular: Denies chest pain, Heart tones S1 S2 present Patient's skin is warm and dry. Edema is 2+ to left midcalf, left ankle, left foot, left toes, right midcalf, right ankle, right foot and right toes. Respiratory: Reports shortness of breath Airway is patent Respiratory effort is even, unlabored, Respiratory pattern is regular, symmetrical, Breath sounds with wheezes bilaterally. GI: Abdomen is flat, non-distended, Bowel sounds present X 4 quads. Abd is soft and non tender X 4 quads. Patient currently denies diarrhea, nausea, vomiting. : No signs and/or symptoms were reported regarding the genitourinary system. EENT: No signs and/or symptoms were reported regarding the EENT system. Derm: Skin is pink, warm \T\ dry. Musculoskeletal: Range of motion: intact in all extremities. 18:33 Reassessment: Patient appears in no apparent distress at this time. No changes from mb9 previously documented assessment. Patient and/or family updated on plan of care and expected duration. Pain level reassessed. Patient is alert, oriented x 3, equal unlabored respirations, skin warm/dry/pink. 19:53 Reassessment: Patient appears in no apparent distress at this time. No changes from jw7 previously documented assessment. Patient and/or family updated on plan of care and expected duration. Pain level reassessed. Patient is alert, oriented x 3, equal unlabored respirations, skin warm/dry/pink. Cardiovascular: Rhythm is sinus tachycardia. 20:30 Reassessment: Patient appears in no apparent distress at this time. No changes from jw7 previously documented assessment. Patient and/or family updated on plan of care and expected duration. Pain level reassessed. Patient is alert, oriented x 3, equal unlabored respirations, skin warm/dry/pink. 20:40 General: Report given to receiving nurse . jw7 Vital Signs: 16:02 BP 95 / 67; Pulse 89; Resp 20; Temp 97.8(TE); Pulse Ox 100% on R/A; Weight 59.42 kg; hb Height 5 ft. 0 in. ; Pain 0/10; 17:20 BP 107 / 79; Pulse 90; Resp 18; Pulse Ox 95% on R/A; mb9 18:33 BP 106 / 86; Pulse 96; Resp 18; Pulse Ox 98% on R/A; mb9 19:54 BP 106 / 73; Pulse 92; Resp 30 S; Pulse Ox 99% on R/A; jw7 20:41 BP 107 / 80; Pulse 93; Resp 20; Pulse Ox 99% ; jw7 16:02 Body Mass Index 25.58 (59.42 kg, 152.4 cm) hb 16:02 Pain Scale: Adult hb ED Course: 15:39 Patient arrived in ED. rg4 16:03 Triage completed. hb 16:22 Mirza Preston MD is Attending Physician. kyle 16:38 XRAY Chest (1 view) In Process Unspecified. EDMS 16:46 Ambreen Estevez, RN is Primary Nurse. mb9 17:17 Arm band placed on. mb9 17:19 Placed in gown. Bed in low position. Call light in reach. Side rails up X 1. Client mb9 placed on continuous cardiac and pulse oximetry monitoring. NIBP monitoring applied. staging technician on. 17:19 Flu Sent. mb9 17:19 SARS RAPID Sent. mb9 17:19 AMMONIA Sent. mb9 17:19 Lipase Sent. mb9 17:19 Basic Metabolic Panel Sent. mb9 17:19 CBC with Diff Sent. mb9 17:19 LFT's Sent. mb9 17:19 Magnesium Sent. mb9 17:19 PT-INR Sent. mb9 17:19 Troponin HS Sent. mb9 17:20 Inserted saline lock: 22 gauge in right forearm, using aseptic technique. mb9 17:35 US Extremity Venous W Compression Shahzad In Process Unspecified. EDMS 18:33 No provider procedures requiring assistance completed. mb9 18:48 Carol Muir MD is Hospitalizing Provider. kyle 18:53 Cueva cath inserted, using sterile technique, 16 Fr., by co, balloon inflated, to mb9 gravity drainage, urine specimen collected. returned clear yellow urine. Patient tolerated well. 19:04 Report given to Carlos. 9 20:41 Provided Education on: need for admit. jw7 20:41 Patient admitted, IV remains in place. jw7 Administered Medications: 18:35 Discontinued: ns 0.9% 1000 ml IV at 75 ml/hr continuous mb9 17:19 Drug: NS 0.9% IV 1000 ml IV at 75 ml/hr continuous Route: IV; Rate: 75 ml/hr; Site: mb9 right forearm; 18:42 Drug: Furosemide IVP 40 mg IVP once; give over 2 minutes Route: IVP; Site: right mb9 forearm; 20:43 Follow up: Response: No adverse reaction jw Medication: 17:19 VIS not applicable for this client. mb9 Outcome: 18:49 Decision to Hospitalize by Provider. [facility] 20:42 Admitted to Med/surg accompanied by tech, via stretcher, room 221, jw7 20:42 Condition: stable 20:42 Instructed on the need for admit, Demonstrated understanding of instructions, 21:13 Patient left the ED. as6 Signatures: Dispatcher [employer] EDMS Mirza Preston MD MD cha Baxter, Heather, RN RN Elenita Sparks rg4 Meet Stockton, RN CELINA as6 Noemi Barr RN CELINA jw7 Ambreen Estevez RN RN mb9 Corrections: (The following items were deleted from the chart) 16:04 16:03 PMHx: CHF (cancer); hb hb 17:20 17:17 Cardiovascular: Denies chest pain, Heart tones S1 S2 present Patient's skin is mb9 warm and dry. mb9
--- NOTE | 2023-01-15 18:49 | EDPHYS ---
Physician Documentation [facility] Name: Melissa Barry Age: 82 yrs Sex: Female : 1940 Arrival Date: 01/15/2023 Time: 15:38 Bed 5 Private MD: ED Physician Mirza Preston HPI: 01/15 18:37 This 82 yrs old Female presents to ER via Wheelchair with complaints of kyle Breathing Difficulty, Leg Swelling. 18:37 The patient has shortness of breath with light activity. Onset: The symptoms/episode kyle began/occurred 3 day(s) ago. Duration: The symptoms are continuous, and are steadily getting worse. The patient's shortness of breath is aggravated by coughing, supine position. Associated signs and symptoms: Pertinent positives: dizziness. Severity of symptoms: At their worst the symptoms were mild moderate yesterday, in the emergency department the symptoms are unchanged. The patient has experienced similar episodes in the past, multiple times. Historical: - Allergies: 16:03 No Known Allergies; hb - Home Meds: 17:21 amiloride 5 mg oral tablet [Active]; allopurinol 100 mg Oral tablet [Active]; Jardiance mb9 10 mg oral tablet [Active]; torsemide 20 mg oral tablet [Active]; Entresto 24-26 mg oral tablet [Active]; atorvastatin 10 mg oral tablet [Active]; levothyroxine oral [Active]; - PMHx: 17:21 Hypertensive disorder; Hypothyroidism; Hypercholesterolemia; mb9 17:26 Breast Cancer; Congestive heart failure; mb9 - PSHx: 16:03 cancer; hb - Immunization history:: Adult Immunizations up to date. - Social history:: Smoking status: Patient denies any tobacco usage or history of. ROS: 18:40 Constitutional: Negative for fever, chills, and weight loss, Eyes: Negative for injury, kyle pain, redness, and discharge, ENT: Negative for injury, pain, and discharge, Neck: Negative for injury, pain, and swelling, Abdomen/GI: Negative for abdominal pain, nausea, vomiting, diarrhea, and constipation, Back: Negative for injury and pain, : Negative for injury, bleeding, discharge, and swelling, Skin: Negative for injury, rash, and discoloration, Neuro: Negative for headache, weakness, numbness, tingling, and seizure, Psych: Negative for depression, anxiety, suicide ideation, homicidal ideation, and hallucinations, Allergy/Immunology: Negative for hives, rash, and allergies, Endocrine: Negative for neck swelling, polydipsia, polyuria, polyphagia, and marked weight changes, 18:40 Cardiovascular: Positive for palpitations, 18:40 Respiratory: Positive for cough, "sounds productive", 18:40 MS/extremity: Positive for decreased range of motion, pain, swelling, tenderness, Exam: 18:40 Constitutional: This is a well developed, well nourished patient who is awake, alert, kyle and in no acute distress. Head/Face: Normocephalic, atraumatic. Eyes: Pupils equal round and reactive to light, extra-ocular motions intact. Lids and lashes normal. Conjunctiva and sclera are non-icteric and not injected. Cornea within normal limits. Periorbital areas with no swelling, redness, or edema. ENT: Nares patent. No nasal discharge, no septal abnormalities noted. Tympanic membranes are normal and external auditory canals are clear. Oropharynx with no redness, swelling, or masses, exudates, or evidence of obstruction, uvula midline. Mucous membranes moist. Neck: Trachea midline, no thyromegaly or masses palpated, and no cervical lymphadenopathy. Supple, full range of motion without nuchal rigidity, or vertebral point tenderness. No Meningismus. Chest/axilla: Normal chest wall appearance and motion. Nontender with no deformity. No lesions are appreciated. Abdomen/GI: Soft, non-tender, with normal bowel sounds. No distension or tympany. No guarding or rebound. No evidence of tenderness throughout. Back: No spinal tenderness. No costovertebral tenderness. Full range of motion. Female : Normal external genitalia. Skin: Warm, dry with normal turgor. Normal color with no rashes, no lesions, and no evidence of cellulitis. Neuro: Awake and alert, GCS 15, oriented to person, place, time, and situation. Cranial nerves II-XII grossly intact. Motor strength 5/5 in all extremities. Sensory grossly intact. Cerebellar exam normal. Normal gait. Psych: Awake, alert, with orientation to person, place and time. Behavior, mood, and affect are within normal limits. 18:40 Cardiovascular: Rate: normal, actual rate is 96 bpm, Rhythm: regular, Pulses: Pulses are 4+ in bilateral radial, brachial, femoral, popliteal, posterior tibial and and dorsalis pedis arteries.. Heart sounds: normal, Edema: 4+ edema to level of left midcalf and right midcalf, JVD: is noted bilaterally, to the angle of the jaw, 18:40 ECG was reviewed by the Attending Physician. Vital Signs: 16:02 BP 95 / 67; Pulse 89; Resp 20; Temp 97.8(TE); Pulse Ox 100% on R/A; Weight 59.42 kg; hb Height 5 ft. 0 in. ; Pain 0/10; 17:20 BP 107 / 79; Pulse 90; Resp 18; Pulse Ox 95% on R/A; mb9 18:33 BP 106 / 86; Pulse 96; Resp 18; Pulse Ox 98% on R/A; mb9 19:54 BP 106 / 73; Pulse 92; Resp 30 S; Pulse Ox 99% on R/A; jw7 20:41 BP 107 / 80; Pulse 93; Resp 20; Pulse Ox 99% ; jw7 16:02 Body Mass Index 25.58 (59.42 kg, 152.4 cm) hb 16:02 Pain Scale: Adult hb MDM: 16:22 Patient medically screened. kyle 18:45 Differential diagnosis: contusion, tendonitis, Anemia CHF exacerbation, pneumonia, kyle pulmonary edema, reactive airway disease, Sepsis. Antibiotic administration: Not indicated. Differential Diagnosis altered mental status, sepsis, flu. Immunization status: Pneumococcal vaccine: within last 5 years. Influenza vaccine: within last 5 years. Data reviewed: vital signs, nurses notes, lab test result(s), EKG, radiologic studies, plain films. Consideration of Admission/Observation Patient was admitted/placed on observation. Escalation of care including admission/observation considered. I considered the following discharge prescriptions or medication management in the emergency department Medications were administered in the Emergency Department. See MAR. Independent interpretation of the following test(s) in the Emergency Department EKG: See my EKG interpretation above. Test considered but Not performed: Ultrasound NO 2 ECHO IN ER. Counseling: I had a detailed discussion with the patient and/or guardian regarding the historical points, exam findings, and any diagnostic results supporting the discharge/admit diagnosis, lab results, radiology results, the need for further work-up and treatment in the hospital. 01/15 16:23 Order name: Basic Metabolic Panel; Complete Time: 18:33 kyle 01/15 16:23 Order name: CBC with Diff; Complete Time: 18:33 kyle 01/15 16:23 Order name: LFT's; Complete Time: 18:33 kyle 01/15 16:23 Order name: Magnesium; Complete Time: 18:33 kyle 01/15 16:23 Order name: NT PRO-BNP; Complete Time: 18:33 kyle 01/15 16:23 Order name: PT-INR; Complete Time: 18:33 kyle 01/15 16:23 Order name: Troponin HS; Complete Time: 18:33 kyle 01/15 16:23 Order name: Urinalysis w/ reflexes; Complete Time: 18:33 kyle 01/15 16:23 Order name: Lipase; Complete Time: 18:33 kyle 01/15 16:23 Order name: AMMONIA; Complete Time: 18:33 kyle 01/15 16:23 Order name: SARS RAPID; Complete Time: 18:33 kyle 01/15 16:23 Order name: Flu; Complete Time: 18:37 kyle 01/15 19:06 Order name: CBC with Automated Diff EDMS 01/15 19:06 Order name: CBC with Automated Diff EDMS 01/15 19:06 Order name: Comprehensive Metabolic Panel EDMS 01/15 19:06 Order name: Comprehensive Metabolic Panel EDMS 01/15 19:06 Order name: Magnesium EDMS 01/15 19:06 Order name: Magnesium EDMS 01/15 19:06 Order name: NT PRO-BNP EDMS 01/15 19:06 Order name: NT PRO-BNP EDMS 01/15 19:06 Order name: Phosphorus EDMS 01/15 19:06 Order name: Phosphorus EDMS 01/15 19:06 Order name: Troponin High Sensitivity EDMS 01/15 19:06 Order name: Troponin High Sensitivity EDMS 01/15 19:06 Order name: Troponin High Sensitivity EDMS 01/15 16:23 Order name: XRAY Chest (1 view); Complete Time: 18:33 kyle 01/15 16:23 Order name: US Extremity Venous W Compression Shahzad; Complete Time: 18:47 kyle 01/15 19:06 Order name: Echo with Doppler EDMS 01/15 19:06 Order name: Echo with Doppler EDMS 01/15 16:23 Order name: EKG; Complete Time: 16:24 kyle 01/15 19:06 Order name: CONS Physician Consult [facility] 01/15 16:23 Order name: Cardiac monitoring; Complete Time: 16:48 [facility] 01/15 16:23 Order name: EKG - Nurse/Tech; Complete Time: 16:48 [facility] 01/15 16:23 Order name: IV Saline Lock; Complete Time: 17:19 [facility] 01/15 16:23 Order name: Labs collected and sent; Complete Time: 17:19 [facility] 01/15 16:23 Order name: O2 Per Protocol; Complete Time: 16:48 [facility] 01/15 16:23 Order name: O2 Sat Monitoring; Complete Time: 16:48 [facility] 01/15 18:37 Order name: Cueva; Complete Time: 18:53 [facility] EC:40 Rate is 110 beats/min. Rhythm is regular. QRS [place] is Normal. IA interval is normal. kyle QRS interval is normal. QT interval is normal. No Q waves. T waves are Normal. No ST changes noted. Clinical impression: Sinus tachycardia and No evidence of ischemia. Interpreted by me. Reviewed by me. Administered Medications: 18:35 Discontinued: ns 0.9% 1000 ml IV at 75 ml/hr continuous mb9 17:19 Drug: NS 0.9% IV 1000 ml IV at 75 ml/hr continuous Route: IV; Rate: 75 ml/hr; Site: mb9 right forearm; 18:42 Drug: Furosemide IVP 40 mg IVP once; give over 2 minutes Route: IVP; Site: right mb9 forearm; 20:43 Follow up: Response: No adverse reaction jw7 Disposition Summary: 01/15/23 18:49 Hospitalization Ordered Notes: Hospitalization Status: Inpatient Admission kyle Provider: Carol Muir cha [facility] kyle Condition: Fair kyle Problem: an acute exacerbation kyle Symptoms: have improved kyle Bed/Room Type: Standard kyle Room Assignment: 221(01/15/23 19:21) as6 Diagnosis - Generalized edema kyle - Edema, unspecified kyle - Combined systolic (congestive) and diastolic (congestive) heart failure kyle - Dyspnea kyle Forms: - Medication Reconciliation Form kyle - SBAR form kyle - Leadership Thank You Letter kyle Signatures: Dispatcher [employer] EDMirza David MD MD cha Baxter, Heather, RN RN Meet Stockton RN RN as6 Ambreen Estevez RN RN mb9 Noemi Barr RN jw7 Corrections: (The following items were deleted from the chart) 16:04 16:03 PMHx: CHF (cancer); hb hb 19:21 18:49 kyle as6
[2023-01-15] MEDS ORDERED: FUROSEMIDE 20 MG/ 2ML VIAL ONE (18:53)
[2023-01-15] MEDS ORDERED: ONDANSETRON 4 MG/2 ML VIAL IV PRN (18:58)
[2023-01-15] MEDS ORDERED: FUROSEMIDE 20 MG/ 2ML VIAL IV ONE (21:00)
[2023-01-15] MEDS: METOPROLOL TAR 25 MG TAB PO SCH (22:08)
[2023-01-15 23:00] VITALS: BMI 25.8
[2023-01-16 03:02] LABS: Absolute Lymphocytes (CBC) 0.3 K/uL (0.7-4.9); Hematocrit 39.6 % (36.0-45.0); Lymphocytes % 5.8 % (15.3-44.8); MCV 92.1 fL (80-100); MPV 9.3 fL (7.6-11.3); Platelets 211 thou/uL (152-406)
[2023-01-16 03:24] LABS: Albumin 2.2 g/dL (3.4-5.0); Bilirubin Total 0.8 mg/dL (0.2-1.0); Magnesium 2.5 mg/dL (1.6-2.4); Phosphorus 4.2 mg/dL (2.5-4.9); Potassium 3.8 mEq/L (3.5-5.1); Troponin High Sensitivity 57.5 pg/mL (<58.9)
--- NOTE | 2023-01-16 05:26 | P.HP ---
Certification for Inpatient Patient admitted to: Inpatient With expected LOS: >2 Midnights Patient will require the following post-hospital care: None Practitioner: I am a practitioner with admitting privileges, knowledge of patient current condition, hospital course, and medical plan of care. Services: Services provided to patient in accordance with Admission requirements found in Title 42 Section 412.3 of the Code of Federal Regulations Patient History Date of Service: 01/15/23 Reason for admission: Acute CHF exacerbation History of Present Illness: Patient is an 82-year-old female who comes into the emergency room with shortness of breath. Patient was found to have acute CHF exacerbation. Patient with a history of dilated cardiomyopathy with an ejection fraction of 10 to 15%. Patient has been following up with cardiology as an outpatient. Patient states she has been getting more short of breath over the last few days. Her respiratory status has gradually worsened. She came to the hospital and chest x-ray revealed bilateral pulmonary edema. Patient had mild acute CHF findings. Patient was just diuresed in the emergency room and is feeling better. Will continue with gentle diuresing on the floor. Will get cardiology consultation. Monitor hemodynamics closely. Echocardiogram will be repeated as we have not had an echo in 6 months. Patient will be admitted to the hospital for further evaluation. Allergies No Known Allergies Allergy (Verified 03/18/22 12:24) Home Medications: Allopurinol 1 tab PO DAILY 03/18/22 Aspirin [Aspirin EC 81 MG] 1 tab PO DAILY 03/18/22 Atorvastatin Calcium [Lipitor*] 1 tab PO 03/18/22 Furosemide 1 tab PO BID 03/18/22 Levothyroxine [Synthroid*] 1 tab PO DAILY 03/18/22 Magnesium Oxide [Mag 0X*] 200 mg PO DAILY 03/18/22 Metoprolol Succinate [Toprol Xl] 1 tab PO DAILY 03/18/22 Sacubitril/Valsartan [Entresto 24 mg-26 mg Tablet] 1 tab PO 03/18/22 Sacubitril/Valsartan [Entresto 24 mg-26 mg Tablet] 1 tab PO BID tab 03/21/22 - Past Medical/Surgical History Diabetic: No -: R side Breast Cancer W/lymph nodes removed 2003 -: Hypothyroidism -: HTN -: Cardiomyopathy with an ejection fraction of 10 to 15% -: Masectomy - Family History Father Family History: Reviewed- Non-Contributory - Social History Smoking Status: Never smoker Alcohol use: No CD- Drugs: No Caffeine use: No Place of Residence: Home Review of Systems 10-point ROS is otherwise unremarkable Physical Examination - Vital Signs Temperature: 97.6 F Blood Pressure: 105/64 Pulse: 88 Respirations: 16 Pulse Ox (%): 93 - Physical Exam General: Alert, In no apparent distress, Oriented x3 HEENT: Atraumatic, PERRLA, Mucous membr. moist/pink, EOMI, Sclerae nonicteric Neck: Supple, 2+ carotid pulse no bruit, No LAD, Without JVD or thyroid abnormality Respiratory: Diminished, Crackles/rales Cardiovascular: Regular rate/rhythm, Normal S1 S2, Systolic murmur Gastrointestinal: Normal bowel sounds, Soft and benign, Non-distended, No tenderness Musculoskeletal: No clubbing, No tenderness, Swelling Integumentary: No rashes Neurological: Normal speech, Normal strength at 5/5 x4 extr, Normal tone, Sensation intact, Cranial nerves 3-12 intact, Normal affect, Abnormal gait Lymphatics: No axilla or inguinal lymphadenopathy - Studies Laboratory Data (last 24 hrs) 01/15/23 01/15/23 01/15/23 17:13 17:13 17:13 WBC 5.70 Hgb 15.3 H Hct 46.0 H Plt Count 232 PT 14.7 H INR 1.34 Sodium 134 L Potassium 4.2 BUN 63 H Creatinine 1.34 H Glucose 99 Magnesium 2.7 H Total Bilirubin 0.7 AST 42 H ALT 34 Alkaline Phosphatase 110 Lipase 42 Microbiology Data (last 24 hrs): 01/15/23 17:04 Nasopharnyx Influenza Type A Antigen Screen - Final 01/15/23 17:04 Nasopharnyx Influenza Type B Antigen Screen - Final Assessment & Plan - Problems (Diagnosis) (1) Acute systolic CHF (congestive heart failure) Current Visit: Yes Status: Acute (2) Hypothyroidism Current Visit: No Status: Acute Qualifiers: (3) CKD (chronic kidney disease) Current Visit: No Status: Chronic Qualifiers: (4) GERD (gastroesophageal reflux disease) Current Visit: No Status: Chronic Qualifiers: (5) HTN (hypertension) Current Visit: No Status: Chronic Qualifiers: - Plan Plan: 1. Acute CHF exacerbation, systolic dysfunction; continue with gentle diuresing. Continue with cardiac meds. Will repeat echocardiogram and will get cardiology consultation as well. Patient will need to continue with Entresto and Aldactone. At this time we will diurese patient and then resume medications. 2. Patient with chronic kidney disease; continue monitor renal function closely 3. Prerenal azotemia; continue monitoring renal function 4. Elevated troponin and BNP; continue with cardiac meds. Continue with diuresing again continue with antiplatelet and statin therapy 5. History of breast cancer; is currently in remission 6. GI DVT prophylaxis Discharge Plan: Home Plan to discharge in: Greater than 2 days - Advance Directives Does patient have a Living Will: Yes Does patient have a Durable POA for Healthcare: Yes - Code Status/Comfort Care Code Status Assessed: Yes Code Status: Full Code Critical Care: No Time Spent Managing PTS Care (In Minutes): 45
[2023-01-16] MEDS ORDERED: POTASSIUM CL SA 10 MEQ TAB PO ONE (09:00)
[2023-01-16] MEDS: ENOXAPARIN 30 MG/0.3 ML SQ SCH (10:23)
[2023-01-16] MEDS: FUROSEMIDE 40 MG/4 ML VIAL IV SCH ×2 (10:23→17:26)
[2023-01-16] MEDS: POTASSIUM 25 MEQ EFFERV TAB PO SCH ×2 (10:24→17:26)
[2023-01-16] MEDS: METOPROLOL TAR 25 MG TAB PO SCH ×2 (10:24→21:00)
[2023-01-16] MEDS: ACETAMINOPHEN 500 MG TAB PO PRN (12:03)
[2023-01-16] MEDS ORDERED: POLYETHYL GLY 3350 17 GM/DOSE PO PRN (12:47)
--- NOTE | 2023-01-16 12:53 | P.PN ---
Subjective Date of Service: 01/16/23 Chief Complaint: Acute CHF exacerbation Pt is resting comfortably in bed. She has edema on her legs. Pt is getting lasix. Waiting for Cardiology eval. No other complaints. Review of Systems 10-point ROS is otherwise unremarkable General: Unremarkable Eyes: Unremarkable ENT: Unremarkable Respiratory: Unremarkable Cardiovascular: Edema (Leg edema), Unremarkable Gastrointestinal: Unremarkable Musculoskeletal: Unremarkable Integumentary: Unremarkable Neurological: Unremarkable Physical Examination - Vital Signs Temperature: 97.6 F Blood Pressure: 105/64 Pulse: 88 Respirations: 16 Pulse Ox (%): 93 - Physical Exam General: In no apparent distress, Oriented x3, Cooperative HEENT: Atraumatic, Normocephalic, PERRLA Neck: Supple, 2+ carotid pulse no bruit Respiratory: Clear to auscultation bilaterally, Normal air movement Cardiovascular: No edema, Normal pulses, Regular rate/rhythm, Normal S1 S2 Capillary refill: <2 Seconds Gastrointestinal: Normal bowel sounds Musculoskeletal: No clubbing, No swelling Integumentary: No rashes, No breakdown Neurological: Normal speech Lymphatics: No axilla or inguinal lymphadenopathy - Studies Laboratory Data (last 24 hrs) 01/15/23 01/15/23 01/15/23 17:13 17:13 17:13 WBC 5.70 Hgb 15.3 H Hct 46.0 H Plt Count 232 PT 14.7 H INR 1.34 Sodium 134 L Potassium 4.2 BUN 63 H Creatinine 1.34 H Glucose 99 Magnesium 2.7 H Total Bilirubin 0.7 AST 42 H ALT 34 Alkaline Phosphatase 110 Lipase 42 Microbiology Data (last 24 hrs): 01/15/23 17:04 Nasopharnyx Influenza Type A Antigen Screen - Final 01/15/23 17:04 Nasopharnyx Influenza Type B Antigen Screen - Final Assessment And Plan - Plan Acute systolic CHF exacerbation: Last Ech shows EF 10 - 15%. [place] [address].Will continue lasix 40mg iv BID, daily weight, strict I/o and low salt diet. Will follow up Echo and cardiology eval. Will resume Entresto and Aldactone. Pulm edema: Will continue lasix. Likely due to CHF exacerbation. Hx of CKD: cr is 1.04. Will avoid nephrotoxins and monitor renal function. Elevated troponin and BNP: Likely due to CHF exacerbation. Will trend troponin and diurese pt, continue antiplatelet and statin therapy History of breast cancer: It is currently in remission Constipation: Will give prn miralax. GI ppx: protonix DVT prophylaxis: SCD Discharge Plan: Home Discharge Plan: Home Plan to discharge in: 24 Hours - Code Status/Comfort Care Code Status Assessed: Yes Code Status: Full Code
[2023-01-17 02:53] LABS: Absolute Lymphocytes (CBC) 0.6 K/uL (0.7-4.9); Hematocrit 39.1 % (36.0-45.0); Lymphocytes % 11.1 % (15.3-44.8); MCV 93.2 fL (80-100); MPV 9.8 fL (7.6-11.3); Platelets 208 thou/uL (152-406)
[2023-01-17 02:58] LABS: Potassium 4.8 mEq/L (3.5-5.1)
[2023-01-17] MEDS: ENOXAPARIN 30 MG/0.3 ML SQ SCH (09:39)
[2023-01-17] MEDS: METOPROLOL TAR 25 MG TAB PO SCH ×2 (09:40→21:00)
[2023-01-17] MEDS: POTASSIUM 25 MEQ EFFERV TAB PO SCH ×2 (09:42→17:24)
[2023-01-17] MEDS: FUROSEMIDE 40 MG/4 ML VIAL IV SCH ×2 (09:42→17:00)
--- NOTE | 2023-01-17 10:55 | P.PN ---
Subjective Date of Service: 01/17/23 Chief Complaint: Acute CHF exacerbation Pt is resting comfortably in bed. She is feeling a little better this morning. The leg edema is improving while on lasix. Waiting for Cardiology eval. No other complaints. Review of Systems 10-point ROS is otherwise unremarkable (leg edema) Physical Examination - Vital Signs Temperature: 98.2 F Blood Pressure: 107/70 Pulse: 86 Respirations: 22 Pulse Ox (%): 99 - Physical Exam General: In no apparent distress, Oriented x3, Cooperative HEENT: Atraumatic, Normocephalic, PERRLA Neck: Supple, 2+ carotid pulse no bruit Respiratory: Clear to auscultation bilaterally, Normal air movement Cardiovascular: Normal pulses, Normal S1 S2, Edema Capillary refill: <2 Seconds Gastrointestinal: Normal bowel sounds, Soft and benign, Non-distended Musculoskeletal: No clubbing, No swelling Integumentary: No rashes, No breakdown Neurological: Normal gait, Normal speech Assessment And Plan - Plan Acute systolic CHF exacerbation: Last Ech shows EF 10 - 15%. [place] [address].Will continue lasix 40mg iv BID, daily weight, strict I/o and low salt diet. Will follow up Echo and cardiology eval. Will resume Entresto, but hold it if BP is hypotensive. Pulm edema: Will continue lasix. Likely due to CHF exacerbation. Hx of CKD: cr is 1.1.31<- 04. Will avoid nephrotoxins and monitor renal function. Elevated troponin and BNP: Likely due to CHF exacerbation. Will trend troponin and diurese pt, continue antiplatelet and statin therapy History of breast cancer: It is currently in remission Constipation: Will give prn miralax. GI ppx: protonix DVT prophylaxis: SCD Discharge Plan: Home
[2023-01-17] MEDS ORDERED: ALBUMIN HUMAN 25% 50 ML IV ONE ×2 (11:06→17:30)
--- NOTE | 2023-01-17 12:51 | ECHO ---
HEIGHT: 5 ft 0 in WEIGHT: 134 lb 12.8 oz DATE OF STUDY: 01/16/[address]: Carol Muir MD 2-DIMENSIONAL: YES M.MODE: YES DOPPLER: YES COLOR FLOW: YES TDS: PORTABLE: YES DEFINITY: BUBBLE STUDY: DIAGNOSIS: CINGESTIVE HEART FAILURE CARDIAC HISTORY: CATHERIZATION: SURGERY: PROSTHETIC VALVE: PACEMAKER: MEASUREMENTS (cm) DIASTOLIC (NORMALS) SYSTOLIC (NORMALS) IVSd 0.8 (0.6-1.2) LA Diam 4.5 (1.9-4.0) LVEF 11% LVIDd 5.4 (3.5-5.7) LVIDs 5.1 (2.0-3.5) %FS 5% LVPWd 1.1 (0.6-1.2) Ao Diam 2.5 (2.0-3.7) 2 DIMENSIONAL ASSESSMENT: RIGHT ATRIUM: NORMAL LEFT ATRIUM: ENLARGED RIGHT VENTRICLE: NORMAL LEFT VENTRICLE: DILATED LEFT VENTRICLE TRICUSPID VALVE: MODERATE TRICUSPID REGURGITATION MITRAL VALVE: MODERATE MITRAL REGURGITATION PULMONIC VALVE: MILD PULMONIC INSUFFICIENCY AORTIC VALVE: NORMAL PERICARDIAL EFFUSION: NONE AORTIC ROOT: NORMAL LEFT VENTRICULAR WALL MOTION: SEVERE GLOBAL HYPOKINESIS DOPPLER/COLOR FLOW: SEE BELOW COMMENTS: 1. SEVERELY DEPRESSED LEFT VENTRICULAR EJECTION FRACTION 10-15% 2. SEVERE GLOBAL HYPOKINESIS 3. DIASTOLIC DYSFUNCTION 4. MODERATE TO SEVERE TRICUSPID REGURGITATION 5. MODERATE MITRAL REGURGITATION 6. LEFT ATRIAL ENLARGEMENT 7. SEVERE PULMONARY HYPERTENSION WITH RIGHT VENTRICULAR SYSTOLIC PRESSURE GREATER THAN 60 mmHg TECHNOLOGIST: CRISTAL BECKER
--- NOTE | 2023-01-17 13:34 | EKG ---
Test Date: 2023-01-15 Test Time: 16:44:19 Senior Controller: SUSANA MEASUREMENT RESULTS: Intervals: Rate: 87 AL: 180 QRSD: 130 QT: 408 QTc: 490 [place]: P: 67 AL: 180 QRS: 269 T: 67 INTERPRETIVE STATEMENTS: Normal sinus rhythm Possible Left atrial enlargement Nonspecific intraventricular block Possible Anterolateral infarct, age undetermined Abnormal ECG Compared to ECG 12/25/1996 09:14:00 Myocardial infarct finding now present Electronically Signed On 01-17-23 13:28:18 INCLUSION SPECIAL EDUCATOR by Cong Aggarwal
--- NOTE | 2023-01-17 13:34 | EKG ---
Test Date: 2023-01-15 Test Time: 16:44:47 Carton Catcher: SUSANA MEASUREMENT RESULTS: Intervals: Rate: 87 IA: 182 QRSD: 132 QT: 410 QTc: 493 Alexander: P: 61 IA: 182 QRS: -89 T: 75 INTERPRETIVE STATEMENTS: Normal sinus rhythm Possible Left atrial enlargement Left axis deviation Nonspecific intraventricular block Cannot rule out Anteroseptal infarct, age undetermined Abnormal ECG Compared to ECG 01/15/2023 16:44:19 Left-axis deviation now present Myocardial infarct finding still present Electronically Signed On 01-17-23 13:28:16 BANKING ATTORNEY by Cong Aggarwal
--- NOTE | 2023-01-17 13:34 | EKG ---
Test Date: 2023-01-15 Test Time: 17:00:56 Executive Admin: SUSANA MEASUREMENT RESULTS: Intervals: Rate: 110 VA: 146 QRSD: 132 QT: 372 QTc: 503 [place]: P: 62 VA: 146 QRS: -81 T: 80 INTERPRETIVE STATEMENTS: Sinus tachycardia Left axis deviation Nonspecific intraventricular block Cannot rule out Septal infarct, age undetermined Abnormal ECG Compared to ECG 01/15/2023 16:44:47 Sinus rhythm no longer present Myocardial infarct finding still present Electronically Signed On 01-17-23 13:28:13 CITY ENGINEER by Cong Aggarwal
[2023-01-17] MEDS: ACETAMINOPHEN 500 MG TAB PO PRN ×2 (15:46→22:42)
[2023-01-17] MEDS ORDERED: INFLUENZA VACCINE (for 6+ mo) 0.5 ML DOSE IMVAC ONE (18:00)
[2023-01-18 02:11] LABS: Absolute Lymphocytes (CBC) 0.7 K/uL (0.7-4.9); Hematocrit 42.1 % (36.0-45.0); Lymphocytes % 10.5 % (15.3-44.8); MCV 93.2 fL (80-100); MPV 10.1 fL (7.6-11.3); Platelets 202 thou/uL (152-406); RBC Red Blood Cell Count 4.51 M/uL (3.86-4.86)
[2023-01-18 02:31] LABS: Potassium 5.9 mEq/L (3.5-5.1)
[2023-01-18] MEDS: ACETAMINOPHEN 500 MG TAB PO PRN ×5 (02:52→22:27)
[2023-01-18] MEDS ORDERED: SODIUM ZIRCONIUM CYCLOSILICATE 10 GM/PKT PO ONE (08:00)
[2023-01-18] MEDS: METOPROLOL TAR 25 MG TAB PO SCH ×2 (09:00→21:00)
[2023-01-18] MEDS: ENOXAPARIN 30 MG/0.3 ML SQ SCH (09:24)
[2023-01-18] MEDS: FUROSEMIDE 40 MG/4 ML VIAL IV SCH ×2 (09:25→17:00)
[2023-01-18] MEDS: POTASSIUM 25 MEQ EFFERV TAB PO SCH ×2 (09:25→17:00)
--- NOTE | 2023-01-18 12:01 | P.PN ---
Subjective Date of Service: 01/18/23 Chief Complaint: Acute CHF exacerbation Pt is resting comfortably in bed. She had hypotension yesterday and we held lasix. The leg edema is worse. Will continue lasix but hold antihypertensives. Waiting for Cardiology eval. No other complaints. Review of Systems 10-point ROS is otherwise unremarkable General: Unremarkable Eyes: Unremarkable ENT: Unremarkable Respiratory: Unremarkable Cardiovascular: Unremarkable Gastrointestinal: Unremarkable Genitourinary: Unremarkable Musculoskeletal: Unremarkable Integumentary: Unremarkable Neurological: Unremarkable Physical Examination - Vital Signs Temperature: 97.3 F Blood Pressure: 106/68 Pulse: 73 Respirations: 16 Pulse Ox (%): 100 - Physical Exam General: Alert, In no apparent distress, Oriented x3 HEENT: Atraumatic, Normocephalic, PERRLA Neck: Supple, 2+ carotid pulse no bruit Respiratory: Clear to auscultation bilaterally, Normal air movement Cardiovascular: No edema, Normal pulses, Normal S1 S2 Capillary refill: <2 Seconds Gastrointestinal: Normal bowel sounds, Soft and benign, Non-distended Musculoskeletal: No clubbing, Swelling Integumentary: No rashes, No breakdown Neurological: Normal gait, Normal strength at 5/5 x4 extr, Sensation intact Lymphatics: No axilla or inguinal lymphadenopathy Assessment And Plan - Plan Acute systolic CHF exacerbation: Last Ech shows EF 10 - 15%. [place] [address].Will continue lasix 40mg iv BID, daily weight, strict I/O and low salt diet. Will follow up Echo and cardiology eval. Will resume Entresto, but hold it if BP is hypotensive. Pulm edema: Will continue lasix 40mg iv BID. Likely due to CHF exacerbation. Hx of CKD: Cr is 1.62 <- 1.31<-1.04. Will avoid nephrotoxins and monitor renal function. Elevated troponin and BNP: Likely due to CHF exacerbation. Will trend troponin and diurese pt, continue antiplatelet and statin therapy Hypotension: Will hold antihypertensives. Will monitor. History of breast cancer: It is currently in remission Constipation: Will give prn miralax. GI ppx: protonix DVT prophylaxis: SCD Discharge Plan: Home
--- NOTE | 2023-01-18 12:55 | P.PN ---
Subjective Date of Service: 01/18/23 Chief Complaint: Acute CHF exacerbation Subjective: No new changes, Other (diuresing, decreased edema, sob) Review of Systems 10-point ROS is otherwise unremarkable General: As per HPI Eyes: Unremarkable Respiratory: As per HPI Cardiovascular: As per HPI Genitourinary: Other (pain from urinary catheter) Physical Examination - Vital Signs Temperature: 97.3 F Blood Pressure: 106/68 Pulse: 73 Respirations: 16 Pulse Ox (%): 100 - Physical Exam General: Oriented x3, Other (fatigue, malaise) HEENT: Atraumatic, Normocephalic Neck: 2+ carotid pulse no bruit Respiratory: Clear to auscultation bilaterally Cardiovascular: Other (improved from admission), Edema Capillary refill: <2 Seconds Gastrointestinal: Normal bowel sounds, Soft and benign Musculoskeletal: No clubbing Integumentary: No rashes Neurological: Normal speech, Normal tone Lymphatics: No axilla or inguinal lymphadenopathy Urinary: Cueva catheter, Other (brown urine but pt is diuresing, nephrology following) External genitalia: Deferred Assessment And Plan - Current Problems (Diagnosis) (1) Acute on chronic heart failure with reduced ejection fraction and diastolic dysfunction Current Visit: Yes Status: Acute Plan: Continue careful, aggressive diuresis, monitor renal function/electrolytes, appreciate nephrology input,
[2023-01-19 02:29] LABS: Absolute Lymphocytes (CBC) 0.7 K/uL (0.7-4.9); Hematocrit 41.6 % (36.0-45.0); Lymphocytes % 9.7 % (15.3-44.8); MCV 93.2 fL (80-100); MPV 9.9 fL (7.6-11.3); Platelets 217 thou/uL (152-406); RBC Red Blood Cell Count 4.46 M/uL (3.86-4.86)
[2023-01-19] MEDS: ACETAMINOPHEN 500 MG TAB PO PRN ×3 (02:53→12:03)
[2023-01-19 03:03] LABS: Potassium 5.3 mEq/L (3.5-5.1)
[2023-01-19] MEDS: ALBUTEROL 2.5 MG/3 ML NEB SOL NEB SCH ×3 (06:25→20:15)
[2023-01-19] MEDS ORDERED: ALBUTEROL 2.5 MG/3 ML NEB SOL ONE (06:29)
[2023-01-19] MEDS: FUROSEMIDE 40 MG/4 ML VIAL IV SCH (08:14)
[2023-01-19] MEDS: METOPROLOL TAR 25 MG TAB PO SCH ×2 (08:14→21:00)
[2023-01-19] MEDS: ENOXAPARIN 30 MG/0.3 ML SQ SCH (08:14)
--- NOTE | 2023-01-19 11:08 | P.PN ---
Subjective Date of Service: 01/19/23 Chief Complaint: Acute CHF exacerbation Pt is resting comfortably in bed. The leg edema is worse. Will continue lasix but hold antihypertensives. Cardiology is following. Consulted nephrology. No other complaints. Review of Systems General: Unremarkable Eyes: Unremarkable ENT: Unremarkable Respiratory: Unremarkable Cardiovascular: Edema (leg edema) Gastrointestinal: Unremarkable Genitourinary: Unremarkable Musculoskeletal: Unremarkable Integumentary: Unremarkable Neurological: Unremarkable Lymphatics: Unremarkable Physical Examination - Vital Signs Temperature: 97.1 F Blood Pressure: 110/73 Pulse: 82 Respirations: 15 Pulse Ox (%): 100 - Physical Exam General: Alert, In no apparent distress, Oriented x3, Cooperative HEENT: Atraumatic, Normocephalic, PERRLA Neck: Supple, 2+ carotid pulse no bruit Respiratory: Clear to auscultation bilaterally, Normal air movement Cardiovascular: No edema, Normal pulses, Regular rate/rhythm, Normal S1 S2 Capillary refill: <2 Seconds Gastrointestinal: Normal bowel sounds, Soft and benign, Non-distended Musculoskeletal: No clubbing, No swelling Integumentary: No rashes, No breakdown Neurological: Normal gait, Normal speech, Normal strength at 5/5 x4 extr Lymphatics: No axilla or inguinal lymphadenopathy Assessment And Plan - Plan Acute systolic CHF exacerbation: Last Ech shows EF 10 - 15%. [place] [address].Will continue lasix 40mg iv BID, daily weight, strict I/O and low salt diet. Will follow up Echo and cardiology eval. Will hold Entresto and antihypertensives due to hypotension and ROMA. Cardiology is following. Pulm edema: Will continue lasix 40mg iv BID. Likely due to CHF exacerbation. Hx of CKD: Cr is 1.85<- 1.62 <- 1.31<-1.04. Will avoid nephrotoxins and monitor renal function. Consulted Nephrology Elevated troponin and BNP: Likely due to CHF exacerbation. Will trend troponin and diurese pt, continue antiplatelet and statin therapy Hypotension: Will hold antihypertensives. Will monitor. History of breast cancer: It is currently in remission Constipation: Will give prn miralax. GI ppx: protonix DVT prophylaxis: SCD Discharge Plan: Home
[2023-01-19] MEDS: BUSPIRONE HCL 5 MG TABLET PO SCH ×2 (12:04→20:35)
[2023-01-19] MEDS ORDERED: ONDANSETRON 4 MG/2 ML VIAL IV PRN (12:11)
[2023-01-19] MEDS ORDERED: POLYETHYL GLY 3350 17 GM/DOSE PO PRN (12:13)
--- NOTE | 2023-01-19 14:44 | P.PN ---
Subjective Date of Service: 01/19/23 Primary Care Provider: Dr. Marroquin Chief Complaint: Acute CHF exacerbation Subjective: Worsening (Pt is very uncomfortable, feels short of breath, must sit up in bedside chair, dyspnea on exertion), Other Review of Systems 10-point ROS is otherwise unremarkable General: Unremarkable Eyes: Unremarkable ENT: Unremarkable Respiratory: Shortness of Breath, SOB with Excertion, As per HPI Cardiovascular: Unremarkable Gastrointestinal: Unremarkable Genitourinary: Other (painful urination (even with Cueva)) Musculoskeletal: Pedal edema Integumentary: Rash Neurological: Weakness Physical Examination - Vital Signs Temperature: 97.3 F Blood Pressure: 99/66 Pulse: 70 Respirations: 28 Pulse Ox (%): 98 - Physical Exam General: Oriented x3, Mild distress, Other (moaning) HEENT: Atraumatic, Normocephalic Neck: Supple, 2+ carotid pulse no bruit Respiratory: Clear to auscultation bilaterally Cardiovascular: Regular rate/rhythm, Edema Capillary refill: <2 Seconds Gastrointestinal: Normal bowel sounds, Soft and benign Musculoskeletal: No clubbing Integumentary: No rashes Neurological: Other (generalized weakness) Lymphatics: No axilla or inguinal lymphadenopathy Urinary: Cueva catheter External genitalia: Deferred Rectal: Deferred Assessment And Plan - Current Problems (Diagnosis) (1) Acute on chronic heart failure with reduced ejection fraction and diastolic dysfunction Current Visit: Yes Status: Acute Plan: Hold lasix for now, worsening renal function, blood pressure remains soft at 90/60, 97/65 ECHO showed severe pulmonary hypertension, severe global hypokinesis, EF about 10% Appreciate Nephrology input
[2023-01-19] MEDS ORDERED: FUROSEMIDE 40 MG/4 ML VIAL IV SCH (17:00)
[2023-01-19] MEDS ORDERED: ALBUTEROL 2.5 MG/3 ML NEB SOL NEB PRN (22:58)
--- NOTE | 2023-01-19 23:01 | P.CNS ---
Date of Consult: 01/19/23 Reason for Consult: ROMA/CKD Requesting Physician: Avinash Marroquin Primary Care Provider: Dr. Marroquin Chief Complaint: Acute CHF exacerbation History of Present Illness: Patient is an 82-year-old female who comes into the emergency room with shortness of breath. Patient was found to have acute CHF exacerbation. Patient with a history of dilated cardiomyopathy with an ejection fraction of 10 to 15%. Patient has been following up with cardiology as an outpatient. Patient states she has been getting more short of breath over the last few days. Her respiratory status has gradually worsened. She came to the hospital and chest x-ray revealed bilateral pulmonary edema. Patient had mild acute CHF findings. Patient was just diuresed in the emergency room and is feeling better. Will continue with gentle diuresing on the floor. Will get cardiology consultation. Monitor hemodynamics closely. Echocardiogram will be repeated as we have not had an echo in 6 months. Patient will be admitted to the hospital for further evaluation. [id number] 18:37 This 82 yrs old Female presents to ER via Wheelchair with complaints of kyle Breathing Difficulty, Leg Swelling. 18:37 The patient has shortness of breath with light activity. Onset: The symptoms/episode kyle began/occurred 3 day(s) ago. Duration: The symptoms are continuous, and are steadily getting worse. The patient's shortness of breath is aggravated by coughing, supine position. Associated signs and symptoms: Pertinent positives: dizziness. Severity of symptoms: At their worst the symptoms were mild moderate yesterday, in the emergency department the symptoms are unchanged. The patient has experienced similar episodes in the past, multiple times. Allergies No Known Allergies Allergy (Verified 03/18/22 12:24) Home medications list reviewed: Yes Home Medications: Allopurinol 1 tab PO DAILY 03/18/22 Atorvastatin Calcium [Lipitor*] 1 tab PO BEDTIME 03/18/22 Levothyroxine [Synthroid*] 1 tab PO DAILY 03/18/22 Amlodipine [Norvasc*] 5 mg PO DAILY 01/16/23 Empagliflozin [Jardiance] 10 mg PO DAILY 01/16/23 Sacubitril/Valsartan [Entresto 24 mg-26 mg Tablet] 1 tab PO BEDTIME 01/16/23 Torsemide [Soaanz] 40 mg PO DAILY 01/16/23 - Past Medical/Surgical History Diabetic: No -: R side Breast Cancer W/lymph nodes removed 2003 -: Hypothyroidism -: HTN -: Cardiomyopathy with an ejection fraction of 10 to 15% -: CKD (Dr. Roblero/ Dr. Savage) -: Masectomy - Family History Father Family History: Reviewed- Non-Contributory - Social History Alcohol use: No CD- Drugs: No Caffeine use: No Place of Residence: Home Review of Systems 10-point ROS is otherwise unremarkable General: Weakness, Malaise Respiratory: SOB with Excertion Cardiovascular: Edema Physical Examination Temp Pulse Resp BP Pulse Ox 97.1 F 73 17 95/64 98 01/19/23 20:00 01/19/23 21:00 01/19/23 20:00 01/19/23 21:00 01/19/23 20:00 General: Oriented x3, Cooperative HEENT: Atraumatic Neck: Supple Respiratory: Expiratory wheezes Cardiovascular: Regular rate/rhythm, Edema Gastrointestinal: Soft and benign, Non-distended, No guarding Musculoskeletal: No clubbing, No contractures Integumentary: No rashes, No cyanosis Neurological: Normal speech Blood work reviewed in the chart. Imagings Data: [id number] EXAM DESCRIPTION: [facility] Single View01/15/2023 4:36 pm CLINICAL HISTORY: sob COMPARISON: none FINDINGS: Mild bilateral interstitial lung opacities. Heart is moderately enlarged IMPRESSION: Mild CHF [id number] LEFT VENTRICULAR WALL MOTION: SEVERE GLOBAL HYPOKINESIS DOPPLER/COLOR FLOW: SEE BELOW COMMENTS: 1. SEVERELY DEPRESSED LEFT VENTRICULAR EJECTION FRACTION 10-15% 2. SEVERE GLOBAL HYPOKINESIS 3. DIASTOLIC DYSFUNCTION 4. MODERATE TO SEVERE TRICUSPID REGURGITATION 5. MODERATE MITRAL REGURGITATION 6. LEFT ATRIAL ENLARGEMENT 7. SEVERE PULMONARY HYPERTENSION WITH RIGHT VENTRICULAR SYSTOLIC PRESSURE GREATER THAN 60 mmHg Conclusions/Impression: Stage I ROMA in the setting of hypotension/ CRS CKD IIIa -No NSAIDs Hyponatremia -Continue Lasix Hyperkalemia -Agree with Lokeltx Hypotension -Consider midodrine to improve BP and diuresis Systolic Diastolic CHF, A/C Moderate TR & MR Pulmonary HTN -Low sodium diet -Daily weight -Change Lasix 20mg IV q6h -Consider Lasix gtt Hypoalbuminemia -Recommend protein supplementation Thank you kindly for the consultation
[2023-01-20] MEDS: FUROSEMIDE 20 MG/ 2ML VIAL IV SCH ×4 (00:11→17:19)
[2023-01-20 02:43] LABS: Absolute Lymphocytes (CBC) 0.4 K/uL (0.7-4.9); Hematocrit 42.6 % (36.0-45.0); Lymphocytes % 7.2 % (15.3-44.8); MCV 93.2 fL (80-100); MPV 9.8 fL (7.6-11.3); Platelets 224 thou/uL (152-406); RBC Red Blood Cell Count 4.58 M/uL (3.86-4.86)
[2023-01-20 02:59] LABS: Potassium 4.5 mEq/L (3.5-5.1)
--- NOTE | 2023-01-20 09:06 | P.PN ---
Subjective Date of Service: 01/20/23 Primary Care Provider: Dr. Marroquin Chief Complaint: Acute CHF exacerbation Subjective: Improving Review of Systems 10-point ROS is otherwise unremarkable Respiratory: As per HPI Cardiovascular: Edema, As per HPI Physical Examination - Vital Signs Temperature: 97.2 F Blood Pressure: 115/67 Pulse: 78 Respirations: 18 Pulse Ox (%): 97 - Physical Exam General: Alert, In no apparent distress, Oriented x3 HEENT: Atraumatic, Normocephalic, PERRLA Neck: Supple, 2+ carotid pulse no bruit Respiratory: Rhonchi/gurgles Cardiovascular: Edema (lower extremity pitting edema, pt denies pain, states she is feeling better, still orthopneic) Capillary refill: <2 Seconds Gastrointestinal: Normal bowel sounds, Soft and benign Integumentary: No rashes Neurological: Normal speech, Normal tone Lymphatics: No axilla or inguinal lymphadenopathy Urinary: Cueva catheter (yellow urine) External genitalia: Deferred Rectal: Deferred Assessment And Plan - Current Problems (Diagnosis) (1) Acute on chronic heart failure with reduced ejection fraction and diastolic dysfunction Current Visit: Yes Status: Acute Plan: Hold lasix for now, worsening renal function, blood pressure remains soft at 90/60, 97/65 ECHO showed severe pulmonary hypertension, severe global hypokinesis, EF about 10% Appreciate Nephrology input 01/20/23 creatinine 1.69 today from 1.89, NSR overnight with some occasional bigemeny, pressure this am still soft 96/60
[2023-01-20] MEDS: METOPROLOL TAR 25 MG TAB PO SCH ×2 (09:50→21:00)
[2023-01-20] MEDS: BUSPIRONE HCL 5 MG TABLET PO SCH ×2 (09:50→21:02)
[2023-01-20] MEDS: ENOXAPARIN 30 MG/0.3 ML SQ SCH (09:50)
--- NOTE | 2023-01-20 10:42 | P.PN ---
Subjective Date of Service: 01/20/23 Primary Care Provider: Dr. Marroquin Chief Complaint: Acute CHF exacerbation Pt is resting comfortably in bed. The leg edema is worse. Will continue lasix 20mg iv Q6h, but hold antihypertensives. Cardiology is following. Consulted Nephrology. No other complaints. Review of Systems 10-point ROS is otherwise unremarkable General: Unremarkable Eyes: Unremarkable ENT: Unremarkable Respiratory: Unremarkable Cardiovascular: Edema Gastrointestinal: Unremarkable Genitourinary: Unremarkable Musculoskeletal: Unremarkable Neurological: Unremarkable Lymphatics: Unremarkable Physical Examination - Vital Signs Temperature: 97.2 F Blood Pressure: 115/67 Pulse: 78 Respirations: 18 Pulse Ox (%): 97 - Physical Exam General: Alert, In no apparent distress, Oriented x3 HEENT: Atraumatic, Normocephalic, PERRLA Neck: Supple, 2+ carotid pulse no bruit Respiratory: Clear to auscultation bilaterally, Normal air movement Cardiovascular: Normal pulses, Normal S1 S2, Edema Capillary refill: <2 Seconds Gastrointestinal: Normal bowel sounds, Hypoactive Musculoskeletal: No clubbing, No swelling Integumentary: No rashes, No breakdown Neurological: Normal gait, Normal strength at 5/5 x4 extr Lymphatics: No axilla or inguinal lymphadenopathy Assessment And Plan - Plan Acute systolic and diastolic CHF exacerbation: Echo shows EF 10 - 15%, diastolic dysfunction, global hypokinesia, severe TR and [place] [address].Will continue lasix 20mg iv Q6h, daily weight, strict I/O and low salt diet. Will consider Lasix drip. Will hold Entresto and antihypertensives due to hypotension and ROMA. Cardiology is following. Pulm edema: Will continue lasix 40mg iv BID. Likely due to CHF exacerbation. Hx of CKD: Cr is 1.69<- 1.85<- 1.62 <- 1.31<-1.04. Will avoid nephrotoxins and monitor renal function. Consulted Nephrology Elevated troponin and BNP: Likely due to CHF exacerbation. Will trend troponin and diurese pt, continue antiplatelet and statin therapy Hypotension: Will hold antihypertensives. Will monitor. History of breast cancer: It is currently in remission Constipation: Will give prn miralax. GI ppx: protonix DVT prophylaxis: SCD Discharge Plan: Home
--- NOTE | 2023-01-20 11:40 | P.PN ---
(S) Pt seen sitting up in the chair, denies acute dyspnea, denies orthostatic symptoms when OOB. Remains fluid overloaded, hall in place (O) Vitals reviewed in the EMR General: NAD HEENT: Atraumatic, LFNC Neck: Supple Respiratory: b/l crackles, reduced BS at bases Cardiovascular: Non tachy, cardiac murmur, tight 2-3+ pitting edema to the thighs b/l Gastrointestinal: Soft, mild distention, NT, hall present Musculoskeletal: Shins non tender Integumentary: No rashe Neurological: Normal speech, awake, alert Blood work reviewed in the chart. Imagings Data: [id number] EXAM DESCRIPTION: [facility] Single View01/15/2023 4:36 pm CLINICAL HISTORY: sob COMPARISON: none FINDINGS: Mild bilateral interstitial lung opacities. Heart is moderately enlarged IMPRESSION: Mild CHF [id number] LEFT VENTRICULAR WALL MOTION: SEVERE GLOBAL HYPOKINESIS DOPPLER/COLOR FLOW: SEE BELOW COMMENTS: 1. SEVERELY DEPRESSED LEFT VENTRICULAR EJECTION FRACTION 10-15% 2. SEVERE GLOBAL HYPOKINESIS 3. DIASTOLIC DYSFUNCTION 4. MODERATE TO SEVERE TRICUSPID REGURGITATION 5. MODERATE MITRAL REGURGITATION 6. LEFT ATRIAL ENLARGEMENT 7. SEVERE PULMONARY HYPERTENSION WITH RIGHT VENTRICULAR SYSTOLIC PRESSURE GREATER THAN 60 mmHg Conclusions/Impression: Stage I ROMA in the setting of Type I CRS, relative hypotension Probable underlying CKD III unspecified -Cr level may cont to upward trend with diuresis, other but lets see where it peaks and hopefully with cardiac decongestion it will turn around Hyperkalemia -Resolved, will avoid Aldactone at this time Hypotension -Consider midodrine at low dose if orthostatic or symptomatic Systolic Diastolic CHF, A/C. Severe cardiomyopathy Moderate TR & MR Pulmonary HTN, severe -Low sodium diet, fluid restriction, monitor Na levels -Daily weight -Change Lasix 20mg IV q6h -If diuresing sub optimally may consider Metolazone -Will not tolerate other HF meds such as Entresto/ALAN inhibitors at this time -Any drips/ionotropes/other per Cardiology All Savage MD, KIKA
[2023-01-20] MEDS: ACETAMINOPHEN 500 MG TAB PO PRN ×2 (16:51→21:03)
[2023-01-20] MEDS: DOCUSATE NA 100 MG CAP PO SCH (21:02)
[2023-01-21] MEDS: FUROSEMIDE 20 MG/ 2ML VIAL IV SCH ×5 (00:42→23:15)
[2023-01-21] MEDS: ACETAMINOPHEN 500 MG TAB PO PRN ×4 (03:40→20:53)
[2023-01-21 06:48] LABS: Absolute Lymphocytes (CBC) 0.4 K/uL (0.7-4.9); Hematocrit 45.5 % (36.0-45.0); Lymphocytes % 8.2 % (15.3-44.8); MCV 93.7 fL (80-100); MPV 9.9 fL (7.6-11.3); Platelets 254 thou/uL (152-406); RBC Red Blood Cell Count 4.85 M/uL (3.86-4.86)
[2023-01-21 07:03] LABS: Potassium 4.1 mEq/L (3.5-5.1)
[2023-01-21] MEDS: METOPROLOL TAR 25 MG TAB PO SCH ×2 (08:57→21:00)
[2023-01-21] MEDS: BUSPIRONE HCL 5 MG TABLET PO SCH ×2 (08:57→20:53)
[2023-01-21] MEDS: DOCUSATE NA 100 MG CAP PO SCH ×2 (08:57→20:54)
[2023-01-21] MEDS: ENOXAPARIN 30 MG/0.3 ML SQ SCH (08:57)
--- NOTE | 2023-01-21 09:34 | P.PN ---
Subjective Date of Service: 01/21/23 Primary Care Provider: Dr. Marroquin Chief Complaint: Acute CHF exacerbation Pt is resting comfortably in bed. Pt has leg edema. Will continue lasix 20mg iv Q6h, but hold antihypertensives. Cardiology is following. Consulted Nephrology. No other complaints. Review of Systems 10-point ROS is otherwise unremarkable General: Unremarkable Eyes: Unremarkable ENT: Unremarkable Respiratory: Unremarkable Cardiovascular: Paroxysmal Noc. Dyspnea, Edema Gastrointestinal: Unremarkable Genitourinary: Unremarkable Musculoskeletal: Unremarkable Integumentary: Unremarkable Neurological: Unremarkable Lymphatics: Unremarkable Physical Examination - Vital Signs Temperature: 97.5 F Blood Pressure: 93/59 Pulse: 74 Respirations: 16 Pulse Ox (%): 95 - Physical Exam General: Alert, In no apparent distress, Oriented x3 HEENT: Atraumatic, Normocephalic, PERRLA Neck: Supple, 2+ carotid pulse no bruit Respiratory: Clear to auscultation bilaterally, Normal air movement Cardiovascular: No edema, Normal pulses, Regular rate/rhythm, Normal S1 S2, Edema (leg edema) Capillary refill: <2 Seconds Gastrointestinal: Normal bowel sounds, Soft and benign, Non-distended Musculoskeletal: No clubbing, No swelling Integumentary: No rashes, No breakdown Neurological: Normal gait, Normal speech, Normal strength at 5/5 x4 extr, Sensation intact Lymphatics: No axilla or inguinal lymphadenopathy Assessment And Plan - Plan Acute systolic and diastolic CHF exacerbation: Echo shows EF 10 - 15%, diastolic dysfunction, global hypokinesia, severe TR and [place] [address]. Will hold lasix 20mg iv Q6h, but continue daily weight, strict I/O and low salt diet. Will hold Entresto and antihypertensives due to hypotension and ROMA. Cardiology is following. Pulm edema: Will hold lasix for now due to hypotension. Likely due to CHF exacerbation. Hx of CKD: Improving. Cr is 1.36<- 1.69<- 1.85<- 1.62 <- 1.31<-1.04. Will avoid nephrotoxins and monitor renal function. Consulted Nephrology Elevated troponin and BNP: Likely due to CHF exacerbation. Will trend troponin and diurese pt, continue antiplatelet and statin therapy Mild hyponatremia: Na is 134. Will monitor na level. Hypotension: Will hold antihypertensives. Will monitor. History of breast cancer: It is currently in remission Constipation: Will give prn miralax. GI ppx: protonix DVT prophylaxis: SCD Discharge Plan: Home
--- NOTE | 2023-01-21 17:53 | PN ---
Date of Progress Note: 01/21/2023 Subjective: Patient was seen and examined at bedside. She is doing really good. Denies any complai nts. Physical Examination: Vital Signs: Have been reviewed. Blood pressures are continuing to be on the lower side in the 90s range. General: She appears in no acute distress. Lungs: Clear to auscultation. Abdomen: Soft and nontender. Extremities: Show 2+ bilateral pitting edema. Neuro: She is alert, awake, and oriented x3. Laboratory Data: Showing creatinine improving to 1.36 and BUN of 61 and sodium of 134. CBC showing stable hemoglobin, hematocrit, and platelet count. Current Medications: Include Lasix 20 mg IV q.6 hours, stool softener, Lovenox for deep vein thrombo sis prophylaxis. Impression: 1.Acute on chronic renal insufficiency secondary to underlying cardiorenal syndrome. Patient's gustavo l function continues to get better. We will continue with the current diuretic regimen as the patien t has significant volume overload still on clinical examination. 2.Acute combined heart failure exacerbation. Ejection fraction showed 10% to 15% with diastolic dys function. Continued to monitor volume status. 3.Hypotension secondary to poor cardiac output. Gentle diuresis and unable to use Entresto or any o ther medications at this time because of severe hypotension. Plan: Overall, patient's renal function is currently stable. Continue Lasix for diuresis and monito r renal function closely. I will follow up on labs. VV/MODL Voice ID: [id number] Report ID: [id number]
[2023-01-22] MEDS: ACETAMINOPHEN 500 MG TAB PO PRN ×4 (03:01→20:27)
[2023-01-22] MEDS: FUROSEMIDE 20 MG/ 2ML VIAL IV SCH ×4 (05:42→20:01)
[2023-01-22] MEDS: BUSPIRONE HCL 5 MG TABLET PO SCH ×2 (08:59→20:27)
[2023-01-22] MEDS: ENOXAPARIN 30 MG/0.3 ML SQ SCH (08:59)
[2023-01-22] MEDS: DOCUSATE NA 100 MG CAP PO SCH ×2 (09:00→20:01)
[2023-01-22] MEDS: METOPROLOL TAR 25 MG TAB PO SCH ×2 (09:00→20:01)
--- NOTE | 2023-01-22 10:43 | P.PN ---
Subjective Date of Service: 01/22/23 Primary Care Provider: Dr. Marroquin Chief Complaint: Acute CHF exacerbation Pt is resting comfortably in bed. Pt has leg edema. She complains of left sided headache. Will continue lasix 20mg iv Q6h, but hold antihypertensives. Cardiology is following. Consulted Nephrology. No other complaints. Review of Systems 10-point ROS is otherwise unremarkable General: Weakness, Unremarkable Eyes: Unremarkable ENT: Unremarkable Respiratory: Unremarkable Cardiovascular: Edema, Unremarkable Gastrointestinal: Unremarkable Genitourinary: Unremarkable Musculoskeletal: Unremarkable Integumentary: Unremarkable Neurological: Unremarkable Lymphatics: Unremarkable Physical Examination - Vital Signs Temperature: 96.8 F Blood Pressure: 114/80 Pulse: 97 Respirations: 18 Pulse Ox (%): 95 - Physical Exam General: Alert, In no apparent distress, Oriented x3 HEENT: Atraumatic, Normocephalic, PERRLA Neck: Supple, 2+ carotid pulse no bruit Respiratory: Clear to auscultation bilaterally, Normal air movement Cardiovascular: No edema, Normal pulses, Regular rate/rhythm Capillary refill: <2 Seconds Gastrointestinal: Normal bowel sounds, Soft and benign, Non-distended Musculoskeletal: No clubbing, No swelling Integumentary: No rashes, No breakdown Neurological: Normal gait, Normal speech, Normal strength at 5/5 x4 extr Lymphatics: No axilla or inguinal lymphadenopathy Assessment And Plan - Plan Acute systolic and diastolic CHF exacerbation: Echo shows EF 10 - 15%, diastolic dysfunction, global hypokinesia, severe TR [place] [address]. Will continue lasix 20mg iv Q6h, but continue daily weight, strict I/O and low salt diet. Will hold Entresto and antihypertensives due to hypotension and ROMA. Cardiology is following. Pulm edema: Will hold lasix for now due to hypotension. Likely due to CHF exacerbation. Hx of CKD: Improving. Cr is 1.36<- 1.69<- 1.85<- 1.62 <- 1.31<-1.04. Will avoid nephrotoxins and monitor renal function. Consulted Nephrology Elevated troponin and BNP: Likely due to CHF exacerbation. Will trend troponin and diurese pt, continue antiplatelet and statin therapy Mild hyponatremia: Na is 134. Will monitor na level. Hypotension: Will hold antihypertensives. Will monitor. History of breast cancer: It is currently in remission Constipation: Will give prn miralax. GI ppx: protonix DVT prophylaxis: SCD Discharge Plan: Home when medically stable
[2023-01-23] MEDS: FUROSEMIDE 20 MG/ 2ML VIAL IV SCH ×5 (01:06→23:45)
[2023-01-23] MEDS: ACETAMINOPHEN 500 MG TAB PO PRN ×5 (02:28→22:13)
--- NOTE | 2023-01-23 06:31 | P.PN ---
Date of Service: 01/23/23 Subjective: Physical Exam: Vitals: reviewed GEN: Alert, oriented, NAD HEENT: Normal conjunctiva, sclera anicteric CV: Regular rate & rhythm, no edema Pulm: Nonlabored respiraitons, clear bilaterally ABD: Soft, nontender, nondistended MSK: No joint tenderness Integumentary: No rashes Neuro: Normal speech, normal affect Problem List: Acute on chronic systolic / diastolic CHF exacerbation NSTEMI Hyponatremia Hypotension h/o breast cancer GERD Hypertension Constipation Plan: Echo shows EF 10 - 15%, diastolic dysfunction, global hypokinesia, severe TR and [place] [address]. continue IV lasix. continue daily weight, strict I/O and low salt diet. Will hold Entresto and antihypertensives due to hypotension and ROMA. Cardiology consulted avoid nephrotoxins and monitor renal function. Nephrology consulted Troponins downtrended. Likely demand ischemia continue antiplatelet and statin therapy Will hold antihypertensives. Will monitor. Cancer currently in remission per patient PRN miralax confirm home medications, restart as appropriate Lovenox for DVT prophylaxis
[2023-01-23] MEDS: ENOXAPARIN 30 MG/0.3 ML SQ SCH (08:39)
[2023-01-23] MEDS: BUSPIRONE HCL 5 MG TABLET PO SCH ×2 (08:39→21:30)
[2023-01-23] MEDS: DOCUSATE NA 100 MG CAP PO SCH ×2 (08:39→21:30)
[2023-01-23] MEDS: METOPROLOL TAR 25 MG TAB PO SCH ×2 (09:00→21:00)
--- NOTE | 2023-01-23 10:44 | P.PN ---
Date of Service: 01/23/23 Vital Signs Temp Pulse Resp BP Pulse Ox 97.4 F 82 18 103/70 100 01/23/23 08:00 01/23/23 08:00 01/23/23 08:00 01/23/23 08:00 01/23/23 08:00 Medications Acetaminophen (Acetaminophen 500 Mg Tab) 500 mg PO Q4HP PRN PRN Reason: pain/fever Last Admin: 01/23/23 08:38 Dose: 500 mg Acetaminophen/Butalbital/Caffeine (Acetamin/Caffeine/Butalb Tab) 1 tab PO Q6H PRN PRN Reason: Pain scale 5-7 (Moderate) Albuterol Sulfate (Albuterol 2.5 Mg/3 Ml Neb Norma) 2.5 mg NEB [id number] PRN PRN Reason: SHORTNESS OF BREATH Last Admin: 01/22/23 21:35 Dose: 2.5 mg Buspirone HCl (Buspirone Hcl 5 Mg Tablet) 5 mg PO BID [facility] Last Admin: 01/23/23 08:39 Dose: 5 mg Docusate Sodium (Docusate Na 100 Mg Cap) 100 mg PO BID [facility] Last Admin: 01/23/23 08:39 Dose: 100 mg Enoxaparin Sodium (Enoxaparin 30 Mg/0.3 Ml) 30 mg SQ DAILY [facility] Last Admin: 01/23/23 08:39 Dose: 30 mg Furosemide (Furosemide 20 Mg/ 2ml Vial) 20 mg IV Q6H [facility] Last Admin: 01/23/23 06:27 Dose: 20 mg Metoprolol Tartrate (Metoprolol Tar 25 Mg Tab) 25 mg PO BID [facility] Last Admin: 01/23/23 09:00 Dose: Not Given Nutritional Formula (Ensure Enlive 237 Ml Can) 237 ml PO BID [facility] Ondansetron HCl (Ondansetron 4 Mg/2 Ml Vial) 4 mg IV Q6HP PRN PRN Reason: NAUSEA / VOMITING Polyethylene Glycol (Polyethyl Gly 3350 17 Gm/Dose) 17 gm PO DAILY PRN PRN Reason: CONSTIPATION Microbiology Results 01/15/23 17:04 Nasopharnyx Influenza Type A Antigen Screen - Final 01/15/23 17:04 Nasopharnyx Influenza Type B Antigen Screen - Final Assessment/ Plan: Nephrology Progress Note No Dyspnea. TYLER No Chest Pain No Acute Events Overnight Vital Signs, Medications, Blood Work, and Imaging reviewed in the chart General: Oriented x3, Cooperative HEENT: Atraumatic Neck: Supple Respiratory: Improving Expiratory wheezes Cardiovascular: Regular rate/rhythm, Edema Gastrointestinal: Soft and benign, Non-distended, No guarding Musculoskeletal: No clubbing, No contractures Integumentary: No rashes, No cyanosis Neurological: Normal speech Blood work reviewed in the chart. Imagings Data: [id number] [facility] CLINICAL HISTORY: sob COMPARISON: none FINDINGS: Mild bilateral interstitial lung opacities. Heart is moderately enlarged IMPRESSION: Mild CHF [id number] LEFT VENTRICULAR WALL MOTION: SEVERE GLOBAL HYPOKINESIS DOPPLER/COLOR FLOW: SEE BELOW COMMENTS: 1. SEVERELY DEPRESSED LEFT VENTRICULAR EJECTION FRACTION 10-15% 2. SEVERE GLOBAL HYPOKINESIS 3. DIASTOLIC DYSFUNCTION 4. MODERATE TO SEVERE TRICUSPID REGURGITATION 5. MODERATE MITRAL REGURGITATION 6. LEFT ATRIAL ENLARGEMENT 7. SEVERE PULMONARY HYPERTENSION WITH RIGHT VENTRICULAR SYSTOLIC PRESSURE GREATER THAN 60 mmHg Conclusions/Impression: Stage I ROMA in the setting of hypotension/ CRS CKD IIIa -No NSAIDs Hyponatremia -Continue Lasix -Continue fluid restriction Hyperkalemia -Lokelma prn -Continue Lasix Variable Hypotension -Consider midodrine to improve BP and diuresis Systolic Diastolic CHF, A/C Moderate TR & MR Pulmonary HTN -Low sodium diet -Daily weight -Continue Lasix 20mg IV q6h Hypoalbuminemia -Recommend protein supplementation
--- NOTE | 2023-01-23 10:50 | P.PN ---
Subjective Date of Service: 01/23/23 Primary Care Provider: Dr. Marroquin Chief Complaint: Acute CHF exacerbation Subjective: Improving Review of Systems 10-point ROS is otherwise unremarkable Neurological: Other (c/o headache) Physical Examination - Vital Signs Temperature: 97.4 F Blood Pressure: 103/70 Pulse: 82 Respirations: 18 Pulse Ox (%): 100 - Physical Exam General: Alert, In no apparent distress, Oriented x3 HEENT: Atraumatic, Normocephalic Neck: Supple, 2+ carotid pulse no bruit, JVD not distended Respiratory: Clear to auscultation bilaterally Cardiovascular: Other (pedal edema significantly better) Capillary refill: <2 Seconds Gastrointestinal: Normal bowel sounds, Soft and benign Musculoskeletal: No clubbing Integumentary: No rashes Neurological: Normal speech, Normal tone Lymphatics: No axilla or inguinal lymphadenopathy External genitalia: Deferred Rectal: Deferred Assessment And Plan - Current Problems (Diagnosis) (1) Acute on chronic heart failure with reduced ejection fraction and diastolic dysfunction Current Visit: Yes Status: Acute Plan: Hold lasix for now, worsening renal function, blood pressure remains soft at 90/60, 97/65 ECHO showed severe pulmonary hypertension, severe global hypokinesis, EF about 10% Appreciate Nephrology input 01/20/23 creatinine 1.69 today from 1.89, NSR overnight with some occasional bigemeny, pressure this am still soft 96/60 01/23/23, pt doing better, off antihypertensives, Lasix to q 6h. Creatinine 1.36. BP 123/71, 64, 100% 2L
[2023-01-23 13:10] LABS: Absolute Lymphocytes (CBC) 0.4 K/uL (0.7-4.9); Hematocrit 44.5 % (36.0-45.0); Lymphocytes % 3.3 % (15.3-44.8); MCV 93.3 fL (80-100); MPV 9.9 fL (7.6-11.3); Platelets 224 thou/uL (152-406); RBC Red Blood Cell Count 4.77 M/uL (3.86-4.86)
[2023-01-23 15:36] LABS: White Blood Cell Scan OK (OK)
[2023-01-23 15:37] LABS: Platelet Estimate ADEQ
[2023-01-23 15:38] LABS: Blood Morphology Comment NOT SEEN (NOT SEEN)
[2023-01-23] MEDS: ENSURE ENLIVE 237 ML CAN PO SCH (21:00)
[2023-01-24] MEDS: ACETAMINOPHEN 500 MG TAB PO PRN ×2 (02:23→09:47)
[2023-01-24] MEDS: FUROSEMIDE 20 MG/ 2ML VIAL IV SCH ×4 (05:57→23:45)
--- NOTE | 2023-01-24 07:55 | P.PN ---
Subjective Date of Service: 01/24/23 Primary Care Provider: Dr. Muir Chief Complaint: Acute CHF exacerbation Subjective: Improving Review of Systems 10-point ROS is otherwise unremarkable Neurological: Other (Headache every morning) Physical Examination - Vital Signs Temperature: 97.1 F Blood Pressure: 116/62 Pulse: 71 Respirations: 17 Pulse Ox (%): 93 - Physical Exam General: Alert, In no apparent distress, Oriented x3 HEENT: Atraumatic, Normocephalic, PERRLA Neck: Supple, 2+ carotid pulse no bruit Respiratory: Clear to auscultation bilaterally, Normal air movement Cardiovascular: Normal pulses, Edema (improved pedal edema, continues with 1 + pitting edema) Capillary refill: <2 Seconds Gastrointestinal: Normal bowel sounds, Soft and benign Musculoskeletal: No clubbing Integumentary: No rashes Neurological: Normal speech, Normal tone Lymphatics: No axilla or inguinal lymphadenopathy External genitalia: Deferred Rectal: Deferred Assessment And Plan - Current Problems (Diagnosis) (1) Acute on chronic heart failure with reduced ejection fraction and diastolic dysfunction Current Visit: Yes Status: Acute Plan: Hold lasix for now, worsening renal function, blood pressure remains soft at 90/60, 97/65 ECHO showed severe pulmonary hypertension, severe global hypokinesis, EF about 10% Appreciate Nephrology input 01/20/23 creatinine 1.69 today from 1.89, NSR overnight with some occasional bigemeny, pressure this am still soft 96/60 01/23/23, pt doing better, off antihypertensives, Lasix to q 6h. Creatinine 1.36. BP 123/71, 64, 100% 2L 01/24/23 still off antihypertensives, BP this am 90s/60s, creatinine to 1.3, GFR improved to 41. Cardiology to sign off.
[2023-01-24] MEDS: ENSURE ENLIVE 237 ML CAN PO SCH ×2 (09:00→21:00)
[2023-01-24] MEDS: METOPROLOL TAR 25 MG TAB PO SCH ×2 (09:47→21:00)
[2023-01-24] MEDS: BUSPIRONE HCL 5 MG TABLET PO SCH ×2 (09:48→22:18)
[2023-01-24] MEDS: ENOXAPARIN 30 MG/0.3 ML SQ SCH (09:48)
[2023-01-24] MEDS: DOCUSATE NA 100 MG CAP PO SCH ×2 (09:48→22:19)
[2023-01-24] MEDS: ACETAMIN/CAFFEINE/BUTALB TAB PO PRN ×2 (16:23→22:16)
--- NOTE | 2023-01-24 17:55 | P.PN ---
Date of Service: 01/24/23 Vital Signs Temp Pulse Resp BP Pulse Ox 97.9 F 80 28 H 118/70 95 01/24/23 16:00 01/24/23 16:00 01/24/23 16:00 01/24/23 16:00 01/24/23 16:00 Medications Acetaminophen (Acetaminophen 500 Mg Tab) 500 mg PO Q4HP PRN PRN Reason: pain/fever Last Admin: 01/24/23 09:47 Dose: 500 mg Acetaminophen/Butalbital/Caffeine (Acetamin/Caffeine/Butalb Tab) 1 tab PO Q6H PRN PRN Reason: Pain scale 5-7 (Moderate) Last Admin: 01/24/23 16:23 Dose: 1 tab Albuterol Sulfate (Albuterol 2.5 Mg/3 Ml Neb Norma) 2.5 mg NEB [id number] PRN PRN Reason: SHORTNESS OF BREATH Last Admin: 01/22/23 21:35 Dose: 2.5 mg Buspirone HCl (Buspirone Hcl 5 Mg Tablet) 5 mg PO BID [facility] Last Admin: 01/24/23 09:48 Dose: 5 mg Docusate Sodium (Docusate Na 100 Mg Cap) 100 mg PO BID [facility] Last Admin: 01/24/23 09:48 Dose: 100 mg Enoxaparin Sodium (Enoxaparin 30 Mg/0.3 Ml) 30 mg SQ DAILY [facility] Last Admin: 01/24/23 09:48 Dose: 30 mg Furosemide (Furosemide 20 Mg/ 2ml Vial) 20 mg IV Q6H [facility] Last Admin: 01/24/23 16:47 Dose: 20 mg Metoprolol Tartrate (Metoprolol Tar 25 Mg Tab) 25 mg PO BID [facility] Last Admin: 01/24/23 09:47 Dose: 25 mg Nutritional Formula (Ensure Enlive 237 Ml Can) 237 ml PO BID [facility] Last Admin: 01/24/23 09:00 Dose: Not Given Ondansetron HCl (Ondansetron 4 Mg/2 Ml Vial) 4 mg IV Q6HP PRN PRN Reason: NAUSEA / VOMITING Polyethylene Glycol (Polyethyl Gly 3350 17 Gm/Dose) 17 gm PO DAILY PRN PRN Reason: CONSTIPATION Microbiology Results 01/15/23 17:04 Nasopharnyx Influenza Type A Antigen Screen - Final 01/15/23 17:04 Nasopharnyx Influenza Type B Antigen Screen - Final Assessment/ Plan: Nephrology Progress Note No Dyspnea. TYLER No Chest Pain Weakness and Fatigue No Acute Events Overnight Vital Signs, Medications, Blood Work, and Imaging reviewed in the chart General: Oriented x3, Cooperative HEENT: Atraumatic Neck: Supple Respiratory: Improving Expiratory wheezes Cardiovascular: Regular rate/rhythm, Edema Gastrointestinal: Soft and benign, Non-distended, No guarding Musculoskeletal: No clubbing, No contractures Integumentary: No rashes, No cyanosis Neurological: Normal speech Blood work reviewed in the chart. Imagings Data: [id number] EXAM DESCRIPTION: [facility] Single View01/15/2023 4:36 pm CLINICAL HISTORY: sob COMPARISON: none FINDINGS: Mild bilateral interstitial lung opacities. Heart is moderately enlarged IMPRESSION: Mild CHF [id number] LEFT VENTRICULAR WALL MOTION: SEVERE GLOBAL HYPOKINESIS DOPPLER/COLOR FLOW: SEE BELOW COMMENTS: 1. SEVERELY DEPRESSED LEFT VENTRICULAR EJECTION FRACTION 10-15% 2. SEVERE GLOBAL HYPOKINESIS 3. DIASTOLIC DYSFUNCTION 4. MODERATE TO SEVERE TRICUSPID REGURGITATION 5. MODERATE MITRAL REGURGITATION 6. LEFT ATRIAL ENLARGEMENT 7. SEVERE PULMONARY HYPERTENSION WITH RIGHT VENTRICULAR SYSTOLIC PRESSURE GREATER THAN 60 mmHg Conclusions/Impression: Stage I ROMA in the setting of hypotension/ CRS CKD IIIa -No NSAIDs Hyponatremia -Continue Lasix -Continue fluid restriction -Mannitol X1 dose Hyperkalemia -Lokelma prn -Continue Lasix Variable Hypotension -Consider midodrine to improve BP and diuresis Systolic Diastolic CHF, A/C Moderate TR & MR Pulmonary HTN -Low sodium diet -Daily weight -Continue Lasix 20mg IV q6h -Mannitol X1 dose Hypoalbuminemia -Recommend protein supplementation
[2023-01-24] MEDS ORDERED: MANNITOL 25% 12.5 GM/50 ML VIAL IV ONE (21:30)
[2023-01-24] MEDS ORDERED: MANNITOL 25% 100 ML IV ONE (22:59)
[2023-01-25] MEDS: FUROSEMIDE 20 MG/ 2ML VIAL IV SCH (05:15)
[2023-01-25] MEDS: ACETAMINOPHEN 500 MG TAB PO PRN (05:38)
[2023-01-25 08:00] VITALS: O2SAT 92
[2023-01-25] MEDS: METOPROLOL TAR 25 MG TAB PO SCH (09:00)
[2023-01-25] MEDS: BUSPIRONE HCL 5 MG TABLET PO SCH (09:00)
[2023-01-25] MEDS: ENOXAPARIN 30 MG/0.3 ML SQ SCH (09:00)
[2023-01-25] MEDS: DOCUSATE NA 100 MG CAP PO SCH (09:00)
[2023-01-25] MEDS: ENSURE ENLIVE 237 ML CAN PO SCH (09:00)
[2023-01-25 10:17] VITALS: BP 144/69; TEMP 97.6
--- NOTE | 2023-01-25 20:56 | P.PN ---
Date of Service: 01/25/23 Vital Signs Temp Pulse Resp BP Pulse Ox 97.6 F 78 18 144/69 H 94 01/25/23 08:00 01/25/23 08:00 01/25/23 08:00 01/25/23 08:00 01/25/23 08:00 Microbiology Results 01/15/23 17:04 Nasopharnyx Influenza Type A Antigen Screen - Final 01/15/23 17:04 Nasopharnyx Influenza Type B Antigen Screen - Final Assessment/ Plan: Nephrology Progress Note No Dyspnea. TYLER Persistent Edema No Chest Pain Weakness and Fatigue No Acute Events Overnight Vital Signs, Medications, Blood Work, and Imaging reviewed in the chart General: Oriented x3, Cooperative HEENT: Atraumatic Neck: Supple Respiratory: Improving Expiratory wheezes Cardiovascular: Regular rate/rhythm, Edema Gastrointestinal: Soft and benign, Non-distended, No guarding Musculoskeletal: No clubbing, No contractures Integumentary: No rashes, No cyanosis Neurological: Normal speech Blood work reviewed in the chart. Imagings Data: [id number] EXAM DESCRIPTION: [facility] Single View01/15/2023 4:36 pm CLINICAL HISTORY: sob COMPARISON: none FINDINGS: Mild bilateral interstitial lung opacities. Heart is moderately enlarged IMPRESSION: Mild CHF [id number] LEFT VENTRICULAR WALL MOTION: SEVERE GLOBAL HYPOKINESIS DOPPLER/COLOR FLOW: SEE BELOW COMMENTS: 1. SEVERELY DEPRESSED LEFT VENTRICULAR EJECTION FRACTION 10-15% 2. SEVERE GLOBAL HYPOKINESIS 3. DIASTOLIC DYSFUNCTION 4. MODERATE TO SEVERE TRICUSPID REGURGITATION 5. MODERATE MITRAL REGURGITATION 6. LEFT ATRIAL ENLARGEMENT 7. SEVERE PULMONARY HYPERTENSION WITH RIGHT VENTRICULAR SYSTOLIC PRESSURE GREATER THAN 60 mmHg Conclusions/Impression: Stage I ROMA in the setting of hypotension/ CRS CKD IIIa -No NSAIDs Hyponatremia -Continue Lasix -Continue fluid restriction Hyperkalemia -Lokelma prn -Continue Lasix Variable Hypotension -Consider midodrine to improve BP and diuresis Systolic Diastolic CHF, A/C Moderate TR & MR Pulmonary HTN -Low sodium diet -Daily weight -Continue Lasix 20mg IV q6h Hypoalbuminemia -Recommend protein supplementation Case reviewed with hospitalist team
== END 2023-01-25 10:44 | disposition home health service (06) | DRG 280 ==
LOC: ER 15:38 → ERHOLD 19:08 → 2ND 19:51
PROVIDERS: ADMIT Hospitalist; ATTEND Hospitalist
DX: I13.0 Hypertensive heart and chronic kidney disease with heart failure and stage 1 through stage 4 chronic kidney disease, or unspecified chronic kidney disease (principal); I21.4 Non-ST elevation (NSTEMI) myocardial infarction; I50.43 Acute on chronic combined systolic (congestive) and diastolic (congestive) heart failure; N17.9 Acute kidney failure, unspecified; E87.1 Hypo-osmolality and hyponatremia; I42.0 Dilated cardiomyopathy; N18.31 Chronic kidney disease, stage 3a; E03.9 Hypothyroidism, unspecified; E78.00 Pure hypercholesterolemia, unspecified; K21.9 Gastro-esophageal reflux disease without esophagitis; K59.00 Constipation, unspecified; I27.20 Pulmonary hypertension, unspecified; E87.5 Hyperkalemia; I95.9 Hypotension, unspecified; I08.1 Rheumatic disorders of both mitral and tricuspid valves; E88.09 Other disorders of plasma-protein metabolism, not elsewhere classified; Z85.3 Personal history of malignant neoplasm of breast; Z11.52 Encounter for screening for COVID-19; Z90.10 Acquired absence of unspecified breast and nipple; Z79.82 Long term (current) use of aspirin; Z79.899 Other long term (current) drug therapy; Z79.890 Hormone replacement therapy
CPT/HCPCS: 36415; 51702; 71045; 80048; 80053; 80076; 81003; 82140; 82947; 83690; 83735; 83880; 84100; 84484; 85025; 85610; 87804; 87811; 93005; 93306; 93970; 94640; 96374; 99285; J1650; J1940; J2150; J7030; J7613; P9047